=== PATIENT | female | born 1940 | race Caucasian/White ===

== ENCOUNTER 2016-08-07 05:21 | Inpatient (IN) | payer OTHER, MEDICARE ==
[~2016-08-07] VITALS: Ht 170.2 cm; Wt 69.4 kg
[~2016-08-07 05:21] MED LIST: ALIGN4 MG PO; AMIODARONE200 MG PO; ASPIRIN CHILDRE81 MG PO; ATORVASTATIN CA20 MG PO; CARDIZEM 180 M180 MG PO; CITRUCEL WITH500 MG PO; CLOBETASOL0.05 %/60 TOP; COLACE100 MG PO; DILANTIN ER 10100 MG PO; DILTIAZEM120 MG PO; ELIQUIS5 MG PO; FISH OIL1000 MG PO; MAGNESIUM OXID400 MG PO; MULTIVITAMIN1 TAB PO; NASONEX0.05 MG/Ac NASB; OS-CAL 500 + D1 TAB PO; PATANASE0.6% NASB; PRILOSEC20 MG PO; RESTASIS0.05% OPH; SYSTANE LUBRICAN5 ML OPH; SYSTANE0.3% OPH; TOPROL XL 50MG50 MG PO; TYLENOL 8 HOUR650 MG PO; VITAMIN D31000 I1 PO
--- NOTE | 2016-08-07 05:35 | ED GI/GU/ABDOMINAL COMPLAINT ---
History of Present Illness General Chief Complaint: Abdominal Pain/Flank Pain Stated Complaint: ABD PAIN,FEELS LIKE GOT RUN OVER BY TRUCK PER PT Source: patient, old records, EMS Exam Limitations: no limitations Vital Signs & Intake/Output Vital Signs & Intake/Output Vital Signs Date Time Temp Pulse Resp B/P Pulse O2 O2 Flow FiO2 Ox Delivery Rate 08/08 0916 97 123/78 08/08 0916 97 123/78 08/08 0809 97.3 97 18 123/78 92 Room Air 08/08 0604 81 116/70 08/07 2217 98.6 95 22 112/80 91 Room Air 08/07 205 95 112/80 08/07 205 95 112/80 08/07 205 95 112/80 08/07 1718 Room Air 08/07 1651 98.6 88 12 116/61 94 Room Air 08/07 1436 97.1 78 18 114/63 93 Room Air 08/07 1214 103 16 114/74 94 Room Air ED Intake and Output 08/08 0000 08/07 1200 Intake Total 1060 Output Total 980 Balance 80 Intake, IV 1000 Intake, Oral 0 Intake, Other 60 Number 0 Bowel Movements Output, 980 Gastric Drainage Patient 153 lb 127 lb Weight Allergies Coded Allergies: NSAIDS (Non-Steroidal Anti-Inflamma (UNKNOWN 08/07/16) carisoprodol (From Soma) (UNKNOWN 08/07/16) celecoxib (From Celebrex) (UNKNOWN 08/07/16) diclofenac (From Voltaren) (UNKNOWN 08/07/16) ibandronate sodium (UNKNOWN 08/07/16) nitrofurantoin (From Macrobid) (UNKNOWN 08/07/16) oxymetazoline (From Afrin (oxymetazoline)) (UNKNOWN 08/07/16) Reconcile Medications Acetaminophen (Tylenol 8 Hour) [address] 1 TAB PO AD PRN PAIN (Reported) Amiodarone Hydrochloride (Amiodarone) 200 MG TAB 1 TAB PO BID AFIB (Reported) Apixaban (Eliquis) 5 MG TABLET 1 TAB PO BID atrial fibrillation Aspirin (Children's Aspirin) 81 MG TAB.CHEW 1 TAB PO DAILY HEART HEALTH ( Reported) Atorvastatin Calcium (Lipitor) 20 MG TABLET 1 TAB PO DAILY cholesterol ( Reported) Bifidobacterium Infantis (Align) 4 MG (1 BILLION CELL) CAPSULE 1 CAP PO DAILY supplement (Reported) CALCIUM CARBONATE/VITAMIN D3 (Os-Vinicius 500+D3 Caplet) 500 MG-200 TABLET 1 TAB PO BID SUPPLEMENT (Reported) CHOLECALCIFEROL (VITAMIN D3) (Vitamin D3) 1,000 UNIT CAPSULE 1 SGL PO DAILY supplement (Reported) Clobetasol Propionate (Clobetasol Propionate 0.05% 60GM (CREAM)) 0.05 %/60 GM CRM 1 JAROD TOP AD PRN SKIN (Reported) apply to affected area(s) Cyclosporine (Restasis) 0.05 % DROPERETTE 1 GTT OPH Q12 dry eye (Reported) Diltiazem Cd (Cardizem 180 MG Cd Cap) 120 MG CAP.ER.24H 1 CAP PO DAILY atrial fibrillation Docusate Sodium (Colace) 100 MG CAPSULE 1 CAP PO DAILY constipation (Reported ) Hypromellose (Systane Gel) 0.3 % GEL..GRAM. 1 GTT OPH TID EYES (Reported) Magnesium Oxide 400 MG TABLET 1 TAB PO DAILY supplement (Reported) Methylcellulose (Citrucel) 500 MG TABLET 1 TAB PO BID supplement (Reported) Metoprolol Succ XL (Toprol Xl 50MG Tab) 50 MG TAB.ER.24H 1 TAB PO DAILY blood pressure (Reported) Mometasone Furoate (Nasonex) 0.05 MG/Actuation SPR 1 SPRAY NASB DAILY nasal congestion (Reported) Multivitamin (Multiple Vitamins) 1 EACH TABLET 1 TAB PO DAILY supplement ( Reported) OLOPATADINE HCL (Patanase) 0.6 % SPRAY.PUMP 2 SPRAY NASB BID nasal congestion (Reported) OMEGA-3/DHA/EPA/FISH OIL ([place]-3 Fish Oil 1,000 MG Sftg) 300 MG-1,000 MG CAPSULE 2 SGL PO DAILY supplement (Reported) Omeprazole (Prilosec) 20 MG ECC 1 CAP PO DAILY AC GI (Reported) Peg-400/Propylene Glycol (Systane Lubricant Eye Drops 0.4%-0.3% 5 Ml) 5 ML BRADLEY 1 GTT OPH TID dry eye (Reported) Phenytoin (Dilantin ER 100MG Cap) 100 MG CAP 1 CAP PO TID SEIZURES (Reported) Triage Nurses Notes Reviewed? yes ? N Is pt currently ? No HPI: Patient presents with epigastric crampy pain that started last evening. Patient states the pain has been so intense she has been unable to sleep. Patient cannot find a position of comfort. Positive nausea but no vomiting. No aggravating or mitigating factors. The pain radiates into the right lower quadrant. The pain is constant. Patient rates the pain at 7 out of 10. (GEORGE CLEMENT,NEERAJ Bush) Past History Travel History Traveled to [place] past 21 day No Medical History Any Pertinent Medical History? 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 No (GEORGE CLEMENT,NEERAJ Bush) Review of Systems Review of Systems Constitutional: Reports: no symptoms. EENTM: Reports: no symptoms. Respiratory: Reports: no symptoms. Cardiovascular: Reports: no symptoms. GI: Reports: see HPI, abdominal pain, bloating, nausea. Genitourinary: Reports: no symptoms. Musculoskeletal: Reports: no symptoms. Skin: Reports: no symptoms. Neurological/Psychological: Reports: no symptoms. Hematologic/Endocrine: Reports: no symptoms. Immunologic/Allergic: Reports: no symptoms. All Other Systems: Reviewed and Negative (NEERAJ VAZQUEZ MD) Physical Exam Physical Exam General Appearance: well developed/nourished, alert, awake Head: atraumatic Eyes: Bilateral: PERRL, EOMI. Ears, Nose, Throat, Mouth: hearing grossly normal, DRY MUCOSA Neck: normal inspection, supple, full range of motion Respiratory: normal breath sounds, chest non-tender, no respiratory distress, lungs clear Cardiovascular: regular rate/rhythm, irregularly irregular Gastrointestinal: normal bowel sounds, soft, non-tender, tenderness (RUQ) Back: normal inspection, normal range of motion Extremities: normal range of motion Neurologic/Psych: no motor/sensory deficits, awake, alert, oriented x 3, normal mood/affect Skin: intact, normal color, warm/dry Core Measures ACS in differential dx? No Severe Sepsis Present: No Septic Shock Present: No (GEORGE CLEMENT,NEERAJ Bush) Physical Exam Gastrointestinal: tenderness (YANICK CLEMENT,NIRMALA Jaimes) Progress Differential Diagnosis: AAA, AMI, appendicitis, biliary colic, bowel obstruction , cholecystitis, diverticulitis, gastritis, hepatitis, ischemic bowel, inflamm bowel dis, pancreatitis, PUD/GERD, SBO, UTI/pyelo Plan of Care: Orders Procedure Date/time Status MAGNESIUM 08/09 06 Active CBC WITHOUT DIFFERENTIAL 08/09 0600 Active BASIC ELECTROLYTES PLUS BUN&CR 08/09 0600 Active CBC WITHOUT DIFFERENTIAL 08/08 0600 Complete BASIC ELECTROLYTES PLUS BUN&CR 08/08 0600 Complete [id number] VIEWS 08/08 UNK Active Nothing by Mouth 08/07 D Active Vital Signs 08/07 1718 Active Teach/Educate 08/07 1718 Active Nutritional Intake, Monitor 08/07 1718 Active Isolation 08/07 1718 Active Intake & Output 08/07 1718 Active Patient Care Conference 08/07 1718 Active Activity/Ambulation 08/07 1718 Active Admit to inpatient 08/07 1342 Active Pathway - chart 08/07 1319 Active Patient Data 08/07 1319 Active Code Status 08/07 1319 Active Intake & Output 08/07 0628 Active VTE Mechanical Prophylaxis 08/07 UNK Active Telemetry/Calendering Supervisor 08/07 UNK Active Current Medications Sig/Rosalia Start time Last Medication Dose Stop Time Status Admin Diltiazem HCl 120 MG DAILY 08/08 1000 CAN (Cardizem CD) Metoprolol Succinate 50 MG DAILY 08/08 1000 CAN (Toprol Xl) Phenytoin 100 MG TID 08/07 1600 CAN (Dilantin ER) Ondansetron HCl 4 MG Q8P PRN 08/07 1300 AC (Zofran) Laboratory Tests 08/08/16 0822: CBC w Diff NO MAN DIFF REQ, RBC 4.53, MCV 97.7, MCH 32.7 H, RDW 14.1, MPV 9.1, Gran % 76.5 H, Lymphocytes % 10.1 L, Monocytes % 12.5 H, Eosinophils % 0.7, Basophils % 0.2, Absolute Granulocytes 3.0, Absolute Lymphocytes 0.4 L, Absolute Monocytes 0.5, Absolute Eosinophils 0, Absolute Basophils 0, PUBS MCHC 33.5 08/08/16 0600: Anion Gap 8, Estimated GFR > 60, BUN/Creatinine Ratio 25.0 08/07/16 1545: Urinalysis MANY H, Urine Color YEL, Urine Clarity HAZY H, Urine pH 7.0, Ur Specific [place] 1.010, Urine Protein TRACE H, Urine Ketones NEG, Urine Nitrite NEG, Urine Bilirubin NEG, Urine Urobilinogen 0.2, Ur Leukocyte Esterase NEG, Ur Microscopic SEDIMENT EXAMINED, Urine RBC 5-10 H, Urine WBC RARE, Ur Epithelial Cells FEW, Urine Bacteria FEW H, Urine Hemoglobin MOD H, Urine Glucose NEG Pre-Hospital EKG: AFIB, nonspecific ST T wave chg Initial ED EKG: AFIB, nonspecific ST T wave chg Prior EKG: unchanged Repeat EKG: unchanged Rhythm Strip: atrial fibrillation Hand-Off Endorsed To: YANICK CLEMENT,NIRMALA Jaimes Endorsed Time: 0700 Pending: CT (GEORGE CLEMENT,NEERAJ Bush) Comments: 08/07/2016 7:09:23 AM patient signed out to me by Dr. Vazquez at shift change coordinator. 08/07/2016 8:47:11 AM I was asked to evaluate Jenifer a short time ago because she felt lightheaded and dizzy and became quite pale when attempting to use a bedside commode. She was lying in bed with the head at about 30 upon my arrival. She was laid flat and given a fluid bolus. She was hypotensive at the time. I have just reevaluated her and she has no specific complaints. Heart rate and blood pressure and oxygen saturations are normal. Awaiting CAT scan report. 08/07/2016 8:50:06 AM ACUTE ON CHRONIC DISTAL SBO PER RADIOLOGIST. GB IS DISTENDED WITH NO OTHER SIG FINDINGS. DIVERTICULOSIS. 08/07/2016 9:29:13 AM case discussed with surgical PA. 08/07/2016 12:03:48 PM surgical PA at bedside while NG tube is being placed by nursing. Chong Thomas MD has yet to authorize this patient's admissioN. Awaiting confirmation of admission disposition. (YANICK CLEMENT,NIRMALA Jaimes) Departure Departure Disposition: STILL A PATIENT Condition: Stable Clinical Impression Primary Impression: Upper abdominal pain, unspecified Referrals: WENDY CLEMENT,MONA (PCP/Family) Departure Forms: Customer Survey General Discharge Information (GEORGE CLEMENT,NEERAJ Bush) Admission Note Spoke With: ANNETTE CLEMENT,CHONG Talbert Documentation of Exam: Documentation of any treatments & extenuating circumstances including Concerns Regarding Discharge (functional status, medication knowledge or non-compliance, living conditions, etc.) that warrant an admission rather than observation: pt has a small bowel obstruction placing her at high risk of vomitting abdominal pain perforation peritonitis sepsis and . she must be kept npo to rest the bowels, placing her at high risk of dehydration,volume depletion and hypotension. she requires close clinical monitoring of vitals and abd exam. if pts condition worsens, surgical intervention should be considered. pt therefor cannot be treated adequately as an outpt. given her age and medical comorbidities i feel she will require a multiple day hospitalization. (YANICK CLEMENT,NIRMALA Jaimes)
[2016-08-07 06:10] LABS: ABSOLUTE BASOPHIL COUNT 0 /CUMM (0.0-0.2); ABSOLUTE EOSINOPHIL COUNT 0 /CUMM (0.0-0.7); ABSOLUTE GRANULOCYTE CT 6.8 /CUMM (1.4-6.5); ABSOLUTE LYMPH COUNT 0.5 /CUMM (1.2-3.4); ABSOLUTE MONOCYTE COUNT 0.4 /CUMM (0.10-0.60); BASOPHIL % 0.4 % (0.0-2.0); EOSINOPHIL % 0.6 % (0-5); GRANULOCYTE % 87.4 % (42.2-75.2); HEMATOCRIT 48.2 % (37-47); MEAN CORPUSCULAR HGB 32.6 PG (27.0-31.0); MEAN CORPUSCULAR HGB CONC 33.6 G/DL (33.0-37.0); MEAN PLATELET VOLUME 8.8 FL (7.4-10.4); PLATELET COUNT 174 /CUMM (130-400); RBC DISTRIBUTION WIDTH 13.7 % (11.5-14.5); RED BLOOD CELL CT 4.97 /CUMM (4.20-5.40); WHITE BLOOD CELL COUNT 7.8 /CUMM (4.8-10.8)
--- NOTE | 2016-08-07 09:06 | CT SCAN REPORT ---
EXAMINATION: CT ABDOMEN AND PELVIS WITH CONTRAST CLINICAL INFORMATION: 76-year-old female presented with epigastric abdominal pain, suspected pancreatitis, biliary colic, diverticulitis. COMPARISON: CT of the abdomen and pelvis done on 01/07/2015. Radiographs of the left hip done on 10/15/2006. TECHNIQUE: Multidetector volumetric imaging was performed of the abdomen and pelvis before and after the IV administration of 98 mL of Optiray 320 intravenous contrast. Sagittal and coronal reformatted images were obtained on the technologist's workstation. DLP: 355.2 mGy-cm FINDINGS: LUNG BASES: Mild hypoventilatory changes are noted. There is cardiomegaly present. LIVER, GALLBLADDER, AND BILIARY TREE: The liver is normal in size, shape, and attenuation. No focal hepatic lesion or biliary ductal dilatation is present. The gallbladder is markedly distended without evidence of any wall thickening, gallstone or inflammatory changes, likely physiologic. PANCREAS: Unremarkable. SPLEEN: Unremarkable. ADRENAL GLANDS: Unremarkable. KIDNEYS AND URETERS: The kidneys are normal in size, shape, and attenuation. No hydronephrosis, hydroureter, or calculi seen. No perinephric stranding. BLADDER: Unremarkable. GASTROINTESTINAL TRACT: The stomach is moderately distended. There is a small sliding hiatal hernia present. The large bowel loops are decompressed. Colonic diverticulosis-related changes are present. The proximal, mid to distal small bowel loops are markedly distended with multilevel air-fluid levels. Specific note is made of a tortuous fecalized small bowel loop seen within the mid to inferior right lateral, posterior hemipelvis with a short sharp zone of transition seen at the level of the right mid hemipelvis (see the redmond images). Distal few centimeters of the ileum including the terminal ileum appeared decompressed beyond the zone of transition (see the redmond images). The findings are consistent with acute on chronic distal small bowel obstruction. Specific note is made of absence of air within the wall of the bowel loops or any mesenteric or portal venous gas or free intraperitoneal air. Note is, however, made of presence of [id number] amount of free fluid within the dependent part of the pelvis and also small amount of free fluid around the liver and at the hepatorenal space. ABDOMINAL WALL: No significant hernia is appreciated. LYMPH NODES: Normal. VASCULAR: Unremarkable. PELVIC VISCERA: There is no pelvic mass present. [id number] amount of free fluid is noted within the pelvis. There is no free air present. OSSEOUS STRUCTURES: Focal area of intramedullary sclerotic lesion is noted within the included visualized proximal part of the left intertrochanteric region of the femur, may represent a bone island, bone infarct, etc. Appears stable since 10/15/2006, consistent with benign pathology. Moderate diffuse osteopenia, mild scoliosis and mild multilevel degenerative spondylosis-related changes are noted. IMPRESSION: 1. Compared to most recent prior CT of the abdomen and pelvis done on 01/07/2015, interval development of distal acute on chronic small bowel obstruction present, as described above. Note is also made of [id number] amount of free fluid within the pelvis and small amount of fluid around the liver. The gallbladder appears distended without any CT features of acute cholecystitis or biliary obstruction, likely represent physiologic changes. 2. Stable colonic diverticulosis. 3. No other significant change since the prior study. This critical result was discussed with Dr. Braulio Wiley at 8:48 AM on 08/07/2016 and it was ascertained that the content and urgency of the report was understood at the time of direct communication.
--- NOTE | 2016-08-07 12:57 | RADIOLOGY REPORT ---
EXAMINATION: XR PORTABLE CHEST CLINICAL INFORMATION: Nausea and abdominal pain. NG tube placement. COMPARISON: 07/05/2015 TECHNIQUE: Portable AP view of the chest was obtained. FINDINGS: Cardiac leads overlie the chest. The enteric tube extends into the stomach, terminating along the greater curvature of the body. The lungs are well expanded. There is linear bibasilar atelectasis. No pleural effusion or pneumothorax. The cardiomediastinal silhouette is within normal limits. No acute osseous abnormality. IMPRESSION: Enteric tube terminating in the stomach. Bibasilar subsegmental atelectasis.
--- NOTE | 2016-08-07 13:23 | Admission Core Measures ---
Admission Lab Results I reviewed the following labs: Laboratory Tests 08/07 0558 Chemistry Sodium (137 - 145 mmol/L) 139 Potassium (3.5 - 5.1 mmol/L) 4.6 Chloride (98 - 107 mmol/L) 99 Carbon Dioxide (22 - 30 mmol/L) 31 H Anion Gap (5 - 16) 9 BUN (7 - 17 mg/dL) 11 Creatinine (0.5 - 1.0 mg/dL) 0.6 Estimated GFR (>60 ml/min) > 60 BUN/Creatinine Ratio (7 - 25 %) 18.3 Glucose (65 - 99 mg/dL) 114 H Calcium (8.4 - 10.2 mg/dL) 10.4 H Total Bilirubin (0.2 - 1.3 mg/dL) 0.6 AST (14 - 36 U/L) 35 ALT (9 - 52 U/L) 43 Alkaline Phosphatase (<127 U/L) 155 H Troponin I (< 0.11 ng/ml) < 0.01 Total Protein (6.3 - 8.2 g/dL) 7.7 Albumin (3.5 - 5.0 g/dL) 4.4 Globulin (1.9 - 4.2 gm/dL) 3.3 Albumin/Globulin Ratio (1.1 - 2.2 %) 1.3 Amylase (30 - 110 U/L) 32 Lipase (23 - 300 U/L) 55 Hematology CBC w Diff MAN DIFF ORDERED WBC (4.8 - 10.8 /CUMM) 7.8 RBC (4.20 - 5.40 /CUMM) 4.97 Hgb (12.0 - 16.0 G/DL) 16.2 H Hct (37 - 47 %) 48.2 H MCV (81.0 - 99.0 FL) 97.0 MCH (27.0 - 31.0 PG) 32.6 H RDW (11.5 - 14.5 %) 13.7 Plt Count (130 - 400 /CUMM) 174 MPV (7.4 - 10.4 FL) 8.8 Gran % (42.2 - 75.2 %) 87.4 H Lymphocytes % (20.5 - 51.1 %) 6.4 L Monocytes % (1.7 - 9.3 %) 5.2 Eosinophils % (0 - 5 %) 0.6 Basophils % (0.0 - 2.0 %) 0.4 Absolute Granulocytes (1.4 - 6.5 /CUMM) 6.8 H Absolute Lymphocytes (1.2 - 3.4 /CUMM) 0.5 L Absolute Monocytes (0.10 - 0.60 /CUMM) 0.4 Absolute Eosinophils (0.0 - 0.7 /CUMM) 0 Absolute Basophils (0.0 - 0.2 /CUMM) 0 Platelet Estimate (ADEQUATE) ADEQUATE Normocytic RBCs VERIFIED Normochromic RBCs VERIFIED PUBS MCHC (33.0 - 37.0 G/DL) 33.6 Admission Meds I reviewed the following Meds: Current Medications Sig/Rosalia Start time Last Medication Dose Stop Time Status Admin Acetaminophen 1,000 MG Q6P PRN 08/07 1330 UNVr (Ofirmev) N/A 1 UNIT (No Carrier) Dextrose/Sodium 1,000 ML .Q10H 08/07 1300 UNVr Chloride (D5-Normal Saline) Morphine Sulfate 2 MG Q4P PRN 08/07 1315 UNVr (Morphine) Ondansetron HCl 4 MG Q8P PRN 08/07 1300 UNVr (Zofran) Acute Coronary Syndrome Inclusion Criteria ACS Diagnosis No Inpatient Core Measures LDL Reminder: If No, please order W/I first 24hr of stay Congestive Heart Failure Inclusion Criteria CHF Diagnosis No Cerebrovascular accident Inclusion Criteria CVA/TIA Diagnosis No Inpatient Core Measures Bedside Swallow Eval Reminder: If BSE failed, place ST order Antithrombotic Reminder: Order Antithrombotic Medication by end of day 2 Antithrombotic Reminder: Document Reason Antithrombotic Not ordered by end of day 2 AFIB/Flutter Reminder: If Present, add to problem list AFIB/Flutter Reminder: Order Anticoag Medication for pts with AFIB/Flutter Atherosclerosis Reminder: If Present, add to problem list LDL Reminder: If No, please order W/I first 24hr of stay PT Order Reminder: If No, please order Venous thromboembolism Inpatient Core Measures VTE Risk Factors: Age > 40 VTE Prophylaxis Ordered Inpt Mechanical (AL[facility]TEDS) [facility]/t No contraindications No VTE Pharm Prophylaxis d/t No contraindications Inclusion Criteria - Per Current guidelines, there needs to be overlap - treatment for the first 5 days of Warfarin therapy. - Parenteral Anticoagulation (IV or SC) needs to be - given along with Warfarin therapy. VTE Diagnosis No VTE Type NONE VTE Confirmed by (Test) NONE Problem List As ranked by this Provider includes Assessment & Plan 1. Upper abdominal pain, unspecified HOME MEDS Home Med List Acetaminophen (Tylenol 8 Hour) [address] 1 TAB PO AD PRN PAIN (Reported) Amiodarone Hydrochloride (Amiodarone) 200 MG TAB 1 TAB PO BID AFIB (Reported) Apixaban (Eliquis) 5 MG TABLET 1 TAB PO BID atrial fibrillation Aspirin (Children's Aspirin) 81 MG TAB.CHEW 1 TAB PO DAILY HEART HEALTH ( Reported) Atorvastatin Calcium (Lipitor) 20 MG TABLET 1 TAB PO DAILY cholesterol ( Reported) Bifidobacterium Infantis (Align) 4 MG (1 BILLION CELL) CAPSULE 1 CAP PO DAILY supplement (Reported) CALCIUM CARBONATE/VITAMIN D3 (Os-Vinicius 500+D3 Caplet) 500 MG-200 TABLET 1 TAB PO BID SUPPLEMENT (Reported) CHOLECALCIFEROL (VITAMIN D3) (Vitamin D3) 1,000 UNIT CAPSULE 1 SGL PO DAILY supplement (Reported) Clobetasol Propionate (Clobetasol Propionate 0.05% 60GM (CREAM)) 0.05 %/60 GM CRM 1 JAROD TOP AD PRN SKIN (Reported) Cyclosporine (Restasis) 0.05 % DROPERETTE 1 GTT OPH Q12 dry eye (Reported) Diltiazem Cd (Cardizem 180 MG Cd Cap) 120 MG CAP.ER.24H 1 CAP PO DAILY atrial fibrillation Docusate Sodium (Colace) 100 MG CAPSULE 1 CAP PO DAILY constipation (Reported ) Hypromellose (Systane Gel) 0.3 % GEL..GRAM. 1 GTT OPH TID EYES (Reported) Magnesium Oxide 400 MG TABLET 1 TAB PO DAILY supplement (Reported) Methylcellulose (Citrucel) 500 MG TABLET 1 TAB PO BID supplement (Reported) Metoprolol Succ XL (Toprol Xl 50MG Tab) 50 MG TAB.ER.24H 1 TAB PO DAILY blood pressure (Reported) Mometasone Furoate (Nasonex) 0.05 MG/Actuation SPR 1 SPRAY NASB DAILY nasal congestion (Reported) Multivitamin (Multiple Vitamins) 1 EACH TABLET 1 TAB PO DAILY supplement ( Reported) OLOPATADINE HCL (Patanase) 0.6 % SPRAY.PUMP 2 SPRAY NASB BID nasal congestion (Reported) OMEGA-3/DHA/EPA/FISH OIL ([place]-3 Fish Oil 1,000 MG Sftg) 300 MG-1,000 MG CAPSULE 2 SGL PO DAILY supplement (Reported) Omeprazole (Prilosec) 20 MG ECC 1 CAP PO DAILY AC GI (Reported) Peg-400/Propylene Glycol (Systane Lubricant Eye Drops 0.4%-0.3% 5 Ml) 5 ML BRADLEY 1 GTT OPH TID dry eye (Reported) Phenytoin (Dilantin ER 100MG Cap) 100 MG CAP 1 CAP PO TID SEIZURES (Reported)
--- NOTE | 2016-08-07 18:58 | History & Physical Pre-Op ---
General Information and HPI History of Present Illness: CC: abdominal pain HPI: 76-year-old nondiabetic ex-smoker with a history of a hysterectomy, on Eliquis for atrial fibrillation actually planning a cardioversion next week by cardiology, says she hasn't had any abdominal or intestinal issues until last night started with nausea but nio vomiting, and bloating. Epigastric pain constant doesn't radiate no dysuria, it is somewhat relieved after NG tube was placed, she thinks it was because of the quiche she ate. They are are small she had four of them. Patient denies any recent straining or heavy lifting. She also has a history of constipation. Otherwise no changes bowel habits, weight or appetite. I've reviewed the PFS. No history of GERD, PUD, bleeding problems, heart disease or issues with anesthesia. FHx mother had brain tumor, Father Hx of Alzeimers, no GI cancers. Allergies/Medications Allergies: Coded Allergies: NSAIDS (Non-Steroidal Anti-Inflamma (UNKNOWN 08/07/16) carisoprodol (From Soma) (UNKNOWN 08/07/16) celecoxib (From Celebrex) (UNKNOWN 08/07/16) diclofenac (From Voltaren) (UNKNOWN 08/07/16) ibandronate sodium (UNKNOWN 08/07/16) nitrofurantoin (From Macrobid) (UNKNOWN 08/07/16) oxymetazoline (From Afrin (oxymetazoline)) (UNKNOWN 08/07/16) Home Med list Acetaminophen (Tylenol 8 Hour) [address] 1 TAB PO AD PRN PAIN (Reported) Amiodarone Hydrochloride (Amiodarone) 200 MG TAB 1 TAB PO BID AFIB (Reported) Apixaban (Eliquis) 5 MG TABLET 1 TAB PO BID atrial fibrillation Aspirin (Children's Aspirin) 81 MG TAB.CHEW 1 TAB PO DAILY HEART HEALTH ( Reported) Atorvastatin Calcium (Lipitor) 20 MG TABLET 1 TAB PO DAILY cholesterol ( Reported) Bifidobacterium Infantis (Align) 4 MG (1 BILLION CELL) CAPSULE 1 CAP PO DAILY supplement (Reported) CALCIUM CARBONATE/VITAMIN D3 (Os-Vinicius 500+D3 Caplet) 500 MG-200 TABLET 1 TAB PO BID SUPPLEMENT (Reported) CHOLECALCIFEROL (VITAMIN D3) (Vitamin D3) 1,000 UNIT CAPSULE 1 SGL PO DAILY supplement (Reported) Clobetasol Propionate (Clobetasol Propionate 0.05% 60GM (CREAM)) 0.05 %/60 GM CRM 1 JAROD TOP AD PRN SKIN (Reported) apply to affected area(s) Cyclosporine (Restasis) 0.05 % DROPERETTE 1 GTT OPH Q12 dry eye (Reported) Diltiazem Cd (Cardizem 180 MG Cd Cap) 120 MG CAP.ER.24H 1 CAP PO DAILY atrial fibrillation Docusate Sodium (Colace) 100 MG CAPSULE 1 CAP PO DAILY constipation (Reported ) Hypromellose (Systane Gel) 0.3 % GEL..GRAM. 1 GTT OPH TID EYES (Reported) Magnesium Oxide 400 MG TABLET 1 TAB PO DAILY supplement (Reported) Methylcellulose (Citrucel) 500 MG TABLET 1 TAB PO BID supplement (Reported) Metoprolol Succ XL (Toprol Xl 50MG Tab) 50 MG TAB.ER.24H 1 TAB PO DAILY blood pressure (Reported) Mometasone Furoate (Nasonex) 0.05 MG/Actuation SPR 1 SPRAY NASB DAILY nasal congestion (Reported) Multivitamin (Multiple Vitamins) 1 EACH TABLET 1 TAB PO DAILY supplement ( Reported) OLOPATADINE HCL (Patanase) 0.6 % SPRAY.PUMP 2 SPRAY NASB BID nasal congestion (Reported) OMEGA-3/DHA/EPA/FISH OIL ([place]-3 Fish Oil 1,000 MG Sftg) 300 MG-1,000 MG CAPSULE 2 SGL PO DAILY supplement (Reported) Omeprazole (Prilosec) 20 MG ECC 1 CAP PO DAILY AC GI (Reported) Peg-400/Propylene Glycol (Systane Lubricant Eye Drops 0.4%-0.3% 5 Ml) 5 ML BRADLEY 1 GTT OPH TID dry eye (Reported) Phenytoin (Dilantin ER 100MG Cap) 100 MG CAP 1 CAP PO TID SEIZURES (Reported) Past History Medical History Blood Transfusion Hx: No Neurological: BLACKOUTS IN THE 60S EENT: DEVIATED SEPTUM Cardiovascular: AFIB, MITRAL STENOSIS Respiratory: obstructive sleep apnea (CPAP) Gastrointestinal: ACID REFLUX Hepatic: NONE Renal: NONE Musculoskeletal: ARTHRITIS Psychiatric: NONE Endocrine: NONE Blood Disorders: NONE Cancer(s): 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 Home Services at Home None Smoking Status: Never Smoked ETOH Use: denies use Illicit Drug Use: denies illicit drug use Functional Ability ADLs Independent: dressing, eating, toileting, bathing. Ambulation: independent IADLs Independent: shopping, housework, finances, food prep, telephone, transportation , medication admin. Review of Systems Review of Systems: Constitutional: No fever, sweats or weight loss ENMT: No sore throat Cardiovascular: No chest pain, palpitations or leg swelling Respiratory: No shortness of breath, cough, or sputum or dyspnea on exertion GI: No GERD or bleeding per rectum : No dysuria or hematuria Musculoskeletal: No new muscle weakness, bone or joint pain Skin / Breast: No jaundice, rashes or itching Psychiatric: No history of drug or alcohol abuse no depression or anxiety Hematologic / lymphatic system: No problems with excessive bleeding, bruising, or blood clots Exam & Diagnostic Data Last 24 Hrs of Vital Signs/I&O I reviewed Vital Signs Date Time Temp Pulse Resp B/P Pulse O2 O2 Flow FiO2 Ox Delivery Rate 08/07 1718 Room Air 08/07 1651 98.6 88 12 116/61 94 Room Air 08/07 1436 97.1 78 18 114/63 93 Room Air 08/07 1214 103 16 114/74 94 Room Air 08/07 1021 96.8 104 20 130/80 99 Room Air 08/07 0829 97 20 116/66 100 Nasal 2.0L Cannula 08/07 0727 97.0 77 20 105/77 98 Room Air 08/07 0540 Nasal 2.0L Cannula 08/07 0524 96.7 96 20 121/74 97 Room Air I reviewed Intake & Output 08/07 1600 08/07 0800 08/07 0000 Intake Total Output Total 300 Balance -300 Output, 300 Gastric Drainage Patient 127 lb Weight Physical Exam: Constitutional: thin, pleasant, no acute distress, conversant Eyes: sclera anicteric ENMT: ears and nose atraumatic, moist mucous membranes, good dentition, no lip lesions Neck: Supple, trachea is midline, no cervical or supraclavicular adenopathy and no palpable thyromegaly Cardiovascular: S1, S2, no murmurs, no peripheral edema Respiratory: clear to auscultation with normal respiratory effort and no intercostal retractions GI: abdomen soft, nontender, sl distended, no palpable hepatosplenomegaly Extremities / lymphatics: symmetrically warm, free range of motion no peripheral edema, no cervical, supraclavicular, axillary, or inguinal adenopathy Musculoskeletal: Did not evaluate gait and station, no digital cyanosis, good muscle strength and tone no atrophy, motor grossly 5 out of 5 throughout Skin: no jaundice, no rashes warm, nondiaphoretic, no areas of erythema or induration Psychiatric: mood and affect are appropriate and alert and oriented to person place and time Last 24 Hrs of Labs/Storm: I reviewed Laboratory Tests 08/07/16 1545: Urinalysis MANY H, Urine Color YEL, Urine Clarity HAZY H, Urine pH 7.0, Ur Specific [place] 1.010, Urine Protein TRACE H, Urine Ketones NEG, Urine Nitrite NEG, Urine Bilirubin NEG, Urine Urobilinogen 0.2, Ur Leukocyte Esterase NEG, Ur Microscopic SEDIMENT EXAMINED, Urine RBC 5-10 H, Urine WBC RARE, Ur Epithelial Cells FEW, Urine Bacteria FEW H, Urine Hemoglobin MOD H, Urine Glucose NEG 08/07/16 0558: Anion Gap 9, Estimated GFR > 60, BUN/Creatinine Ratio 18.3, Glucose 114 H, Calcium 10.4 H, Total Bilirubin 0.6, AST 35, ALT 43, Alkaline Phosphatase 155 H, Troponin I < 0.01, Total Protein 7.7, Albumin 4.4, Globulin 3.3, Albumin/ Globulin Ratio 1.3, Amylase 32, Lipase 55, CBC w Diff MAN DIFF ORDERED, RBC 4.97 , MCV 97.0, MCH 32.6 H, RDW 13.7, MPV 8.8, Gran % 87.4 H, Lymphocytes % 6.4 L , Monocytes % 5.2, Eosinophils % 0.6, Basophils % 0.4, Absolute Granulocytes 6.8 H, Absolute Lymphocytes 0.5 L, Absolute Monocytes 0.4, Absolute Eosinophils 0, Absolute Basophils 0, Platelet Estimate ADEQUATE, Normocytic RBCs VERIFIED, Normochromic RBCs VERIFIED, PUBS MCHC 33.[address] scan on PACS myself and shows dilated small bowel with some distal fecalization, and some free fluid around the liver Assessment/Plan Assessment/Plan: Impression is small bowel obstruction presumably from adhesions from prior surgery, often exacerbated by an unusual meal high in fiber or chewy food, or even straining. In her there is some hints of possibly it being the meal. Given the significant cardiac history and the small chance that we may need to operate , will get a cardiology evaluation. In the meantime will treat in routine nonoperative fashion with bowel rest, NG tube for decompression, maintenance IV fluids and for the GI losses, monitor uo, electrolytes, vital signs, serial exams, labs, abdominal x-rays. Presently there are no peritoneal signs, if situation plateaus or worsens, especially if abdominal pain worsens in next 6-12 hours, might need urgent surgical intervention in the interest of bowel viability, but as I explained, most of the time it is not needed. Also we will hold Eliquis per cardiology started on a heparin drip. As Ranked By This Provider Problem List: 1. Small bowel obstruction 2. A-fib 3. Anticoagulated by anticoagulation treatment Attending MD Review Statement Attending Statement Attending MD Statement: examined this patient
[2016-08-07 22:17] VITALS: BP 112/80
--- NOTE | 2016-08-08 07:00 | PN- General Surgery ---
See Addendum Subjective Subjective: The patient was seen this morning. She reports still feeling uncomfortable and bloated but denies any current nausea. She has not passed flatus or have a bowel movement as of yet. She has no other complaints at the current time except for some mild heartburn. Objective Vital Signs and I&Os Vital Signs Date Time Temp Pulse Resp B/P Pulse O2 O2 Flow FiO2 Ox Delivery Rate 08/08 0604 81 116/70 08/07 2217 98.6 95 22 112/80 91 Room Air 08/07 2053 95 112/80 08/07 2053 95 112/80 08/07 2053 95 112/80 08/07 1718 Room Air 08/07 1651 98.6 88 12 116/61 94 Room Air 08/07 1436 97.1 78 18 114/63 93 Room Air 08/07 1214 103 16 114/74 94 Room Air 08/07 1021 96.8 104 20 130/80 99 Room Air 08/07 0829 97 20 116/66 100 Nasal 2.0L Cannula 08/07 0727 97.0 77 20 105/77 98 Room Air Intake & Output 08/08 0800 08/08 0000 08/07 1600 08/07 0800 08/07 0000 08/06 1600 Intake Total 875 1060 Output Total 410 680 300 Balance 465 380 -300 Intake, IV 800 1000 Intake, Oral 0 0 Intake, Other 75 60 Number 0 0 Bowel Movements Output, 60 680 300 Gastric Drainage Output, Urine 350 Patient 153 lb 127 lb Weight Physical Exam: Gen.: Alert and in obvious distress Skin: Warm and dry Abdomen: Softly distended, mild generalized tenderness without rebound or guarding, bowel sounds positive. Extremities: Bilateral lower extremities are warm without calf tenderness. Assessment/Plan Assessment/Plan Assessment: 76-year-old female with a small bowel obstruction who shows no signs of bowel function at the current time. Plan: Continue nothing by mouth and NG tube decompression Strict I's and O's IV hydration Follow-up morning laboratory studies and multiview Hold eliquis GI and DVT prophylaxis Add Protonix IV daily Follow-up cardiology consult recommendations Core Measures/Miscellaneous Venous Thromboembolism VTE Risk Factors: Age > 40 VTE Contraindications: No Contraindications VTE Prophylaxis Ordered Inpt Mechanical (ALPS/TEDS) VTE Diagnosis: No VTE Type: NONE VTE Confirmed by (Test): NONE Beta Reba Is Beta Reba a Home Med? Yes If Yes, Was This Ordered Today? Yes Antibiotics Is Patient on Antibiotics? No
[2016-08-08 08:09] VITALS: BP 123/78
[2016-08-08 09:12] LABS: ABSOLUTE BASOPHIL COUNT 0 /CUMM (0.0-0.2); ABSOLUTE EOSINOPHIL COUNT 0 /CUMM (0.0-0.7); ABSOLUTE LYMPH COUNT 0.4 /CUMM (1.2-3.4); ABSOLUTE MONOCYTE COUNT 0.5 /CUMM (0.10-0.60); BASOPHIL % 0.2 % (0.0-2.0); EOSINOPHIL % 0.7 % (0-5); GRANULOCYTE % 76.5 % (42.2-75.2); HEMATOCRIT 44.3 % (37-47); MEAN CORPUSCULAR HGB 32.7 PG (27.0-31.0); MEAN CORPUSCULAR HGB CONC 33.5 G/DL (33.0-37.0); MEAN CORPUSCULAR VOLUME 97.7 FL (81.0-99.0); MEAN PLATELET VOLUME 9.1 FL (7.4-10.4); PLATELET COUNT 154 /CUMM (130-400); RBC DISTRIBUTION WIDTH 14.1 % (11.5-14.5); RED BLOOD CELL CT 4.53 /CUMM (4.20-5.40)
--- NOTE | 2016-08-08 11:08 | Cons- Cardiology ---
General Information and HPI Consulting Request Date of Consult: 08/08/16 Requested By: ANNETTE CLEMENT,CHONG Talbert Reason for Consult: Atrial fibrillation Source of Information: patient, old records History of Present Illness: The patient is a 76-year-old white female who is well-known to me. The patient has a history of atrial fibrillation. She was cardioverted to sinus rhythm last year but subsequently reverted to atrial fibrillation. Historically, and currently, she has not tolerated the atrial fibrillation well. Her medications were readjusted and she was scheduled for an outpatient JUAN/cardioversion next week. Yesterday, the patient was admitted with evidence of bowel obstruction. At the present time, she is being monitored on telemetry for her atrial fibrillation and she is being managed conservatively by the surgical service. Unfortunately, she is nothing by mouth area her Ahlquist was held. She will be started on IV heparin later today. She will also likely need IV Cardizem for heart rate control once her oral Cardizem wears off. As soon is taking by mouth , she will be restarted on her oral medications. Plans for the outpatient cardioversion will depend on her clinical course while here in the hospital. Allergies/Medications Allergies: Coded Allergies: NSAIDS (Non-Steroidal Anti-Inflamma (UNKNOWN 08/07/16) carisoprodol (From Soma) (UNKNOWN 08/07/16) celecoxib (From Celebrex) (UNKNOWN 08/07/16) diclofenac (From Voltaren) (UNKNOWN 08/07/16) ibandronate sodium (UNKNOWN 08/07/16) nitrofurantoin (From Macrobid) (UNKNOWN 08/07/16) oxymetazoline (From Afrin (oxymetazoline)) (UNKNOWN 08/07/16) Home Med List: Acetaminophen (Tylenol 8 Hour) [address] 1 TAB PO AD PRN PAIN (Reported) Amiodarone Hydrochloride (Amiodarone) 200 MG TAB 1 TAB PO BID AFIB (Reported) Apixaban (Eliquis) 5 MG TABLET 1 TAB PO BID atrial fibrillation Aspirin (Children's Aspirin) 81 MG TAB.CHEW 1 TAB PO DAILY HEART HEALTH ( Reported) Atorvastatin Calcium (Lipitor) 20 MG TABLET 1 TAB PO DAILY cholesterol ( Reported) Bifidobacterium Infantis (Align) 4 MG (1 BILLION CELL) CAPSULE 1 CAP PO DAILY supplement (Reported) CALCIUM CARBONATE/VITAMIN D3 (Os-Vinicius 500+D3 Caplet) 500 MG-200 TABLET 1 TAB PO BID SUPPLEMENT (Reported) CHOLECALCIFEROL (VITAMIN D3) (Vitamin D3) 1,000 UNIT CAPSULE 1 SGL PO DAILY supplement (Reported) Clobetasol Propionate (Clobetasol Propionate 0.05% 60GM (CREAM)) 0.05 %/60 GM CRM 1 JAROD TOP AD PRN SKIN (Reported) apply to affected area(s) Cyclosporine (Restasis) 0.05 % DROPERETTE 1 GTT OPH Q12 dry eye (Reported) Diltiazem Cd (Cardizem 180 MG Cd Cap) 120 MG CAP.ER.24H 1 CAP PO DAILY atrial fibrillation Docusate Sodium (Colace) 100 MG CAPSULE 1 CAP PO DAILY constipation (Reported ) Hypromellose (Systane Gel) 0.3 % GEL..GRAM. 1 GTT OPH TID EYES (Reported) Magnesium Oxide 400 MG TABLET 1 TAB PO DAILY supplement (Reported) Methylcellulose (Citrucel) 500 MG TABLET 1 TAB PO BID supplement (Reported) Metoprolol Succ XL (Toprol Xl 50MG Tab) 50 MG TAB.ER.24H 1 TAB PO DAILY blood pressure (Reported) Mometasone Furoate (Nasonex) 0.05 MG/Actuation SPR 1 SPRAY NASB DAILY nasal congestion (Reported) Multivitamin (Multiple Vitamins) 1 EACH TABLET 1 TAB PO DAILY supplement ( Reported) OLOPATADINE HCL (Patanase) 0.6 % SPRAY.PUMP 2 SPRAY NASB BID nasal congestion (Reported) OMEGA-3/DHA/EPA/FISH OIL ([place]-3 Fish Oil 1,000 MG Sftg) 300 MG-1,000 MG CAPSULE 2 SGL PO DAILY supplement (Reported) Omeprazole (Prilosec) 20 MG ECC 1 CAP PO DAILY AC GI (Reported) Peg-400/Propylene Glycol (Systane Lubricant Eye Drops 0.4%-0.3% 5 Ml) 5 ML BRADLEY 1 GTT OPH TID dry eye (Reported) Phenytoin (Dilantin ER 100MG Cap) 100 MG CAP 1 CAP PO TID SEIZURES (Reported) Past History Travel History Traveled to [place] past 21 day No Medical History Blood Transfusion Hx: No Neurological: BLACKOUTS IN THE 60S EENT: DEVIATED SEPTUM Cardiovascular: AFIB, MITRAL STENOSIS Respiratory: obstructive sleep apnea (CPAP) Gastrointestinal: ACID REFLUX Hepatic: NONE Renal: NONE Musculoskeletal: ARTHRITIS Psychiatric: NONE Endocrine: NONE Blood Disorders: NONE 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 Home Services at Home: None Smoking Status: Never Smoked ETOH Use: denies use Illicit Drug Use: denies illicit drug use Functional Ability ADLs Independent: dressing, eating, toileting, bathing. Ambulation: independent IADLs Independent: shopping, housework, finances, food prep, telephone, transportation , medication admin. ECHO Results (as available) Report: CONCLUSIONS 1. Mild aortic sclerosis is present with no valvular stenosis or insufficiency. 2. Thickening and calcification of the mitral leaflets is present with diastolic doming of the anterior leaflet and fibrosis / mild fusion of the chordal structures. The anatomic findings are consistent with mild rheumatic changes. Mild mitral stenosis is present with minimal mitral insufficiency and mild to moderate left atrial dilatation. 3. A very small posterior pericardial effusion is present. 4. THe left ventricular chamber size and systolic function are normal. There are no obvious resting wall motion abnormalities. 5. The right heart chambers are upper normal in size. Minimal to mild tricuspid and pulmonic insufficiency are present with no evidence of pulmonary hypertension. 6. A small mobile echodensity is present on the left atrial aspect of the anterior mitral leaflet which may represent focal ruptured tertiary chords. Exam & Diagnostic Data Vital Signs and I&O Vital Signs Date Time Temp Pulse Resp B/P Pulse O2 O2 Flow FiO2 Ox Delivery Rate 08/08 0916 97 123/78 08/08 0916 97 123/78 08/08 0809 97.3 97 18 123/78 92 Room Air 08/08 0604 81 116/70 08/07 2216 98.6 95 22 112/80 91 Room Air 08/07 2053 95 112/80 08/07 2053 95 112/80 08/07 2053 95 112/80 08/07 1718 Room Air 08/07 1651 98.6 88 12 116/61 94 Room Air 08/07 1436 97.1 78 18 114/63 93 Room Air 08/07 1214 103 16 114/74 94 Room Air Intake & Output 08/08 1600 08/08 0808/08 0000 02/28 1600 08/07 0800 08/07 0000 Intake Total 875 1060 Output Total 410 680 300 Balance 465 380 -300 Intake, IV 800 1000 Intake, Oral 0 0 Intake, Other 75 60 Number 0 0 Bowel Movements Output, 60 680 300 Gastric Drainage Output, Urine 350 Patient 153 lb 127 lb Weight Physical Exam: Well-developed, thin, elderly female. No acute distress. Alert and oriented 3. HEENT: Normal Neck: Normal Chest: Clear bilaterally Heart: Irregular S1, S2. Rate controlled. 1 to 2/6 systolic murmur left sternal border Abdomen: Decreased bowel sounds Extremities: Normal Labs/Storm Results: Laboratory Tests 08/08 08/08 0822 0600 Chemistry Sodium (137 - 145 mmol/L) 140 Potassium (3.5 - 5.1 mmol/L) 4.4 Chloride (98 - 107 mmol/L) 104 Carbon Dioxide (22 - 30 mmol/L) 27 Anion Gap (5 - 16) 8 BUN (7 - 17 mg/dL) 15 Creatinine (0.5 - 1.0 mg/dL) 0.6 Estimated GFR (>60 ml/min) > 60 BUN/Creatinine Ratio (7 - 25 %) 25.0 Hematology CBC w Diff NO MAN DIFF REQ WBC (4.8 - 10.8 /CUMM) 4.0 L RBC (4.20 - 5.40 /CUMM) 4.53 Hgb (12.0 - 16.0 G/DL) 14.8 Hct (37 - 47 %) 44.3 MCV (81.0 - 99.0 FL) 97.7 MCH (27.0 - 31.0 PG) 32.7 H RDW (11.5 - 14.5 %) 14.1 Plt Count (130 - 400 /CUMM) 154 MPV (7.4 - 10.4 FL) 9.1 Gran % (42.2 - 75.2 %) 76.5 H Lymphocytes % (20.5 - 51.1 %) 10.1 L Monocytes % (1.7 - 9.3 %) 12.5 H Eosinophils % (0 - 5 %) 0.7 Basophils % (0.0 - 2.0 %) 0.2 Absolute Granulocytes (1.4 - 6.5 /CUMM) 3.0 Absolute Lymphocytes (1.2 - 3.4 /CUMM) 0.4 L Absolute Monocytes (0.10 - 0.60 /CUMM) 0.5 Absolute Eosinophils (0.0 - 0.7 /CUMM) 0 Absolute Basophils (0.0 - 0.2 /CUMM) 0 PUBS MCHC (33.0 - 37.0 G/DL) 33.5 08/07 08/07 1545 0558 Chemistry Sodium (137 - 145 mmol/L) 139 Potassium (3.5 - 5.1 mmol/L) 4.6 Chloride (98 - 107 mmol/L) 99 Carbon Dioxide (22 - 30 mmol/L) 31 H Anion Gap (5 - 16) 9 BUN (7 - 17 mg/dL) 11 Creatinine (0.5 - 1.0 mg/dL) 0.6 Estimated GFR (>60 ml/min) > 60 BUN/Creatinine Ratio (7 - 25 %) 18.3 Glucose (65 - 99 mg/dL) 114 H Calcium (8.4 - 10.2 mg/dL) 10.4 H Total Bilirubin (0.2 - 1.3 mg/dL) 0.6 AST (14 - 36 U/L) 35 ALT (9 - 52 U/L) 43 Alkaline Phosphatase (<127 U/L) 155 H Troponin I (< 0.11 ng/ml) < 0.01 Total Protein (6.3 - 8.2 g/dL) 7.7 Albumin (3.5 - 5.0 g/dL) 4.4 Globulin (1.9 - 4.2 gm/dL) 3.3 Albumin/Globulin Ratio (1.1 - 2.2 %) 1.3 Amylase (30 - 110 U/L) 32 Lipase (23 - 300 U/L) 55 Hematology CBC w Diff MAN DIFF ORDERED WBC (4.8 - 10.8 /CUMM) 7.8 RBC (4.20 - 5.40 /CUMM) 4.97 Hgb (12.0 - 16.0 G/DL) 16.2 H Hct (37 - 47 %) 48.2 H MCV (81.0 - 99.0 FL) 97.0 MCH (27.0 - 31.0 PG) 32.6 H RDW (11.5 - 14.5 %) 13.7 Plt Count (130 - 400 /CUMM) 174 MPV (7.4 - 10.4 FL) 8.8 Gran % (42.2 - 75.2 %) 87.4 H Lymphocytes % (20.5 - 51.1 %) 6.4 L Monocytes % (1.7 - 9.3 %) 5.2 Eosinophils % (0 - 5 %) 0.6 Basophils % (0.0 - 2.0 %) 0.4 Absolute Granulocytes (1.4 - 6.5 /CUMM) 6.8 H Absolute Lymphocytes (1.2 - 3.4 /CUMM) 0.5 L Absolute Monocytes (0.10 - 0.60 /CUMM) 0.4 Absolute Eosinophils (0.0 - 0.7 /CUMM) 0 Absolute Basophils (0.0 - 0.2 /CUMM) 0 Platelet Estimate (ADEQUATE) ADEQUATE Normocytic RBCs VERIFIED Normochromic RBCs VERIFIED PUBS MCHC (33.0 - 37.0 G/DL) 33.6 Urines Urinalysis MANY H Urine Color (YEL,AMB,STR) YEL Urine Clarity (CLEAR) HAZY H Urine pH (5.0 - 8.0) 7.0 Ur Specific [place] (1.001 - 1.035) 1.010 Urine Protein (NEG,<30 MG/DL) TRACE H Urine Ketones (NEG) NEG Urine Nitrite (NEG) NEG Urine Bilirubin (NEG) NEG Urine Urobilinogen (0.1 - 1.0 EU/dl) 0.2 Ur Leukocyte Esterase (NEG) NEG Ur Microscopic SEDIMENT EXAMINED Urine RBC (0 - 5 /HPF) 5-10 H Urine WBC (0 - 2 /HPF) RARE Ur Epithelial Cells (NONE,FEW) FEW Urine Bacteria (NEG/NONE) FEW H Urine Hemoglobin (NEG) MOD H Urine Glucose (N MG/DL) NEG Diagnostic Data EKG Results Atrial fibrillation, unchanged Assessment/Plan Assessment/Plan Assessment: 1. Persistent atrial fibrillation 2. Small bowel obstruction 3. History of mitral stenosis 4. Obstructive sleep apnea Recommendations: -Keep the patient on telemetry. -Continue as per the surgical service -Continue to hold oral anticoagulation for now -Start IV heparin later today and maintain therapeutic PTT -If the patient's heart rate begins to rise, start IV Cardizem at 5 mg per hour for rate control -Further plans in 24 hours Consult Acknowledgment - Thank you for your consult request.
[2016-08-08 15:46] VITALS: BP 90/57
[2016-08-08 18:35] VITALS: BP 110/70
--- NOTE | 2016-08-08 18:54 | RADIOLOGY REPORT ---
EXAMINATION: XR ABDOMEN MULTIPLE VIEWS CLINICAL INDICATION: Small bowel obstruction COMPARISON: CT scan abdomen pelvis 08/07/2016 TECHNIQUE: Supine upright abdomen FINDINGS: There is continued dilatation of small bowel loops with air-fluid levels in the midabdomen due to a small bowel obstruction similar prior CAT scan. Nasogastric tube in stomach. No free air. IMPRESSION: Small bowel obstruction. No substantial change since prior CT study 08/07/2016.
[2016-08-08 22:54] VITALS: BP 112/60
[2016-08-09 00:03] LABS: PTT 81 SEC (25-37)
--- NOTE | 2016-08-09 06:52 | PN- General Surgery ---
See Addendum Subjective Subjective: The patient was seen this morning. She reports feeling less bloated and slightly more comfortable. She has not passed gas or had a bowel movement as of yet. She denies any nausea and complaints of some mild left ear pain when she swallows. She has no complaints at the current time. Objective Vital Signs and I&Os Vital Signs Date Time Temp Pulse Resp B/P Pulse O2 O2 Flow FiO2 Ox Delivery Rate 08/09 0506 79 122/70 08/09 0000 Room Air 08/08 2254 98.1 117 22 112/60 93 Room Air 08/08 210 117 112/60 08/08 210 117 112/60 08/08 210 117 112/60 08/08 1835 110/70 08/08 1546 98.2 106 18 90/57 93 Room Air 08/08 1333 97 123/78 08/08 0916 97 123/78 08/08 0916 97 123/78 08/08 0809 97.3 97 18 123/78 92 Room Air Intake & Output 08/09 0800 08/09 0000 08/08 1600 08/08 0800 08/08 0000 08/07 1600 Intake Total 1060 1120 925 685 0212 Output Total 500 700 480 410 680 300 Balance 560 420 320 465 380 -300 Intake, IV 1000 1000 780 995 7853 Intake, Oral 0 0 0 0 Intake, Other 60 120 75 60 Number 0 0 0 0 Bowel Movements Output, 50 250 230 60 680 300 Gastric Drainage Output, Urine 450 450 250 350 Patient 153 lb Weight Physical Exam: Gen.: Alert and in no obvious distress Skin: Warm and dry Abdomen: Softly distended, nontender, bowel sounds positive. Extremities: Bilateral lower extremities are warm without calf tenderness or significant edema. Assessment/Plan Assessment/Plan Assessment: 76-year-old female with a persistent small bowel obstruction. The patient has yet to show signs of improvement but her physical exam is slightly better this morning. Plan: Continue nothing by mouth and NG tube decompression IV hydration Out of bed and ambulate Follow-up morning laboratory studies Heparin drip GI and DVT prophylaxis Follow-up cardiology consultation recommendations Core Measures/Miscellaneous Venous Thromboembolism VTE Risk Factors: Age > 40 VTE Contraindications: No Contraindications VTE Prophylaxis Ordered Inpt Mechanical (ALPS/TEDS) VTE Diagnosis: No VTE Type: NONE VTE Confirmed by (Test): NONE Beta Reba Is Beta Reba a Home Med? Yes If Yes, Was This Ordered Today? Yes Antibiotics Is Patient on Antibiotics? No
[2016-08-09 07:52] LABS: ABSOLUTE BASOPHIL COUNT 0 /CUMM (0.0-0.2); ABSOLUTE EOSINOPHIL COUNT 0 /CUMM (0.0-0.7); ABSOLUTE GRANULOCYTE CT 1.4 /CUMM (1.4-6.5); ABSOLUTE LYMPH COUNT 0.4 /CUMM (1.2-3.4); ABSOLUTE MONOCYTE COUNT 0.5 /CUMM (0.10-0.60); BASOPHIL % 0.3 % (0.0-2.0); EOSINOPHIL % 1.5 % (0-5); GRANULOCYTE % 59.2 % (42.2-75.2); HEMATOCRIT 42.1 % (37-47); MEAN CORPUSCULAR HGB 32.9 PG (27.0-31.0); MEAN CORPUSCULAR HGB CONC 33.8 G/DL (33.0-37.0); MEAN CORPUSCULAR VOLUME 97.3 FL (81.0-99.0); MEAN PLATELET VOLUME 9.5 FL (7.4-10.4); PLATELET COUNT 126 /CUMM (130-400); RBC DISTRIBUTION WIDTH 13.6 % (11.5-14.5); RED BLOOD CELL CT 4.33 /CUMM (4.20-5.40); WHITE BLOOD CELL COUNT 2.4 /CUMM (4.8-10.8)
[2016-08-09 08:19] VITALS: BP 110/80
[2016-08-09 08:20] LABS: PTT 84 SEC (25-37)
[2016-08-09 11:05] LABS: PTT 92 SEC (25-37)
--- NOTE | 2016-08-09 13:19 | PN- Cardiology ---
Subjective Subjective: The patient appears about the same today. She continues to have intermittent abdominal distress. No cardiac symptoms noted. A significant amount of drainage from the NG tube is noted. Objective Vital Signs and I&Os Vital Signs Date Time Temp Pulse Resp B/P Pulse O2 O2 Flow FiO2 Ox Delivery Rate / 0921 90 110/80 / 0921 90 110/80 / 0819 97.3 81 20 110/80 94 Room Air 08/09 0506 79 122/70 08/09 0000 Room Air 08/08 2254 98.1 117 22 112/60 93 Room Air 08/08 2102 117 112/60 08/08 2102 117 112/60 08/08 2102 117 112/60 08/08 1835 110/70 08/08 1546 98.2 106 18 90/57 93 Room Air 08/08 1333 97 123/78 Intake & Output 08/09 1600 08/09 0800 08/09 0000 08/08 1600 08/08 0800 08/08 0000 Intake Total 1060 1120 168 148 8214 Output Total 500 700 480 410 680 Balance 560 420 320 465 380 Intake, IV 1000 1000 862 184 1115 Intake, Oral 0 0 0 0 Intake, Other 60 120 75 60 Number 0 0 0 0 Bowel Movements Output, 50 250 230 60 680 Gastric Drainage Output, Urine 450 450 250 350 Patient 153 lb Weight Current Medications: Current Medications Sig/Rosalia Start time Last Medication Dose Route Stop Time Status Admin Acetaminophen 1,000 MG Q6P PRN 08/07 1330 AC 08/07 N/A 1 UNIT IV 2107 Amiodarone HCl 200 MG BID 08/07 2200 AC 08/09 PO 0921 Atorvastatin Calcium 20 MG 1700 08/07 1700 AC 08/08 PO 1736 Diltiazem HCl 125 MG Q24H 08/09 0930 AC 08/09 Dextrose/Water 100 ML IV 1015 Diltiazem HCl 60 MG .STK-MED ONE 08/08 1333 DC PO 08/08 1334 Diltiazem HCl 60 MG Q8 08/07 2200 DC 08/09 PO 0506 Heparin Sodium 25,000 UNIT Q24H / 1400 AC 08/08 (Porcine) IV 1739 Sodium Chloride 500 ML Metoprolol Tartrate 25 MG BID 08/07 2200 AC 08/09 PO 0921 Morphine Sulfate 2 MG Q4P PRN 08/07 1315 AC 08/09 IV 0934 Ondansetron HCl 4 MG Q8P PRN 08/07 1300 AC 08/09 IV 0952 Pantoprazole Sodium 40 MG DAILY 08/08 1000 AC 08/09 IV 0920 Phenytoin 100 MG Q8 08/07 2200 08/09 PO 0505 Potassium Chloride 20 MEQ Q10H 08/08 0900 AC 08/09 Dextrose/Sodium 1,000 ML IV 0752 Chloride Results Last 48 Hrs of Labs/Mics: Laboratory Tests 08/09/16 1020: APTT 92 H 08/09/16 0630: Anion Gap 5, Estimated GFR > 60, BUN/Creatinine Ratio 30.0 H, Magnesium 2.0, APTT 84 H, CBC w Diff MAN DIFF ORDERED, RBC 4.33, MCV 97.3, MCH 32.9 H, RDW 13.6, MPV 9.5, Gran % 59.2, Lymphocytes % 17.6 L, Monocytes % 21.4 H, Eosinophils % 1.5, Basophils % 0.3, Absolute Granulocytes 1.4, Segmented Neutrophils 50, Band Neutrophils 8 H, Absolute Lymphocytes 0.4 L, Lymphocytes 18 L, Monocytes 23 H, Absolute Monocytes 0.5, Eosinophils 1, Absolute Eosinophils 0, Absolute Basophils 0, Platelet Estimate DECREASED, Normocytic RBCs VERIFIED, Normochromic RBCs VERIFIED, PUBS MCHC 33.8 08/08/16 2234: APTT 81 H 08/08/16 0822: CBC w Diff NO MAN DIFF REQ, RBC 4.53, MCV 97.7, MCH 32.7 H, RDW 14.1, MPV 9.1, Gran % 76.5 H, Lymphocytes % 10.1 L, Monocytes % 12.5 H, Eosinophils % 0.7, Basophils % 0.2, Absolute Granulocytes 3.0, Absolute Lymphocytes 0.4 L, Absolute Monocytes 0.5, Absolute Eosinophils 0, Absolute Basophils 0, PUBS MCHC 33.5 08/08/16 0600: Anion Gap 8, Estimated GFR > 60, BUN/Creatinine Ratio 25.0 08/07/16 1545: Urinalysis MANY H, Urine Color YEL, Urine Clarity HAZY H, Urine pH 7.0, Ur Specific [place] 1.010, Urine Protein TRACE H, Urine Ketones NEG, Urine Nitrite NEG, Urine Bilirubin NEG, Urine Urobilinogen 0.2, Ur Leukocyte Esterase NEG, Ur Microscopic SEDIMENT EXAMINED, Urine RBC 5-10 H, Urine WBC RARE, Ur Epithelial Cells FEW, Urine Bacteria FEW H, Urine Hemoglobin MOD H, Urine Glucose NEG Assessment/Plan Assessment/Plan Assessment: 1. Persistent atrial fibrillation 2. Small bowel obstruction 3. History of mitral stenosis 4. Obstructive sleep apnea Recommendations: -Continue as per the surgical service -Continue IV heparin with maintenance of a therapeutic PTT -Oral anticoagulation remains on hold for now. -In view the patient's intermittent increasing heart rate, I would start the patient on IV Cardizem at 5 mg per hour and titrate the Cardizem drip to control her heart rate. Try to maintain heart rate between 80 and 110 if possible. -Once the NG tube is removed, the patient can be restarted on her home medications. -For now, the patient should be maintained on environmental monitoring specialist. Continue telemetry? Yes
--- NOTE | 2016-08-09 15:20 | RADIOLOGY REPORT ---
EXAMINATION: XR ABDOMEN WITH PA CHEST CLINICAL INDICATION: Abdominal pain. Nasogastric tube placement. Small bowel obstruction. COMPARISON: Abdomen 08/08/2016. CT scan abdomen pelvis 08/07/2016 TECHNIQUE: AP chest. Upright and supine abdomen FINDINGS: Lung volume low. Streaky opacities at both lung bases likely from subsegmental atelectasis. No pleural effusion. No pulmonary vascular congestion. Nasogastric tube in stomach unchanged position since prior study. Continued gaseous distention of small bowel loops with air-fluid levels consistent with small bowel obstruction. The severity of the small bowel distention is similar to the prior abdomen study of 08/08/2016. IMPRESSION: Continued small bowel obstruction. No change since prior exam 08/08/2016.
[2016-08-09 16:22] VITALS: BP 98/64
[2016-08-09 19:07] LABS: PTT 70 SEC (25-37)
[2016-08-09 22:00] VITALS: BP 106/62
--- NOTE | 2016-08-10 07:20 | PN- General Surgery ---
See Addendum Subjective Subjective: Reports multiple bms overnight and passing flatus. Feeling better but still has some pain. Objective Vital Signs and I&Os Vital Signs Date Time Temp Pulse Resp B/P Pulse O2 O2 Flow FiO2 Ox Delivery Rate 08/10 0000 Room Air 08/09 2200 98.4 94 18 106/62 92 Room Air 08/09 2145 94 106/62 08/09 2145 94 106/62 08/09 1622 98.7 85 18 98/64 93 Room Air 08/09 0921 90 110/80 08/09 0921 90 110/80 08/09 0819 97.3 81 20 110/80 94 Room Air Intake & Output 08/10 0800 08/10 0000 08/09 1600 08/09 0800 08/09 0000 08/08 1600 Intake Total 817.6 817.6 1100 1060 1120 800 Output Total 1450 570 250 500 700 480 Balance -632.4 247.6 850 560 420 320 Intake, IV 817.6 817.6 1010 1000 1000 800 Intake, Oral 0 0 0 0 0 Intake, Other 90 60 120 Number 2 0 0 Bowel Movements Output, 250 20 250 50 250 230 Gastric Drainage Output, Stool 300 Output, Urine 900 550 450 450 250 Patient 153 lb Weight Physical Exam: General - alert & oriented x 3. comfortable. no acute distress. Lungs - clear bilaterally. no w/r/r. Cardiac - s1s2. irreg irreg. Abdomen - softly distended. mild nghia-umbilical tenderness. ng tube drained 250 mls overnight. Extremities - warm bilaterally. no c/c/e. calves soft and nontender b/l. Assessment/Plan Assessment/Plan This 76-year-old female admitted with small bowel obstruction, clinically improving currently npo / ngt / ivf ?remove ng tube given she had multiple bms overnight f/u labs may consider f/u mv heparin drip while eliquis on hold f/u cardiology note PT eval will d/w Core Measures/Miscellaneous Venous Thromboembolism VTE Risk Factors: Age > 40 VTE Contraindications: No Contraindications VTE Diagnosis: No VTE Type: NONE VTE Confirmed by (Test): NONE Beta Reba Is Beta Reba a Home Med? Yes If Yes, Was This Ordered Today? Yes Antibiotics Is Patient on Antibiotics? No
[2016-08-10 07:52] VITALS: BP 104/70
[2016-08-10 08:20] LABS: ABSOLUTE BASOPHIL COUNT 0 /CUMM (0.0-0.2); ABSOLUTE EOSINOPHIL COUNT 0 /CUMM (0.0-0.7); ABSOLUTE GRANULOCYTE CT 1.6 /CUMM (1.4-6.5); ABSOLUTE LYMPH COUNT 0.4 /CUMM (1.2-3.4); ABSOLUTE MONOCYTE COUNT 0.4 /CUMM (0.10-0.60); BASOPHIL % 0.6 % (0.0-2.0); EOSINOPHIL % 1.1 % (0-5); GRANULOCYTE % 64.2 % (42.2-75.2); HEMATOCRIT 38.1 % (37-47); MEAN CORPUSCULAR HGB CONC 34.1 G/DL (33.0-37.0); MEAN CORPUSCULAR VOLUME 96.8 FL (81.0-99.0); MEAN PLATELET VOLUME 9.1 FL (7.4-10.4); PLATELET COUNT 116 /CUMM (130-400); RBC DISTRIBUTION WIDTH 13.5 % (11.5-14.5); RED BLOOD CELL CT 3.93 /CUMM (4.20-5.40); WHITE BLOOD CELL COUNT 2.6 /CUMM (4.8-10.8)
[2016-08-10 08:29] LABS: PTT 72 SEC (25-37)
--- NOTE | 2016-08-10 09:56 | RADIOLOGY REPORT ---
EXAMINATION: XR ABDOMEN MULTIPLE VIEWS CLINICAL INDICATION: Small bowel obstruction COMPARISON: 08/09/2016 TECHNIQUE: Upright and supine views of the abdomen FINDINGS: There are dilated loops of small bowel centrally with multiple air-fluid levels on upright view. No significant change from prior. IMPRESSION: Persistent findings of small bowel obstruction.
--- NOTE | 2016-08-10 10:28 | PN- Cardiology ---
Subjective Subjective: According to the patient, she is feeling somewhat better today. NG tube remains in place. The patient claims to have passed gas. She also notes that she had a bowel movement. Awaiting final input from surgery after review of this morning' s x-rays. The patient remains on IV heparin and IV Cardizem for anticoagulation and rate control. Objective Vital Signs and I&Os Vital Signs Date Time Temp Pulse Resp B/P Pulse O2 O2 Flow FiO2 Ox Delivery Rate 08/10 0752 97.8 79 16 104/70 94 Room Air 08/10 0000 Room Air 08/09 2200 98.4 94 18 106/62 92 Room Air 08/09 2145 94 106/62 08/09 2145 94 106/62 08/09 1622 98.7 85 18 98/64 93 Room Air Intake & Output 08/10 1600 08/10 0800 08/10 0000 08/09 1600 08/09 0800 08/09 0000 Intake Total 817.6 817.6 1100 1060 1120 Output Total 1450 570 250 500 700 Balance -632.4 247.6 850 560 420 Intake, IV 817.6 817.6 1010 1000 1000 Intake, Oral 0 0 0 0 0 Intake, Other 90 60 120 Number 2 0 0 Bowel Movements Output, 250 20 250 50 250 Gastric Drainage Output, Stool 300 Output, Urine 900 550 450 450 Patient 153 lb Weight Physical Exam: Well-developed, thin, elderly female. No acute distress. Alert and oriented 3. HEENT: Normal Neck: Normal Chest: Clear bilaterally Heart: Irregular S1, S2. Rate controlled. 1 to 2/6 systolic murmur left sternal border Abdomen: Decreased bowel sounds Extremities: Normal Current Medications: Current Medications Sig/Rosalia Start time Last Medication Dose Route Stop Time Status Admin Acetaminophen 1,000 MG Q6P PRN 08/07 1330 AC 08/07 N/A 1 UNIT IV 2107 Amiodarone HCl 200 MG BID 08/07 2200 AC 08/09 PO 2145 Atorvastatin Calcium 20 MG 1700 08/07 1700 AC 08/09 PO 1627 Diltiazem HCl 125 MG Q24H 08/09 0930 AC 08/09 Dextrose/Water 100 ML IV 1015 Heparin Sodium 25,000 UNIT Q24H / 1400 AC 08/09 (Porcine) IV 1439 Sodium Chloride 500 ML Metoprolol Tartrate 25 MG BID 08/07 2199 AC 08/09 PO 2145 Morphine Sulfate 2 MG Q4P PRN 08/07 1315 AC 08/09 IV 0934 Ondansetron HCl 4 MG Q8P PRN 08/07 1300 AC 08/09 IV 0952 Pantoprazole Sodium 40 MG DAILY 08/08 1000 AC 08/10 IV 0630 Patient Medication 1 ED .STK-MED ONE 08/09 1348 TN Teaching ED 08/09 1349 Phenytoin 100 MG Q8 08/07 2199 08/10 PO 0630 Potassium Chloride 20 MEQ Q10H 08/08 0900 AC 08/10 Dextrose/Sodium 1,000 ML IV 0829 Chloride Results Last 48 Hrs of Labs/Mics: Laboratory Tests 08/10/16 0610: Anion Gap 6, Estimated GFR > 60, BUN/Creatinine Ratio 18.3, APTT 72 H, CBC w Diff NO MAN DIFF REQ, RBC 3.93 L, MCV 96.8, MCH 33.0 H, RDW 13.5, MPV 9.1, Gran % 64.2, Lymphocytes % 16.5 L, Monocytes % 17.6 H, Eosinophils % 1.1, Basophils % 0.6, Absolute Granulocytes 1.6, Absolute Lymphocytes 0.4 L, Absolute Monocytes 0.4, Absolute Eosinophils 0, Absolute Basophils 0, PUBS MCHC 34.1 08/09/16 1745: APTT 70 H 08/09/16 1020: APTT 92 H 08/09/16 0630: Anion Gap 5, Estimated GFR > 60, BUN/Creatinine Ratio 30.0 H, Magnesium 2.0, APTT 84 H, CBC w Diff MAN DIFF ORDERED, RBC 4.33, MCV 97.3, MCH 32.9 H, RDW 13.6, MPV 9.5, Gran % 59.2, Lymphocytes % 17.6 L, Monocytes % 21.4 H, Eosinophils % 1.5, Basophils % 0.3, Absolute Granulocytes 1.4, Segmented Neutrophils 50, Band Neutrophils 8 H, Absolute Lymphocytes 0.4 L, Lymphocytes 18 L, Monocytes 23 H, Absolute Monocytes 0.5, Eosinophils 1, Absolute Eosinophils 0, Absolute Basophils 0, Platelet Estimate DECREASED, Normocytic RBCs VERIFIED, Normochromic RBCs VERIFIED, PUBS MCHC 33.8 08/08/16 2234: APTT 81 H Assessment/Plan Assessment/Plan Assessment: 1. Persistent atrial fibrillation 2. Small bowel obstruction 3. History of mitral stenosis 4. Obstructive sleep apnea Recommendations: -Continue as per the surgical service -Continue IV heparin with maintenance of a therapeutic PTT -Oral anticoagulation remains on hold for now. -Continue IV Cardizem for maintenance of rate control pending restart oral medications -Once the NG tube is removed, the patient can be restarted on her home medications. -For now, the patient should be maintained on machinist general. Continue telemetry? Yes
[2016-08-10 16:17] VITALS: BP 102/60
[2016-08-10 16:30] LABS: PT 12.7 SEC (9.4-12.5)
[2016-08-10 21:27] VITALS: BP 110/70
--- NOTE | 2016-08-10 22:59 | PN- General Surgery ---
Subjective Subjective: Post op check: Tolerated procedure well, is resting comfortably without complaints of chest pain, shortness of breath and difficulty breathing. No nausea, ngt remains in place. Objective Vital Signs and I&Os Vital Signs Date Time Temp Pulse Resp B/P Pulse O2 O2 Flow FiO2 Ox Delivery Rate 08/10 2204 107 110/70 08/10 2204 107 110/70 08/10 2127 97.8 107 20 110/70 92 Nasal 5.0L Cannula 08/10 1617 98.1 96 20 102/60 92 08/10 1048 97.8 98 16 128/80 08/10 1048 97.8 98 16 128/80 08/10 0752 97.8 79 16 104/70 94 Room Air 08/10 0000 Room Air Intake & Output 08/10 1600 08/10 0800 08/10 0000 08/09 1600 08/09 0800 08/09 0000 Intake Total 811 817.6 817.6 1100 1060 1120 Output Total 1450 570 250 500 700 Balance 811 -632.4 247.6 850 560 420 Intake, IV 751 817.6 817.6 1010 1000 1000 Intake, Oral 0 0 0 0 0 0 Intake, Other 60 90 60 120 Number 0 2 0 0 Bowel Movements Output, 250 20 250 50 250 Gastric Drainage Output, Stool 300 Output, Urine 900 550 450 450 Patient 153 lb Weight Physical Exam: General: ALert and oriented x3, no acute distress Cardiac: irregularly irregular Pulmonary: CTA bilaterally Abdomen: Softly distended, incisional tenderness Extremiteis: No peripheral edema, motor and sensaory intact. Calves soft and non tender Surgical site: Dressing dry and intact Assessment/Plan Assessment/Plan THis is a 76 year old female POD 0 s/p elap with june for sbo -Continue npo ngt to lws -Continue cardizem gtt -Restart heparin gtt at 4 am -Continue current pain regimen -Will d/w dr. Thomas Core Measures/Miscellaneous Venous Thromboembolism VTE Risk Factors: Age > 40 VTE Contraindications: No Contraindications VTE Diagnosis: No VTE Type: NONE VTE Confirmed by (Test): NONE Beta Reba Is Beta Reba a Home Med? Yes If Yes, Was This Ordered Today? Yes Antibiotics Is Patient on Antibiotics? No
[2016-08-11 00:10] VITALS: BP 102/60
[2016-08-11 07:30] VITALS: BP 135/69
[2016-08-11 07:40] VITALS: BP 110/68
--- NOTE | 2016-08-11 08:06 | PN- General Surgery ---
See Addendum Subjective Subjective: Reports incisional pain, worse with coughing. No dizziness. No shortness of breath. No chest pains. Denies nausea. No flatus. She is asking for jaramillo to be left in place until this evening. Objective Vital Signs and I&Os Vital Signs Date Time Temp Pulse Resp B/P Pulse O2 O2 Flow FiO2 Ox Delivery Rate 08/11 0730 98.7 91 16 135/69 94 Room Air 08/11 0010 97.5 81 20 102/60 97 08/11 0000 Nasal 5.0L Cannula 08/10 2205 107 110/70 08/10 2205 107 110/70 08/10 2127 97.8 107 20 110/70 92 Nasal 5.0L Cannula 08/10 1617 98.1 96 20 102/60 92 08/10 1048 97.8 98 16 128/80 08/10 1048 97.8 98 16 128/80 Intake & Output 08/11 1600 08/11 0800 /04 0000 08/10 1600 08/10 0800 08/10 0000 Intake Total 684.4 700 811 817.6 817.6 Output Total 500 1450 570 Balance 184.4 700 811 -632.4 247.6 Intake, IV 684.4 650 751 817.6 817.6 Intake, Oral 0 0 0 0 0 Intake, Other 50 60 Number 0 0 2 Bowel Movements Output, 100 250 20 Gastric Drainage Output, Stool 300 Output, Urine 400 900 550 Physical Exam: General - alert & oriented. uncomfortable. no acute distress. Lungs - decreased breath sounds b/l bases. poor effort. Cardiac - s1s2. irreg irreg. slightly tachy 110s. Abdomen - soft. no bowel sounds appreciated. seems less distended. dressing c/d/ i. ng tube draining bilious drainage. - jaramillo draining clear, yellow urine. Extremities - warm bilaterally. no c/c/e. calves soft and nontender b/l. Assessment/Plan Assessment/Plan This 76 year old female with hx afib, htn, hx seizures, now POD#1 s/p ex lap, june for sbo currently npo / ivf / ngt tylenol / morphine prn pain try abdominal binder for comfort IS teaching PT eval hep gtt active cardizem gtt f/u labs d/c jaramillo this afternoon/evening f/u will d/w Core Measures/Miscellaneous Venous Thromboembolism VTE Risk Factors: Age > 40 VTE Contraindications: No Contraindications VTE Diagnosis: No VTE Type: NONE VTE Confirmed by (Test): NONE Beta Reba Is Beta Reba a Home Med? Yes If Yes, Was This Ordered Today? Yes Antibiotics Is Patient on Antibiotics? No
[2016-08-11 08:38] LABS: ABSOLUTE BASOPHIL COUNT 0 /CUMM (0.0-0.2); ABSOLUTE EOSINOPHIL COUNT 0 /CUMM (0.0-0.7); ABSOLUTE GRANULOCYTE CT 1.6 /CUMM (1.4-6.5); ABSOLUTE LYMPH COUNT 0.3 /CUMM (1.2-3.4); ABSOLUTE MONOCYTE COUNT 0.3 /CUMM (0.10-0.60); BASOPHIL % 0.1 % (0.0-2.0); EOSINOPHIL % 0.3 % (0-5); GRANULOCYTE % 75.2 % (42.2-75.2); MEAN CORPUSCULAR HGB 32.8 PG (27.0-31.0); MEAN CORPUSCULAR HGB CONC 33.8 G/DL (33.0-37.0); MEAN PLATELET VOLUME 9.7 FL (7.4-10.4); PLATELET COUNT 133 /CUMM (130-400); RBC DISTRIBUTION WIDTH 13.7 % (11.5-14.5); RED BLOOD CELL CT 4.51 /CUMM (4.20-5.40); WHITE BLOOD CELL COUNT 2.1 /CUMM (4.8-10.8)
[2016-08-11 11:47] LABS: HEMATOCRIT 43.8 % (37-47)
--- NOTE | 2016-08-11 12:27 | PN- Cardiology ---
Subjective Subjective: The patient appears stable, day one post lysis of adhesions. No new cardiac issues. She remains in atrial for ablation. Her rate controlled on IV medications. She still complains of mild cough / congestion. Objective Vital Signs and I&Os Vital Signs Date Time Temp Pulse Resp B/P Pulse O2 O2 Flow FiO2 Ox Delivery Rate 08/11 1001 112 110/68 08/11 1001 112 110/68 08/11 0800 93 Nasal 5.0L Cannula 08/11 0740 99.7 112 20 110/68 93 Nasal 3.0L Cannula 08/11 0730 98.7 91 16 135/69 94 Room Air 08/11 0010 97.5 81 20 102/60 97 08/11 0000 Nasal 5.0L Cannula 08/10 220 107 110/70 08/10 220 107 110/70 08/10 2127 97.8 107 20 110/70 92 Nasal 5.0L Cannula 08/10 1617 98.1 96 20 102/60 92 Intake & Output 08/11 1600 08/11 0808/11 0000 08/10 1600 08/10 0800 08/10 0000 Intake Total 684.4 700 811 817.6 817.6 Output Total 500 1450 570 Balance 184.4 700 811 -632.4 247.6 Intake, IV 684.4 650 751 817.6 817.6 Intake, Oral 0 0 0 0 0 Intake, Other 50 60 Number 0 0 2 Bowel Movements Output, 100 250 20 Gastric Drainage Output, Stool 300 Output, Urine 400 900 550 Current Medications: Current Medications Sig/Rosalia Start time Last Medication Dose Route Stop Time Status Admin Acetaminophen 1,000 MG .STK-MED ONE 08/10 173 DC IV 08/10 173 Acetaminophen 1,000 MG Q6P PRN 08/07 1330 AC 08/07 N/A 1 UNIT IV 2107 Amiodarone HCl 200 MG BID 08/07 2200 AC 08/11 PO 1001 Atorvastatin Calcium 20 MG 1700 08/07 1700 AC 08/10 PO 2205 Dexamethasone 4 MG .STK-MED ONE 08/10 173 DC IM 08/10 1735 Diltiazem HCl 125 MG Q24H 08/09 0930 AC 08/11 Dextrose/Water 100 ML IV 0515 Fentanyl Citrate 500 MCG .STK-MED ONE 08/10 1733 DC IM 08/10 1734 Heparin Sodium 25,000 UNIT Q24H 08/11 0400 AC 08/11 (Porcine) IV 0401 Sodium Chloride 500 ML Heparin Sodium 25,000 UNIT Q24H 08/08 1400 DC 08/09 (Porcine) IV 1439 Sodium Chloride 500 ML Hydromorphone HCl 2 MG .STK-MED ONE 08/10 1733 DC IM 08/10 1734 Metoprolol Tartrate 25 MG BID 08/07 2200 AC 08/11 PO 1001 Midazolam HCl 2 MG .STK-MED ONE 08/10 1733 DC IM 08/10 1734 Morphine Sulfate 2 MG Q4P PRN 08/07 1315 AC 08/11 IV 0955 Ondansetron HCl 4 MG .STK-MED ONE 08/10 173 DC IM 08/10 1734 Ondansetron HCl 4 MG Q8P PRN 08/07 1300 AC 08/09 IV 0952 Pantoprazole Sodium 40 MG DAILY 08/08 1000 AC 08/11 IV 0958 Phenytoin 100 MG Q8 08/07 2200 AC 08/11 PO 0515 Potassium Chloride 20 MEQ Q10H 08/08 0900 AC 08/11 Dextrose/Sodium 1,000 ML IV 0000 Chloride Results Last 48 Hrs of Labs/Mics: Laboratory Tests 08/11/16 1040: APTT Pending 08/11/16 0700: Anion Gap 7, Estimated GFR > 60, BUN/Creatinine Ratio 15.0, Magnesium 1.7, CBC w Diff NO MAN DIFF REQ, RBC 4.51, MCV 97.0, MCH 32.8 H, RDW 13.7, MPV 9.7, Gran % 75.2, Lymphocytes % 12.2 L, Monocytes % 12.2 H, Eosinophils % 0.3, Basophils % 0.1, Absolute Granulocytes 1.6, Absolute Lymphocytes 0.3 L, Absolute Monocytes 0.3, Absolute Eosinophils 0, Absolute Basophils 0, PUBS MCHC 33.8 08/10/16 1800: APTT Cancelled 08/10/16 1605: PT 12.7 H, INR 1.21 H 08/10/16 0610: Anion Gap 6, Estimated GFR > 60, BUN/Creatinine Ratio 18.3, APTT 72 H, CBC w Diff NO MAN DIFF REQ, RBC 3.93 L, MCV 96.8, MCH 33.0 H, RDW 13.5, MPV 9.1, Gran % 64.2, Lymphocytes % 16.5 L, Monocytes % 17.6 H, Eosinophils % 1.1, Basophils % 0.6, Absolute Granulocytes 1.6, Absolute Lymphocytes 0.4 L, Absolute Monocytes 0.4, Absolute Eosinophils 0, Absolute Basophils 0, PUBS MCHC 34.1 08/09/16 1745: APTT 70 H Assessment/Plan Assessment/Plan Assessment: 1. Persistent atrial fibrillation 2. Small bowel obstruction 3. History of mitral stenosis 4. Obstructive sleep apnea Recommendations: -Continue as per the surgical service -Continue IV heparin with maintenance of a therapeutic PTT -Oral anticoagulation remains on hold for now. -Continue IV Cardizem for maintenance of rate control pending restart oral medications -Once the NG tube is removed, the patient can be restarted on her home medications. -For now, the patient should be maintained on satellite project site monitor. Line-initially , the patient was planned for an outpatient JUAN/cardioversion later this week. I discussed this with the patient. For now, I would hold off for a few weeks until the patient is completely recovered from her surgical procedure. - In view of CXR finding, start low dose lasix BID, check ECG and check followup echo to rule out any change in LVEF. Continue telemetry? Yes
--- NOTE | 2016-08-11 13:07 | RADIOLOGY REPORT ---
EXAMINATION: XR PORTABLE CHEST CLINICAL INFORMATION: 76-year-old woman with cough and shortness of breath. COMPARISON: 08/07/2016 chest radiograph TECHNIQUE: Portable AP view of the chest was obtained. FINDINGS: There are new perihilar and lower lobe predominant reticular opacities that are most consistent with pulmonary edema. There are small new bilateral pleural effusions with associated atelectasis. Moderate cardiomegaly is unchanged. The tip of the patient's nasogastric tube is below the diaphragm and outside the imaged region. IMPRESSION: Radiographic findings suggest new moderate edema with small bilateral effusions.
[2016-08-11 13:16] LABS: PTT 51 SEC (25-37)
[2016-08-11 15:43] VITALS: BP 97/67
[2016-08-11 21:57] LABS: PTT > 120 SEC (25-37)
[2016-08-11 23:00] VITALS: BP 106/62
[2016-08-12 05:03] LABS: ABSOLUTE BASOPHIL COUNT 0 /CUMM (0.0-0.2); ABSOLUTE EOSINOPHIL COUNT 0 /CUMM (0.0-0.7); ABSOLUTE GRANULOCYTE CT 3.9 /CUMM (1.4-6.5); ABSOLUTE LYMPH COUNT 0.4 /CUMM (1.2-3.4); ABSOLUTE MONOCYTE COUNT 0.6 /CUMM (0.10-0.60); BASOPHIL % 0 % (0.0-2.0); EOSINOPHIL % 0.4 % (0-5); GRANULOCYTE % 80.1 % (42.2-75.2); HEMATOCRIT 42.1 % (37-47); MEAN CORPUSCULAR HGB 32.5 PG (27.0-31.0); MEAN CORPUSCULAR HGB CONC 33.4 G/DL (33.0-37.0); MEAN CORPUSCULAR VOLUME 97.4 FL (81.0-99.0); MEAN PLATELET VOLUME 8.7 FL (7.4-10.4); PLATELET COUNT 126 /CUMM (130-400); RBC DISTRIBUTION WIDTH 13.3 % (11.5-14.5); RED BLOOD CELL CT 4.32 /CUMM (4.20-5.40)
[2016-08-12 05:18] LABS: PTT 78 SEC (25-37)
[2016-08-12 05:42] LABS: WHITE BLOOD CELL COUNT 4.9 /CUMM (4.8-10.8)
[2016-08-12 07:50] VITALS: BP 144/60
--- NOTE | 2016-08-12 10:05 | PN- General Surgery ---
See Addendum Subjective Subjective: Awake, alert complaining of chest congestion and cough - not productive Working with IS NGT is bothering her throat Denies abdominal pain No flatus or bm yet Objective Vital Signs and I&Os Vital Signs Date Time Temp Pulse Resp B/P Pulse O2 O2 Flow FiO2 Ox Delivery Rate 08/12 0750 98.0 130 20 144/60 91 Nasal 3.0L Cannula / 0000 96 Nasal 3.0L Cannula 08/11 2300 98.2 118 20 106/62 96 Nasal 3.0L Cannula 08/11 2104 118 108/62 08/11 2104 118 108/62 08/11 1740 93 Nasal 3.0L Cannula 08/11 1701 Nasal 2.0L Cannula 08/11 1543 98.7 113 18 97/67 96 Room Air 08/11 1001 112 110/68 08/11 1001 112 110/68 Intake & Output 08/12 1600 03/ 0800 03/05 0000 / 1600 08/11 0800 03/ 0000 Intake Total 936 870 940 684.4 700 Output Total 1100 1000 1075 500 Balance -164 -130 -135 184.4 700 Intake, IV 816 850 840 684.4 650 Intake, Oral 120 0 0 0 0 Intake, Other 20 100 50 Number 0 Bowel Movements Output, 100 0 175 100 Gastric Drainage Output, Urine 1000 1000 900 400 Physical Exam: HR 130 this morning - now at 115, pt with chronic a fib on cardizen drip afebrile General: alert and oriented times three Chest: decreased at bases bilaterally, no rales or rhonchi, irr/irr Abd: soft, good bs, nondistended Wound: dressed, dry Ext: warm, no edema urine output >2 liters after lasix Assessment/Plan Assessment/Plan 76 year old female with hx afib, htn, hx seizures, now POD2 s/p ex lap, june for sbo with pulmonary edema/effusions noted on cxr dc ngt per dr Thomas but keep npo at this time tylenol / morphine prn pain hep gtt for dvt ppx cardizem gtt for a fib - restart home meds once taking po lasix per Dr Kamara - keep jaramillo for strict I/O while on lasix ECHO today per cardiology Core Measures/Miscellaneous Venous Thromboembolism VTE Risk Factors: Age > 40 VTE Contraindications: No Contraindications VTE Diagnosis: No VTE Type: NONE VTE Confirmed by (Test): NONE Beta Reba Is Beta Reba a Home Med? Yes If Yes, Was This Ordered Today? Yes Antibiotics Is Patient on Antibiotics? No
[2016-08-12 12:12] VITALS: BP 122/66
--- NOTE | 2016-08-12 13:48 | PN- Cardiology ---
Subjective Subjective: Doing somewhat better today. Respiratory status stable. NG tube to be removed today. Swallow evaluation following NG tube removal. Objective Vital Signs and I&Os Vital Signs Date Time Temp Pulse Resp B/P Pulse O2 O2 Flow FiO2 Ox Delivery Rate 08/12 1212 99.0 119 18 122/66 95 Nasal 2.0L Cannula 08/12 1132 130 144/60 08/12 1131 130 144/60 08/12 0800 95 Nasal 3.0L Cannula 08/12 0750 98.0 130 20 144/60 91 Nasal 3.0L Cannula 08/12 0000 96 Nasal 3.0L Cannula 08/11 2300 98.2 118 20 106/62 96 Nasal 3.0L Cannula 08/11 210 118 108/62 08/11 2104 118 108/62 08/11 1740 93 Nasal 3.0L Cannula 08/11 1701 Nasal 2.0L Cannula 08/11 1543 98.7 113 18 97/67 96 Room Air Intake & Output 08/12 1600 08/12 0800 08/12 0000 08/11 1600 08/11 0800 08/11 0000 Intake Total 936 870 940 684.4 700 Output Total 1100 1000 1075 500 Balance -164 -130 -135 184.4 700 Intake, IV 816 850 840 684.4 650 Intake, Oral 120 0 0 0 0 Intake, Other 20 100 50 Number 0 Bowel Movements Output, 100 0 175 100 Gastric Drainage Output, Urine 1000 1000 900 400 Current Medications: Current Medications Sig/Rosalia Start time Last Medication Dose Route Stop Time Status Admin Acetaminophen 1,000 MG Q6P PRN 08/07 1330 AC 08/07 N/A 1 UNIT IV 2107 Amiodarone HCl 200 MG BID 08/07 220 AC 08/12 PO 1132 Atorvastatin Calcium 20 MG 1700 08/07 1700 AC 08/11 PO 1657 Diltiazem HCl 125 MG Q24H 08/09 0930 AC 08/12 Dextrose/Water 100 ML IV 0656 Furosemide 20 MG BID 08/11 1345 AC 08/12 IV 1038 Heparin Sodium 2,800 UNIT ONCE ONE 08/11 1530 DC 08/11 (Porcine) IV 08/11 1531 1500 Heparin Sodium 25,000 UNIT Q24H 08/11 0400 AC 08/12 (Porcine) IV 0548 Sodium Chloride 500 ML Metoprolol Tartrate 25 MG BID 08/070 AC 08/12 PO 1131 Morphine Sulfate 2 MG Q4P PRN 08/07 1315 AC 08/12 IV 1038 Ondansetron HCl 4 MG Q8P PRN 08/07 1300 AC 08/09 IV 0952 Pantoprazole Sodium 40 MG DAILY 08/08 1000 AC 08/12 IV 1038 Phenytoin 100 MG Q8 08/07 2200 AC 08/12 PO 0548 Potassium Chloride 10 MEQ ONCE ONE 08/12 1000 DC 08/12 IV 08/12 1001 1154 Potassium Chloride 20 MEQ Q10H 08/08 0900 AC 08/12 Dextrose/Sodium 1,000 ML IV 0548 Chloride Results Last 48 Hrs of Labs/Mics: Laboratory Tests 08/12/16 0441: Anion Gap 7, Estimated GFR > 60, BUN/Creatinine Ratio 14.3, Magnesium 1.7, APTT 78 H, CBC w Diff NO MAN DIFF REQ, RBC 4.32, MCV 97.4, MCH 32.5 H, RDW 13.3, MPV 8.7, Gran % 80.1 H, Lymphocytes % 8.2 L, Monocytes % 11.3 H, Eosinophils % 0.4, Basophils % 0 L, Absolute Granulocytes 3.9, Absolute Lymphocytes 0.4 L, Absolute Monocytes 0.6, Absolute Eosinophils 0, Absolute Basophils 0, PUBS MCHC 33.4 08/11/16 2015: APTT > 120 *H 08/11/16 1040: APTT 51 H 08/11/16 0700: Anion Gap 7, Estimated GFR > 60, BUN/Creatinine Ratio 15.0, Magnesium 1.7, CBC w Diff NO MAN DIFF REQ, RBC 4.51, MCV 97.0, MCH 32.8 H, RDW 13.7, MPV 9.7, Gran % 75.2, Lymphocytes % 12.2 L, Monocytes % 12.2 H, Eosinophils % 0.3, Basophils % 0.1, Absolute Granulocytes 1.6, Absolute Lymphocytes 0.3 L, Absolute Monocytes 0.3, Absolute Eosinophils 0, Absolute Basophils 0, PUBS MCHC 33.8 08/10/16 1800: APTT Cancelled 08/10/16 1605: PT 12.7 H, INR 1.21 H Microbiology 08/10 1930 URINE ROUT: Urine Culture - COMP Assessment/Plan Assessment/Plan Assessment: 1. Persistent atrial fibrillation 2. Small bowel obstruction 3. History of mitral stenosis 4. Obstructive sleep apnea Recommendations: -Continue as per the surgical service; possible NG tube removal today -Continue IV heparin with maintenance of a therapeutic PTT -Oral anticoagulation remains on hold for now. -Continue IV Cardizem for maintenance of rate control pending restart oral medications; increase rate to 7.5 mg per hour today for improved rate control -Once the NG tube is removed, and the patient is documented to be tolerating oral, the patient can be restarted on her home medications. -For now, the patient should be maintained on tipple engineer. -initially, the patient was planned for an outpatient JUAN/cardioversion later this week. I discussed this with the patient. For now, I would hold off for a few weeks until the patient is completely recovered from her surgical procedure. -Continue IV Lasix for another 24 hours. -Follow-up chest x-ray tomorrow. Continue telemetry? Yes
[2016-08-12 16:13] VITALS: BP 104/52
[2016-08-12 17:55] LABS: PTT 79 SEC (25-37)
--- NOTE | 2016-08-12 19:48 | ECHOCARDIOGRAM REPORT ---
CHENCHO POWELL Age: 76 : 1940 Gender: F Exam Date: 08/12/2016 10:28 Exam Location: [place] Ht (in): 127 Wt (lb): 153 BSA: 2.34 BP: 102 / 62 Ordering Physician: KIA AVILES PA Referring Physician: Cyril Kamara MD Technologist: Valorie Osuna JONNY Room Number: 182 Indications: AFIB/FLUTTER Rhythm: Atrial fibrillation Technical Quality: Fair FINDINGS Left Ventricle Normal size left ventricle. Abnormal septal motion. Normal left ventricular ejection fraction estimated at 55-60%. Right Ventricle Mild right ventricular dilatation. Right Atrium Mild right atrial dilatation. Left Atrium Moderate left atrial dilatation. Mitral Valve Mitral valve thickened. Mild mitral stenosis. Mild mitral regurgitation. Aortic Valve Trileaflet aortic valve. Diffuse thickening (sclerosis) of the aortic valve cusps without reduced excursion. No aortic stenosis. No aortic regurgitation. Tricuspid Valve Tricuspid valve not well visualized, grossly normal. Mild tricuspid regurgitation. Right ventricular systolic pressure estimated to be elevated at 46 mmHg. Pulmonic Valve Pulmonic valve not well visualized, grossly normal. Mild pulmonic regurgitation. Pericardium Small pericardial effusion. Great Vessels Normal size aortic root and proximal ascending aorta. CONCLUSIONS 1. Mild aortic sclerosis is present with no valvular stenosis or insufficiency. 2. 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 3. A very small pericardial effusion is present. 4. THe left ventricular chamber size and systolic function are normal. Abnormal septal motion is present. 5. Mild enlargement of the right heart chambers is noted with mild tricuspid and pulmonic insufficiency with mild pulmonary hypertension. 6. A followup examination is sugested when the patient's heart rate is slower. Cyril Kamara M.D. (Electronically Signed) Final Date: 12 August 2016 19:47 MEASUREMENTS (Male / Female) Normal Values 2D ECHO LV Diastolic Diameter PLAX 4.2 cm 4.2 - 5.9 / 3.9 - 5.3 cm LV Systolic Diameter PLAX 2.7 cm 2.1 - 4.0 cm LV Fractional Shortening PLAX 35.7 % 25 - 46 % LV Ejection Fraction 2D Teich 65.6 % IVS Diastolic Thickness 1.1 cm LVPW Diastolic Thickness 1.0 cm LV Relative Wall Thickness 0.5 RV Internal Dim ED PLAX 2.0 cm 1.9 - 3.8 cm LVOT Diameter 1.9 cm Aortic Root Diameter 2.8 cm LA Systolic Diameter LX 4.6 cm 3.0 - 4.0 / 2.7 - 3.8 cm LA Volume 54.0 cm 18 - 58 / 22 - 52 cm Ascending Aorta Diameter 3.0 cm DOPPLER AV Peak Velocity 201.0 cm/s AV Peak Gradient 16.2 mmHg AV Mean Velocity 141.0 cm/s AV Mean Gradient 9.0 mmHg AV Velocity Time Integral 33.8 cm LVOT Peak Velocity 118.0 cm/s LVOT Peak Gradient 5.6 mmHg LVOT Mean Velocity 82.4 cm/s LVOT Mean Gradient 3.0 mmHg LVOT Velocity Time Integral 17.9 cm LVOT Stroke Volume 50.8 cm AV Area Cont Eq vti 1.5 cm AV Area Cont Eq pk 1.7 cm MV Peak Velocity 250.0 cm/s MV Peak Gradient 25.0 mmHg MV Mean Velocity 132.0 cm/s MV Mean Gradient 9.0 mmHg Mitral E Point Velocity 182.0 cm/s MV PHT Velocity 258.0 cm/s MV Deceleration Lagrange 585.0 cm/s MV Pressure Half Time 132.3 ms MV Area PHT 1.7 cm MV Deceleration Time 259.0 ms TR Peak Velocity 312.0 cm/s TR Peak Gradient 38.9 mmHg Right Atrial Pressure 5.0 mmHg Pulmonary Artery Systolic Pressu 43.9 mmHg Right Ventricular Systolic Press 43.9 mmHg PV Peak Velocity 125.0 cm/s PV Peak Gradient 6.3 mmHg PV Mean Velocity 77.6 cm/s PV Mean Gradient 3.0 mmHg PV Velocity Time Integral 20.2 cm LV E' Lateral Velocity 8.9 cm/s Mitral E to LV E' Lateral Ratio 20.4 LV E' Septal Velocity 6.9 cm/s Mitral E to LV E' Septal Ratio 26.3
[2016-08-12 22:00] VITALS: BP 118/68
[2016-08-13 04:58] LABS: ABSOLUTE BASOPHIL COUNT 0 /CUMM (0.0-0.2); ABSOLUTE EOSINOPHIL COUNT 0 /CUMM (0.0-0.7); ABSOLUTE LYMPH COUNT 0.3 /CUMM (1.2-3.4); ABSOLUTE MONOCYTE COUNT 0.6 /CUMM (0.10-0.60); BASOPHIL % 0.2 % (0.0-2.0); EOSINOPHIL % 0.1 % (0-5); HEMATOCRIT 40.2 % (37-47); MEAN CORPUSCULAR HGB 32.7 PG (27.0-31.0); MEAN CORPUSCULAR HGB CONC 33.8 G/DL (33.0-37.0); MEAN CORPUSCULAR VOLUME 96.9 FL (81.0-99.0); PLATELET COUNT 126 /CUMM (130-400); RBC DISTRIBUTION WIDTH 13.4 % (11.5-14.5); RED BLOOD CELL CT 4.15 /CUMM (4.20-5.40); WHITE BLOOD CELL COUNT 6.9 /CUMM (4.8-10.8)
[2016-08-13 05:02] LABS: PTT 75 SEC (25-37)
--- NOTE | 2016-08-13 07:28 | PN- General Surgery ---
See Addendum Subjective Subjective: The patient was seen this morning postoperatively day #3. She has complaints of incisional pain especially when she coughs. She denies any nausea and has yet to pass flatus. She has not with the current time and denies any chest pain or difficulty breathing. Objective Vital Signs and I&Os Vital Signs Date Time Temp Pulse Resp B/P Pulse O2 O2 Flow FiO2 Ox Delivery Rate 08/13 0000 92 Nasal 3.0L Cannula / 2230 110 118/68 03/ 2230 110 118/68 03/ 2200 97.9 110 18 118/68 92 Nasal 3.0L Cannula / 1613 98.4 116 20 104/52 64 Nasal 3.0L Cannula / 1600 Nasal 3.0L Cannula / 1212 99.0 119 18 122/66 95 Nasal 2.0L Cannula / 1132 130 144/60 / 1131 130 144/60 / 0800 95 Nasal 3.0L Cannula / 0750 98.0 130 20 144/60 91 Nasal 3.0L Cannula Intake & Output / 0800 03/06 0000 03/05 1600 03/05 0800 03/05 0000 03/04 1600 Intake Total 737.6 735 936 870 940 Output Total 350 1875 1100 1000 1075 Balance 387.6 -1140 -164 -130 -135 Intake, IV 637.6 645 816 850 840 Intake, Oral 100 0 120 0 0 Intake, Other 90 20 100 Number 0 Bowel Movements Output, 125 100 0 175 Gastric Drainage Output, Urine 350 1750 1000 1000 900 Physical Exam: Gen.: Alert and in no obvious distress Skin: Warm and dry Abdomen: Softly distended, appropriate incisional tenderness, bowel sounds sluggish. Surgical dressing is blood-tinged but otherwise intact. Extremities: Bilateral lower extremities are warm without calf tenderness or significant edema. Assessment/Plan Assessment/Plan Assessment: 76-year-old female status post lysis of adhesions postoperative day #3. The patient is slow to progress and still has an ileus. Plan: Nothing by mouth , Change IV fluids DC Veronica catheter Total respiratory care with IST and wean oxygen Out of bed and ambulate GI and DVT prophylaxis Continue heparin and Cardizem drip Follow-up cardiology recommendations Continue current pain regiment Strict I's and O's Core Measures/Miscellaneous Venous Thromboembolism VTE Risk Factors: Age > 40 VTE Contraindications: No Contraindications VTE Diagnosis: No VTE Type: NONE VTE Confirmed by (Test): NONE Beta Reba Is Beta Reba a Home Med? Yes If Yes, Was This Ordered Today? Yes Antibiotics Is Patient on Antibiotics? No
[2016-08-13 09:14] VITALS: BP 120/76
--- NOTE | 2016-08-13 11:41 | PN- Cardiology ---
See Addendum Subjective Subjective: Patient complains of incisional pain. No chest pain. No palpitations. No nausea. She has not yet passed flatus. No shortness of breath. Objective Vital Signs and I&Os Vital Signs Date Time Temp Pulse Resp B/P Pulse O2 O2 Flow FiO2 Ox Delivery Rate 08/13 1054 112 120/76 08/13 1053 112 120/76 08/13 0914 98.2 112 20 120/76 85 Nasal Cannula 08/13 0000 92 Nasal 3.0L Cannula 08/12 2230 110 118/68 08/12 2230 110 118/68 08/12 2200 97.9 110 18 118/68 92 Nasal 3.0L Cannula 08/12 1613 98.4 116 20 104/52 64 Nasal 3.0L Cannula 08/12 1600 Nasal 3.0L Cannula 08/12 1212 99.0 119 18 122/66 95 Nasal 2.0L Cannula 08/12 1132 130 144/60 08/12 1131 130 144/60 Intake & Output 08/13 1600 08/13 0800 08/13 0000 08/12 1600 08/12 0800 08/12 0000 Intake Total 737.6 737.6 735 936 870 Output Total 0423 892 1129 1100 1000 Balance -262.4 387.6 -1140 -164 -130 Intake, IV 637.6 637.6 645 816 850 Intake, Oral 100 100 0 120 0 Intake, Other 90 20 Number 0 0 Bowel Movements Output, 125 100 0 Gastric Drainage Output, Urine 0765 579 0321 1000 1000 Physical Exam: Patient remains in atrial fibrillation with rate under control on IV diltiazem. She remains on IV diltiazem and IV heparin. No chest pain. No palpitations. No shortness of breath. No diaphoresis. Current Medications: Current Medications Sig/Rosalia Start time Last Medication Dose Route Stop Time Status Admin Acetaminophen 1,000 MG Q6P PRN 08/07 1330 AC 08/07 N/A 1 UNIT IV 2107 Amiodarone HCl 200 MG BID 08/07 2200 AC 08/13 PO 1054 Atorvastatin Calcium 20 MG 1700 08/07 1700 AC 08/12 PO 1624 Diltiazem HCl 125 MG Q24H 08/09 0930 AC 08/13 Dextrose/Water 100 ML IV 0206 Furosemide 20 MG BID 08/11 1345 AC 08/13 IV 08/13 2300 1054 Heparin Sodium 25,000 UNIT Q24H 08/11 0400 AC 08/13 (Porcine) IV 0206 Sodium Chloride 500 ML Metoprolol Tartrate 25 MG BID 08/07 220 AC 08/13 PO 1053 Morphine Sulfate 2 MG Q4P PRN 08/07 1315 AC 08/13 IV 0656 Ondansetron HCl 4 MG Q8P PRN 08/07 1300 AC 08/09 IV 0952 Pantoprazole Sodium 40 MG DAILY 08/08 1000 AC 08/13 IV 1054 Phenytoin 100 MG Q8 08/07 220 AC 08/13 PO 0656 Potassium Chloride 20 MEQ Q20H 08/13 0730 AC 08/13 Dextrose/Sodium 1,000 ML IV 1054 Chloride Potassium Chloride 20 MEQ Q10H 08/08 0900 DC 08/12 Dextrose/Sodium 1,000 ML IV 1954 Chloride Results Last 48 Hrs of Labs/Mics: Laboratory Tests 08/13/16 0415: Anion Gap 8, Estimated GFR > 60, BUN/Creatinine Ratio 16.7, APTT 75 H, CBC w Diff MAN DIFF ORDERED, RBC 4.15 L, MCV 96.9, MCH 32.7 H, RDW 13.4, MPV 9.0, Gran % 87.0 H, Lymphocytes % 4.3 L, Monocytes % 8.4, Eosinophils % 0.1, Basophils % 0.2, Absolute Granulocytes 6.0, Segmented Neutrophils 84 H, Band Neutrophils 4, Absolute Lymphocytes 0.3 L, Lymphocytes 5 L, Monocytes 7, Absolute Monocytes 0.6, Absolute Eosinophils 0, Absolute Basophils 0, Platelet Estimate ADEQUATE, Polychromasia 1+, Poikilocytosis 1+, Ovalocytes 1+, PUBS MCHC 33.8, Fld Total RBCs Counted 100 08/12/16 1630: APTT 79 H 08/12/16 0441: Anion Gap 7, Estimated GFR > 60, BUN/Creatinine Ratio 14.3, Magnesium 1.7, APTT 78 H, CBC w Diff NO MAN DIFF REQ, RBC 4.32, MCV 97.4, MCH 32.5 H, RDW 13.3, MPV 8.7, Gran % 80.1 H, Lymphocytes % 8.2 L, Monocytes % 11.3 H, Eosinophils % 0.4, Basophils % 0 L, Absolute Granulocytes 3.9, Absolute Lymphocytes 0.4 L, Absolute Monocytes 0.6, Absolute Eosinophils 0, Absolute Basophils 0, PUBS MCHC 33.4 08/11/162014: APTT > 120 *H Assessment/Plan Assessment/Plan Assessment: 1. Persistent atrial fibrillation 2. Small bowel obstruction 3. History of mitral stenosis 4. Obstructive sleep apnea Plan: * Continue IV heparin and IV diltiazem well unable to take PO. * Change cardiac medications to be oh once able to tolerate pills. * Continue to monitor on telemetry. Continue telemetry? Yes
[2016-08-13 13:43] LABS: PTT 56 SEC (25-37)
[2016-08-13 16:30] VITALS: BP 118/60
[2016-08-13 17:49] VITALS: BP 110/60
--- NOTE | 2016-08-13 18:24 | RADIOLOGY REPORT ---
EXAMINATION: XR PORTABLE CHEST CLINICAL INFORMATION: Postop, oxygen needs COMPARISON: Chest x-ray 08/11/2016 TECHNIQUE: Portable AP view of the chest was obtained. 4:53 PM FINDINGS: There is increased pulmonary vascularity worsened since prior chest x-ray consistent with worsening congestive heart failure. Probable small bilateral pleural effusions layering dependently. IMPRESSION: Increasing pulmonary vascular congestion, worsening congestive heart failure.
[2016-08-13 19:52] LABS: PTT > 120 SEC (25-37)
--- NOTE | 2016-08-13 19:58 | Operative Report ---
Operative/Inv Procedure Report Surgery Date: 08/10/16 Name of Procedure: Laparotomy lysis of adhesions Pre-Operative Diagnosis: Small bowel obstruction Post-Operative Diagnosis: Same Estimated Blood Loss: scant Surgeon/Cross Tie Maker: ANNETTE CLEMENT,CHONG MERLOS Anesthesia: general endotracheal tube Operative/Procedure Note Note: Patient was placed on the OR table in the supine position. After successful induction of general anesthesia the patient's abdomen was prepped clipped and draped in the usual sterile fashion. A laparotomy was planned starting at the bottom of the umbilicus down the midline to the Pfannenstiel scar. This was made with a 10 blade and deepened with cautery to the fascia which was incised sharply and the underlying peritoneal layer as well was incised there was some free fluid incision was completed and we lysed adhesions mostly between small bowel and the peritoneum especially deep in the pelvis most likely at the site of her hysterectomy there was some smaller minor adhesions between small bowel and the peritoneum laterally and anteriorly, small bowel resection was not necessary the point of obstruction was in the distal ileum, this spot was viable , and so doing we ran the bowel from ligament of Treitz to the cecum several times, paying care to not twist, after irrigating reapproximated the midline fascia with running 0 Maxon suture one from each end knotting in the middle, then lissa for skin after reapproximating subdermally with interrupted 3-0 Vicryls. Dressing was gauze and tape. EBL minimal Lap and sponge and sponge counts: correct Wound expectancy: infected IV fluids: crystalloid Complications: none Patient tolerated the procedure well was awakened and extubated and returned to the recovery room in satisfactory condition.
[2016-08-13 21:02] LABS: PTT > 120 SEC (25-37)
[2016-08-13 23:38] LABS: ABSOLUTE BASOPHIL COUNT 0 /CUMM (0.0-0.2); ABSOLUTE EOSINOPHIL COUNT 0 /CUMM (0.0-0.7); ABSOLUTE GRANULOCYTE CT 7.5 /CUMM (1.4-6.5); ABSOLUTE LYMPH COUNT 0.3 /CUMM (1.2-3.4); ABSOLUTE MONOCYTE COUNT 0.7 /CUMM (0.10-0.60); BASOPHIL % 0 % (0.0-2.0); EOSINOPHIL % 0 % (0-5); GRANULOCYTE % 87.4 % (42.2-75.2); HEMATOCRIT 42.1 % (37-47); MEAN CORPUSCULAR HGB CONC 34.6 G/DL (33.0-37.0); MEAN CORPUSCULAR VOLUME 95.4 FL (81.0-99.0); MEAN PLATELET VOLUME 8.6 FL (7.4-10.4); PLATELET COUNT 145 /CUMM (130-400); RBC DISTRIBUTION WIDTH 12.8 % (11.5-14.5); RED BLOOD CELL CT 4.41 /CUMM (4.20-5.40); WHITE BLOOD CELL COUNT 8.6 /CUMM (4.8-10.8)
--- NOTE | 2016-08-13 23:40 | Cons- Medical ---
See Addendum General Information and HPI Consulting Request Date of Consult: 08/13/16 Requested By: ANNETTE CLEMENT,CHONG Talbert Reason for Consult: Hypoxia History of Present Illness: Patient is a 76-year-old woman with past medical history significant for atrial fibrillation status post cardioversion to normal sinus rhythm last year but subsequently reverted to atrial fibrillation again on elliquis, follows with Dr. Kamara as an outpatient,scheduled for an outpatient JUAN/cardioversion next week , has been admitted to surgical service for small bowel obstruction status post laparotomy lysis of the adhesions(day 3). During this admission, she was in atrial fibrillation we monitor on telemetry floor. She has been followed of with Dr. Kamara and has been getting IV heparin with Cardizem.. He today at around 6 PM chest x-ray was done with the concerns of hypoxia, that revealed increase pulmonary congestion and worsening congestive heart failure compared to chest x-ray done [address] Kamara was notified an extra dose of Lasix of 40 IV was given, but there was no improvement in her symptoms she desaturated requiring,50% mask. Stat ABG was done that showed a pH of 7.51 with PCO2 of 34 PO2 of 59. Extra dose of 20 mg of Lasix was given overnight. On evaluation patient denied any chest discomfort, reported that her breathing seems to be getting better. Denied any palpitations HPI: 76-year-old nondiabetic ex-smoker with a history of a hysterectomy, on Eliquis for atrial fibrillation actually planning a cardioversion next week by cardiology, says she hasn't had any abdominal or intestinal issues until last night started with nausea but nio vomiting, and bloating. Epigastric pain constant doesn't radiate no dysuria, it is somewhat relieved after NG tube was placed, she thinks it was because of the quiche she ate. They are are small she had four of them. Patient denies any recent straining or heavy lifting. She also has a history of constipation. Otherwise no changes bowel habits, weight or appetite. I've reviewed the [facility]. No history of GERD, PUD, bleeding problems, heart disease or issues with anesthesia. FHx mother had brain tumor, Father Hx of Alzeimers, no GI cancers. Allergies/Medications Allergies: Coded Allergies: NSAIDS (Non-Steroidal Anti-Inflamma (UNKNOWN 02/28/17) carisoprodol (From Soma) (UNKNOWN 08/07/16) celecoxib (From Celebrex) (UNKNOWN 08/07/16) diclofenac (From Voltaren) (UNKNOWN 08/07/16) ibandronate sodium (UNKNOWN 08/07/16) nitrofurantoin (From Macrobid) (UNKNOWN 08/07/16) oxymetazoline (From Afrin (oxymetazoline)) (UNKNOWN 08/07/16) Home Med List: Acetaminophen (Tylenol 8 Hour) [address] 1 TAB PO AD PRN PAIN (Reported) Amiodarone Hydrochloride (Amiodarone) 200 MG TAB 1 TAB PO BID AFIB (Reported) Apixaban (Eliquis) 5 MG TABLET 1 TAB PO BID atrial fibrillation Aspirin (Children's Aspirin) 81 MG TAB.CHEW 1 TAB PO DAILY HEART HEALTH ( Reported) Atorvastatin Calcium (Lipitor) 20 MG TABLET 1 TAB PO DAILY cholesterol ( Reported) Bifidobacterium Infantis (Align) 4 MG (1 BILLION CELL) CAPSULE 1 CAP PO DAILY supplement (Reported) CALCIUM CARBONATE/VITAMIN D3 (Os-Vinicius 500+D3 Caplet) 500 MG-200 TABLET 1 TAB PO BID SUPPLEMENT (Reported) CHOLECALCIFEROL (VITAMIN D3) (Vitamin D3) 1,000 UNIT CAPSULE 1 SGL PO DAILY supplement (Reported) Clobetasol Propionate (Clobetasol Propionate 0.05% 60GM (CREAM)) 0.05 %/60 GM CRM 1 JAROD TOP AD PRN SKIN (Reported) apply to affected area(s) Cyclosporine (Restasis) 0.05 % DROPERETTE 1 GTT OPH Q12 dry eye (Reported) Diltiazem Cd (Cardizem 180 MG Cd Cap) 120 MG CAP.ER.24H 1 CAP PO DAILY atrial fibrillation Docusate Sodium (Colace) 100 MG CAPSULE 1 CAP PO DAILY constipation (Reported ) Hypromellose (Systane Gel) 0.3 % GEL..GRAM. 1 GTT OPH TID EYES (Reported) Magnesium Oxide 400 MG TABLET 1 TAB PO DAILY supplement (Reported) Methylcellulose (Citrucel) 500 MG TABLET 1 TAB PO BID supplement (Reported) Metoprolol Succ XL (Toprol Xl 50MG Tab) 50 MG TAB.ER.24H 1 TAB PO DAILY blood pressure (Reported) Mometasone Furoate (Nasonex) 0.05 MG/Actuation SPR 1 SPRAY NASB DAILY nasal congestion (Reported) Multivitamin (Multiple Vitamins) 1 EACH TABLET 1 TAB PO DAILY supplement ( Reported) OLOPATADINE HCL (Patanase) 0.6 % SPRAY.PUMP 2 SPRAY NASB BID nasal congestion (Reported) OMEGA-3/DHA/EPA/FISH OIL (Barbeau-3 Fish Oil 1,000 MG Sftg) 300 MG-1,000 MG CAPSULE 2 SGL PO DAILY supplement (Reported) Omeprazole (Prilosec) 20 MG ECC 1 CAP PO DAILY AC GI (Reported) Peg-400/Propylene Glycol (Systane Lubricant Eye Drops 0.4%-0.3% 5 Ml) 5 ML BRADLEY 1 GTT OPH TID dry eye (Reported) Phenytoin (Dilantin ER 100MG Cap) 100 MG CAP 1 CAP PO TID SEIZURES (Reported) Review of Systems Review of Systems Constitutional: Denies: chills, diaphoresis, fever. EENTM: Denies: double vision, visual changes, eye pain. Cardiovascular: Denies: chest pain, edema, palpitations. Respiratory: Denies: hemoptysis, orthopnea, short of breath. GI: Denies: bloating, constipation, diarrhea. Genitourinary: Denies: discharge, frequency. Past History Travel History Traveled to [place] past 21 day No Medical History Blood Transfusion Hx: No Neurological: BLACKOUTS IN THE 60S EENT: DEVIATED SEPTUM Cardiovascular: AFIB, MITRAL STENOSIS Respiratory: obstructive sleep apnea (CPAP) Gastrointestinal: ACID REFLUX Hepatic: NONE Renal: NONE Musculoskeletal: ARTHRITIS Psychiatric: NONE Endocrine: NONE Blood Disorders: NONE Cancer(s): NONE CARDIAC NURSE/Reproductive: NONE Surgical History Surgical History: CARDIOVERSION (01/22) Family History Relations & Conditions If Any: FATHER FH: Alzheimers disease BROTHER FH: Parkinson's disease FH: prostate cancer MOTHER FH: brain cancer Psychosocial History Where Do You Live? Home Services at Home: None Smoking Status: Never Smoked ETOH Use: denies use Illicit Drug Use: denies illicit drug use Functional Ability ADLs Independent: dressing, eating, toileting, bathing. Ambulation: independent IADLs Independent: shopping, housework, finances, food prep, telephone, transportation , medication admin. Exam & Diagnostic Data Last 24 Hrs of Vital Signs/I&O Vital Signs Date Time Temp Pulse Resp B/P Pulse O2 O2 Flow FiO2 Ox Delivery Rate 03/06 2203 132 128/70 03/06 2203 132 128/72 08/13 1749 99.1 118 22 110/60 90 Venti Mask 55% 08/13 1630 100.4 105 20 118/60 92 Venti Mask 5.0L 08/13 1600 92 Venti Mask 55% 08/13 1100 93 Venti Mask 55% 08/13 1054 112 120/76 08/13 1053 112 120/76 08/13 0914 98.2 112 20 120/76 85 Nasal Cannula 08/13 08 93 Venti Mask 10L Intake & Output 08/14 0800 08/14 0000 08/13 1600 Intake Total 650 Output Total 200 800 Balance -200 -150 Intake, IV 600 Intake, Oral 50 Number 0 Bowel Movements Output, Urine 200 800 Physical Exam General Appearance: well developed/nourished, no apparent distress, mild distress Head: atraumatic, normal appearance Eyes: Bilateral: normal appearance. Respiratory: normal breath sounds Cardiovascular: irregularly irregular Gastrointestinal: normal bowel sounds, soft, non-tender Last 24 Hrs of Labs/Storm: Laboratory Tests 08/14/16 2131: APTT 73 H 08/14/16 1913: Nzk-I-Ahkfwaqfnfv Pept Cancelled 08/14/16 1717: Ptu-F-Ceqdpgwzzdl Pept 2780 H 08/14/16 1350: APTT 92 H 08/14/16 0420: Anion Gap 9, Estimated GFR > 60, BUN/Creatinine Ratio 18.3, Magnesium 2.2, Troponin I 0.02, APTT 113 *H, D-Dimer 1023 H, CBC w Diff MAN DIFF ORDERED, RBC 4.32, MCV 96.1, MCH 32.6 H, RDW 13.1, MPV 8.3, Gran % 88.6 H, Lymphocytes % 3.7 L, Monocytes % 7.6, Eosinophils % 0, Basophils % 0.1, Absolute Granulocytes 8.8 H, Segmented Neutrophils 80 H, Band Neutrophils 8 H, Absolute Lymphocytes 0.4 L, Lymphocytes 5 L, Monocytes 7, Absolute Monocytes 0.8 H, Absolute Eosinophils 0, Absolute Basophils 0, Platelet Estimate DECREASED, Polychromasia 1+, PUBS MCHC 33.9 08/13/16 2310: Troponin I Cancelled 08/13/16 2310: Troponin I 0.02, D-Dimer Cancelled, CBC w Diff MAN DIFF ORDERED, RBC 4.41, MCV 95.4, MCH 33.0 H, RDW 12.8, MPV 8.6, Gran % 87.4 H, Lymphocytes % 3.9 L, Monocytes % 8.7, Eosinophils % 0, Basophils % 0 L, Absolute Granulocytes 7.5 H , Absolute Lymphocytes 0.3 L, Absolute Monocytes 0.7 H, Absolute Eosinophils 0 , Absolute Basophils 0, Platelet Estimate ADEQUATE, Ovalocytes 1+, PUBS MCHC 34.6 08/13/16 2255: pH 7.51 H, pCO2 34 L, pO2 59 L, HCO3 27, ABG O2 Sat (Measured) 91.0 L, P-50 (Temp Corrected) N, Carboxyhemoglobin 0.7 L, O2 Concentration % 55%, Temperature 99.7, O2 Delivery Method V/M, Phlebotomy Draw Site RIGHT RADIAL Assessment/Plan Assessment/Plan Patient is a 76-year-old woman with past medical history significant for atrial fibrillation status post cardioversion to normal sinus rhythm last year but subsequently reverted to atrial fibrillation again on elliquis, follows with Dr. Kamara as an outpatient,scheduled for an outpatient JUAN/cardioversion next week , has been admitted to surgical service for small bowel obstruction status post laparotomy lysis of the adhesions(day 3), on IV heparin and Cardizem for atrial fibrillation, being evaluated with concerns of hypoxia. Assessment and plan: 1. Acute hypoxic respiratory failure: Increased pulmonary vascular congestion/ acute CHF VERSUS acute pulmonary Emobolism: * Continue to monitor on telemetry floor * Hold any fluids for now. * Stat EKG and troponin are normal . * ABG did not reveal any evidence of hypercarbia, as is with a normal bicarbonate , hold off BiPAP for now. * Patient was given an extra dose of IV Lasix, will continue to monitor . * Repeat chest x-ray if pt continues to desaturate. * d-dimer is pending ,consider CTA ,but pt is protected as she is on heparin. * Watch for any hemodynamic instability * Continue 40 Lasix twice a day as per Dr. Kamara recommendations. We will notify the cardiology if any changes overnight. 2. Atrial fibrillation with RVR: * Continue Cardizem and IV heparin. 3. Small bowel obstruction status post laparotomy lysis of the adhesions(day 3) : * Continue surgical recommendations. Consult Acknowledgment - Thank you for your consult request.
--- NOTE | 2016-08-13 23:58 | Event Note ---
Event Note Event Note: Follow-up checks x-ray from 6:30 PM today demonstrating increased pulmonary congestion and worsening congestive heart failure compared to chest x-ray done 2 days ago. This information was relayed to Dr. Kamara who repeated a dose of IV Lasix for a total of 40 mg IV at 7:30 PM this evening. Reevaluation at 10:30 PM today patient clearly demonstrated signs of labored breathing with decrease in O2 sat to 85% on 50% mask. She did diurese 700 mL's over a 4 hour period after further discussion with Dr. Kamara we obtained a blood gas repeated an EKG with troponin. He felt so that the patient required further diuresis and possibly BiPAP for the increased O2 requirements based on her chest x-ray. He also felt the need to involve the house staff to evaluate the patient medically and manage the patient overnight. Dr. Isauro Hoang was contacted and made aware of the patient's current clinical condition and agreed that the hospitalist staff should see the patient and manage the patient medically overnight and he will see the patient in the a.m. He also stated that he is available by phone for medical consultation. Dr. Thomas surgical service will continue to follow the patient for any abdominal complaints but he feels though that this is cardiopulmonary in origin and will leave this management to the medical/ cardiology staff. The surgical service will continue to follow this patient as it is admitted to Dr. Thomas for any concerns related to her abdominal surgery.
[2016-08-14 02:14] VITALS: BP 116/70
--- NOTE | 2016-08-14 04:00 | RADIOLOGY REPORT ---
EXAMINATION: XR PORTABLE CHEST CLINICAL INFORMATION: Shortness of breath COMPARISON: 08/13/2016 TECHNIQUE: Portable AP view of the chest was obtained. FINDINGS: Lung volumes are symmetric. In comparison to the prior examination there is increased right perihilar and basilar airspace opacity. Left perihilar and basilar opacity appears similar to prior. No pneumothorax is seen. Small pleural effusions may be present. The cardiomediastinal silhouette is stable. No acute osseous findings are seen. IMPRESSION: Redemonstrated bilateral perihilar and basilar airspace opacities suspicious for vascular congestion and edema, mildly worsened at the right base compared to prior.
[2016-08-14 04:42] LABS: ABSOLUTE BASOPHIL COUNT 0 /CUMM (0.0-0.2); ABSOLUTE EOSINOPHIL COUNT 0 /CUMM (0.0-0.7); ABSOLUTE GRANULOCYTE CT 8.8 /CUMM (1.4-6.5); ABSOLUTE LYMPH COUNT 0.4 /CUMM (1.2-3.4); ABSOLUTE MONOCYTE COUNT 0.8 /CUMM (0.10-0.60); BASOPHIL % 0.1 % (0.0-2.0); EOSINOPHIL % 0 % (0-5); GRANULOCYTE % 88.6 % (42.2-75.2); HEMATOCRIT 41.5 % (37-47); MEAN CORPUSCULAR HGB 32.6 PG (27.0-31.0); MEAN CORPUSCULAR HGB CONC 33.9 G/DL (33.0-37.0); MEAN CORPUSCULAR VOLUME 96.1 FL (81.0-99.0); MEAN PLATELET VOLUME 8.3 FL (7.4-10.4); PLATELET COUNT 137 /CUMM (130-400); RBC DISTRIBUTION WIDTH 13.1 % (11.5-14.5); RED BLOOD CELL CT 4.32 /CUMM (4.20-5.40)
[2016-08-14 06:04] LABS: PTT 113 SEC (25-37)
[2016-08-14 07:48] VITALS: BP 122/78
--- NOTE | 2016-08-14 09:53 | RADIOLOGY REPORT ---
EXAMINATION: XR PORTABLE CHEST CLINICAL INFORMATION: Hypoxia. Status post diuresis. Presumptive diagnosis of volume overload. COMPARISON: Several prior chest x-rays, most recent of which is dated 08/14/2016. TECHNIQUE: Portable AP semierect view of the chest was obtained. FINDINGS: The cardiomediastinal silhouette is mildly enlarged and again obscured by extensive bilateral diffuse perihilar fluffy airspace opacities, suspicious for pulmonary edema. Associated small bilateral pleural effusions and bibasilar atelectasis are suspected. No pneumothorax is seen. Bony structures are unremarkable. IMPRESSION: Unchanged appearance of the chest with findings suspicious for congestive heart failure.
--- NOTE | 2016-08-14 10:06 | PN- Att Addend ---
Attending Addendum Attending Brief Note 76-year-old white female originally admitted for an intestinal obstruction. Ended up having surgery. Patient has been followed by Dr. Kamara for atrial fibrillation last evening she became short of breath, went into congestive heart failure, and IV diuresis with Lasix. Patient still short of breath this morning on high flow oxygen very weak. She was transferred to the medical service, will follow once with Dr. Melton and also request a pulmonary consult with his history of sleep apnea. The chest x-ray showed congestive heart failure. She has low-grade temp, which cultures too. Current Medications Sig/Rosalia Start time Last Medication Dose Route Stop Time Status Admin Acetaminophen 1,000 MG Q6P PRN 08/07 1330 AC 08/07 N/A 1 UNIT IV 2107 Alprazolam 0.25 MG ONCE ONE 08/14 0215 DC 08/14 PO 08/14 0216 0234 Amiodarone HCl 200 MG BID 08/07 2200 AC 08/14 PO 0851 Atorvastatin Calcium 20 MG 1700 08/07 1700 AC 08/13 PO 1712 Diltiazem HCl 125 MG Q24H 08/14 0545 AC 08/14 Sodium Chloride 100 ML IV 0609 Diltiazem HCl 125 MG Q24H 08/09 0930 DC 08/13 Dextrose/Water 100 ML IV 1711 Furosemide 20 MG 0800,1700 08/14 0800 DC IV Furosemide 40 MG 7:30 AM, & 4:30 PM 08/14 0730 AC 08/14 IV 0849 Furosemide 20 MG ONCE ONE 08/13 2330 DC 08/13 IV 08/13 2331 2329 Furosemide 20 MG ONCE ONE 08/13 1915 DC 08/13 IV 08/13 1916 1925 Furosemide 20 MG 0800,1700 / 1800 DC 03/ IV 1746 Furosemide 20 MG BID / 1345 DC / IV / 2300 1054 Heparin Sodium 5,000 UNIT .STK-MED ONE 08/13 1356 DC (Porcine) IV 08/13 1357 Heparin Sodium 25,000 UNIT Q24H / 0400 AC 08/13 (Porcine) IV 2331 Sodium Chloride 500 ML Lorazepam 0.5 MG ONE ONE 08/14 0845 DC 08/14 PO 08/14 0846 0849 Magnesium Sulfate 1 GM ONCE ONE 08/14 0100 DC 08/14 N/A 1 UNIT IV 03/07 0259 0210 Magnesium Sulfate 1 GM ONCE ONE 08/13 2300 DC 08/14 N/A 1 UNIT IV 08/14 0059 0047 Metoprolol Tartrate 25 MG BID 08/07 2200 AC 08/14 PO 0850 Morphine Sulfate 2 MG Q4P PRN 08/07 1315 AC 08/13 IV 1350 Ondansetron HCl 4 MG Q8P PRN 08/07 1300 AC 08/09 IV 0952 Pantoprazole Sodium 40 MG DAILY 08/08 1000 AC 08/14 IV 0849 Phenytoin 100 MG Q8 08/07 2200 AC 08/14 PO 0609 Potassium Chloride 10 MEQ Q1H 08/13 2199 DC 08/14 IV 08/13 230 0445 Potassium Chloride 20 MEQ Q20H 08/13 0730 AC 08/13 Dextrose/Sodium 1,000 ML IV 1054 Chloride Sodium Chloride 2 SPRAY Q4P PRN 08/14 0730 AC 08/14 JONAS 0858 Laboratory Tests 08/14/16 0420: Anion Gap 9, Estimated GFR > 60, BUN/Creatinine Ratio 18.3, Magnesium 2.2, Troponin I 0.02, APTT 113 *H, D-Dimer 1023 H, CBC w Diff MAN DIFF ORDERED, RBC 4.32, MCV 96.1, MCH 32.6 H, RDW 13.1, MPV 8.3, Gran % 88.6 H, Lymphocytes % 3.7 L, Monocytes % 7.6, Eosinophils % 0, Basophils % 0.1, Absolute Granulocytes 8.8 H, Segmented Neutrophils 80 H, Band Neutrophils 8 H, Absolute Lymphocytes 0.4 L, Lymphocytes 5 L, Monocytes 7, Absolute Monocytes 0.8 H, Absolute Eosinophils 0, Absolute Basophils 0, Platelet Estimate DECREASED, Polychromasia 1+, PUBS MCHC 33.9 08/13/16 2310: Troponin I Cancelled 08/13/162309: Troponin I 0.02, D-Dimer Cancelled, CBC w Diff MAN DIFF ORDERED, RBC 4.41, MCV 95.4, MCH 33.0 H, RDW 12.8, MPV 8.6, Gran % 87.4 H, Lymphocytes % 3.9 L, Monocytes % 8.7, Eosinophils % 0, Basophils % 0 L, Absolute Granulocytes 7.5 H , Absolute Lymphocytes 0.3 L, Absolute Monocytes 0.7 H, Absolute Eosinophils 0 , Absolute Basophils 0, Platelet Estimate ADEQUATE, Ovalocytes 1+, PUBS MCHC 34.6 08/13/16 2255: pH 7.51 H, pCO2 34 L, pO2 59 L, HCO3 27, ABG O2 Sat (Measured) 91.0 L, P-50 (Temp Corrected) N, Carboxyhemoglobin 0.7 L, O2 Concentration % 55%, Temperature 99.7, O2 Delivery Method V/M, Phlebotomy Draw Site RIGHT RADIAL 08/13/161999: Anion Gap 12, Estimated GFR > 60, BUN/Creatinine Ratio 17.1, Calcium 8.2 L, Phosphorus 3.1, Magnesium 1.5 L, APTT > 120 *H 08/13/16 1815: APTT > 120 *H 08/13/16 1145: APTT 56 H Microbiology Date/Time Procedure - Status Source Growth 08/14 1999 Urine Culture - RES URINE ROUT 08/13 162 Respiratory Culture - COLB LOWER RESP 08/13 162 Gram Stain - COLB LOWER RESP Vital Signs Date Time Temp Pulse Resp B/P Pulse O2 O2 Flow FiO2 Ox Delivery Rate 08/14 0934 90 Nasal 65% Cannula 08/14 0851 132 122/78 08/14 0850 132 122/78 08/14 0748 99.9 112 34 122/78 89 Venti Mask 55% 08/14 0214 98.2 130 18 116/70 91 Venti Mask 55% Continue monitoring her atrial fibrillation and IV treatments.
--- NOTE | 2016-08-14 10:52 | PN- General Surgery ---
See Addendum Subjective Subjective: The patient reports worsening abdominal bloating/fullness. Not passing flatus. No bm. Received additional diuresis last night. Currently denies nausea. Placed on high flow oxygen by the medical team for hypoxia. (PCP) called last night for co-management as well. Objective Vital Signs and I&Os Vital Signs Date Time Temp Pulse Resp B/P Pulse O2 O2 Flow FiO2 Ox Delivery Rate 08/14 0934 90 Nasal 65% Cannula 08/14 0851 132 122/78 08/14 0850 132 122/78 08/14 0748 99.9 112 34 122/78 89 Venti Mask 55% 08/14 0214 98.2 130 18 116/70 91 Venti Mask 55% 08/14 0000 90 Nasal 55% Cannula 08/13 2203 132 128/70 08/13 2203 132 128/72 08/13 1749 99.1 118 22 110/60 90 Venti Mask 55% 08/13 1630 100.4 105 20 118/60 92 Venti Mask 5.0L 08/13 1600 92 Venti Mask 55% 08/13 1100 93 Venti Mask 55% 08/13 1054 112 120/76 08/13 1053 112 120/76 Intake & Output 08/14 1600 08/14 0800 / 0000 / 1600 08/13 0800 / 0000 Intake Total 775 640 650 737.6 737.6 Output Total 250 2463 745 8984 350 Balance 525 -985 -150 -262.4 387.6 Intake, IV 725 620 600 637.6 637.6 Intake, Oral 50 20 50 100 100 Number 0 0 0 Bowel Movements Output, Urine 250 4807 309 5816 350 Physical Exam: General - sleepy. comfortable. no acute distress. Lungs - crackles b/l. high flow oxygen via cannula Cardiac - irreg irreg. tachy Abdomen - softly distended. dressing c/d/i. - jaramillo draining concentrated yellow urine Extremities - warm bilaterally. edema noted b/l. Current Medications: Current Medications Sig/Rosalia Start time Last Medication Dose Route Stop Time Status Admin Acetaminophen 1,000 MG Q6P PRN 08/07 1330 AC 08/07 N/A 1 UNIT IV 2107 Alprazolam 0.25 MG ONCE ONE 08/14 214 DC 08/14 PO 03/07 0216 0234 Amiodarone HCl 200 MG BID 08/07 2200 AC 08/14 PO 0851 Atorvastatin Calcium 20 MG 1700 08/07 1700 AC 08/13 PO 1712 Diltiazem HCl 125 MG Q24H 08/14 0545 AC 08/14 Sodium Chloride 100 ML IV 0609 Diltiazem HCl 125 MG Q24H / 0930 DC 08/13 Dextrose/Water 100 ML IV 1711 Furosemide 20 MG ONE TIME ONE 08/14 1100 UNVr IV PUSH 08/14 1101 Furosemide 20 MG 0800,1700 08/14 0800 DC IV Furosemide 40 MG 7:30 AM, & 4:30 PM 08/14 0730 AC 08/14 IV 0849 Furosemide 20 MG ONCE ONE 08/13 2330 DC 08/13 IV 08/13 2331 2329 Furosemide 20 MG ONCE ONE 08/13 1915 DC 08/13 IV 08/13 1916 1925 Furosemide 20 MG 0800,1700 08/13 1800 DC 08/13 IV 1746 Furosemide 20 MG BID 08/11 1345 DC 08/13 IV 08/13 2300 1054 Heparin Sodium 5,000 UNIT .STK-MED ONE 08/13 1356 DC (Porcine) IV 08/13 1357 Heparin Sodium 25,000 UNIT Q24H 08/11 0400 AC 08/13 (Porcine) IV 2331 Sodium Chloride 500 ML Lorazepam 0.5 MG ONE ONE 08/14 0845 DC 08/14 PO 08/14 0846 0849 Magnesium Sulfate 1 GM ONCE ONE 08/14 0100 DC 08/14 N/A 1 UNIT IV 08/14 0259 0210 Magnesium Sulfate 1 GM ONCE ONE 08/13 2300 DC 08/14 N/A 1 UNIT IV 08/14 0059 0047 Metoprolol Tartrate 25 MG BID 08/07 2200 AC 08/14 PO 0850 Morphine Sulfate 2 MG Q4P PRN 08/07 1315 AC 08/13 IV 1350 Ondansetron HCl 4 MG Q8P PRN 08/07 1300 AC 08/09 IV 0952 Pantoprazole Sodium 40 MG DAILY 08/08 1000 AC 08/14 IV 0849 Phenytoin 100 MG Q8 08/07 2200 AC 08/14 PO 0609 Potassium Chloride 10 MEQ Q1H 08/14 1100 UNVr IV 08/14 1201 Potassium Chloride 10 MEQ Q1H 08/13 2200 DC 08/14 IV 08/13 2301 0445 Potassium Chloride 20 MEQ Q20H 08/13 0730 AC 08/13 Dextrose/Sodium 1,000 ML IV 1054 Chloride Sodium Chloride 2 SPRAY Q4P PRN 08/14 729 AC 08/14 JONAS 0858 Results Last 48 Hours of Labs: Laboratory Tests 08/14 08/13 0420 2310 Chemistry Sodium (137 - 145 mmol/L) 131 L Potassium (3.5 - 5.1 mmol/L) 3.2 L Chloride (98 - 107 mmol/L) 89 L Carbon Dioxide (22 - 30 mmol/L) 32 H Anion Gap (5 - 16) 9 BUN (7 - 17 mg/dL) 11 Creatinine (0.5 - 1.0 mg/dL) 0.6 Estimated GFR (>60 ml/min) > 60 BUN/Creatinine Ratio (7 - 25 %) 18.3 Magnesium (1.6 - 2.3 mg/dL) 2.2 Troponin I (< 0.11 ng/ml) 0.02 Cancelled Coagulation APTT (25 - 37 SEC) 113 *H D-Dimer (70 - 232 ng/ml) 1023 H Hematology CBC w Diff MAN DIFF ORDERED WBC (4.8 - 10.8 /CUMM) 10.0 RBC (4.20 - 5.40 /CUMM) 4.32 Hgb (12.0 - 16.0 G/DL) 14.1 Hct (37 - 47 %) 41.5 MCV (81.0 - 99.0 FL) 96.1 MCH (27.0 - 31.0 PG) 32.6 H RDW (11.5 - 14.5 %) 13.1 Plt Count (130 - 400 /CUMM) 137 MPV (7.4 - 10.4 FL) 8.3 Gran % (42.2 - 75.2 %) 88.6 H Lymphocytes % (20.5 - 51.1 %) 3.7 L Monocytes % (1.7 - 9.3 %) 7.6 Eosinophils % (0 - 5 %) 0 Basophils % (0.0 - 2.0 %) 0.1 Absolute Granulocytes (1.4 - 6.5 /CUMM) 8.8 H Segmented Neutrophils (42.2 - 75.2 %) 80 H Band Neutrophils (0.0 - 5.0 %) 8 H Absolute Lymphocytes (1.2 - 3.4 /CUMM) 0.4 L Lymphocytes (20.5 - 51.1 %) 5 L Monocytes (1.7 - 9.3 %) 7 Absolute Monocytes (0.10 - 0.60 /CUMM) 0.8 H Absolute Eosinophils (0.0 - 0.7 /CUMM) 0 Absolute Basophils (0.0 - 0.2 /CUMM) 0 Platelet Estimate (ADEQUATE) DECREASED Polychromasia 1+ PUBS MCHC (33.0 - 37.0 G/DL) 33.9 03/06 03/06 2310 2255 Blood Gas pH (7.35 - 7.45 PH) 7.51 H pCO2 (35 - 45 TORR) 34 L pO2 (80 - 100 TORR) 59 L HCO3 (21 - 28 MEQ/L) 27 ABG O2 Sat (Measured) (>96.0 %) 91.0 L P-50 (Temp Corrected) N Carboxyhemoglobin (1.5 - 5.0 %) 0.7 L O2 Concentration % 55% Temperature (97.0 - 100.0 FARH) 99.7 O2 Delivery Method V/M Chemistry Troponin I (< 0.11 ng/ml) 0.02 Coagulation D-Dimer Cancelled Hematology CBC w Diff MAN DIFF ORDERED WBC (4.8 - 10.8 /CUMM) 8.6 RBC (4.20 - 5.40 /CUMM) 4.41 Hgb (12.0 - 16.0 G/DL) 14.6 Hct (37 - 47 %) 42.1 MCV (81.0 - 99.0 FL) 95.4 MCH (27.0 - 31.0 PG) 33.0 H RDW (11.5 - 14.5 %) 12.8 Plt Count (130 - 400 /CUMM) 145 MPV (7.4 - 10.4 FL) 8.6 Gran % (42.2 - 75.2 %) 87.4 H Lymphocytes % (20.5 - 51.1 %) 3.9 L Monocytes % (1.7 - 9.3 %) 8.7 Eosinophils % (0 - 5 %) 0 Basophils % (0.0 - 2.0 %) 0 L Absolute Granulocytes (1.4 - 6.5 /CUMM) 7.5 H Absolute Lymphocytes (1.2 - 3.4 /CUMM) 0.3 L Absolute Monocytes (0.10 - 0.60 /CUMM) 0.7 H Absolute Eosinophils (0.0 - 0.7 /CUMM) 0 Absolute Basophils (0.0 - 0.2 /CUMM) 0 Platelet Estimate (ADEQUATE) ADEQUATE Ovalocytes 1+ PUBS MCHC (33.0 - 37.0 G/DL) 34.6 Miscellaneous Phlebotomy Draw Site RIGHT RADIAL 08/13 1815 1145 Chemistry Sodium (137 - 145 mmol/L) 131 L Potassium (3.5 - 5.1 mmol/L) 3.3 L Chloride (98 - 107 mmol/L) 90 L Carbon Dioxide (22 - 30 mmol/L) 28 Anion Gap (5 - 16) 12 BUN (7 - 17 mg/dL) 12 Creatinine (0.5 - 1.0 mg/dL) 0.7 Estimated GFR (>60 ml/min) > 60 BUN/Creatinine Ratio (7 - 25 %) 17.1 Calcium (8.4 - 10.2 mg/dL) 8.2 L Phosphorus (2.5 - 4.5 mg/dL) 3.1 Magnesium (1.6 - 2.3 mg/dL) 1.5 L Coagulation APTT (25 - 37 SEC) > 120 *H > 120 *H 56 H 08/13 08/12 0415 1630 Chemistry Sodium (137 - 145 mmol/L) 129 L Potassium (3.5 - 5.1 mmol/L) 3.7 Chloride (98 - 107 mmol/L) 92 L Carbon Dioxide (22 - 30 mmol/L) 29 Anion Gap (5 - 16) 8 BUN (7 - 17 mg/dL) 10 Creatinine (0.5 - 1.0 mg/dL) 0.6 Estimated GFR (>60 ml/min) > 60 BUN/Creatinine Ratio (7 - 25 %) 16.7 Coagulation APTT (25 - 37 SEC) 75 H 79 H Hematology CBC w Diff MAN DIFF ORDERED WBC (4.8 - 10.8 /CUMM) 6.9 RBC (4.20 - 5.40 /CUMM) 4.15 L Hgb (12.0 - 16.0 G/DL) 13.6 Hct (37 - 47 %) 40.2 MCV (81.0 - 99.0 FL) 96.9 MCH (27.0 - 31.0 PG) 32.7 H RDW (11.5 - 14.5 %) 13.4 Plt Count (130 - 400 /CUMM) 126 L MPV (7.4 - 10.4 FL) 9.0 Gran % (42.2 - 75.2 %) 87.0 H Lymphocytes % (20.5 - 51.1 %) 4.3 L Monocytes % (1.7 - 9.3 %) 8.4 Eosinophils % (0 - 5 %) 0.1 Basophils % (0.0 - 2.0 %) 0.2 Absolute Granulocytes (1.4 - 6.5 /CUMM) 6.0 Segmented Neutrophils (42.2 - 75.2 %) 84 H Band Neutrophils (0.0 - 5.0 %) 4 Absolute Lymphocytes (1.2 - 3.4 /CUMM) 0.3 L Lymphocytes (20.5 - 51.1 %) 5 L Monocytes (1.7 - 9.3 %) 7 Absolute Monocytes (0.10 - 0.60 /CUMM) 0.6 Absolute Eosinophils (0.0 - 0.7 /CUMM) 0 Absolute Basophils (0.0 - 0.2 /CUMM) 0 Platelet Estimate (ADEQUATE) ADEQUATE Polychromasia 1+ Poikilocytosis 1+ Ovalocytes 1+ PUBS MCHC (33.0 - 37.0 G/DL) 33.8 Other Body Source Fld Total RBCs Counted (%) 100 Recent Imaging Studies: EXAMINATION: XR PORTABLE CHEST CLINICAL INFORMATION: Tachypnea. Abdominal distention. Presumptive diagnoses of postoperative ileus, CHF. COMPARISON: 08/14/2016 TECHNIQUE: AP portable upright view of the chest FINDINGS: Cardiac and mediastinal contours are unchanged. Patchy foci of alveolar airspace consolidation in both lungs are unchanged from prior, most likely due to alveolar edema. There are small bilateral pleural effusions with associated bibasilar atelectasis. Cardiac and mediastinal contours are unchanged. No pneumothorax. Osseous structures are unchanged. IMPRESSION: No significant change in the pulmonary alveolar edema and small bilateral effusions, most compatible with CHF DICTATED BY: MAHI MURPHY MD DATE/TIME DICTATED:08/14/161043 LOCOMOTIVE FIRER/FIREMAN:DAGO DATE/TIME TRANSCRIBED:08/14/161043 EXAM TYPE: RAD - XRY-PORTABLE ABDOMEN EXAMINATION: XR PORTABLE ABDOMEN CLINICAL INFORMATION: Postop ileus. COMPARISON: Abdominal radiograph dated 08/10/2016. TECHNIQUE: A single radiograph of the abdomen was performed. FINDINGS: There are several, minimally dilated small bowel loops within the mid abdomen. There is gas seen to the level of the rectum. No definite free air. There are surgical lissa overlying the left para midline pelvis. Degenerative changes of the thoracic spine. IMPRESSION: Findings consistent with postoperative ileus. DICTATED BY: ELMER LANG MD DATE/TIME DICTATED:08/14/161042 LOCOMOTIVE FIRER/FIREMAN:DAGO DATE/TIME TRANSCRIBED:08/14/161042 Assessment/Plan Assessment/Plan This 76-year-old female with hx afib is POD#4 s/p lysis of adhesions for sbo, complicated by acute hypoxic respiratory failure likelyd chf related, afib with rapid ventricular rate, post-op ileus currently npo. ivf @ 50 mls/hr renew jaramillo for strict i/o's replete lytes. recheck potassium this afternoon continue diuresing with lasix. give an additional 20 mg iv this morning continue iv hep / cardizem gtt pulm consult recommended by may consider reinsertion of ng tube for post-op ileus will d/w Core Measures/Miscellaneous Venous Thromboembolism VTE Risk Factors: Age > 40 VTE Contraindications: No Contraindications VTE Diagnosis: No VTE Type: NONE VTE Confirmed by (Test): NONE Beta Reab Is Beta Reba a Home Med? Yes If Yes, Was This Ordered Today? Yes Antibiotics Is Patient on Antibiotics? No
--- NOTE | 2016-08-14 12:50 | PN- Cardiology ---
Subjective Subjective: The patient was noted to be short of breath overnight, and IV Lasix was given. No chest pain. No palpitations. No diaphoresis. Objective Vital Signs and I&Os Vital Signs Date Time Temp Pulse Resp B/P Pulse O2 O2 Flow FiO2 Ox Delivery Rate 08/14 0934 90 Nasal 65% Cannula 08/14 0851 132 122/78 08/14 0850 132 122/78 08/14 0748 99.9 112 34 122/78 89 Venti Mask 55% 08/14 0214 98.2 130 18 116/70 91 Venti Mask 55% 08/14 0000 90 Nasal 55% Cannula 08/13 2202 132 128/70 08/13 2203 132 128/72 08/13 1749 99.1 118 22 110/60 90 Venti Mask 55% 08/13 1630 100.4 105 20 118/60 92 Venti Mask 5.0L 08/13 1600 92 Venti Mask 55% Intake & Output 08/14 1600 08/14 0800 08/14 0000 08/13 1600 08/13 0800 08/13 0000 Intake Total 775 640 650 737.6 737.6 Output Total 250 5481 103 8570 350 Balance 525 -985 -150 -262.4 387.6 Intake, IV 725 620 600 637.6 637.6 Intake, Oral 50 20 50 100 100 Number 0 0 0 Bowel Movements Output, Urine 250 2270 644 7504 350 Physical Exam: Gen: NAD HEENT: normal Lungs: Scattered rales, normal resp. effort Heart: Irregularly irregular, S1, S2, 1/6 systolic murmur Abdomen: Soft, nontender, no masses Extremities: No clubbing, cyanosis, or edema. Neuro: Alert and oriented x 3, cranial nerves intact Current Medications: Current Medications Sig/Rosalia Start time Last Medication Dose Route Stop Time Status Admin Acetaminophen 1,000 MG Q6P PRN 08/07 1330 AC 08/07 N/A 1 UNIT IV 2107 Alprazolam 0.25 MG ONCE ONE 08/14 214 DC 08/14 PO 08/14 021 0234 Amiodarone HCl 200 MG BID 08/07 2199 DC 08/14 PO 0851 Atorvastatin Calcium 20 MG 1700 08/07 1700 AC 08/13 PO 1712 Diltiazem HCl 125 MG Q24H 08/14 0545 AC 08/14 Sodium Chloride 100 ML IV 0609 Diltiazem HCl 125 MG Q24H / 0930 DC 08/13 Dextrose/Water 100 ML IV 1711 Furosemide 20 MG ONE TIME ONE 08/14 1100 DC 08/14 IV PUSH 08/14 1101 1129 Furosemide 20 MG 0800,1700 08/14 0800 DC IV Furosemide 40 MG 7:30 AM, & 4:30 PM 08/14 0730 AC 08/14 IV 0849 Furosemide 20 MG ONCE ONE 08/13 2330 DC 08/13 IV 08/13 2331 2329 Furosemide 20 MG ONCE ONE 08/13 1915 DC 08/13 IV 08/13 1916 1925 Furosemide 20 MG 0800,1700 08/13 1800 DC 08/13 IV 1746 Furosemide 20 MG BID 08/11 1345 DC 08/13 IV 08/13 2300 1054 Heparin Sodium 5,000 UNIT .STK-MED ONE 08/13 1356 DC (Porcine) IV 08/13 1357 Heparin Sodium 25,000 UNIT Q24H 08/11 0400 AC 08/13 (Porcine) IV 2331 Sodium Chloride 500 ML Lorazepam 0.5 MG ONE ONE 08/14 0845 DC 08/14 PO 08/14 0846 0849 Magnesium Sulfate 1 GM ONCE ONE 08/14 0100 DC 08/14 N/A 1 UNIT IV 08/14 0259 0210 Magnesium Sulfate 1 GM ONCE ONE 08/13 2300 DC 08/14 N/A 1 UNIT IV 08/14 0059 0047 Metoprolol Tartrate 25 MG BID 08/07 2200 AC 08/14 PO 0850 Morphine Sulfate 2 MG Q4P PRN 08/07 1315 AC 08/13 IV 1350 Ondansetron HCl 4 MG Q8P PRN 08/07 1300 AC 08/14 IV 1129 Pantoprazole Sodium 40 MG DAILY 08/08 1000 AC 08/14 IV 0849 Phenytoin 100 MG Q8 08/07 2200 AC 08/14 PO 0609 Potassium Chloride 10 MEQ Q1H 08/14 1100 DC 08/14 IV 08/14 1201 1136 Potassium Chloride 10 MEQ Q1H 08/13 2200 DC 08/14 IV 08/13 2301 0445 Potassium Chloride 20 MEQ Q20H / 0730 AC 08/13 Dextrose/Sodium 1,000 ML IV 1054 Chloride Sodium Chloride 2 SPRAY Q4P PRN 08/14 0730 AC 03/07 JONAS 0858 Results Last 48 Hrs of Labs/Mics: Laboratory Tests 08/14/16 0420: Anion Gap 9, Estimated GFR > 60, BUN/Creatinine Ratio 18.3, Magnesium 2.2, Troponin I 0.02, APTT 113 *H, D-Dimer 1023 H, CBC w Diff MAN DIFF ORDERED, RBC 4.32, MCV 96.1, MCH 32.6 H, RDW 13.1, MPV 8.3, Gran % 88.6 H, Lymphocytes % 3.7 L, Monocytes % 7.6, Eosinophils % 0, Basophils % 0.1, Absolute Granulocytes 8.8 H, Segmented Neutrophils 80 H, Band Neutrophils 8 H, Absolute Lymphocytes 0.4 L, Lymphocytes 5 L, Monocytes 7, Absolute Monocytes 0.8 H, Absolute Eosinophils 0, Absolute Basophils 0, Platelet Estimate DECREASED, Polychromasia 1+, PUBS MCHC 33.9 08/13/16 2310: Troponin I Cancelled 08/13/16 2310: Troponin I 0.02, D-Dimer Cancelled, CBC w Diff MAN DIFF ORDERED, RBC 4.41, MCV 95.4, MCH 33.0 H, RDW 12.8, MPV 8.6, Gran % 87.4 H, Lymphocytes % 3.9 L, Monocytes % 8.7, Eosinophils % 0, Basophils % 0 L, Absolute Granulocytes 7.5 H , Absolute Lymphocytes 0.3 L, Absolute Monocytes 0.7 H, Absolute Eosinophils 0 , Absolute Basophils 0, Platelet Estimate ADEQUATE, Ovalocytes 1+, PUBS MCHC 34.6 08/13/16 2255: pH 7.51 H, pCO2 34 L, pO2 59 L, HCO3 27, ABG O2 Sat (Measured) 91.0 L, P-50 (Temp Corrected) N, Carboxyhemoglobin 0.7 L, O2 Concentration % 55%, Temperature 99.7, O2 Delivery Method V/M, Phlebotomy Draw Site RIGHT RADIAL 08/13/16 2000: Anion Gap 12, Estimated GFR > 60, BUN/Creatinine Ratio 17.1, Calcium 8.2 L, Phosphorus 3.1, Magnesium 1.5 L, APTT > 120 *H 08/13/16 1815: APTT > 120 *H 08/13/16 1145: APTT 56 H 08/13/16 0415: Anion Gap 8, Estimated GFR > 60, BUN/Creatinine Ratio 16.7, APTT 75 H, CBC w Diff MAN DIFF ORDERED, RBC 4.15 L, MCV 96.9, MCH 32.7 H, RDW 13.4, MPV 9.0, Gran % 87.0 H, Lymphocytes % 4.3 L, Monocytes % 8.4, Eosinophils % 0.1, Basophils % 0.2, Absolute Granulocytes 6.0, Segmented Neutrophils 84 H, Band Neutrophils 4, Absolute Lymphocytes 0.3 L, Lymphocytes 5 L, Monocytes 7, Absolute Monocytes 0.6, Absolute Eosinophils 0, Absolute Basophils 0, Platelet Estimate ADEQUATE, Polychromasia 1+, Poikilocytosis 1+, Ovalocytes 1+, PUBS MCHC 33.8, Fld Total RBCs Counted 100 08/12/16 1630: APTT 79 H Recent Imaging Studies: Chest x-ray: No significant change in the pulmonary alveolar edema and small bilateral effusions, most compatible with CHF Assessment/Plan Assessment/Plan Assessment: 1. Persistent atrial fibrillation 2. Small bowel obstruction 3. History of mitral stenosis 4. Obstructive sleep apnea 5. Acute on chronic diastolic heart failure Plan: * Continue IV heparin for anticoagulation and IV diltiazem for rate control. * Lasix 40 mg IV every 12 hours * Follow input and output with daily weights Continue telemetry? Yes
[2016-08-14 14:51] LABS: PTT 92 SEC (25-37)
[2016-08-14 16:13] VITALS: BP 98/52
--- NOTE | 2016-08-14 18:00 | Cons- Pulmonary ---
General Information and HPI Consulting Request Date of Consult: 08/14/16 Requested By: med team History of Present Illness: 76-year-old white female originally admitted for an intestinal obstruction. Ended up having surgery. Patient has been followed by Dr. Kamara for atrial fibrillation last evening she became short of breath, went into congestive heart failure, and IV diuresis with Lasix. Patient still short of breath this morning on high flow oxygen very weak. She was transferred to the medical service, she continued to be more short of breath this consult was asked. Patient does have mild obstructive lung disease. She's been in persistent atrial fibrillation on diltiazem drip. She continues to be fatigued. She has been on very high-dose amiodarone for a while. Recently a chest x-ray did suggest pulmonary edema. She has acutely decompensated hence this consult. No fever no chills. Her white count is unremarkable. She is unable to take by mouth.SIGNIFICANT DATA Recent echocardiogram showed mitral stenosis and preserved ejection fraction with aortic valve sclerosis. She also has moderate pulmonary hypertension with tricuspid regurg as well. Chest x-ray shows pulmonary edema BUN/creatinine stable potassium significantly low a proBNP was not on her last TSH was 5 ABG revealed 7.51/34/59. All the cultures so far has been negative. Allergies/Medications Allergies: Coded Allergies: NSAIDS (Non-Steroidal Anti-Inflamma (UNKNOWN 08/07/16) carisoprodol (From Soma) (UNKNOWN 08/07/16) celecoxib (From Celebrex) (UNKNOWN 08/07/16) diclofenac (From Voltaren) (UNKNOWN 08/07/16) ibandronate sodium (UNKNOWN 08/07/16) nitrofurantoin (From Macrobid) (UNKNOWN 08/07/16) oxymetazoline (From Afrin (oxymetazoline)) (UNKNOWN 08/07/16) Home Med List: Acetaminophen (Tylenol 8 Hour) [address] 1 TAB PO AD PRN PAIN (Reported) Amiodarone Hydrochloride (Amiodarone) 200 MG TAB 1 TAB PO BID AFIB (Reported) Apixaban (Eliquis) 5 MG TABLET 1 TAB PO BID atrial fibrillation Aspirin (Children's Aspirin) 81 MG TAB.CHEW 1 TAB PO DAILY HEART HEALTH ( Reported) Atorvastatin Calcium (Lipitor) 20 MG TABLET 1 TAB PO DAILY cholesterol ( Reported) Bifidobacterium Infantis (Align) 4 MG (1 BILLION CELL) CAPSULE 1 CAP PO DAILY supplement (Reported) CALCIUM CARBONATE/VITAMIN D3 (Os-Vinicius 500+D3 Caplet) 500 MG-200 TABLET 1 TAB PO BID SUPPLEMENT (Reported) CHOLECALCIFEROL (VITAMIN D3) (Vitamin D3) 1,000 UNIT CAPSULE 1 SGL PO DAILY supplement (Reported) Clobetasol Propionate (Clobetasol Propionate 0.05% 60GM (CREAM)) 0.05 %/60 GM CRM 1 JAROD TOP AD PRN SKIN (Reported) apply to affected area(s) Cyclosporine (Restasis) 0.05 % DROPERETTE 1 GTT OPH Q12 dry eye (Reported) Diltiazem Cd (Cardizem 180 MG Cd Cap) 120 MG CAP.ER.24H 1 CAP PO DAILY atrial fibrillation Docusate Sodium (Colace) 100 MG CAPSULE 1 CAP PO DAILY constipation (Reported ) Hypromellose (Systane Gel) 0.3 % GEL..GRAM. 1 GTT OPH TID EYES (Reported) Magnesium Oxide 400 MG TABLET 1 TAB PO DAILY supplement (Reported) Methylcellulose (Citrucel) 500 MG TABLET 1 TAB PO BID supplement (Reported) Metoprolol Succ XL (Toprol Xl 50MG Tab) 50 MG TAB.ER.24H 1 TAB PO DAILY blood pressure (Reported) Mometasone Furoate (Nasonex) 0.05 MG/Actuation SPR 1 SPRAY NASB DAILY nasal congestion (Reported) Multivitamin (Multiple Vitamins) 1 EACH TABLET 1 TAB PO DAILY supplement ( Reported) OLOPATADINE HCL (Patanase) 0.6 % SPRAY.PUMP 2 SPRAY NASB BID nasal congestion (Reported) OMEGA-3/DHA/EPA/FISH OIL ([place]-3 Fish Oil 1,000 MG Sftg) 300 MG-1,000 MG CAPSULE 2 SGL PO DAILY supplement (Reported) Omeprazole (Prilosec) 20 MG ECC 1 CAP PO DAILY AC GI (Reported) Peg-400/Propylene Glycol (Systane Lubricant Eye Drops 0.4%-0.3% 5 Ml) 5 ML BRADLEY 1 GTT OPH TID dry eye (Reported) Phenytoin (Dilantin ER 100MG Cap) 100 MG CAP 1 CAP PO TID SEIZURES (Reported) Review of Systems Review of Systems Constitutional: Reports: see HPI. 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 Home Services at Home: None Smoking Status: Never Smoked ETOH Use: denies use Illicit Drug Use: denies illicit drug use Functional Ability ADLs Independent: dressing, eating, toileting, bathing. Ambulation: independent IADLs Independent: shopping, housework, finances, food prep, telephone, transportation , medication admin. Exam & Diagnostic Data Last 24 Hrs of Vital Signs/I&O Vital Signs Date Time Temp Pulse Resp B/P Pulse O2 O2 Flow FiO2 Ox Delivery Rate 08/14 1620 94 Nasal 60% Cannula 08/14 1613 98.8 118 34 98/52 93 Nasal Cannula 08/14 0934 90 Nasal 65% Cannula 08/14 0851 132 122/78 08/14 0850 132 122/78 08/14 0748 99.9 112 34 122/78 89 Venti Mask 55% 08/14 0214 98.2 130 18 116/70 91 Venti Mask 55% 08/14 0000 90 Nasal 55% Cannula 08/13 2203 132 128/70 08/13 2203 132 128/72 Intake & Output 08/14 1600 08/14 0800 08/14 0000 Intake Total 775 640 Output Total 250 1625 Balance 525 -985 Intake, IV 725 620 Intake, Oral 50 20 Output, Urine 250 1625 Laboratory Tests 08/14 08/14 08/14 1717 1350 0420 Chemistry Sodium (137 - 145 mmol/L) 131 L Potassium (3.5 - 5.1 mmol/L) Pending 3.2 L Chloride (98 - 107 mmol/L) 89 L Carbon Dioxide (22 - 30 mmol/L) 32 H Anion Gap (5 - 16) 9 BUN (7 - 17 mg/dL) 11 Creatinine (0.5 - 1.0 mg/dL) 0.6 Estimated GFR (>60 ml/min) > 60 BUN/Creatinine Ratio (7 - 25 %) 18.3 Magnesium (1.6 - 2.3 mg/dL) 2.2 Troponin I (< 0.11 ng/ml) 0.02 Coagulation APTT (25 - 37 SEC) 92 H 113 *H D-Dimer (70 - 232 ng/ml) 1023 H Hematology CBC w Diff MAN DIFF ORDERED WBC (4.8 - 10.8 /CUMM) 10.0 RBC (4.20 - 5.40 /CUMM) 4.32 Hgb (12.0 - 16.0 G/DL) 14.1 Hct (37 - 47 %) 41.5 MCV (81.0 - 99.0 FL) 96.1 MCH (27.0 - 31.0 PG) 32.6 H RDW (11.5 - 14.5 %) 13.1 Plt Count (130 - 400 /CUMM) 137 MPV (7.4 - 10.4 FL) 8.3 Gran % (42.2 - 75.2 %) 88.6 H Lymphocytes % (20.5 - 51.1 %) 3.7 L Monocytes % (1.7 - 9.3 %) 7.6 Eosinophils % (0 - 5 %) 0 Basophils % (0.0 - 2.0 %) 0.1 Absolute Granulocytes (1.4 - 6.5 /CUMM) 8.8 H Segmented Neutrophils (42.2 - 75.2 %) 80 H Band Neutrophils (0.0 - 5.0 %) 8 H Absolute Lymphocytes (1.2 - 3.4 /CUMM) 0.4 L Lymphocytes (20.5 - 51.1 %) 5 L Monocytes (1.7 - 9.3 %) 7 Absolute Monocytes (0.10 - 0.60 /CUMM) 0.8 H Absolute Eosinophils (0.0 - 0.7 /CUMM) 0 Absolute Basophils (0.0 - 0.2 /CUMM) 0 Platelet Estimate (ADEQUATE) DECREASED Polychromasia 1+ PUBS MCHC (33.0 - 37.0 G/DL) 33.9 03/06 03/06 2310 2310 Chemistry Troponin I (< 0.11 ng/ml) Cancelled 0.02 Coagulation D-Dimer Cancelled Hematology CBC w Diff MAN DIFF ORDERED WBC (4.8 - 10.8 /CUMM) 8.6 RBC (4.20 - 5.40 /CUMM) 4.41 Hgb (12.0 - 16.0 G/DL) 14.6 Hct (37 - 47 %) 42.1 MCV (81.0 - 99.0 FL) 95.4 MCH (27.0 - 31.0 PG) 33.0 H RDW (11.5 - 14.5 %) 12.8 Plt Count (130 - 400 /CUMM) 145 MPV (7.4 - 10.4 FL) 8.6 Gran % (42.2 - 75.2 %) 87.4 H Lymphocytes % (20.5 - 51.1 %) 3.9 L Monocytes % (1.7 - 9.3 %) 8.7 Eosinophils % (0 - 5 %) 0 Basophils % (0.0 - 2.0 %) 0 L Absolute Granulocytes (1.4 - 6.5 /CUMM) 7.5 H Absolute Lymphocytes (1.2 - 3.4 /CUMM) 0.3 L Absolute Monocytes (0.10 - 0.60 /CUMM) 0.7 H Absolute Eosinophils (0.0 - 0.7 /CUMM) 0 Absolute Basophils (0.0 - 0.2 /CUMM) 0 Platelet Estimate (ADEQUATE) ADEQUATE Ovalocytes 1+ PUBS MCHC (33.0 - 37.0 G/DL) 34.6 08/13 08/13 08/13 08/13 2255 2000 1815 1145 Blood Gas pH (7.35 - 7.45 PH) 7.51 H pCO2 (35 - 45 TORR) 34 L pO2 (80 - 100 TORR) 59 L HCO3 (21 - 28 MEQ/L) 27 ABG O2 Sat (Measured) (>96.0 %) 91.0 L P-50 (Temp Corrected) N Carboxyhemoglobin (1.5 - 5.0 %) 0.7 L O2 Concentration % 55% Temperature (97.0 - 100.0 FARH) 99.7 O2 Delivery Method V/M Chemistry Sodium (137 - 145 mmol/L) 131 L Potassium (3.5 - 5.1 mmol/L) 3.3 L Chloride (98 - 107 mmol/L) 90 L Carbon Dioxide (22 - 30 mmol/L) 28 Anion Gap (5 - 16) 12 BUN (7 - 17 mg/dL) 12 Creatinine (0.5 - 1.0 mg/dL) 0.7 Estimated GFR (>60 ml/min) > 60 BUN/Creatinine Ratio (7 - 25 %) 17.1 Calcium (8.4 - 10.2 mg/dL) 8.2 L Phosphorus (2.5 - 4.5 mg/dL) 3.1 Magnesium (1.6 - 2.3 mg/dL) 1.5 L Coagulation APTT (25 - 37 SEC) > 120 *H > 120 *H 56 H Miscellaneous Phlebotomy Draw Site RIGHT RADIAL 08/13 0415 Chemistry Sodium (137 - 145 mmol/L) 129 L Potassium (3.5 - 5.1 mmol/L) 3.7 Chloride (98 - 107 mmol/L) 92 L Carbon Dioxide (22 - 30 mmol/L) 29 Anion Gap (5 - 16) 8 BUN (7 - 17 mg/dL) 10 Creatinine (0.5 - 1.0 mg/dL) 0.6 Estimated GFR (>60 ml/min) > 60 BUN/Creatinine Ratio (7 - 25 %) 16.7 Coagulation APTT (25 - 37 SEC) 75 H Hematology CBC w Diff MAN DIFF ORDERED WBC (4.8 - 10.8 /CUMM) 6.9 RBC (4.20 - 5.40 /CUMM) 4.15 L Hgb (12.0 - 16.0 G/DL) 13.6 Hct (37 - 47 %) 40.2 MCV (81.0 - 99.0 FL) 96.9 MCH (27.0 - 31.0 PG) 32.7 H RDW (11.5 - 14.5 %) 13.4 Plt Count (130 - 400 /CUMM) 126 L MPV (7.4 - 10.4 FL) 9.0 Gran % (42.2 - 75.2 %) 87.0 H Lymphocytes % (20.5 - 51.1 %) 4.3 L Monocytes % (1.7 - 9.3 %) 8.4 Eosinophils % (0 - 5 %) 0.1 Basophils % (0.0 - 2.0 %) 0.2 Absolute Granulocytes (1.4 - 6.5 /CUMM) 6.0 Segmented Neutrophils (42.2 - 75.2 %) 84 H Band Neutrophils (0.0 - 5.0 %) 4 Absolute Lymphocytes (1.2 - 3.4 /CUMM) 0.3 L Lymphocytes (20.5 - 51.1 %) 5 L Monocytes (1.7 - 9.3 %) 7 Absolute Monocytes (0.10 - 0.60 /CUMM) 0.6 Absolute Eosinophils (0.0 - 0.7 /CUMM) 0 Absolute Basophils (0.0 - 0.2 /CUMM) 0 Platelet Estimate (ADEQUATE) ADEQUATE Polychromasia 1+ Poikilocytosis 1+ Ovalocytes 1+ PUBS MCHC (33.0 - 37.0 G/DL) 33.8 Other Body Source Fld Total RBCs Counted (%) 100 Microbiology Date/Time Procedure - Status Source Growth 08/14 1999 Urine Culture - RES URINE ROUT 08/14 1627 Respiratory Culture - CAN LOWER RESP Cancelled: SPECIMEN NOT RECEIVED IN LABORATORY 08/14 1627 Gram Stain - CAN LOWER RESP Cancelled: SPECIMEN NOT RECEIVED IN LABORATORY Last 48 Hrs of Labs/Storm: Laboratory Tests 08/14/16 1717: Potassium Pending 08/14/16 1350: APTT 92 H 08/14/16 0420: Anion Gap 9, Estimated GFR > 60, BUN/Creatinine Ratio 18.3, Magnesium 2.2, Troponin I 0.02, APTT 113 *H, D-Dimer 1023 H, CBC w Diff MAN DIFF ORDERED, RBC 4.32, MCV 96.1, MCH 32.6 H, RDW 13.1, MPV 8.3, Gran % 88.6 H, Lymphocytes % 3.7 L, Monocytes % 7.6, Eosinophils % 0, Basophils % 0.1, Absolute Granulocytes 8.8 H, Segmented Neutrophils 80 H, Band Neutrophils 8 H, Absolute Lymphocytes 0.4 L, Lymphocytes 5 L, Monocytes 7, Absolute Monocytes 0.8 H, Absolute Eosinophils 0, Absolute Basophils 0, Platelet Estimate DECREASED, Polychromasia 1+, PUBS MCHC 33.9 08/13/16 2310: Troponin I Cancelled 08/13/16 2310: Troponin I 0.02, D-Dimer Cancelled, CBC w Diff MAN DIFF ORDERED, RBC 4.41, MCV 95.4, MCH 33.0 H, RDW 12.8, MPV 8.6, Gran % 87.4 H, Lymphocytes % 3.9 L, Monocytes % 8.7, Eosinophils % 0, Basophils % 0 L, Absolute Granulocytes 7.5 H , Absolute Lymphocytes 0.3 L, Absolute Monocytes 0.7 H, Absolute Eosinophils 0 , Absolute Basophils 0, Platelet Estimate ADEQUATE, Ovalocytes 1+, PUBS MCHC 34.6 08/13/16 2255: pH 7.51 H, pCO2 34 L, pO2 59 L, HCO3 27, ABG O2 Sat (Measured) 91.0 L, P-50 (Temp Corrected) N, Carboxyhemoglobin 0.7 L, O2 Concentration % 55%, Temperature 99.7, O2 Delivery Method V/M, Phlebotomy Draw Site RIGHT RADIAL 08/13/161999: Anion Gap 12, Estimated GFR > 60, BUN/Creatinine Ratio 17.1, Calcium 8.2 L, Phosphorus 3.1, Magnesium 1.5 L, APTT > 120 *H 08/13/16 1815: APTT > 120 *H 08/13/16 1145: APTT 56 H 08/13/16 0415: Anion Gap 8, Estimated GFR > 60, BUN/Creatinine Ratio 16.7, APTT 75 H, CBC w Diff MAN DIFF ORDERED, RBC 4.15 L, MCV 96.9, MCH 32.7 H, RDW 13.4, MPV 9.0, Gran % 87.0 H, Lymphocytes % 4.3 L, Monocytes % 8.4, Eosinophils % 0.1, Basophils % 0.2, Absolute Granulocytes 6.0, Segmented Neutrophils 84 H, Band Neutrophils 4, Absolute Lymphocytes 0.3 L, Lymphocytes 5 L, Monocytes 7, Absolute Monocytes 0.6, Absolute Eosinophils 0, Absolute Basophils 0, Platelet Estimate ADEQUATE, Polychromasia 1+, Poikilocytosis 1+, Ovalocytes 1+, PUBS MCHC 33.8, Fld Total RBCs Counted 100 Assessment/Plan Impression/Plan: Physical Exam: Gen: NAD HEENT: normal Lungs: Scattered rales, normal resp. effort Heart: Irregularly irregular, S1, S2, 1/6 systolic murmur Abdomen: Soft, nontender, no masses Extremities: No clubbing, cyanosis, or edema. Neuro: Alert and oriented x 3, cranial nerves intact IMPRESSION This is a lady with obstructive sleep apnea on CPAP, persistent atrial fibrillation continues to be in atrial fibrillation on anticoagulation on high- dose amiodarone, recent small bowel obstruction status post surgery, acute on chronic diastolic heart failure now with pulmonary edema has Acute hypoxemic respiratory failure most likely related to her acute diastolic heart disease. This is compounded by mitral stenosis. Rule out acute coronary syndrome Significant obstructive sleep apnea which he appears to be stable now. Patient should not be on any CPAP as it has been this standing her abdomen and worsening her ileus She has been on high-dose amiodarone with persistent atrial fibrillation. Amiodarone lung disease is a possibility but constellation of findings suggest heart failure Mild obstructive lung disease from her previous PFTs with no active evidence suggestive of acute COPD exacerbation Moderate pulmonary hypertension related to mitral stenosis and diastolic dysfunction RECOMMENDATION Continue aggressive diuresis Aggressive potassium replacement Discontinue amiodarone for now as it has a very long half-life will discuss with Dr. Santhosh Kamara regarding the dosing are whether utility of continuing this drug as she continues to be in persistent atrial fibrillation Continue low-dose metoprolol A beta adry can be increased and diltiazem may be reduced as this could also contribute to her ileus Keep her potassium more than 4 as this could make her we can make her ileus worse Keep her magnesium more than 2 Check BNP Check troponin and daily EKGs Repeated chest x-ray in 48 hours Consult Acknowledgment - Thank you for your consult request.
[2016-08-14 22:00] LABS: PTT 73 SEC (25-37)
[2016-08-15 00:15] VITALS: BP 108/62
[2016-08-15 08:00] LABS: ABSOLUTE BASOPHIL COUNT 0 /CUMM (0.0-0.2); ABSOLUTE EOSINOPHIL COUNT 0 /CUMM (0.0-0.7); ABSOLUTE GRANULOCYTE CT 8.5 /CUMM (1.4-6.5); ABSOLUTE LYMPH COUNT 0.4 /CUMM (1.2-3.4); ABSOLUTE MONOCYTE COUNT 0.4 /CUMM (0.10-0.60); BASOPHIL % 0 % (0.0-2.0); EOSINOPHIL % 0.1 % (0-5); GRANULOCYTE % 91.6 % (42.2-75.2); MEAN CORPUSCULAR HGB 32.3 PG (27.0-31.0); MEAN CORPUSCULAR HGB CONC 33.2 G/DL (33.0-37.0); MEAN CORPUSCULAR VOLUME 97.3 FL (81.0-99.0); MEAN PLATELET VOLUME 8.5 FL (7.4-10.4); PLATELET COUNT 135 /CUMM (130-400); RBC DISTRIBUTION WIDTH 13.5 % (11.5-14.5); WHITE BLOOD CELL COUNT 9.2 /CUMM (4.8-10.8)
[2016-08-15 08:08] VITALS: BP 108/62
--- NOTE | 2016-08-15 08:48 | PN- General Surgery ---
See Addendum Subjective Subjective: Patient reporting improvement of symptoms, she states that she just had a large, loose bowel movement this morning. She presently denies bloating, she denies nausea, she has not vomited. While she appears to Neck, she denies any chest pain, shortness of breath, or difficulty breathing. She specifically states that she is not gasping for air at any point. She denies any discomfort of bilateral upper and lower extremities, she states only mild discomfort around incision on abdomen. Objective Vital Signs and I&Os Vital Signs Date Time Temp Pulse Resp B/P Pulse O2 O2 Flow FiO2 Ox Delivery Rate 08/16 807 98.4 120 24 108/62 95 Nasal Cannula 08/15 0501 95 Nasal 55% Cannula 08/15 0044 97 Nasal 55% Cannula 08/15 0015 97.9 98 24 108/62 93 Nasal 55% Cannula 08/14 2219 93 Nasal 55% Cannula 08/14 2215 102 92/50 / 1926 94 Nasal 60% Cannula 08/14 1620 94 Nasal 60% Cannula 08/14 1613 98.8 118 34 98/52 93 Nasal Cannula 08/14 1600 Nasal 65% Cannula 08/14 0934 90 Nasal 65% Cannula 08/14 0851 132 122/78 /07 0850 132 122/78 Intake & Output 08/15 1600 08 0800 /08 0000 / 1600 08/14 0800 03/ 0000 Intake Total 715 775 640 Output Total 069 110 0055 Balance 265 525 -985 Intake, IV 635 725 620 Intake, Oral 80 50 20 Output, Urine 935 274 4808 Physical Exam: General: Alert and oriented 3, no acute distress cardiac: Irregularly irregular, monitor worker reading rapid A. fib Pulmonary: Bilateral lung sounds with mild crackles, patient is tachypnic with respiratory rate of 30 Abdomen: Soft, nontender, very minimal distention, abdominal dressing with no evidence of active drainage Extremities: Moves all extremities, distal sensations intact. Bilateral calves soft and nontender. Right foot appears red, is warm to the touch, DP pulses palpable. Patient states periodic numbness, no numbness on exam today. Motor 5 out of 5 in plantar and dorsiflexion. Assessment/Plan Assessment/Plan This is a 76-year-old female, postoperative day 4 status post lysis of adhesions for small bowel obstruction. Postoperative course complicated by CHF. -Continue heparin and Cardizem drip -Continue IV fluids at 50 mL/h -Continue nothing by mouth for now, will consider clear liquids later today -Out of bed to chair if okay per cardiology -Continue Lasix for diuresis -Continue strict I&O -Will discuss case with Dejuan Thomas MD Core Measures/Miscellaneous Venous Thromboembolism VTE Risk Factors: Age > 40 VTE Contraindications: No Contraindications VTE Diagnosis: No VTE Type: NONE VTE Confirmed by (Test): NONE Beta Reba Is Beta Reba a Home Med? Yes If Yes, Was This Ordered Today? Yes Antibiotics Is Patient on Antibiotics? No
--- NOTE | 2016-08-15 09:55 | PN- Pulmonary ---
Subjective HPI/Critical Care Issues: pt seen and examined tachycardic dyspneic 55% high flow o2 has not used pap therapy so far no n/v/d/c npo Objective Current Medications: Current Medications Sig/Rosalia Start time Last Medication Dose Route Stop Time Status Admin Acetaminophen 1,000 MG Q6P PRN 08/07 1330 AC 08/07 N/A 1 UNIT IV 2107 Alprazolam 0.25 MG .STK-MED ONE 08/14 1817 DC PO 08/14 1818 Amiodarone HCl 200 MG BID 08/07 220 DC 08/14 PO 0851 Atorvastatin Calcium 20 MG 1700 08/07 1700 AC 08/14 PO 1805 Diltiazem HCl 125 MG Q24H 08/14 0545 AC 08/14 Sodium Chloride 100 ML IV 1945 Furosemide 20 MG ONE TIME ONE 08/14 1100 DC 08/14 IV PUSH 08/14 1101 1129 Furosemide 40 MG 7:30 AM, & 4:30 PM 08/14 0730 AC 08/15 IV 0655 Heparin Sodium 25,000 UNIT Q24H / 0400 AC 08/13 (Porcine) IV 2331 Sodium Chloride 500 ML Ipratropium [place] 2.5 ML EVERY 4 HRS/AWAKE 08/14 1600 AC 08/15 INH 0852 Metoprolol Tartrate 25 MG BID 08/07 2200 AC 08/14 PO 0850 Morphine Sulfate 2 MG Q4P PRN 08/07 1315 AC 08/14 IV 1525 Ondansetron HCl 4 MG Q8P PRN 08/07 1300 AC 08/14 IV 1129 Pantoprazole Sodium 40 MG DAILY 08/08 1000 AC 08/14 IV 0849 Patient Medication 1 ED .STK-MED ONE 08/14 1356 DC Teaching ED 08/14 1357 Phenytoin 100 MG Q8 08/07 2200 AC 08/15 PO 0626 Potassium Chloride 10 MEQ .STK-MED ONE 08/14 1818 DC IV 08/14 1819 Potassium Chloride 10 MEQ Q1H 08/14 1100 DC 08/14 IV 08/14 1201 1343 Potassium Chloride 20 MEQ Q20H 08/13 0730 DC 08/14 Dextrose/Sodium 1,000 ML IV 2251 Chloride Sodium Chloride 2 SPRAY Q4P PRN 08/14 0730 AC 08/14 JONAS 0858 Vital Signs & I&O Last 24 Hrs of Vitals and I&O: Vital Signs Date Time Temp Pulse Resp B/P Pulse O2 O2 Flow FiO2 Ox Delivery Rate 08/15 0859 95 Nasal 55% Cannula 08/15 0808 98.4 120 24 108/62 95 Nasal Cannula 08/15 0501 95 Nasal 55% Cannula 08/15 0044 97 Nasal 55% Cannula 08/15 0015 97.9 98 24 108/62 93 Nasal 55% Cannula 08/15 0000 93 Nasal 55% Cannula 08/14 2219 93 Nasal 55% Cannula 08/14 2215 102 92/50 08/14 1926 94 Nasal 60% Cannula 08/14 1620 94 Nasal 60% Cannula 08/14 1613 98.8 118 34 98/52 93 Nasal Cannula 08/14 1600 Nasal 65% Cannula Intake & Output 08/15 1600 08/15 0800 08/15 0000 Intake Total 780 Output Total 375 Balance 405 Intake, IV 780 Intake, Oral 0 Number 1 Bowel Movements Output, Urine 375 Exam Other Physical Findings: gen awake and alert, mild distress heent ncat cvs s1, s2, systolic murmur lungs bilateral rhonchi abd soft, bs+ ext without edema Results Last 24 Hrs of Lab Results: Laboratory Tests 08/15/16 0615: Anion Gap 9, Estimated GFR > 60, BUN/Creatinine Ratio 28.3 H, Magnesium 1.9, CBC w Diff MAN DIFF ORDERED, RBC 3.80 L, MCV 97.3, MCH 32.3 H, RDW 13.5, MPV 8.5, Gran % 91.6 H, Lymphocytes % 4.0 L, Monocytes % 4.3, Eosinophils % 0.1, Basophils % 0 L, Absolute Granulocytes 8.5 H, Segmented Neutrophils 86 H, Band Neutrophils 8 H, Absolute Lymphocytes 0.4 L, Lymphocytes 4 L, Monocytes 2, Absolute Monocytes 0.4, Absolute Eosinophils 0, Absolute Basophils 0, Platelet Estimate DECREASED, Normocytic RBCs VERIFIED, Normochromic RBCs VERIFIED, Polychromasia , PUBS MCHC 33.2 08/14/16 2131: APTT 73 H 08/14/16 1913: Kse-H-Fqoqnoqtant Pept Cancelled 08/14/16 1717: Kpw-E-Lgaehcfssox Pept 2780 H 08/14/16 1350: APTT 92 H Impression/Plan Impression/Plan Impression/Plan: Impression 76 year old woman - PAUL on AutoSet at home - s/p small bowel obstruction - mitral stenosis - acute on chronic diastolic chf - persistent a.fib Plan - check CTA - if no evidence of ILD, would be acceptable to use amiodarone if needed by cardiology - will try to reduce fio2 requirements and if able, she would require AutoPAP 4- [id number] nocturnally with o2 bleed in - cardiac care per Dr. Kamara - IST - DVT prophylaxis at all times (on heparin)
--- NOTE | 2016-08-15 09:58 | PN- Cardiology ---
See Addendum PORTILLO CLEMENT,WALKER 08/15/16 0957: Subjective Subjective: Patient seen and examined, resting comfortably in her hospital bed. Has been persistently tachycardic overnight. Requiring 55% of high flow supplemental oxygen. Continues to be nothing by mouth as recommended by surgical service. Had a bowel movement yesterday. Amiodarone was discontinued yesterday. Currently on Cardizem and heparin drip. Review of Systems Constitutional: Denies: see HPI. Objective Vital Signs and I&Os Vital Signs Date Time Temp Pulse Resp B/P Pulse O2 O2 Flow FiO2 Ox Delivery Rate 08/15 0859 95 Nasal 55% Cannula 08/15 0808 98.4 120 24 108/62 95 Nasal Cannula 08/15 0501 95 Nasal 55% Cannula 08/15 0044 97 Nasal 55% Cannula 08/15 0015 97.9 98 24 108/62 93 Nasal 55% Cannula 08/15 0000 93 Nasal 55% Cannula 08/14 2219 93 Nasal 55% Cannula 08/14 2215 102 92/50 08/14 1926 94 Nasal 60% Cannula 08/14 1620 94 Nasal 60% Cannula 08/14 1613 98.8 118 34 98/52 93 Nasal Cannula 08/14 1600 Nasal 65% Cannula Intake & Output 08/15 1600 08/15 0800 / 0000 08/14 1600 08/14 0800 / 0000 Intake Total 780 695 715 775 640 Output Total 375 675 420 695 4752 Balance 405 20 265 525 -985 Intake, IV 780 645 635 725 620 Intake, Oral 0 50 80 50 20 Number 1 Bowel Movements Output, Urine 375 [phone] Physical Exam General Appearance: well developed/nourished, no apparent distress, alert, awake , comfortable Head: atraumatic, normal appearance Ears, Nose, Throat: normal pharynx, normal ENT inspection Respiratory: chest non-tender, decreased breath sounds b/l bases Cardiovascular: tachycardia, systolic murmur, irregularly irregular Abdomen: normal bowel sounds, soft, dry sterile dressing intact on midline Current Medications: Current Medications Sig/Rosalia Start time Last Medication Dose Route Stop Time Status Admin Acetaminophen 1,000 MG Q6P PRN 08/07 1330 AC 08/07 N/A 1 UNIT IV 2107 Alprazolam 0.25 MG .STK-MED ONE 08/14 1817 DC PO 08/14 1818 Amiodarone HCl 200 MG BID 08/07 2200 DC 08/14 PO 0851 Atorvastatin Calcium 20 MG 1700 08/07 1700 AC 08/14 PO 1805 Diltiazem HCl 125 MG Q24H 08/14 0545 AC 08/14 Sodium Chloride 100 ML IV 1945 Furosemide 20 MG ONE TIME ONE 08/14 1100 DC 08/14 IV PUSH 08/14 1101 1129 Furosemide 40 MG 7:30 AM, & 4:30 PM 08/14 0730 AC 08/15 IV 0655 Heparin Sodium 25,000 UNIT Q24H 08/11 0400 AC 08/13 (Porcine) IV 2331 Sodium Chloride 500 ML Ipratropium Currie 2.5 ML EVERY 4 HRS/AWAKE 08/14 1600 AC 08/15 INH 0852 Metoprolol Tartrate 25 MG BID 08/07 2200 AC 08/14 PO 0850 Morphine Sulfate 2 MG Q4P PRN 08/07 1315 AC 08/14 IV 1525 Ondansetron HCl 4 MG Q8P PRN 08/07 1300 AC 08/14 IV 1129 Pantoprazole Sodium 40 MG DAILY 08/08 1000 AC 08/14 IV 0849 Patient Medication 1 ED .STK-MED ONE 08/14 1356 DC Teaching ED 08/14 1357 Phenytoin 100 MG Q8 08/07 2200 AC 08/15 PO 0626 Potassium Chloride 10 MEQ .STK-MED ONE 08/14 1818 DC IV 08/14 1819 Potassium Chloride 10 MEQ Q1H 08/14 1100 DC 08/14 IV 08/14 1201 1343 Potassium Chloride 20 MEQ Q20H 08/13 0730 DC 08/14 Dextrose/Sodium 1,000 ML IV 2251 Chloride Sodium Chloride 2 SPRAY Q4P PRN 08/14 0730 AC 08/14 JONAS 0858 Results Last 48 Hrs of Labs/Mics: Laboratory Tests 08/15/16 0615: Anion Gap 9, Estimated GFR > 60, BUN/Creatinine Ratio 28.3 H, Magnesium 1.9, CBC w Diff MAN DIFF ORDERED, RBC 3.80 L, MCV 97.3, MCH 32.3 H, RDW 13.5, MPV 8.5, Gran % 91.6 H, Lymphocytes % 4.0 L, Monocytes % 4.3, Eosinophils % 0.1, Basophils % 0 L, Absolute Granulocytes 8.5 H, Segmented Neutrophils 86 H, Band Neutrophils 8 H, Absolute Lymphocytes 0.4 L, Lymphocytes 4 L, Monocytes 2, Absolute Monocytes 0.4, Absolute Eosinophils 0, Absolute Basophils 0, Platelet Estimate DECREASED, Normocytic RBCs VERIFIED, Normochromic RBCs VERIFIED, Polychromasia , [facility] MCHC 33.2 08/14/16 2131: APTT 73 H 08/14/16 1913: Thf-G-Uwpewrnkmst Pept Cancelled 08/14/16 1717: Mlc-Q-Rdraqrwjehk Pept 2780 H 08/14/16 1350: APTT 92 H 08/14/16 0420: Anion Gap 9, Estimated GFR > 60, BUN/Creatinine Ratio 18.3, Magnesium 2.2, Troponin I 0.02, APTT 113 *H, D-Dimer 1023 H, CBC w Diff MAN DIFF ORDERED, RBC 4.32, MCV 96.1, MCH 32.6 H, RDW 13.1, MPV 8.3, Gran % 88.6 H, Lymphocytes % 3.7 L, Monocytes % 7.6, Eosinophils % 0, Basophils % 0.1, Absolute Granulocytes 8.8 H, Segmented Neutrophils 80 H, Band Neutrophils 8 H, Absolute Lymphocytes 0.4 L, Lymphocytes 5 L, Monocytes 7, Absolute Monocytes 0.8 H, Absolute Eosinophils 0, Absolute Basophils 0, Platelet Estimate DECREASED, Polychromasia 1+, [facility] MCHC 33.9 08/13/16 2310: Troponin I Cancelled 08/13/16 2310: Troponin I 0.02, D-Dimer Cancelled, CBC w Diff MAN DIFF ORDERED, RBC 4.41, MCV 95.4, MCH 33.0 H, RDW 12.8, MPV 8.6, Gran % 87.4 H, Lymphocytes % 3.9 L, Monocytes % 8.7, Eosinophils % 0, Basophils % 0 L, Absolute Granulocytes 7.5 H , Absolute Lymphocytes 0.3 L, Absolute Monocytes 0.7 H, Absolute Eosinophils 0 , Absolute Basophils 0, Platelet Estimate ADEQUATE, Ovalocytes 1+, [facility] MCHC 34.6 08/13/16 2255: pH 7.51 H, pCO2 34 L, pO2 59 L, HCO3 27, ABG O2 Sat (Measured) 91.0 L, P-50 (Temp Corrected) N, Carboxyhemoglobin 0.7 L, O2 Concentration % 55%, Temperature 99.7, O2 Delivery Method V/M, Phlebotomy Draw Site RIGHT RADIAL 08/13/161999: Anion Gap 12, Estimated GFR > 60, BUN/Creatinine Ratio 17.1, Calcium 8.2 L, Phosphorus 3.1, Magnesium 1.5 L, APTT > 120 *H 08/13/16 1815: APTT > 120 *H 08/13/16 1145: APTT 56 H Microbiology 08/14 1999 URINE ROUT: Urine Culture - COMP Recent Imaging Studies: CXR 08/14/16- IMPRESSION: No significant change in the pulmonary alveolar edema and small bilateral effusions, most compatible with CHF Assessment/Plan Assessment/Plan Assessment- 1. A fib w/ persistent tacycardia 2. SBO, PO day 4 s/p lysis of adhesions 3. PAUL 4. Mitral stenosis 5. Acute on chronic HFpEF Plan- 1. Continue Cardizem drip and heparin drip for now 2. Pulmonary recommendations appreciated; will pursue CT angiogram, though she is already being treated with IV heparin, if she does have a pulmonary embolism it could possibly explain the reason for her persistent tachycardia 3. If no evidence of ILD on CTA, can restart amiodarone 4. If her rate is not controlled after restarting amiodarone; will have to consider small dose of IV digoxin 5. Continue IV Lasix 40 mg every 12 hrs; maintain net negative fluid balance; strict I's and O's, daily weights 6. Continue beta adry 7. Further management pending CT angiogram 8. Titrate oxygen supplementation as tolerable and per pulmonary Continue telemetry? Yes NOEL CLEMENT,JEFF Rojas 08/15/16 111: Assessment/Plan Assessment/Plan Attending Addendum: The patient was re examined after arriving back to her room post CTA chest. At that time she was clearly in more respiratory distress and requiring FiO2 increase to 100%. AT that time transfer to the ICU was recommended for closer monitoring. Recommendation: - Transfer to ICU; discussed with Giovanni Hoang and Stacey. - Continur Cardizem at current rate for now. - Digoxin 0.125 mg IV now and repeat in 6 hours in effort to optimize rate control - Conitnue amiodarone [address], [address] Ibarra recommends discontinuation after reviewing CT - Continue lasix 40 IV BID. - Conitnue to monitor I/Os and labs - Consideration for BIPAP if no improvement. - Eventual cardioversion
[2016-08-15 12:54] VITALS: BP 130/80
--- NOTE | 2016-08-15 13:00 | CT SCAN REPORT ---
EXAMINATION: CT ANGIOGRAM OF THE CHEST WITH AND WITHOUT CONTRAST (CT PULMONARY ANGIOGRAM FOR PE) CLINICAL INFORMATION: Evaluate for pulmonary embolus. Amiodarone-induced lung injury. Shortness of breath. COMPARISON: Most recent chest x-ray 08/14/2016. TECHNIQUE: Prior to contrast administration, noncontrast localization images were obtained. Subsequently, multidetector volumetric imaging was performed from the thoracic inlet to below the diaphragms following the administration of 95 mL Optiray 350 intravenous contrast. No contrast reaction reported Sagittal, coronal, and MIP oblique sagittal reformatted images were obtained on the CT workstation, uploaded to PACS, and reviewed. Total exam dose-length product 321 mGy-cm FINDINGS: QUALITY OF STUDY/CONTRAST BOLUS: Satisfactory. PULMONARY ARTERIES: No central or segmental pulmonary emboli. THORACIC AORTA: Mild arterial calcification no aneurysm. No dissection LUNG: There is bibasilar atelectasis and/or consolidation with air bronchograms in the lower lobes left more prominent than right. Is also patchy bilateral groundglass opacities throughout both lungs. PLEURA: Trace bilateral effusions MEDIASTINUM: The heart size may be mildly enlarged No pericardial effusion. No hilar or mediastinal lymphadenopathy. CHEST WALL/AXILLA: No axillary or internal mammary lymphadenopathy. OSSEOUS STRUCTURES: Mild spondylosis of the dorsal spine. UPPER ABDOMEN: Unremarkable No reflux of contrast into the hepatic veins to suggest elevated right heart pressures. IMPRESSION: No evidence for pulmonary embolism Bibasilar consolidation likely due to atelectasis potentially with concomitant evolving pneumonia Small effusions Patchy groundglass opacity throughout both lungs which could reflect air trapping and/or atypical pulmonary edema
--- NOTE | 2016-08-15 13:11 | PN- Att Addend ---
Attending Addendum Attending Brief Note Earlier today and saw the patient she was looking better, she had a large bowel movement which was still on high flow oxygen with her vital signs were stable later on she went down for x-rays and she returned she desaturated again, it was decided to be nauseous to transfer her to the intensive care unit for closer observation. Will have cardiology and pulmonary follow the patient closely too. Current Medications Sig/Rosalia Start time Last Medication Dose Route Stop Time Status Admin Acetaminophen 1,000 MG Q6P PRN 08/07 1330 AC 08/07 N/A 1 UNIT IV 2107 Alprazolam 0.25 MG .STK-MED ONE 08/14 1817 DC PO 08/14 1818 Atorvastatin Calcium 20 MG 1700 08/07 1700 AC 08/14 PO 1805 Diltiazem HCl 125 MG Q12H 08/15 1015 AC Sodium Chloride 100 ML IV Diltiazem HCl 125 MG Q24H 08/14 0545 DC 08/14 Sodium Chloride 100 ML IV 1945 Furosemide 40 MG 7:30 AM, & 4:30 PM 08/14 0730 AC 08/15 IV 0655 Heparin Sodium 25,000 UNIT Q24H 08/11 0400 AC 08/13 (Porcine) IV 2331 Sodium Chloride 500 ML Ipratropium Bridger 2.5 ML EVERY 4 HRS/AWAKE 08/14 1600 AC 08/15 INH 0852 Metoprolol Tartrate 25 MG BID 08/07 2200 AC 08/15 PO 1001 Morphine Sulfate 2 MG Q4P PRN 08/07 1315 AC 08/14 IV 1525 Ondansetron HCl 4 MG Q8P PRN 08/07 1300 AC 08/14 IV 1129 Pantoprazole Sodium 40 MG DAILY 08/08 1000 AC 08/15 IV 1004 Patient Medication 1 ED .STK-MED ONE 08/14 1356 DC Teaching ED 08/14 1357 Phenytoin 100 MG Q8 08/07 2200 AC 08/15 PO 0626 Potassium Chloride 10 MEQ .STK-MED ONE 08/14 1818 DC IV 08/14 1819 Potassium Chloride 20 MEQ Q20H 08/13 0730 DC 08/14 Dextrose/Sodium 1,000 ML IV 2251 Chloride Sodium Chloride 2 SPRAY Q4P PRN 08/14 0730 AC 08/15 JONAS 0830 Laboratory Tests 08/15/16 1250: APTT Pending 08/15/16 0615: Anion Gap 9, Estimated GFR > 60, BUN/Creatinine Ratio 28.3 H, Magnesium 1.9, CBC w Diff MAN DIFF ORDERED, RBC 3.80 L, MCV 97.3, MCH 32.3 H, RDW 13.5, MPV 8.5, Gran % 91.6 H, Lymphocytes % 4.0 L, Monocytes % 4.3, Eosinophils % 0.1, Basophils % 0 L, Absolute Granulocytes 8.5 H, Segmented Neutrophils 86 H, Band Neutrophils 8 H, Absolute Lymphocytes 0.4 L, Lymphocytes 4 L, Monocytes 2, Absolute Monocytes 0.4, Absolute Eosinophils 0, Absolute Basophils 0, Platelet Estimate DECREASED, Normocytic RBCs VERIFIED, Normochromic RBCs VERIFIED, Polychromasia , PUBS MCHC 33.2 08/14/16 2131: APTT 73 H 08/14/16 1913: Amz-F-Nttdrkftarb Pept Cancelled 08/14/16 1717: Ftw-T-Snrrlqtxhec Pept 2780 H 08/14/16 1350: APTT 92 H Vital Signs Date Time Temp Pulse Resp B/P Pulse O2 O2 Flow FiO2 Ox Delivery Rate 08/15 1254 120 28 130/80 85 Non 100% ReBreather 08/15 1001 98.4 120 24 108/62 /08 0859 95 Nasal 55% Cannula 08/15 0808 98.4 120 24 108/62 95 Nasal Cannula 08/15 0800 93 Nasal 55% Cannula 08/15 0501 95 Nasal 55% Cannula 08/15 0044 97 Nasal 55% Cannula 08/15 0015 97.9 98 24 108/62 93 Nasal 55% Cannula 08/15 0000 93 Nasal 55% Cannula 08/14 2219 93 Nasal 55% Cannula 08/14 2215 102 92/50 08/14 1926 94 Nasal 60% Cannula 08/14 1620 94 Nasal 60% Cannula 08/14 1613 98.8 118 34 98/52 93 Nasal Cannula 08/14 1600 Nasal 65% Cannula Intake & Output 08/15 1600 08 0800 08/15 0000 Intake Total 780 695 Output Total 375 675 Balance 405 20 Intake, IV 780 645 Intake, Oral 0 50 Number 1 Bowel Movements Output, Urine 375 675
--- NOTE | 2016-08-15 13:14 | PN- Housestaff ---
Subjective Follow-up For: Acute hypoxic respiratory failure A. jose with rapid ventricular response SBO status post surgery Tele-Events Since Last Visit: A flutter, heart rate 101-116 tachycardic up to 140s Subjective: Seen and examined patient continues to be requiring high flow oxygen. Patient came back after CTA and found to be hypoxic to 85% on 100% high flow oxygen and tachycardic to 140s. Denied chest pain but complained of" heart flutter" Review of Systems Constitutional: Reports: malaise, weakness. Denies: chills, diaphoresis, fever, unexplained weight loss. Cardiovascular: Reports: palpitations. Denies: chest pain, edema, orthopena, peripheral edema, syncope. Respiratory: Reports: cough, orthopnea, short of breath. Denies: hemoptysis, sputum production, stridor, wheezing. Objective Last 24 Hrs of Vital Signs/I&O Vital Signs Date Time Temp Pulse Resp B/P Pulse O2 O2 Flow FiO2 Ox Delivery Rate 08/15 1609 94 Nasal 80% Cannula 08/15 1454 95 Nasal 95% Cannula 08/15 1430 101 104/68 03/08 1417 109 104/68 /08 1254 120 28 130/80 85 Non 100% ReBreather 08/15 1001 98.4 120 24 108/62 03/08 0859 95 Nasal 55% Cannula 08 0808 98.4 120 24 108/62 95 Nasal Cannula /08 0800 93 Nasal 55% Cannula 08/15 0501 95 Nasal 55% Cannula 08/15 0044 97 Nasal 55% Cannula 08/15 0015 97.9 98 24 108/62 93 Nasal 55% Cannula /08 0000 93 Nasal 55% Cannula 08/14 2219 93 Nasal 55% Cannula / 2215 102 92/50 /07 1926 94 Nasal 60% Cannula Intake & Output /08 1600 03/08 0800 03/08 0000 Intake Total 120 780 695 Output Total 1400 375 675 Balance -1280 405 20 Intake, IV 780 645 Intake, Oral 120 0 50 Number 1 1 Bowel Movements Output, Urine 1400 375 675 Physical Exam General Appearance: Alert, Oriented X3, Moderate Distress Cardiovascular: Normal S1, Normal S2, tachycardic Lungs: bilateral decreased breath sounds, bilateral crackles Abdomen: Normal Bowel Sounds, Soft, No Tenderness Extremities: No Edema Current Medications: Current Medications Sig/Rosalia Start time Last Medication Dose Route Stop Time Status Admin Acetaminophen 1,000 MG Q6P PRN 08/07 1330 AC 08/07 N/A 1 UNIT IV 2107 Alprazolam 0.25 MG .STK-MED ONE 08/14 181 DC PO 08/14 1818 Amiodarone HCl 200 MG DAILY 08/16 1000 AC PO Amiodarone HCl 200 MG BID 08/15 1334 DC 08/15 PO 1430 Atorvastatin Calcium 20 MG 1700 08/07 1700 AC 08/14 PO 1805 Digoxin 0.125 MG BID 08/15 1400 AC 08/15 IV 08/15 2201 1417 Diltiazem HCl 125 MG Q12H 08/15 1015 AC 08/15 Sodium Chloride 100 ML IV 1415 Diltiazem HCl 125 MG Q24H 08/14 0545 DC 08/14 Sodium Chloride 100 ML IV 1945 Furosemide 40 MG 7:30 AM, & 4:30 PM 08/14 0730 AC 08/15 IV 0655 Heparin Sodium 25,000 UNIT Q24H 08/11 0400 AC 08/15 (Porcine) IV 1415 Sodium Chloride 500 ML Ipratropium Liberty 2.5 ML EVERY 4 HRS/AWAKE 08/14 1600 AC 08/15 INH 1608 Metoprolol Tartrate 25 MG BID 08/07 2200 AC 08/15 PO 1001 Morphine Sulfate 2 MG Q4P PRN 08/07 1315 AC 08/14 IV 1525 Ondansetron HCl 4 MG Q8P PRN 08/07 1300 AC 08/14 IV 1129 Pantoprazole Sodium 40 MG DAILY 08/08 1000 AC 08/15 IV 1004 Phenytoin 100 MG Q8 08/07 2200 AC 08/15 PO 1416 Potassium Chloride 10 MEQ .STK-MED ONE 08/14 181 DC IV 08/14 1819 Potassium Chloride 20 MEQ Q20H 08/13 0730 DC 08/14 Dextrose/Sodium 1,000 ML IV 2251 Chloride Sodium Chloride 2 SPRAY Q4P PRN 08/14 0730 AC 08/15 JONAS 0830 Last 24 Hrs of Lab/Storm Results Last 24 Hrs of Labs/Mics: Laboratory Tests 08/15/16 1530: APTT 51 H 08/15/16 1345: pH 7.46 H, pCO2 37, pO2 92, HCO3 26, ABG O2 Sat (Measured) 97.0, Carboxyhemoglobin 0.2 L, O2 Concentration % 95%, O2 Delivery Method HFNC, Phlebotomy Draw Site LEFT RADIAL 08/15/16 1250: APTT 47 H 08/15/16 0615: Anion Gap 9, Estimated GFR > 60, BUN/Creatinine Ratio 28.3 H, Magnesium 1.9, CBC w Diff MAN DIFF ORDERED, RBC 3.80 L, MCV 97.3, MCH 32.3 H, RDW 13.5, MPV 8.5, Gran % 91.6 H, Lymphocytes % 4.0 L, Monocytes % 4.3, Eosinophils % 0.1, Basophils % 0 L, Absolute Granulocytes 8.5 H, Segmented Neutrophils 86 H, Band Neutrophils 8 H, Absolute Lymphocytes 0.4 L, Lymphocytes 4 L, Monocytes 2, Absolute Monocytes 0.4, Absolute Eosinophils 0, Absolute Basophils 0, Platelet Estimate DECREASED, Normocytic RBCs VERIFIED, Normochromic RBCs VERIFIED, Polychromasia , PUBS MCHC 33.2 08/14/16 2131: APTT 73 H 08/14/16 1913: Rgb-I-Ocjmtskesxq Pept Cancelled 08/14/16 1717: Vnq-B-Xvozxrauqlw Pept 2780 H Microbiology 08/15 1330 UPPER RESP: Surveillance Culture - RECD 08/15 1330 GI: Surveillance Culture - RECD Assessment/Plan Assessment: 76-year-old woman with past medical history significant for atrial fibrillation status post cardioversion to normal sinus rhythm last year but subsequently reverted to atrial fibrillation again on elliquis, initially admitted to surgical service for small bowel obstruction status post laparotomy lysis of the adhesions, was transferred to the telemetry medical service secondary to rapid A. fib and hypoxic respiratory failure on 08/13/16 she continues to require high flow oxygen and after her CTA she desaturated to 85% and was tachycardic and decision was made to monitor her closely in the ICU setting. Patient did have a bowel movement yesterday. Problem list Atrial fibrillation with rapid ventricular response Acute hypoxic respiratory failure Acute on chronic HFpEF SBO status post lysis of addesions Plan: Continue Cardizem drip and heparin drip, cardiology on board appreciated recommendations as her heart rate continues to be uncontrolled, will restart her amiodarone and give her IV digoxin 0.25 mg 2 doses today. Continue IV lasix CT angiogram shows no evidence for pulmonary embolism, bibasilar consolidation likely due to atelectasis potentially with concomitant evolving pneumonia, patchy groundglass opacity throughout both lungs which could reflect air trapping and/or atypical pulmonary edema Continue high flow oxygen. Pulmonology on board appreciated recommendations. To be transferred to the ICU unit for closer monitoring of her respiratory status. Continues to be nothing by mouth we'll defer to surgery regarding diet advancement DVT prophylaxis with IV heparin Patient is full code Problem List: 1. A-fib 2. Atrial fibrillation 3. Hypertension 4. Acute respiratory failure with hypoxia Pain Ratin Pain Location: na Pain Goal: Pain 4 or less Pain Plan: Current regimen Tomorrow's Labs & Rationales: ICU bundle cbc
[2016-08-15 13:30] VITALS: BP 142/78
[2016-08-15 16:00] VITALS: BP 100/60
[2016-08-15 16:06] LABS: PTT 47 SEC (25-37)
[2016-08-15 16:07] LABS: PTT 51 SEC (25-37)
[2016-08-15 22:56] LABS: PTT 77 SEC (25-37)
[2016-08-16] VITALS: BP 110/50
[2016-08-16 05:02] LABS: ABSOLUTE BASOPHIL COUNT 0 /CUMM (0.0-0.2); ABSOLUTE EOSINOPHIL COUNT 0 /CUMM (0.0-0.7); ABSOLUTE GRANULOCYTE CT 9.6 /CUMM (1.4-6.5); ABSOLUTE LYMPH COUNT 0.3 /CUMM (1.2-3.4); ABSOLUTE MONOCYTE COUNT 0.4 /CUMM (0.10-0.60); BASOPHIL % 0.1 % (0.0-2.0); EOSINOPHIL % 0.2 % (0-5); GRANULOCYTE % 92.7 % (42.2-75.2); MEAN CORPUSCULAR HGB 32.3 PG (27.0-31.0); MEAN CORPUSCULAR HGB CONC 33.5 G/DL (33.0-37.0); MEAN CORPUSCULAR VOLUME 96.6 FL (81.0-99.0); PLATELET COUNT 163 /CUMM (130-400); RBC DISTRIBUTION WIDTH 13.3 % (11.5-14.5); RED BLOOD CELL CT 3.73 /CUMM (4.20-5.40); WHITE BLOOD CELL COUNT 10.4 /CUMM (4.8-10.8)
--- NOTE | 2016-08-16 07:09 | PN- Resident CRCU ---
Subjective HPI/CRCU Issues: No acute events overnight. Patient was seen and examined this morning. She feels much better today with improved shortness of breath. She remains on high low oxygen although her oxygen requirement has signfiicantly improved to FiO2 55%. She continues to pass flatus and have bowel movements. Objective Vital Signs & I&O Last 8 Hrs of Vitals and I&O: Vital Signs Date Time Temp Pulse Resp B/P Pulse O2 O2 Flow FiO2 Ox Delivery Rate 08/16 2123 81 124/66 08/16 1640 96 Nasal 55% Cannula 08/16 1600 96 Nasal 35% Cannula 08/16 1600 99.0 88 24 18/60 95 Nasal 55% Cannula 08/16 1217 112 122/60 08/16 0837 96 Nasal 55% Cannula 08/16 0800 96 Nasal 55% Cannula 08/16 0800 98.0 116 20 104/70 96 Nasal 55% Cannula 08/16 0625 96 Nasal 60% Cannula 08/16 0400 97 Nasal 65% Cannula 08/16 0059 98 Nasal 65% Cannula 08/16 0000 96 Nasal 70% Cannula 08/16 0000 97.0 94 20 110/50 96 Nasal Cannula 08/15 2213 112 20 100/62 08/15 2213 112 20 100/62 Intake & Output 08/16 1600 Intake Total 1159 Output Total 1120 Balance 39 Intake, IV 759 Intake, Oral 400 Output, Urine 1120 Exam General Appearance: no apparent distress, alert, awake, comfortable Head: atraumatic, normal appearance Ears, Nose, Throat: moist mucus membranes Neck: supple Respiratory: rhonchi scattered throughout bilateral lung vogt Cardiovascular: irregularly irregular, normal S1 and S2 Gastrointestinal: soft, non-tender, positive bowel sounds, incision site without erythema or swelling Extremities: no edema Current Medications: Current Medications Sig/Rosalia Start time Last Medication Dose Route Stop Time Status Admin Acetaminophen 1,000 MG Q6P PRN 08/07 1330 AC 08/16 N/A 1 UNIT IV 1534 Amiodarone HCl 200 MG DAILY 08/16 1000 AC 08/16 PO 1217 Atorvastatin Calcium 20 MG 1700 08/07 1700 AC 08/16 PO 1643 Digoxin 0.125 MG 1700 08/17 1700 AC PO Digoxin 0.125 MG BID 08/15 1400 DC 08/15 IV 08/15 2201 2213 Diltiazem HCl 125 MG Q12H 08/15 1015 AC 08/16 Sodium Chloride 100 ML IV 1015 Furosemide 40 MG 7:30 AM, & 4:30 PM 08/14 0730 AC 08/16 IV 1643 Heparin Sodium 25,000 UNIT Q24H 08/11 0400 AC 08/16 (Porcine) IV 1621 Sodium Chloride 500 ML Ipratropium [place] 2.5 ML EVERY 4 HRS/AWAKE 08/14 1600 AC 08/16 INH 2051 Magnesium Oxide 400 MG ONE ONE 08/16 07 DC 08/16 PO 08/16 0731 1216 Metoprolol Tartrate 25 MG BID 08/07 2200 AC 08/16 PO 2123 Morphine Sulfate 2 MG Q4P PRN 08/07 1315 AC 08/16 IV 0042 Ondansetron HCl 4 MG Q8P PRN 08/07 1300 AC 08/14 IV 1129 Pantoprazole Sodium 40 MG DAILY 08/08 1000 AC 08/16 IV 1217 Phenytoin 100 MG Q8 08/07 2200 AC 08/16 PO 2123 Potassium Chloride 40 MEQ Q2H 08/16 0900 DC 08/16 PO 08/16 1101 1642 Sodium Chloride 2 SPRAY Q4P PRN 08/14 0730 AC 08/15 JONAS 0830 Results Results: Laboratory Tests 08/16 1120 0400 2200 Chemistry Sodium (137 - 145 mmol/L) 131 L Potassium (3.5 - 5.1 mmol/L) 3.3 L Chloride (98 - 107 mmol/L) 92 L Carbon Dioxide (22 - 30 mmol/L) 30 Anion Gap (5 - 16) 10 BUN (7 - 17 mg/dL) 14 Creatinine (0.5 - 1.0 mg/dL) 0.6 Estimated GFR (>60 ml/min) > 60 Glucose (65 - 99 mg/dL) 111 H Calcium (8.4 - 10.2 mg/dL) 7.6 L Phosphorus (2.5 - 4.5 mg/dL) 2.1 L Magnesium (1.6 - 2.3 mg/dL) 1.8 Total Bilirubin (0.2 - 1.3 mg/dL) 0.5 AST (14 - 36 U/L) 54 H ALT (9 - 52 U/L) 43 Albumin (3.5 - 5.0 g/dL) 2.4 L Coagulation APTT (25 - 37 SEC) 63 H 54 H 77 H Hematology CBC w Diff NO MAN DIFF REQ WBC (4.8 - 10.8 /CUMM) 10.4 RBC (4.20 - 5.40 /CUMM) 3.73 L Hgb (12.0 - 16.0 G/DL) 12.1 Hct (37 - 47 %) 36.0 L MCV (81.0 - 99.0 FL) 96.6 MCH (27.0 - 31.0 PG) 32.3 H RDW (11.5 - 14.5 %) 13.3 Plt Count (130 - 400 /CUMM) 163 MPV (7.4 - 10.4 FL) 9.0 Gran % (42.2 - 75.2 %) 92.7 H Lymphocytes % (20.5 - 51.1 %) 3.2 L Monocytes % (1.7 - 9.3 %) 3.8 Eosinophils % (0 - 5 %) 0.2 Basophils % (0.0 - 2.0 %) 0.1 Absolute Granulocytes (1.4 - 6.5 /CUMM) 9.6 H Absolute Lymphocytes (1.2 - 3.4 /CUMM) 0.3 L Absolute Monocytes (0.10 - 0.60 /CUMM) 0.4 Absolute Eosinophils (0.0 - 0.7 /CUMM) 0 Absolute Basophils (0.0 - 0.2 /CUMM) 0 PUBS MCHC (33.0 - 37.0 G/DL) 33.5 Impression/Plan Impression/Problem List Impression: 76 y/o F with PMHx of PAUL on CPAP and atrial fibrillation admitted for SBO s/p open lysis of adhesions, now with acute hypoxemic respiratory failure secondary to acute on chronic diastolic CHF. Problem List: 1. Acute hypoxemic respiratory failure 2. Acute on chronic diastolic (congestive) heart failure 3. Small bowel obstruction 4. Atrial fibrillation with RVR Pain Ratin Tomorrow's Labs & Rationales: CBC and ICU bundle (ICU patient) Plan Respiratory: #Acute hypoxemic respiratory failure: Remains on high flow oxygen but with improved oxygen requirement, FiO2 down to 55%. * Pulmonology following. Appreciate their recs. * Wean down FiO2 as tolerated. * TRC and nebs. Infectious Diseases: Afebrile and without leukocytosis. No signs or symptoms of infection. Cardiovascular: #Acute on chronic diastolic CHF: * Cardiology following. Appreciate their recs. * Continue telemetry monitoring. * Continue Lasix 40 mg IV BID. * Monitor strict I/Os. * #Atrial fibrillation: Heart rate better controlled today after starting low dose digoxin. * Continue digoxin 0.125 mg PO daily, amiodarone 200 mg PO daily and metoprolol 25 mg PO BID. * Continue IV Cardizem drip. * Continue IV heparin. Hematology: On IV heparin without evidence of bleeding. Metabolic: Replete to K > 4 and Mg > 2. Alimentary: Clear liquid diet Neurological: AAO x 3 DVT/Prophylaxis: mechanical, pharmacological Code Status: Full Code Other: #SBO: POD #6 s/p open lysis of adhesions. Continues to tolerate PO and have bowel movements. * Management per general surgery team. * Advance diet as tolerated.
--- NOTE | 2016-08-16 07:48 | PN- Att Addend ---
Attending Addendum Attending Brief Note Relatively stable On 60 percent Feels little better Afebrile Current Medications Sig/Rosalia Start time Last Medication Dose Route Stop Time Status Admin Acetaminophen 1,000 MG Q6P PRN 08/07 1330 AC 08/07 N/A 1 UNIT IV 2107 Amiodarone HCl 200 MG DAILY 08/16 1000 AC PO Amiodarone HCl 200 MG BID 08/15 1334 DC 08/15 PO 1430 Atorvastatin Calcium 20 MG 1700 08/07 1700 AC 08/15 PO 1653 Digoxin 0.125 MG BID 08/15 1400 DC 08/15 IV 08/15 2201 2213 Diltiazem HCl 125 MG Q12H 08/15 1015 AC 08/16 Sodium Chloride 100 ML IV 0041 Diltiazem HCl 125 MG Q24H 08/14 0545 DC 08/14 Sodium Chloride 100 ML IV 1945 Furosemide 40 MG 7:30 AM, & 4:30 PM 08/14 0730 AC 08/15 IV 1653 Heparin Sodium 3,000 UNIT ONCE ONE 08/15 1715 DC 08/15 (Porcine) IV 08/15 1716 1704 Heparin Sodium 5,000 UNIT .STK-MED ONE 08/15 1647 DC (Porcine) IV 08/15 1648 Heparin Sodium 25,000 UNIT Q24H 08/11 0400 AC 08/16 (Porcine) IV 0500 Sodium Chloride 500 ML Ipratropium [place] 2.5 ML EVERY 4 HRS/AWAKE 08/14 1600 AC 08/15 INH 2000 Magnesium Oxide 400 MG ONE ONE 08/16 0730 DC PO 08/16 0731 Metoprolol Tartrate 25 MG BID 08/07 2200 AC 08/15 PO 2213 Morphine Sulfate 2 MG Q4P PRN 08/07 1315 AC 08/16 IV 0042 Ondansetron HCl 4 MG Q8P PRN 08/07 1300 AC 08/14 IV 1129 Pantoprazole Sodium 40 MG DAILY 08/08 1000 AC 08/15 IV 1004 Phenytoin 100 MG Q8 08/07 2200 AC 08/16 PO 0612 Potassium Chloride 20 MEQ Q20H 08/13 0730 DC 08/14 Dextrose/Sodium 1,000 ML IV 2251 Chloride Sodium Chloride 2 SPRAY Q4P PRN 08/14 0730 AC 08/15 JONAS 0830 Laboratory Tests 08/16 08/15 08/15 0400 2200 1530 Chemistry Sodium (137 - 145 mmol/L) 131 L Potassium (3.5 - 5.1 mmol/L) 3.3 L Chloride (98 - 107 mmol/L) 92 L Carbon Dioxide (22 - 30 mmol/L) 30 Anion Gap (5 - 16) 10 BUN (7 - 17 mg/dL) 14 Creatinine (0.5 - 1.0 mg/dL) 0.6 Estimated GFR (>60 ml/min) > 60 Glucose (65 - 99 mg/dL) 111 H Calcium (8.4 - 10.2 mg/dL) 7.6 L Phosphorus (2.5 - 4.5 mg/dL) 2.1 L Magnesium (1.6 - 2.3 mg/dL) 1.8 Total Bilirubin (0.2 - 1.3 mg/dL) 0.5 AST (14 - 36 U/L) 54 H ALT (9 - 52 U/L) 43 Albumin (3.5 - 5.0 g/dL) 2.4 L Coagulation APTT (25 - 37 SEC) 77 H 51 H Hematology CBC w Diff NO MAN DIFF REQ WBC (4.8 - 10.8 /CUMM) 10.4 RBC (4.20 - 5.40 /CUMM) 3.73 L Hgb (12.0 - 16.0 G/DL) 12.1 Hct (37 - 47 %) 36.0 L MCV (81.0 - 99.0 FL) 96.6 MCH (27.0 - 31.0 PG) 32.3 H RDW (11.5 - 14.5 %) 13.3 Plt Count (130 - 400 /CUMM) 163 MPV (7.4 - 10.4 FL) 9.0 Gran % (42.2 - 75.2 %) 92.7 H Lymphocytes % (20.5 - 51.1 %) 3.2 L Monocytes % (1.7 - 9.3 %) 3.8 Eosinophils % (0 - 5 %) 0.2 Basophils % (0.0 - 2.0 %) 0.1 Absolute Granulocytes (1.4 - 6.5 /CUMM) 9.6 H Absolute Lymphocytes (1.2 - 3.4 /CUMM) 0.3 L Absolute Monocytes (0.10 - 0.60 /CUMM) 0.4 Absolute Eosinophils (0.0 - 0.7 /CUMM) 0 Absolute Basophils (0.0 - 0.2 /CUMM) 0 PUBS MCHC (33.0 - 37.0 G/DL) 33.5 08/15 08/15 08/15 1345 1250 0615 Blood Gas pH (7.35 - 7.45 PH) 7.46 H pCO2 (35 - 45 TORR) 37 pO2 (80 - 100 TORR) 92 HCO3 (21 - 28 MEQ/L) 26 ABG O2 Sat (Measured) (>96.0 %) 97.0 Carboxyhemoglobin (1.5 - 5.0 %) 0.2 L O2 Concentration % 95% O2 Delivery Method [facility] Chemistry Sodium (137 - 145 mmol/L) 132 L Potassium (3.5 - 5.1 mmol/L) 3.8 Chloride (98 - 107 mmol/L) 97 L Carbon Dioxide (22 - 30 mmol/L) 27 Anion Gap (5 - 16) 9 BUN (7 - 17 mg/dL) 17 Creatinine (0.5 - 1.0 mg/dL) 0.6 Estimated GFR (>60 ml/min) > 60 BUN/Creatinine Ratio (7 - 25 %) 28.3 H Magnesium (1.6 - 2.3 mg/dL) 1.9 Coagulation APTT (25 - 37 SEC) 47 H Hematology CBC w Diff MAN DIFF ORDERED WBC (4.8 - 10.8 /CUMM) 9.2 RBC (4.20 - 5.40 /CUMM) 3.80 L Hgb (12.0 - 16.0 G/DL) 12.3 Hct (37 - 47 %) 37.0 MCV (81.0 - 99.0 FL) 97.3 MCH (27.0 - 31.0 PG) 32.3 H RDW (11.5 - 14.5 %) 13.5 Plt Count (130 - 400 /CUMM) 135 MPV (7.4 - 10.4 FL) 8.5 Gran % (42.2 - 75.2 %) 91.6 H Lymphocytes % (20.5 - 51.1 %) 4.0 L Monocytes % (1.7 - 9.3 %) 4.3 Eosinophils % (0 - 5 %) 0.1 Basophils % (0.0 - 2.0 %) 0 L Absolute Granulocytes (1.4 - 6.5 /CUMM) 8.5 H Segmented Neutrophils (42.2 - 75.2 %) 86 H Band Neutrophils (0.0 - 5.0 %) 8 H Absolute Lymphocytes (1.2 - 3.4 /CUMM) 0.4 L Lymphocytes (20.5 - 51.1 %) 4 L Monocytes (1.7 - 9.3 %) 2 Absolute Monocytes (0.10 - 0.60 /CUMM) 0.4 Absolute Eosinophils (0.0 - 0.7 /CUMM) 0 Absolute Basophils (0.0 - 0.2 /CUMM) 0 Platelet Estimate (ADEQUATE) DECREASED Normocytic RBCs VERIFIED Normochromic RBCs VERIFIED Polychromasia PUBS MCHC (33.0 - 37.0 G/DL) 33.2 Miscellaneous Phlebotomy Draw Site LEFT RADIAL 08/14 08/14 08/14 08/14 2131 1913 1717 1350 Chemistry Potassium (3.5 - 5.1 mmol/L) 4.0 [id number] Pept (<125 pg/mL) Cancelled 2780 H Coagulation APTT (25 - 37 SEC) 73 H 92 H Microbiology Date/Time Procedure - Status Source Growth 08/15 1329 Surveillance Culture - RECD UPPER RESP 08/15 1329 Surveillance Culture - RECD GI 08/14 1999 Urine Culture - COMP URINE ROUT 08/13 1628 Respiratory Culture - CAN LOWER RESP Cancelled: SPECIMEN NOT RECEIVED IN LABORATORY 08/14 1627 Gram Stain - CAN LOWER RESP Cancelled: SPECIMEN NOT RECEIVED IN LABORATORY Vital Signs Date Time Temp Pulse Resp B/P Pulse O2 O2 Flow FiO2 Ox Delivery Rate 08/16 0625 96 Nasal 60% Cannula 08/16 0400 97 Nasal 65% Cannula 08/16 0059 98 Nasal 65% Cannula 08/16 0000 96 Nasal 70% Cannula 08/16 0000 97.0 94 20 110/50 96 Nasal Cannula 08/15 2213 112 20 100/62 08/15 2213 112 20 100/62 08/15 2000 94 Nasal 70% Cannula 08/15 1609 94 Nasal 80% Cannula 08/15 1600 94 Nasal 80% Cannula 08/15 1600 99.2 117 20 100/60 94 Nasal 80% Cannula 08/15 1454 95 Nasal 95% Cannula 08/15 1430 101 104/68 08/15 1417 109 104/68 08/15 1330 92 Non 100% ReBreather 08/15 1330 97.8 114 28 142/78 92 Non 100% ReBreather 08/15 1254 120 28 130/80 85 Non 100% ReBreather / 1001 98.4 120 24 108/62 03/08 0859 95 Nasal 55% Cannula / 0808 98.4 120 24 108/62 95 Nasal Cannula / 0800 93 Nasal 55% Cannula IMPRESSION This is a lady with obstructive sleep apnea on CPAP, persistent atrial fibrillation continues to be in atrial fibrillation on anticoagulation on high- dose amiodarone, recent small bowel obstruction status post surgery, acute on chronic diastolic heart failure now with pulmonary edema has Acute hypoxemic respiratory failure most likely related to her acute diastolic heart disease. This is compounded by mitral stenosis. Significant obstructive sleep apnea which he appears to be stable now. CT suggest atx and airtrapping with prob atypical pulm edema (amio lung disease still a possibility however) Mild obstructive lung disease from her previous PFTs with no active evidence suggestive of acute COPD exacerbation Moderate pulmonary hypertension related to mitral stenosis and diastolic dysfunction RECOMMENDATION Continue aggressive diuresis, if bun and creat and her bp permits Aggressive potassium replacement Continue low-dose metoprolol A beta adry can be increased and diltiazem may be reduced as this could also contribute to her ileus Keep her potassium more than 4 as this could make her we can make her ileus worse Keep her magnesium more than 2
--- NOTE | 2016-08-16 07:55 | PN- General Surgery ---
See Addendum Subjective Subjective: NAEO. Afib currently rate controlled. Patient without new c/o. No pain. States she is breathing easier. Tolerating clear liquids without n/v. +flatus, +BM. No chest pain at the moment. Objective Vital Signs and I&Os Vital Signs Date Time Temp Pulse Resp B/P Pulse O2 O2 Flow FiO2 Ox Delivery Rate 08/16 0625 96 Nasal 60% Cannula 08/16 0400 97 Nasal 65% Cannula 08/16 0059 98 Nasal 65% Cannula 08/16 0000 96 Nasal 70% Cannula 08/16 0000 97.0 94 20 110/50 96 Nasal Cannula 08/15 2213 112 20 100/62 08/15 2213 112 20 100/62 08 2000 94 Nasal 70% Cannula 08/15 1609 94 Nasal 80% Cannula 08/15 1600 94 Nasal 80% Cannula 08/15 1600 99.2 117 20 100/60 94 Nasal 80% Cannula 08/15 1454 95 Nasal 95% Cannula 08/15 1430 101 104/68 08 1417 109 104/68 08 1330 92 Non 100% ReBreather 08/15 1330 97.8 114 28 142/78 92 Non 100% ReBreather 08/15 1254 120 28 130/80 85 Non 100% ReBreather /08 1001 98.4 120 24 108/62 03/08 0859 95 Nasal 55% Cannula 08/15 0808 98.4 120 24 108/62 95 Nasal Cannula 08/15 0800 93 Nasal 55% Cannula Intake & Output 08/16 0800 03/09 0000 /08 1600 08 0800 /08 0000 07 1600 Intake Total 295 473 240 780 695 715 Output Total 065 966 2531 375 675 450 Balance 30 -507 -1310 405 20 265 Intake, IV 195 173 70 780 645 635 Intake, Oral 100 300 170 0 50 80 Number 1 1 1 Bowel Movements Output, Urine 324 781 5015 375 675 450 Physical Exam: General: Comfortable, A&Ox3 CV: regular Irregular Abdomen: soft, nontender, nondistended. Incision intact with lissa without erythema, swelling, signs of infection. +Bowel sounds x4 quadrants Ext: No calve swelling/TTP, neurovascularly intact bilateral lower extremities Current Medications: Current Medications Sig/Rosalia Start time Last Medication Dose Route Stop Time Status Admin Acetaminophen 1,000 MG Q6P PRN 08/07 1330 AC 08/07 N/A 1 UNIT IV 2107 Amiodarone HCl 200 MG DAILY 08/16 1000 AC PO Amiodarone HCl 200 MG BID 08/15 1334 DC 08/15 PO 1430 Atorvastatin Calcium 20 MG 1700 08/07 1700 AC 08/15 PO 1653 Digoxin 0.125 MG BID 08/15 1400 DC 08/15 IV 08/15 2201 2213 Diltiazem HCl 125 MG Q12H 08/15 1015 AC 08/16 Sodium Chloride 100 ML IV 0041 Diltiazem HCl 125 MG Q24H 08/14 0545 DC 08/14 Sodium Chloride 100 ML IV 1945 Furosemide 40 MG 7:30 AM, & 4:30 PM 08/14 0730 AC 08/15 IV 1653 Heparin Sodium 3,000 UNIT ONCE ONE 08/15 1715 DC 08/15 (Porcine) IV 08/15 1716 1704 Heparin Sodium 5,000 UNIT .STK-MED ONE 08/15 1647 DC (Porcine) IV 08/15 1648 Heparin Sodium 25,000 UNIT Q24H 08/11 0400 AC 08/16 (Porcine) IV 0500 Sodium Chloride 500 ML Ipratropium [place] 2.5 ML EVERY 4 HRS/AWAKE 08/14 1600 AC 08/15 INH 2000 Magnesium Oxide 400 MG ONE ONE 08/16 0730 DC PO 08/16 0731 Metoprolol Tartrate 25 MG BID 08/07 2200 AC 08/15 PO 2213 Morphine Sulfate 2 MG Q4P PRN 08/07 1315 AC 08/16 IV 0042 Ondansetron HCl 4 MG Q8P PRN 08/07 1300 AC 08/14 IV 1129 Pantoprazole Sodium 40 MG DAILY 08/08 1000 AC 08/15 IV 1004 Phenytoin 100 MG Q8 08/07 2200 AC 08/16 PO 0612 Potassium Chloride 20 MEQ Q20H 08/13 0730 DC 08/14 Dextrose/Sodium 1,000 ML IV 2251 Chloride Sodium Chloride 2 SPRAY Q4P PRN 08/14 0730 AC 08/15 JONAS 0830 Results Last 48 Hours of Labs: Laboratory Tests 08/16/ 0400 2200 1530 Chemistry Sodium (137 - 145 mmol/L) 131 L Potassium (3.5 - 5.1 mmol/L) 3.3 L Chloride (98 - 107 mmol/L) 92 L Carbon Dioxide (22 - 30 mmol/L) 30 Anion Gap (5 - 16) 10 BUN (7 - 17 mg/dL) 14 Creatinine (0.5 - 1.0 mg/dL) 0.6 Estimated GFR (>60 ml/min) > 60 Glucose (65 - 99 mg/dL) 111 H Calcium (8.4 - 10.2 mg/dL) 7.6 L Phosphorus (2.5 - 4.5 mg/dL) 2.1 L Magnesium (1.6 - 2.3 mg/dL) 1.8 Total Bilirubin (0.2 - 1.3 mg/dL) 0.5 AST (14 - 36 U/L) 54 H ALT (9 - 52 U/L) 43 Albumin (3.5 - 5.0 g/dL) 2.4 L Coagulation APTT (25 - 37 SEC) 77 H 51 H Hematology CBC w Diff NO MAN DIFF REQ WBC (4.8 - 10.8 /CUMM) 10.4 RBC (4.20 - 5.40 /CUMM) 3.73 L Hgb (12.0 - 16.0 G/DL) 12.1 Hct (37 - 47 %) 36.0 L MCV (81.0 - 99.0 FL) 96.6 MCH (27.0 - 31.0 PG) 32.3 H RDW (11.5 - 14.5 %) 13.3 Plt Count (130 - 400 /CUMM) 163 MPV (7.4 - 10.4 FL) 9.0 Gran % (42.2 - 75.2 %) 92.7 H Lymphocytes % (20.5 - 51.1 %) 3.2 L Monocytes % (1.7 - 9.3 %) 3.8 Eosinophils % (0 - 5 %) 0.2 Basophils % (0.0 - 2.0 %) 0.1 Absolute Granulocytes (1.4 - 6.5 /CUMM) 9.6 H Absolute Lymphocytes (1.2 - 3.4 /CUMM) 0.3 L Absolute Monocytes (0.10 - 0.60 /CUMM) 0.4 Absolute Eosinophils (0.0 - 0.7 /CUMM) 0 Absolute Basophils (0.0 - 0.2 /CUMM) 0 PUBS MCHC (33.0 - 37.0 G/DL) 33.5 08/15 08/15 08/15 1345 1250 0615 Blood Gas pH (7.35 - 7.45 PH) 7.46 H pCO2 (35 - 45 TORR) 37 pO2 (80 - 100 TORR) 92 HCO3 (21 - 28 MEQ/L) 26 ABG O2 Sat (Measured) (>96.0 %) 97.0 Carboxyhemoglobin (1.5 - 5.0 %) 0.2 L O2 Concentration % 95% O2 Delivery Method [facility] Chemistry Sodium (137 - 145 mmol/L) 132 L Potassium (3.5 - 5.1 mmol/L) 3.8 Chloride (98 - 107 mmol/L) 97 L Carbon Dioxide (22 - 30 mmol/L) 27 Anion Gap (5 - 16) 9 BUN (7 - 17 mg/dL) 17 Creatinine (0.5 - 1.0 mg/dL) 0.6 Estimated GFR (>60 ml/min) > 60 BUN/Creatinine Ratio (7 - 25 %) 28.3 H Magnesium (1.6 - 2.3 mg/dL) 1.9 Coagulation APTT (25 - 37 SEC) 47 H Hematology CBC w Diff MAN DIFF ORDERED WBC (4.8 - 10.8 /CUMM) 9.2 RBC (4.20 - 5.40 /CUMM) 3.80 L Hgb (12.0 - 16.0 G/DL) 12.3 Hct (37 - 47 %) 37.0 MCV (81.0 - 99.0 FL) 97.3 MCH (27.0 - 31.0 PG) 32.3 H RDW (11.5 - 14.5 %) 13.5 Plt Count (130 - 400 /CUMM) 135 MPV (7.4 - 10.4 FL) 8.5 Gran % (42.2 - 75.2 %) 91.6 H Lymphocytes % (20.5 - 51.1 %) 4.0 L Monocytes % (1.7 - 9.3 %) 4.3 Eosinophils % (0 - 5 %) 0.1 Basophils % (0.0 - 2.0 %) 0 L Absolute Granulocytes (1.4 - 6.5 /CUMM) 8.5 H Segmented Neutrophils (42.2 - 75.2 %) 86 H Band Neutrophils (0.0 - 5.0 %) 8 H Absolute Lymphocytes (1.2 - 3.4 /CUMM) 0.4 L Lymphocytes (20.5 - 51.1 %) 4 L Monocytes (1.7 - 9.3 %) 2 Absolute Monocytes (0.10 - 0.60 /CUMM) 0.4 Absolute Eosinophils (0.0 - 0.7 /CUMM) 0 Absolute Basophils (0.0 - 0.2 /CUMM) 0 Platelet Estimate (ADEQUATE) DECREASED Normocytic RBCs VERIFIED Normochromic RBCs VERIFIED Polychromasia PUBS MCHC (33.0 - 37.0 G/DL) 33.2 Miscellaneous Phlebotomy Draw Site LEFT RADIAL 08/14 08/14 08/14 08/14 2131 1913 1717 1350 Chemistry Potassium (3.5 - 5.1 mmol/L) 4.0 [id number] Pept (<125 pg/mL) Cancelled 2780 H Coagulation APTT (25 - 37 SEC) 73 H 92 H Assessment/Plan Assessment/Plan 76yo F POD#6 s/p open lysis of adhesions. Tolerating PO and having bowel movements. Patient slightly improved but remains serious. - pain control - OK to advance diet - I/O's - Care per critical care team - Will d/w attending
[2016-08-16 08:00] VITALS: BP 104/70
--- NOTE | 2016-08-16 11:35 | PN- Pulmonary ---
Subjective HPI/Critical Care Issues: pt seen and examined doing much better still on high flow oxygen down to 50% doing much better Objective Current Medications: Current Medications Sig/Rosalia Start time Last Medication Dose Route Stop Time Status Admin Acetaminophen 1,000 MG Q6P PRN 08/07 1330 AC 08/07 N/A 1 UNIT IV 2107 Amiodarone HCl 200 MG DAILY 08/16 1000 AC PO Amiodarone HCl 200 MG BID 08/15 1334 DC 08/15 PO 1430 Atorvastatin Calcium 20 MG 1700 08/07 1700 AC 08/15 PO 1653 Digoxin 0.125 MG BID 08/15 1400 DC 08/15 IV 08/15 2201 2213 Diltiazem HCl 125 MG Q12H 08/15 1015 AC 08/16 Sodium Chloride 100 ML IV 0041 Furosemide 40 MG 7:30 AM, & 4:30 PM 08/14 0730 AC 08/15 IV 1653 Heparin Sodium 3,000 UNIT ONCE ONE 08/15 1715 DC 08/15 (Porcine) IV 08/15 1716 1704 Heparin Sodium 5,000 UNIT .STK-MED ONE 08/15 1647 DC (Porcine) IV 08/15 1648 Heparin Sodium 25,000 UNIT Q24H 08/11 0400 AC 08/16 (Porcine) IV 0500 Sodium Chloride 500 ML Ipratropium [place] 2.5 ML EVERY 4 HRS/AWAKE 08/14 1600 AC 08/16 INH 0811 Magnesium Oxide 400 MG ONE ONE 08/16 0730 DC PO 08/16 0731 Metoprolol Tartrate 25 MG BID 08/07 2200 AC 08/15 PO 2213 Morphine Sulfate 2 MG Q4P PRN 08/07 1315 AC 08/16 IV 0042 Ondansetron HCl 4 MG Q8P PRN 08/07 1300 AC 08/14 IV 1129 Pantoprazole Sodium 40 MG DAILY 08/08 1000 AC 08/15 IV 1004 Phenytoin 100 MG Q8 08/07 2200 AC 08/16 PO 0612 Potassium Chloride 40 MEQ Q2H 08/16 0900 DC PO 08/16 1101 Sodium Chloride 2 SPRAY Q4P PRN 08/14 0730 AC 08/15 JONAS 0830 Vital Signs & I&O Last 24 Hrs of Vitals and I&O: Vital Signs Date Time Temp Pulse Resp B/P Pulse O2 O2 Flow FiO2 Ox Delivery Rate 08/16 0837 96 Nasal 55% Cannula 08/16 0625 96 Nasal 60% Cannula 08/16 0400 97 Nasal 65% Cannula 08/16 0059 98 Nasal 65% Cannula 08/16 0000 96 Nasal 70% Cannula 08/16 0000 97.0 94 20 110/50 96 Nasal Cannula 08/15 2213 112 20 100/62 08 2213 112 20 100/62 08 2000 94 Nasal 70% Cannula 08/15 1609 94 Nasal 80% Cannula 08/15 1600 94 Nasal 80% Cannula 08/15 1600 99.2 117 20 100/60 94 Nasal 80% Cannula 08/15 1454 95 Nasal 95% Cannula 08/15 1430 101 104/68 08/15 1417 109 104/68 08/15 1330 92 Non 100% ReBreather 08/15 1330 97.8 114 28 142/78 92 Non 100% ReBreather 08/15 1254 120 28 130/80 85 Non 100% ReBreather Intake & Output 08/16 1600 08/16 0800 08/16 0000 Intake Total 295 473 Output Total 265 980 Balance 30 -507 Intake, IV 195 173 Intake, Oral 100 300 Number 1 Bowel Movements Output, Urine 265 980 Exam Other Physical Findings: gen awake and alert, mild distress heent ncat cvs s1, s2, systolic murmur lungs bilateral rhonchi abd soft, bs+ ext without edema Results Last 24 Hrs of Lab Results: Laboratory Tests 08/16/16 1120: APTT Pending 08/16/16 0400: Anion Gap 10, Estimated GFR > 60, Glucose 111 H, Calcium 7.6 L, Phosphorus 2.1 L, Magnesium 1.8, Total Bilirubin 0.5, AST 54 H, ALT 43, Albumin 2.4 L, CBC w Diff NO MAN DIFF REQ, RBC 3.73 L, MCV 96.6, MCH 32.3 H, RDW 13.3, MPV 9.0, Gran % 92.7 H, Lymphocytes % 3.2 L, Monocytes % 3.8, Eosinophils % 0.2, Basophils % 0.1, Absolute Granulocytes 9.6 H, Absolute Lymphocytes 0.3 L, Absolute Monocytes 0.4, Absolute Eosinophils 0, Absolute Basophils 0, PUBS MCHC 33.5 08/15/16 2200: APTT 77 H 08/15/16 1530: APTT 51 H 03/08/17 1345: pH 7.46 H, pCO2 37, pO2 92, HCO3 26, ABG O2 Sat (Measured) 97.0, Carboxyhemoglobin 0.2 L, O2 Concentration % 95%, O2 Delivery Method HFNC, Phlebotomy Draw Site LEFT RADIAL 08/15/16 1250: APTT 47 H Impression/Plan Impression/Plan Impression/Plan: Impression 76 year old woman - PAUL on [employer] at home - s/p small bowel obstruction - mitral stenosis - acute on chronic diastolic chf - persistent a.fib Plan - okay with digoxin/amioadrone as needed - will try to reduce fio2 requirements and if able, she would require AutoPAP 4- [id number] nocturnally with o2 bleed in - cardiac care per Dr. Kamara - IST - DVT prophylaxis at all times (on heparin) TTS 35 min DG tele
[2016-08-16 11:43] LABS: PTT 54 SEC (25-37)
[2016-08-16 16:00] VITALS: BP 18/60
--- NOTE | 2016-08-16 19:44 | PN- Cardiology ---
Subjective Subjective: The patient appears to be a bit better today but remains on high flow oxygen. No other specific complaints. Heart rate better controlled with the addition of low dose digoxin Objective Vital Signs and I&Os Vital Signs Date Time Temp Pulse Resp B/P Pulse O2 O2 Flow FiO2 Ox Delivery Rate 08/16 1640 96 Nasal 55% Cannula 08/16 1217 112 122/60 08/16 0837 96 Nasal 55% Cannula 08/16 08 96 Nasal 55% Cannula 08/16 08 98.0 116 20 104/70 96 Nasal 55% Cannula 08/16 0625 96 Nasal 60% Cannula 08/16 0400 97 Nasal 65% Cannula 08/16 0059 98 Nasal 65% Cannula 08/16 0000 96 Nasal 70% Cannula 08/16 0000 97.0 94 20 110/50 96 Nasal Cannula 08/15 2213 112 20 100/62 08/15 2213 112 20 100/62 08/15 2000 94 Nasal 70% Cannula Intake & Output 08/16 1600 08/16 0800 08/16 0000 08/15 1600 08/15 0800 08/15 0000 Intake Total 295 473 240 780 695 Output Total 035 570 4699 375 675 Balance 30 -507 -1310 405 20 Intake, IV 195 173 70 780 645 Intake, Oral 100 300 170 0 50 Number 1 1 1 Bowel Movements Output, Urine 513 995 1848 375 675 Physical Exam: General Appearance: well developed/nourished, no apparent distress, alert, awake , comfortable Head: atraumatic, normal appearance Ears, Nose, Throat: normal pharynx, normal ENT inspection Respiratory: chest non-tender, decreased breath sounds b/l bases Cardiovascular: tachycardia, systolic murmur, irregularly irregular Abdomen: normal bowel sounds, soft, dry sterile dressing intact on midline Current Medications: Current Medications Sig/Rosalia Start time Last Medication Dose Route Stop Time Status Admin Acetaminophen 1,000 MG Q6P PRN 08/07 1330 AC 08/16 N/A 1 UNIT IV 1534 Amiodarone HCl 200 MG DAILY 08/16 1000 AC 08/16 PO 1217 Atorvastatin Calcium 20 MG 1700 08/07 1700 AC 08/16 PO 1643 Digoxin 0.125 MG BID 08/15 1400 DC / IV 08/15 2201 2213 Diltiazem HCl 125 MG Q12H 08/15 1015 AC 08/16 Sodium Chloride 100 ML IV 1015 Furosemide 40 MG 7:30 AM, & 4:30 PM 08/14 0730 AC 08/16 IV 1643 Heparin Sodium 25,000 UNIT Q24H 08/11 0400 AC 08/16 (Porcine) IV 1621 Sodium Chloride 500 ML Ipratropium [place] 2.5 ML EVERY 4 HRS/AWAKE 08/14 1600 AC 08/16 INH 1628 Magnesium Oxide 400 MG ONE ONE 08/16 0730 DC 08/16 PO 08/16 0731 1216 Metoprolol Tartrate 25 MG BID 08/07 2200 AC 08/16 PO 1217 Morphine Sulfate 2 MG Q4P PRN 08/07 1315 AC 08/16 IV 0042 Ondansetron HCl 4 MG Q8P PRN 08/07 1300 AC 08/14 IV 1129 Pantoprazole Sodium 40 MG DAILY 08/08 1000 AC 08/16 IV 1217 Phenytoin 100 MG Q8 08/07 2200 AC 08/16 PO 1500 Potassium Chloride 40 MEQ Q2H 08/16 0900 DC 08/16 PO 08/16 1101 1642 Sodium Chloride 2 SPRAY Q4P PRN 08/14 0730 AC 08/15 JONAS 0830 Results Last 48 Hrs of Labs/Mics: Laboratory Tests 08/16/16 1120: APTT 54 H 08/16/16 0400: Anion Gap 10, Estimated GFR > 60, Glucose 111 H, Calcium 7.6 L, Phosphorus 2.1 L, Magnesium 1.8, Total Bilirubin 0.5, AST 54 H, ALT 43, Albumin 2.4 L, CBC w Diff NO MAN DIFF REQ, RBC 3.73 L, MCV 96.6, MCH 32.3 H, RDW 13.3, MPV 9.0, Gran % 92.7 H, Lymphocytes % 3.2 L, Monocytes % 3.8, Eosinophils % 0.2, Basophils % 0.1, Absolute Granulocytes 9.6 H, Absolute Lymphocytes 0.3 L, Absolute Monocytes 0.4, Absolute Eosinophils 0, Absolute Basophils 0, PUBS MCHC 33.5 08/15/16 2200: APTT 77 H 08/15/16 1530: APTT 51 H 08/15/16 1345: pH 7.46 H, pCO2 37, pO2 92, HCO3 26, ABG O2 Sat (Measured) 97.0, Carboxyhemoglobin 0.2 L, O2 Concentration % 95%, O2 Delivery Method HFNC, Phlebotomy Draw Site LEFT RADIAL 08/15/16 1250: APTT 47 H 08/15/16 0615: Anion Gap 9, Estimated GFR > 60, BUN/Creatinine Ratio 28.3 H, Magnesium 1.9, CBC w Diff MAN DIFF ORDERED, RBC 3.80 L, MCV 97.3, MCH 32.3 H, RDW 13.5, MPV 8.5, Gran % 91.6 H, Lymphocytes % 4.0 L, Monocytes % 4.3, Eosinophils % 0.1, Basophils % 0 L, Absolute Granulocytes 8.5 H, Segmented Neutrophils 86 H, Band Neutrophils 8 H, Absolute Lymphocytes 0.4 L, Lymphocytes 4 L, Monocytes 2, Absolute Monocytes 0.4, Absolute Eosinophils 0, Absolute Basophils 0, Platelet Estimate DECREASED, Normocytic RBCs VERIFIED, Normochromic RBCs VERIFIED, Polychromasia , PUBS MCHC 33.2 08/14/16 2131: APTT 73 H Assessment/Plan Assessment/Plan Attending Addendum: The patient was re examined after arriving back to her room post CTA chest. At that time she was clearly in more respiratory distress and requiring FiO2 increase to 100%. AT that time transfer to the ICU was recommended for closer monitoring. Recommendation: - Continur Cardizem at current rate for now. - Continue digoxin 0.125 mg daily for now. - Conitnue amiodarone 200 daily, unless Dr. Ibarra recommends discontinuation after reviewing CT - Continue lasix 40 IV BID. - Conitnue to monitor I/Os and labs - continue as per the Pulmonary service. - Eventual cardioversion Continue telemetry? Yes
[2016-08-16 20:53] LABS: PTT 63 SEC (25-37)
[2016-08-17] VITALS: BP 106/60
[2016-08-17 05:26] LABS: ABSOLUTE BASOPHIL COUNT 0 /CUMM (0.0-0.2); ABSOLUTE EOSINOPHIL COUNT 0.1 /CUMM (0.0-0.7); ABSOLUTE GRANULOCYTE CT 11.1 /CUMM (1.4-6.5); ABSOLUTE LYMPH COUNT 0.3 /CUMM (1.2-3.4); ABSOLUTE MONOCYTE COUNT 0.3 /CUMM (0.10-0.60); BASOPHIL % 0 % (0.0-2.0); EOSINOPHIL % 0.5 % (0-5); GRANULOCYTE % 94.6 % (42.2-75.2); HEMATOCRIT 37.8 % (37-47); MEAN CORPUSCULAR HGB 32.3 PG (27.0-31.0); MEAN CORPUSCULAR HGB CONC 33.4 G/DL (33.0-37.0); MEAN CORPUSCULAR VOLUME 96.6 FL (81.0-99.0); MEAN PLATELET VOLUME 9.3 FL (7.4-10.4); PLATELET COUNT 198 /CUMM (130-400); RBC DISTRIBUTION WIDTH 13.4 % (11.5-14.5); RED BLOOD CELL CT 3.91 /CUMM (4.20-5.40); WHITE BLOOD CELL COUNT 11.7 /CUMM (4.8-10.8)
--- NOTE | 2016-08-17 05:47 | PN- General Surgery ---
See Addendum Subjective Subjective: The patient was seen this morning postoperatively day #10. She complains of nasal congestion due to her oxygen but is otherwise comfortable. She denies any current abdominal pain and has moved her bowels numerous times over the last 2 days and is tolerating a clear liquid diet without nausea. She reports passing gas this morning and denies hiccups. She has no complaints the current time and denies any chest pain or difficulty breathing. Objective Vital Signs and I&Os Vital Signs Date Time Temp Pulse Resp B/P Pulse O2 O2 Flow FiO2 Ox Delivery Rate 08/17 0301 93 94 08/17 0026 90 96 / 0000 97 CPAP 6.0L 08/17 0000 97.3 95 22 106/60 97 CPAP 6.0L 08/16 2235 80 93 08/16 2123 81 124/66 08/16 1640 96 Nasal 55% Cannula 08/16 1600 96 Nasal 35% Cannula 08/16 1600 99.0 88 24 18/60 95 Nasal 55% Cannula 08/16 1217 112 122/60 08/16 0837 96 Nasal 55% Cannula 08/16 0800 96 Nasal 55% Cannula 08/16 0800 98.0 116 20 104/70 96 Nasal 55% Cannula 08/16 0625 96 Nasal 60% Cannula Intake & Output 08/17 0800 08/17 0000 / 1600 08/16 0800 08/16 0000 / 1600 Intake Total 418 1159 295 473 240 Output Total 500 1120 149 309 3238 Balance -82 39 30 -507 -1310 Intake, IV 118 759 195 173 70 Intake, Oral 300 400 100 300 170 Number 1 1 Bowel Movements Output, Urine 500 1120 347 420 3037 Physical Exam: Gen.: Alert and in no obvious distress Skin: Warm and dry Abdomen: Soft, mildly distended, appropriate incisional tenderness, bowel sounds positive. Surgical incision with clips intact and without signs of infection. Extremities: Bilateral lower extremities are warm without calf tenderness and there is positive trace edema. Assessment/Plan Assessment/Plan Assessment: 76-year-old female status post laparotomy with extensive lysis of adhesions today small bowel obstruction postoperative day #8. The patient has made slow progression and it appears that her ileus finally resolved. She is currently tolerating a clear liquid diet without nausea and having proper bowel function. Recommendations: Advance to a heart healthy diet (the patient was educated to take it slowly for the first couple of meals) Out of bed Physical therapy consultation It is probably safe to restart patient's Eliquis if deemed necessary by the medical team Follow-up morning laboratory studies Continue diuresis and attempts to wean O2 demand GI and DVT prophylaxis Continue care per primary team and various medical consultation recommendations
--- NOTE | 2016-08-17 07:17 | PN- Housestaff ---
Subjective Follow-up For: Acute on chronic hypoxemic respiratory failure Atrial fibrillation with RVR Acute on chronic diastolic CHF SBO s/p laparotomy with lysis of adhesions Subjective: No acute events overnight. Patient seen and examined this morning. She feels improved and her breathing is better. She complains of nasal congestion. She was advanced to heart healthy diet for breakfast and has been tolerating it. She continues to pass flatus and have bowel movements. Her lower lip is noted to be more swollen. She denies difficulty swallowing. She continues to be tachycardic with heart rate mostly around 100s with intermittent elevations to 130s. Review of Systems Constitutional: Reports: see HPI. Objective Last 24 Hrs of Vital Signs/I&O Vital Signs Date Time Temp Pulse Resp B/P Pulse O2 O2 Flow FiO2 Ox Delivery Rate 08/17 0301 93 94 08/17 0026 90 96 08/17 0000 97 CPAP 6.0L 08/17 0000 97.3 95 22 106/60 97 CPAP 6.0L 08/16 2235 80 93 08/16 2123 81 124/66 08/16 1640 96 Nasal 55% Cannula 08/16 1600 96 Nasal 35% Cannula 08/16 1600 99.0 88 24 18/60 95 Nasal 55% Cannula 08/16 1217 112 122/60 Intake & Output 08/17 1600 08/17 0800 08/17 0000 Intake Total 420 418 Output Total 250 500 Balance 170 -82 Intake, IV 370 118 Intake, Oral 50 300 Output, Urine 250 500 Physical Exam General Appearance: Alert, Oriented X3, No Acute Distress HEENT: Atraumatic, Swelling of Lower Lip Neck: Supple Cardiovascular: Irregularly Irregular, Tachycardic, Systolic Murmur Lungs: Diminished Bibasilar Breath Sounds Abdomen: Soft, No Tenderness, Positive Bowel Sounds, Incision Site Without Erythema or Swelling Extremities: No Cyanosis, No Edema, Trace Edema on Bilateral Lower Extremities Current Medications: Current Medications Sig/Rosalia Start time Last Medication Dose Route Stop Time Status Admin Acetaminophen 1,000 MG .STK-MED ONE 08/16 1508 DC IV 08/16 1509 Acetaminophen 1,000 MG Q6P PRN 08/07 1330 AC 08/16 N/A 1 UNIT IV 1534 Amiodarone HCl 200 MG DAILY 08/16 1000 AC 08/16 PO 1217 Atorvastatin Calcium 20 MG 1700 08/07 1700 AC 03/09 PO 1643 Digoxin 0.125 MG 1700 08/17 1700 AC PO Diltiazem HCl 125 MG Q12H 08/15 1015 AC 08/16 Sodium Chloride 100 ML IV 1015 Fluticasone 2 SPRAY DAILY 08/17 1000 AC Propionate JONAS Furosemide 40 MG 7:30 AM, & 4:30 PM 08/14 0730 AC 08/16 IV 1643 Heparin Sodium 25,000 UNIT Q24H 08/11 0400 AC 08/17 (Porcine) IV 0549 Sodium Chloride 500 ML Ipratropium [place] 2.5 ML EVERY 4 HRS/AWAKE 08/14 1600 AC 08/16 INH 2051 Loratadine 10 MG DAILY NEEDED PRN 08/17 0845 AC PO Magnesium Oxide 400 MG ONE ONE 08/17 0745 DC PO 08/17 0746 Metoprolol Tartrate 25 MG BID 08/07 2200 AC 08/16 PO 2123 Morphine Sulfate 2 MG Q4P PRN 08/07 1315 AC 08/16 IV 0042 Ondansetron HCl 4 MG Q8P PRN 08/07 1300 AC 08/14 IV 1129 Pantoprazole Sodium 40 MG DAILY 08/08 1000 AC 08/16 IV 1217 Phenytoin 100 MG Q8 08/07 2200 AC 08/17 PO 0548 Phosphate 250 MG ONCE ONE 08/17 0800 DC PO 08/17 0801 Potassium Chloride 40 MEQ Q2H 08/16 0900 DC 08/16 PO 08/16 1101 1642 Sodium Chloride 2 SPRAY Q4P PRN 08/14 0730 AC 08/15 JONAS 0830 Last 24 Hrs of Lab/Storm Results Last 24 Hrs of Labs/Mics: Laboratory Tests 08/17/16 0830: APTT Pending 08/17/16 0337: Anion Gap 9, Estimated GFR > 60, Glucose 102 H, Calcium 7.8 L, Phosphorus 1.7 L, Magnesium 1.9, Total Bilirubin 0.6, AST 59 H, ALT 49, Albumin 2.5 L, CBC w Diff NO MAN DIFF REQ, RBC 3.91 L, MCV 96.6, MCH 32.3 H, RDW 13.4, MPV 9.3, Gran % 94.6 H, Lymphocytes % 2.3 L, Monocytes % 2.6, Eosinophils % 0.5, Basophils % 0 L, Absolute Granulocytes 11.1 H, Absolute Lymphocytes 0.3 L, Absolute Monocytes 0.3, Absolute Eosinophils 0.1, Absolute Basophils 0, PUBS MCHC 33.4 08/16/16 2005: APTT 63 H 08/16/16 1120: APTT 54 H Assessment/Plan Assessment: 76 y/o F with PMHx of PAUL on CPAP and atrial fibrillation admitted for SBO s/p laparotomy lysis of adhesions, now with acute hypoxemic respiratory failure secondary to acute on chronic diastolic CHF. #Acute hypoxemic respiratory failure: Remains on high flow oxygen but with improved oxygen requirement, FiO2 down to 55%. * Pulmonology following. Appreciate their recs. * Wean down FiO2 as tolerated. * TRC and nebs. #Atrial fibrillation: Heart rate better controlled but continues to have intermittent episodes of tachycardia to 130s. * Continue digoxin 0.125 mg PO daily, amiodarone 200 mg PO daily and metoprolol 25 mg PO BID. * Continue IV Cardizem drip. * Discontinue IV heparin. * Start Eliquis 5 mg PO BID. #Acute on chronic diastolic CHF: Stable. * Cardiology following. Appreciate their recs. * Continue telemetry monitoring. * Continue Lasix 40 mg IV BID. * Monitor strict I/Os. #Lip swelling: Increasing swelling of lower lip noted today. Asymptomatic. Not on AMANDA inhibitors. * Benadryl 50 mg IV administered. * Monitor for increased lip swelling and airway obstruction. #Nasal congestion: Has been endorsing nasal congestion. Uses Nasonex and olapatadine nasal sprays at home. * Start Flonase 2 sprays to bilateral nostrils daily. * Antihistamine nasal spray not available on formulary. Start loratadine 10 mg PO daily PRN for nasal congestion. #SBO: POD #7 s/p laparatomy with lysis of adhesions. Postoperative pain well controlled. Advanced to heart healthy diet today. * Management per general surgery team. Diet: Heart Healthy DVT PPx: Eliquis and ALPs Lytes: Replete to K > 4, Mg > 2 and Phos > 2.5 CODE: FULL Problem List: 1. Acute hypoxemic respiratory failure 2. Acute on chronic diastolic (congestive) heart failure 3. Atrial fibrillation with RVR 4. Small bowel obstruction 5. S/P laparotomy 6. Lip swelling 7. Nasal congestion Pain Ratin Pain Location: Abdomen Pain Goal: Remain pain free Pain Plan: Tylenol 1 g IV Q6H PRN morphine 2 mg IV Q4H PRN Tomorrow's Labs & Rationales: CBC to monitor WBC in the setting of leukocytosis BMP, Mg and Phos to monitor lytes in the setting of electrolyte disturbances
[2016-08-17 08:00] VITALS: BP 120/70
[2016-08-17 08:58] LABS: PTT 49 SEC (25-37)
--- NOTE | 2016-08-17 09:18 | PN- Pulmonary ---
Subjective HPI/Critical Care Issues: pt seen and examined tele hold doing well on nc Objective Current Medications: Current Medications Sig/Rosalia Start time Last Medication Dose Route Stop Time Status Admin Acetaminophen 1,000 MG .STK-MED ONE 08/16 1508 DC IV 08/16 1509 Acetaminophen 1,000 MG Q6P PRN 08/07 1330 AC 08/16 N/A 1 UNIT IV 1534 Amiodarone HCl 200 MG DAILY 08/16 1000 AC 08/17 PO 0914 Atorvastatin Calcium 20 MG 1700 08/07 1700 AC 08/16 PO 1643 Digoxin 0.125 MG 17008/17 1700 AC PO Diltiazem HCl 125 MG Q16H 08/17 0930 AC Sodium Chloride 100 ML IV Diltiazem HCl 125 MG Q12H 08/15 1015 DC 08/16 Sodium Chloride 100 ML IV 1015 Fluticasone 2 SPRAY DAILY 08/17 1000 AC 08/17 Propionate JONAS 0914 Furosemide 40 MG 7:30 AM, & 4:30 PM 08/14 0730 AC 08/17 IV 0913 Heparin Sodium 25,000 UNIT Q24H 08/11 0400 AC 08/17 (Porcine) IV 0549 Sodium Chloride 500 ML Ipratropium [place] 2.5 ML EVERY 4 HRS/AWAKE 08/14 1600 AC 08/16 INH 2051 Loratadine 10 MG DAILY NEEDED PRN 08/17 0845 AC PO Magnesium Oxide 400 MG ONE ONE 08/17 0745 DC 08/17 PO 08/17 0746 0913 Metoprolol Tartrate 25 MG BID 08/07 2200 AC 08/17 PO 0914 Morphine Sulfate 2 MG Q4P PRN 08/07 1315 AC 08/16 IV 0042 Ondansetron HCl 4 MG Q8P PRN 08/07 1300 AC 08/14 IV 1129 Pantoprazole Sodium 40 MG DAILY 08/08 1000 AC 08/17 IV 0914 Phenytoin 100 MG Q8 08/07 2200 AC 08/17 PO 0548 Phosphate 250 MG ONCE ONE 08/17 08 DC 08/17 PO 08/17 0801 0913 Potassium Chloride 40 MEQ Q2H 08/16 0900 DC 08/16 PO 08/16 1101 1642 Sodium Chloride 2 SPRAY Q4P PRN 08/14 0730 AC 08/15 JONAS 0830 Vital Signs & I&O Last 24 Hrs of Vitals and I&O: Vital Signs Date Time Temp Pulse Resp B/P Pulse O2 O2 Flow FiO2 Ox Delivery Rate 08/17 0914 116 110/80 08/17 0301 93 94 08/17 0026 90 96 08/17 0000 97 CPAP 6.0L 08/17 0000 97.3 95 22 106/60 97 CPAP 6.0L 08/16 2235 80 93 08/16 2123 81 124/66 08/16 1640 96 Nasal 55% Cannula 08/16 1600 96 Nasal 35% Cannula 08/16 1600 99.0 88 24 95 Nasal 55% Cannula 08/16 1217 112 122/60 Intake & Output 08/17 1600 08/17 0800 08/17 0000 Intake Total 420 418 Output Total 250 500 Balance 170 -82 Intake, IV 370 118 Intake, Oral 50 300 Output, Urine 250 500 Exam Other Physical Findings: gen awake and alert, mild distress heent ncat cvs s1, s2, systolic murmur lungs bilateral rhonchi abd soft, bs+ ext without edema Results Last 24 Hrs of Lab Results: Laboratory Tests 08/17/16 0830: APTT 49 H 08/17/16 0337: Anion Gap 9, Estimated GFR > 60, Glucose 102 H, Calcium 7.8 L, Phosphorus 1.7 L, Magnesium 1.9, Total Bilirubin 0.6, AST 59 H, ALT 49, Albumin 2.5 L, CBC w Diff NO MAN DIFF REQ, RBC 3.91 L, MCV 96.6, MCH 32.3 H, RDW 13.4, MPV 9.3, Gran % 94.6 H, Lymphocytes % 2.3 L, Monocytes % 2.6, Eosinophils % 0.5, Basophils % 0 L, Absolute Granulocytes 11.1 H, Absolute Lymphocytes 0.3 L, Absolute Monocytes 0.3, Absolute Eosinophils 0.1, Absolute Basophils 0, PUBS MCHC 33.4 08/16/16 2005: APTT 63 H 08/16/16 1120: APTT 54 H Impression/Plan Impression/Plan Impression/Plan: Impression 76 year old woman - PAUL on AutoSet at home - s/p small bowel obstruction - mitral stenosis - acute on chronic diastolic chf - persistent a.fib Plan - okay with digoxin/amioadrone per cardiology - reduce fio2 requirements and if able, she would require AutoPAP [id number] nocturnally with o2 bleed in - cardiac care per Dr. Kamara - IST - DVT prophylaxis at all times (on heparin) Tele hold
--- NOTE | 2016-08-17 10:46 | PN- Att Addend ---
Attending Addendum Attending Brief Note Patient in ICU, less short of breath hydrated this is a little slower but digoxin was added to the treatment. A new issue is today had her lower lip is much bigger than usual, which check her medications and see if any of them could be giving her an allergic reaction, discussed with housekeeping staff also will get some Benadryl vital signs are stable she still on high flow oxygen. No other changes on physical. Appreciate cardiology's input and recommendations. We'll continue close observation today Current Medications Sig/Rosalia Start time Last Medication Dose Route Stop Time Status Admin Acetaminophen 1,000 MG .STK-MED ONE 08/16 1508 DC IV 08/16 1509 Acetaminophen 1,000 MG Q6P PRN 08/07 1330 AC 08/16 N/A 1 UNIT IV 1534 Amiodarone HCl 200 MG DAILY 08/16 1000 AC 08/17 PO 0914 Atorvastatin Calcium 20 MG 1700 08/07 1700 AC 08/16 PO 1643 Digoxin 0.125 MG 1700 08/17 1700 AC PO Diltiazem HCl 125 MG Q16H 08/17 0930 AC Sodium Chloride 100 ML IV Diltiazem HCl 125 MG Q12H 08/15 1015 DC 08/16 Sodium Chloride 100 ML IV 1015 Diphenhydramine HCl 50 MG ONCE ONE 08/17 1000 DC IV 08/17 1001 Fluticasone 2 SPRAY DAILY 08/17 1000 AC 08/17 Propionate JONAS 0914 Furosemide 40 MG 7:30 AM, & 4:30 PM 08/14 0730 AC 08/17 IV 0913 Heparin Sodium 25,000 UNIT Q24H 08/11 0400 AC 08/17 (Porcine) IV 0549 Sodium Chloride 500 ML Ipratropium [place] 2.5 ML EVERY 4 HRS/AWAKE 08/14 1600 AC 08/17 INH 0930 Loratadine 10 MG DAILY NEEDED PRN 08/17 0845 AC PO Magnesium Oxide 400 MG ONE ONE 08/17 0745 DC 08/17 PO 08/17 0746 0913 Metoprolol Tartrate 25 MG BID 08/07 2200 AC 08/17 PO 0914 Morphine Sulfate 2 MG Q4P PRN 08/07 1315 AC 08/16 IV 0042 Ondansetron HCl 4 MG Q8P PRN 08/07 1300 AC 08/14 IV 1129 Pantoprazole Sodium 40 MG DAILY 03/01 1000 AC 08/17 IV 0914 Phenytoin 100 MG Q8 08/07 2199 AC 08/17 PO 0548 Phosphate 250 MG ONCE ONE 08/18 799 DC 08/17 PO 08/17 0801 0913 Potassium Chloride 40 MEQ Q2H 08/16 899 DC 08/16 PO 08/16 1101 1642 Sodium Chloride 2 SPRAY Q4P PRN 08/14 0730 AC 08/15 JONAS 0830 Laboratory Tests 08/17/16 0830: APTT 49 H 08/17/16 0337: Anion Gap 9, Estimated GFR > 60, Glucose 102 H, Calcium 7.8 L, Phosphorus 1.7 L, Magnesium 1.9, Total Bilirubin 0.6, AST 59 H, ALT 49, Albumin 2.5 L, CBC w Diff NO MAN DIFF REQ, RBC 3.91 L, MCV 96.6, MCH 32.3 H, RDW 13.4, MPV 9.3, Gran % 94.6 H, Lymphocytes % 2.3 L, Monocytes % 2.6, Eosinophils % 0.5, Basophils % 0 L, Absolute Granulocytes 11.1 H, Absolute Lymphocytes 0.3 L, Absolute Monocytes 0.3, Absolute Eosinophils 0.1, Absolute Basophils 0, PUBS MCHC 33.4 08/16/16 2005: APTT 63 H 08/16/16 1120: APTT 54 H 08/16/16 0400: Anion Gap 10, Estimated GFR > 60, Glucose 111 H, Calcium 7.6 L, Phosphorus 2.1 L, Magnesium 1.8, Total Bilirubin 0.5, AST 54 H, ALT 43, Albumin 2.4 L, CBC w Diff NO MAN DIFF REQ, RBC 3.73 L, MCV 96.6, MCH 32.3 H, RDW 13.3, MPV 9.0, Gran % 92.7 H, Lymphocytes % 3.2 L, Monocytes % 3.8, Eosinophils % 0.2, Basophils % 0.1, Absolute Granulocytes 9.6 H, Absolute Lymphocytes 0.3 L, Absolute Monocytes 0.4, Absolute Eosinophils 0, Absolute Basophils 0, PUBS MCHC 33.5 08/15/16 2200: APTT 77 H 08/15/16 1530: APTT 51 H 08/15/16 1345: pH 7.46 H, pCO2 37, pO2 92, HCO3 26, ABG O2 Sat (Measured) 97.0, Carboxyhemoglobin 0.2 L, O2 Concentration % 95%, O2 Delivery Method HFNC, Phlebotomy Draw Site LEFT RADIAL 08/15/16 1250: APTT 47 H Microbiology 08/15 1330 UPPER RESP: Surveillance Culture - COMP METH RESIST STAPH AUREUS 08/15 133 GI: Surveillance Culture - COMP VANC RESIST ENTEROCOCCUS Vital Signs Date Time Temp Pulse Resp B/P Pulse O2 O2 Flow FiO2 Ox Delivery Rate 08/17 0914 116 110/80 08/17 0301 93 94
[2016-08-17 18:00] VITALS: BP 122/56
--- NOTE | 2016-08-17 18:59 | PN- Cardiology ---
Subjective Subjective: Continued slow clinical improvement in respiratory status. Objective Vital Signs and I&Os Vital Signs Date Time Temp Pulse Resp B/P Pulse O2 O2 Flow FiO2 Ox Delivery Rate 08/17 1800 98.0 68 24 122/56 98 Nasal 5.0L Cannula 08/17 1632 Nasal 5.0L Cannula 08/17 1632 93 Nasal 5.0L Cannula 08/17 1627 Nasal 5.0L Cannula 08/17 1503 90 Nasal 5.0L Cannula 08/17 0940 93 Nasal 45% Cannula 08/17 0914 116 110/80 08/17 0800 96 Nasal 45% Cannula 08/17 0800 98.0 110 24 120/70 97 Nasal 45% Cannula 08/17 0301 93 94 08/17 0026 90 96 08/17 0000 97 CPAP 6.0L 08/17 0000 97.3 95 22 106/60 97 CPAP 6.0L 08/16 2235 80 93 08/16 2123 81 124/66 Intake & Output 08/17 1600 08/17 0800 08/17 0000 08/16 1600 08/16 0800 08/16 0000 Intake Total 620 005 569 8170 295 473 Output Total 800 487 155 2162 265 980 Balance -180 170 -82 39 30 -507 Intake, IV 220 370 118 759 195 173 Intake, Oral 400 50 300 400 100 300 Number 1 1 Bowel Movements Output, Urine 800 264 575 0800 265 980 Physical Exam: General Appearance: well developed/nourished, no apparent distress, alert, awake , comfortable Head: atraumatic, normal appearance Ears, Nose, Throat: normal pharynx, normal ENT inspection; increasing lip swelling Respiratory: chest non-tender, decreased breath sounds b/l bases Cardiovascular: tachycardia, systolic murmur, irregularly irregular Abdomen: normal bowel sounds, soft, dry sterile dressing intact on midline Current Medications: Current Medications Sig/Rosalia Start time Last Medication Dose Route Stop Time Status Admin Acetaminophen 1,000 MG Q6P PRN 08/07 1330 AC 08/17 N/A 1 UNIT IV 1638 Amiodarone HCl 200 MG DAILY 08/16 1000 AC 08/17 PO 0914 Apixaban 5 MG BID 08/17 1314 AC 08/17 PO 1430 Atorvastatin Calcium 20 MG 08/07 1700 AC 08/17 PO 1630 Digoxin 0.125 MG 08/17 1700 AC 08/17 PO 1630 Diltiazem HCl 125 MG Q16H 08/17 0930 AC 08/17 Sodium Chloride 100 ML IV 1109 Diltiazem HCl 125 MG Q12H 08/15 1015 DC 08/16 Sodium Chloride 100 ML IV 1015 Diphenhydramine HCl 50 MG ONCE ONE 08/17 1000 DC 08/17 IV 08/17 1001 1108 Fluticasone 2 SPRAY DAILY 08/17 1000 AC 08/17 Propionate JONAS 0914 Furosemide 40 MG 7:30 AM, & 4:30 PM 08/14 0730 AC 08/17 IV 1630 Heparin Sodium 25,000 UNIT Q24H 08/11 0400 DC 08/17 (Porcine) IV 08/17 1500 0549 Sodium Chloride 500 ML Ipratropium [place] 2.5 ML EVERY 4 HRS/AWAKE 08/14 1600 AC 08/17 INH 1625 Loratadine 10 MG DAILY NEEDED PRN 08/17 0845 AC PO Magnesium Oxide 400 MG ONE ONE 08/17 0745 DC 08/17 PO 08/17 0746 0913 Metoprolol Tartrate 25 MG BID 08/07 2200 AC 08/17 PO 0914 Morphine Sulfate 2 MG Q4P PRN 08/07 1315 AC 08/16 IV 0042 Ondansetron HCl 4 MG Q8P PRN 08/07 1300 AC 08/14 IV 1129 Pantoprazole Sodium 40 MG DAILY 08/08 1000 AC 08/17 IV 0914 Phenytoin 100 MG Q8 08/07 2200 AC 08/17 PO 1400 Phosphate 250 MG ONCE ONE 08/17 0800 DC 08/17 PO 08/17 0801 0913 Sodium Chloride 2 SPRAY Q4P PRN 08/14 0730 AC 08/15 JONAS 0830 Results Last 48 Hrs of Labs/Mics: Laboratory Tests 08/17/16 0830: APTT 49 H 08/17/16 0337: Anion Gap 9, Estimated GFR > 60, Glucose 102 H, Calcium 7.8 L, Phosphorus 1.7 L, Magnesium 1.9, Total Bilirubin 0.6, AST 59 H, ALT 49, Albumin 2.5 L, CBC w Diff NO MAN DIFF REQ, RBC 3.91 L, MCV 96.6, MCH 32.3 H, RDW 13.4, MPV 9.3, Gran % 94.6 H, Lymphocytes % 2.3 L, Monocytes % 2.6, Eosinophils % 0.5, Basophils % 0 L, Absolute Granulocytes 11.1 H, Absolute Lymphocytes 0.3 L, Absolute Monocytes 0.3, Absolute Eosinophils 0.1, Absolute Basophils 0, PUBS MCHC 33.4 08/16/162004: APTT 63 H 08/16/16 1120: APTT 54 H 08/16/16 0400: Anion Gap 10, Estimated GFR > 60, Glucose 111 H, Calcium 7.6 L, Phosphorus 2.1 L, Magnesium 1.8, Total Bilirubin 0.5, AST 54 H, ALT 43, Albumin 2.4 L, CBC w Diff NO MAN DIFF REQ, RBC 3.73 L, MCV 96.6, MCH 32.3 H, RDW 13.3, MPV 9.0, Gran % 92.7 H, Lymphocytes % 3.2 L, Monocytes % 3.8, Eosinophils % 0.2, Basophils % 0.1, Absolute Granulocytes 9.6 H, Absolute Lymphocytes 0.3 L, Absolute Monocytes 0.4, Absolute Eosinophils 0, Absolute Basophils 0, PUBS MCHC 33.5 08/15/160: APTT 77 H Assessment/Plan Assessment/Plan Assessment- 1. Acute HFpEF - slowly improving 2. Atrial fibrillation 3. SBO, Day 6 post op 4. PAUL 5. Rheumatic mitral stenosis 6. Worsening lip swelling Recommendations: -Continue as per the Pulmonary / Critical care team -Continue diuresis with IV lasix and close monitoring of I/Os, etc. -Continue IV cardizem, heparin, etc. -Continue Digoxin 0.125 daily and check digoxin level on Saturday. Continue telemetry? Yes
[2016-08-17 23:00] VITALS: BP 130/80
[2016-08-18 04:50] LABS: BASOPHIL % 0.1 % (0.0-2.0)
[2016-08-18 04:53] LABS: ABSOLUTE BASOPHIL COUNT 0 /CUMM (0.0-0.2); ABSOLUTE EOSINOPHIL COUNT 0.1 /CUMM (0.0-0.7); ABSOLUTE GRANULOCYTE CT 11.8 /CUMM (1.4-6.5); ABSOLUTE LYMPH COUNT 0.4 /CUMM (1.2-3.4); ABSOLUTE MONOCYTE COUNT 0.4 /CUMM (0.10-0.60); EOSINOPHIL % 0.9 % (0-5); GRANULOCYTE % 92.4 % (42.2-75.2); HEMATOCRIT 39.9 % (37-47); MEAN CORPUSCULAR HGB 32.2 PG (27.0-31.0); MEAN CORPUSCULAR HGB CONC 33.2 G/DL (33.0-37.0); MEAN CORPUSCULAR VOLUME 96.9 FL (81.0-99.0); MEAN PLATELET VOLUME 8.8 FL (7.4-10.4); PLATELET COUNT 262 /CUMM (130-400); RBC DISTRIBUTION WIDTH 13.5 % (11.5-14.5); RED BLOOD CELL CT 4.11 /CUMM (4.20-5.40)
[2016-08-18 05:16] LABS: WHITE BLOOD CELL COUNT 12.7 /CUMM (4.8-10.8)
[2016-08-18 07:00] VITALS: BP 90/65
[2016-08-18 08:00] VITALS: BP 114/82
--- NOTE | 2016-08-18 08:13 | PN- Housestaff ---
Assessment/Plan Assessment: 76 y/o F with PMHx of PAUL on CPAP and atrial fibrillation admitted for SBO s/p laparotomy lysis of adhesions, now with acute hypoxemic respiratory failure secondary to acute on chronic diastolic CHF. #Acute hypoxemic respiratory failure: Remains on high flow oxygen but with improved oxygen requirement, FiO2 down to 55%. * Pulmonology following. Appreciate their recs. * Wean down FiO2 as tolerated. * TRC and nebs. #Atrial fibrillation: Heart rate better controlled but continues to have intermittent episodes of tachycardia to 130s. * Continue digoxin 0.125 mg PO daily, amiodarone 200 mg PO daily and metoprolol 25 mg PO BID. * Continue IV Cardizem drip. * Discontinue IV heparin. * Start Eliquis 5 mg PO BID. #Acute on chronic diastolic CHF: Stable. * Cardiology following. Appreciate their recs. * Continue telemetry monitoring. * Continue Lasix 40 mg IV BID. * Monitor strict I/Os. #Lip swelling: Increasing swelling of lower lip noted today. Asymptomatic. Not on AMANDA inhibitors. * Benadryl 50 mg IV administered. * Monitor for increased lip swelling and airway obstruction. #Nasal congestion: Has been endorsing nasal congestion. Uses Nasonex and olapatadine nasal sprays at home. * Start Flonase 2 sprays to bilateral nostrils daily. * Antihistamine nasal spray not available on formulary. Start loratadine 10 mg PO daily PRN for nasal congestion. #SBO: POD #7 s/p laparatomy with lysis of adhesions. Postoperative pain well controlled. Advanced to heart healthy diet today. * Management per general surgery team. Diet: Heart Healthy DVT PPx: Eliquis and ALPs Lytes: Replete to K > 4, Mg > 2 and Phos > 2.5 CODE: FULL
--- NOTE | 2016-08-18 08:22 | PN- Housestaff ---
Subjective Follow-up For: Acute on chronic hypoxemic respiratory failure Atrial fibrillation with RVR Acute on chronic diastolic CHF SBO s/p laparotomy with lysis of adhesions Subjective: Patient was seen and examined today. Patient alert, awake, oriented X3. she feel much better comparing with the previous regarding her breathing, patient complained of lower lip swelling. Also she still complaining of lower abdominal pain at the site of surgery. Patient heart rate between 99 and 110. She is off high flow oxygen she is currently on 4 L nasal cannula oxygen with oxygen saturation more than 91%, afebrile. Review of Systems Constitutional: Reports: weakness. Denies: chills, fever. Cardiovascular: Denies: chest pain, palpitations. Respiratory: Reports: short of breath. Denies: cough, hemoptysis. Gastrointestinal: Reports: abdominal pain. Denies: diarrhea, distention, nausea, vomiting. Genitourinary: Denies: hematuria, pain. Objective Last 24 Hrs of Vital Signs/I&O Vital Signs Date Time Temp Pulse Resp B/P Pulse O2 O2 Flow FiO2 Ox Delivery Rate 08/18 1127 97.6 105 16 100/60 92 Nasal 4.0L Cannula 08/18 0914 97.1 105 28 114/82 08/18 0913 97.1 105 28 114/82 08/18 0805 94 Nasal 5.0L Cannula 08/18 0800 97 Nasal 4.0L Cannula 08/18 0800 97.1 104 27 114/82 97 Nasal 4.0L Cannula 08/18 0700 97.3 97 26 90/65 95 Nasal 5.0L Cannula 08/18 0534 89 95 08/18 0321 91 95 08/18 0038 84 94 08/18 0000 95 CPAP 5.0L 08/17 2300 97.3 99 23 130/80 95 CPAP 5.0L 08/17 2156 101 111/64 08/17 2138 102 94 08/17 2000 93 Nasal 5.0L Cannula 08/17 1800 98.0 68 24 122/56 98 Nasal 5.0L Cannula 08/17 1632 Nasal 5.0L Cannula 08/17 1632 93 Nasal 5.0L Cannula 08/17 1627 Nasal 5.0L Cannula 08/17 1503 90 Nasal 5.0L Cannula Intake & Output 08/18 1600 08/18 0800 08/18 0000 Intake Total 305 239 Output Total 320 300 Balance -15 -61 Intake, IV 55 119 Intake, Oral 250 120 Number 2 1 Bowel Movements Output, Urine 320 300 Physical Exam General Appearance: Alert, Oriented X3, Mild Distress HEENT: PERRLA, EOMI, lower Lip swelling. Neck: Supple Cardiovascular: Normal S1, Normal S2, irregular, irregular tachycardia Lungs: Normal Air Movement, decreased air entry [place] Abdomen: Normal Bowel Sounds, Soft, Mild tenderness in lower ABD. Extremities: Trace bilateral edema Current Medications: Current Medications Sig/Rosalia Start time Last Medication Dose Route Stop Time Status Admin Acetaminophen 1,000 MG Q6P PRN 08/07 1330 AC 08/17 N/A 1 UNIT IV 1638 Amiodarone HCl 200 MG DAILY 08/16 1000 AC 08/18 PO 0913 Apixaban 5 MG BID 08/17 1314 AC 08/18 PO 0913 Atorvastatin Calcium 20 MG 1700 08/07 1700 AC 08/17 PO 1630 Digoxin 0.125 MG 1700 08/17 1700 AC 08/17 PO 1630 Diltiazem HCl 125 MG Q16H 08/17 0930 AC 08/18 Sodium Chloride 100 ML IV 0101 Fluticasone 2 SPRAY DAILY 08/17 1000 AC 08/18 Propionate JONAS 0912 Furosemide 40 MG 7:30 AM, & 4:30 PM 08/14 0730 AC 08/18 IV 0817 Guaifenesin 10 ML Q4P PRN 08/17 2015 AC 08/18 PO 0914 Heparin Sodium 25,000 UNIT Q24H 08/11 0400 DC 08/17 (Porcine) IV 08/17 1500 0549 Sodium Chloride 500 ML Ipratropium [place] 2.5 ML EVERY 4 HRS/AWAKE 08/14 1600 AC 08/18 INH 1138 Loratadine 10 MG DAILY NEEDED PRN 08/17 0845 AC PO Metoprolol Tartrate 25 MG BID 08/07 2200 AC 08/18 PO 0914 Morphine Sulfate 2 MG Q4P PRN 08/07 1315 AC 08/16 IV 0042 Omeprazole 40 MG DAILY AC 08/19 0700 AC PO Ondansetron HCl 4 MG Q8P PRN 08/07 1300 AC 08/14 IV 1129 Pantoprazole Sodium 40 MG DAILY 08/08 1000 DC 08/18 IV 0913 Phenytoin 100 MG Q8 08/07 2200 AC 08/18 PO 0527 Sodium Chloride 2 SPRAY Q4P PRN 08/14 0730 AC 08/15 JONAS 0830 Last 24 Hrs of Lab/Storm Results Last 24 Hrs of Labs/Mics: Laboratory Tests 08/18/16 0325: Anion Gap 9, Estimated GFR > 60, Glucose 98, Calcium 8.1 L, Phosphorus 2.1 L, Magnesium 1.9, Total Bilirubin 0.7, AST 50 H, ALT 51, Albumin 2.6 L, CBC w Diff NO MAN DIFF REQ, RBC 4.11 L, MCV 96.9, MCH 32.2 H, RDW 13.5, MPV 8.8, Gran % 92.4 H, Lymphocytes % 3.1 L, Monocytes % 3.5, Eosinophils % 0.9, Basophils % 0.1, Absolute Granulocytes 11.8 H, Absolute Lymphocytes 0.4 L, Absolute Monocytes 0.4, Absolute Eosinophils 0.1, Absolute Basophils 0, PUBS MCHC 33.2 Microbiology 08/17 2049 STOOL: Clostridium difficile Toxin A & B - COMP Assessment/Plan Assessment: 76 y/o F with PMHx of PAUL on CPAP and atrial fibrillation admitted for SBO s/p laparotomy lysis of adhesions, now with acute hypoxemic respiratory failure secondary to acute on chronic diastolic CHF. #Acute hypoxemic respiratory failure: Remains on high flow oxygen but with improved oxygen requirement, FiO2 down to 55%. * Pulmonology following. Appreciate their recs. * Wean down FiO2 as tolerated. * TRC and nebs. #Atrial fibrillation: Heart rate better controlled but continues to have intermittent episodes of tachycardia to 110s. * Continue digoxin 0.125 mg PO daily, amiodarone 200 mg PO daily and metoprolol 25 mg PO BID we'll discuss with the food and nutrition services assistant regarding the patient back on her home dose of amiodarone. * off IV Cardizem drip since am. * Discontinue IV heparin. * Start Eliquis 5 mg PO BID. #Acute on chronic diastolic CHF: Stable. * Cardiology following. Appreciate their recs. * Continue telemetry monitoring. * Continue Lasix 40 mg IV BID. * Monitor strict I/Os. #Lip swelling: Increasing swelling of lower lip noted today. Asymptomatic. Not on AMANDA inhibitors. * Benadryl 50 mg IV administered. * Monitor for increased lip swelling and airway obstruction. #Nasal congestion: Has been endorsing nasal congestion. Uses Nasonex and olapatadine nasal sprays at home. * Continue Flonase 2 sprays to bilateral nostrils daily. * Antihistamine nasal spray not available on formulary. Continue loratadine 10 mg PO daily PRN for nasal congestion. #SBO: POD #7 s/p laparatomy with lysis of adhesions. Postoperative pain well controlled. Advanced to heart healthy diet today. * Management per general surgery team. Diet: Heart Healthy DVT PPx: Eliquis and ALPs Lytes: Replete to K > 4, Mg > 2 and Phos > 2.5 CODE: FULL Problem List: 1. Nasal congestion 2. Lip swelling 3. Atrial fibrillation with RVR 4. Acute on chronic diastolic (congestive) heart failure Pain Ratin Pain Location: ABD pain Pain Goal: Pain 4 or less Pain Plan: same Tomorrow's Labs & Rationales: cbc BEP digoxin level
--- NOTE | 2016-08-18 10:09 | PN- Pulmonary ---
Subjective HPI/Critical Care Issues: The patient is alert and oriented. She reports feeling fatigued but overall improved. She is off high flow oxygen and on nasal cannula. There were no overnight events reported. Objective Current Medications: Current Medications Sig/Rosalia Start time Last Medication Dose Route Stop Time Status Admin Acetaminophen 1,000 MG Q6P PRN 08/07 1330 AC 08/17 N/A 1 UNIT IV 1638 Amiodarone HCl 200 MG DAILY 08/16 1000 AC 08/18 PO 0913 Apixaban 5 MG BID 08/17 1314 AC 08/18 PO 0913 Atorvastatin Calcium 20 MG 1700 08/07 1700 AC 08/17 PO 1630 Digoxin 0.125 MG 1700 08/17 1700 AC 08/17 PO 1630 Diltiazem HCl 125 MG Q16H 08/17 0930 AC 08/18 Sodium Chloride 100 ML IV 0101 Fluticasone 2 SPRAY DAILY 08/17 1000 AC 08/18 Propionate JONAS 0912 Furosemide 40 MG 7:30 AM, & 4:30 PM 08/14 0730 AC 08/18 IV 0817 Guaifenesin 10 ML Q4P PRN 08/17 2015 AC 08/18 PO 0914 Heparin Sodium 25,000 UNIT Q24H 08/11 0400 DC 08/17 (Porcine) IV 08/17 1500 0549 Sodium Chloride 500 ML Ipratropium [place] 2.5 ML EVERY 4 HRS/AWAKE 08/14 1600 AC 08/18 INH 0802 Loratadine 10 MG DAILY NEEDED PRN 08/17 0845 AC PO Metoprolol Tartrate 25 MG BID 08/07 2200 AC 08/18 PO 0914 Morphine Sulfate 2 MG Q4P PRN 08/07 1315 AC 08/16 IV 0042 Omeprazole 40 MG DAILY AC 08/19 0700 AC PO Ondansetron HCl 4 MG Q8P PRN 08/07 1300 AC 08/14 IV 1129 Pantoprazole Sodium 40 MG DAILY 08/08 1000 DC 08/18 IV 0913 Phenytoin 100 MG Q8 08/07 2200 AC 08/18 PO 0527 Sodium Chloride 2 SPRAY Q4P PRN 08/14 0730 AC 08/15 JONAS 0830 Vital Signs & I&O Last 24 Hrs of Vitals and I&O: Vital Signs Date Time Temp Pulse Resp B/P Pulse O2 O2 Flow FiO2 Ox Delivery Rate 08/18 913 97.1 105 28 114/82 08/18 0913 97.1 105 28 114/82 08/18 0805 94 Nasal 5.0L Cannula 08/18 0700 97.3 97 26 90/65 95 Nasal 5.0L Cannula 08/18 0534 89 95 08/18 0321 91 95 08/18 0038 84 94 08/18 0000 95 CPAP 5.0L 08/17 2300 97.3 99 23 130/80 95 CPAP 5.0L 08/17 2156 101 111/64 08/17 2138 102 94 08/17 2000 93 Nasal 5.0L Cannula 08/17 1800 98.0 68 24 122/56 98 Nasal 5.0L Cannula 08/17 1632 Nasal 5.0L Cannula 08/17 1632 93 Nasal 5.0L Cannula 08/17 1627 Nasal 5.0L Cannula 08/17 1503 90 Nasal 5.0L Cannula Intake & Output 08/18 1600 08/18 0800 08/18 0000 Intake Total 305 239 Output Total 320 300 Balance -15 -61 Intake, IV 55 119 Intake, Oral 250 120 Number 2 1 Bowel Movements Output, Urine 320 300 Exam General Appearance: fatigued, comfortable, no distress Head: atraumatic, normal appearance Neck: supple Respiratory: and lateral rhonchi, no asymmetry Cardiovascular: S1 and S2 heard, systolic murmur present Abdomen: normal bowel sounds, soft, non-tender Extremities: no edema Skin: warm/dry Results Last 24 Hrs of Lab Results: Laboratory Tests 08/18/16 0325: Anion Gap 9, Estimated GFR > 60, Glucose 98, Calcium 8.1 L, Phosphorus 2.1 L, Magnesium 1.9, Total Bilirubin 0.7, AST 50 H, ALT 51, Albumin 2.6 L, CBC w Diff NO MAN DIFF REQ, RBC 4.11 L, MCV 96.9, MCH 32.2 H, RDW 13.5, MPV 8.8, Gran % 92.4 H, Lymphocytes % 3.1 L, Monocytes % 3.5, Eosinophils % 0.9, Basophils % 0.1, Absolute Granulocytes 11.8 H, Absolute Lymphocytes 0.4 L, Absolute Monocytes 0.4, Absolute Eosinophils 0.1, Absolute Basophils 0, PUBS MCHC 33.2 Impression/Plan Impression/Plan Impression/Plan: 1. Atrial fibrillation with rapid ventricular response, on IV Cardizem. 2. Status post small bowel obstruction. 3. Acute on chronic diastolic congestive heart failure. 4. Mitral stenosis. 5. History of obstructive sleep apnea, on AutoSet at home. Recommendations: * Continue rate control as per cardiology. * Continue oxygen to maintain saturations greater than 92%. * Nocturnal auto Pap 4-18 cm H2O with oxygen bleed in. * Continue incentive spirometry and total respiratory care. * DVT prophylaxis at all times. * Increase activity as tolerated.
[2016-08-18 11:27] VITALS: BP 100/60
--- NOTE | 2016-08-18 13:01 | PN- Att Addend ---
Attending Addendum Attending Brief Note Mrs. Torres was interviewed, examined, and her EHR reviewed. She notes that she is unable to sit completely upright secondary to abdominal distention but denies nausea, vomiting, and abdominal pain. She denies shortness of breath and chest pain. She states she was able to stand and transfer today which is something she has not been able to do before. She is afebrile, heart rate is mildly elevated at times with rates of 105-110. Blood pressure is stable with systolic BPs from 100-120. She is maintaining adequate O2 saturation on 4 L via nasal cannula. Notable laboratory findings are mild hyponatremia and hypophosphatemia. Her heart rate is now controlled with intravenous diltiazem and at this time we can switch to by mouth 30 mg every 6 hours. We are continuing metoprolol and digoxin and should check a dig level in the a.m. He should continue to monitor her sodium levels and treat appropriately. We are also continuing her nighttime AutoPap for her sleep apnea.
--- NOTE | 2016-08-18 15:15 | PN- Cardiology ---
Subjective Subjective: Patient has some fatigue but denies chest pain, shortness of breath, or palpitations. Minimal abdominal discomfort. Objective Vital Signs and I&Os Vital Signs Date Time Temp Pulse Resp B/P Pulse O2 O2 Flow FiO2 Ox Delivery Rate 08/18 1127 97.6 105 16 100/60 92 Nasal 4.0L Cannula 08/18 1000 Nasal 4.0L Cannula 08/18 0914 97.1 105 28 114/82 08/18 0913 97.1 105 28 114/82 08/18 0805 94 Nasal 5.0L Cannula 08/18 0800 97 Nasal 4.0L Cannula 08/18 08 97.1 104 27 114/82 97 Nasal 4.0L Cannula 08/18 0700 97.3 97 26 90/65 95 Nasal 5.0L Cannula 08/18 0534 89 95 08/18 0321 91 95 08/18 0038 84 94 08/18 0000 95 CPAP 5.0L 08/17 2300 97.3 99 23 130/80 95 CPAP 5.0L 08/17 2156 101 111/64 08/17 2138 102 94 08/17 2000 93 Nasal 5.0L Cannula 08/17 1800 98.0 68 24 122/56 98 Nasal 5.0L Cannula 08/17 1632 Nasal 5.0L Cannula 08/17 1632 93 Nasal 5.0L Cannula 08/17 1627 Nasal 5.0L Cannula 08/17 1503 90 Nasal 5.0L Cannula Intake & Output 08/18 1600 08/18 0800 08/18 0000 08/17 1600 08/17 0800 08/17 0000 Intake Total 237.5 305 239 620 420 418 Output Total 320 300 800 250 500 Balance 237.5 -15 -61 -180 170 -82 Intake, IV 37.5 55 119 220 370 118 Intake, Oral 200 250 120 400 50 300 Number 1 2 1 1 Bowel Movements Output, Urine 320 300 800 250 500 Physical Exam: General: no apparent distress. Alert. Eyes: No obvious scleral icterus. HEENT: No jugular venous distention or abnormal jugular venous pulsations. Cardiovascular: Normal intensity S1/S2. Irregular Respiratory: Mildly decreased air entry at the bases Abdomen: no guarding or rebound tenderness. Musculoskeletal: No clubbing or cyanosis noted, no edema Skin: Warm Neurologic: No gross focal deficits noted. Current Medications: Current Medications Sig/Rosalia Start time Last Medication Dose Route Stop Time Status Admin Acetaminophen 1,000 MG Q6P PRN 08/07 1330 AC 08/17 N/A 1 UNIT IV 1638 Amiodarone HCl 200 MG DAILY 08/16 1000 AC 08/18 PO 0913 Apixaban 5 MG BID 08/17 1314 AC 08/18 PO 0913 Atorvastatin Calcium 20 MG 1700 08/07 1700 AC 08/17 PO 1630 Digoxin 0.125 MG 1700 08/17 1700 AC 08/17 PO 1630 Diltiazem HCl 60 MG Q6 08/18 1342 AC PO Diltiazem HCl 125 MG Q16H 08/17 0930 DC 08/18 Sodium Chloride 100 ML IV 0101 Fluticasone 2 SPRAY DAILY 08/17 1000 AC 08/18 Propionate JONAS 0912 Furosemide 40 MG 7:30 AM, & 4:30 PM 08/14 0730 AC 08/18 IV 0817 Guaifenesin 10 ML Q4P PRN 08/17 2015 AC 08/18 PO 0914 Ipratropium [place] 2.5 ML EVERY 4 HRS/AWAKE 08/14 1600 AC 08/18 INH 1138 Loratadine 10 MG DAILY NEEDED PRN 08/17 0845 AC PO Metoprolol Tartrate 25 MG BID 08/07 2200 AC 08/18 PO 0914 Morphine Sulfate 2 MG Q4P PRN 08/07 1315 AC 08/16 IV 0042 Omeprazole 40 MG DAILY AC 08/19 0700 AC PO Ondansetron HCl 4 MG Q8P PRN 08/07 1300 AC 08/14 IV 1129 Pantoprazole Sodium 40 MG DAILY 08/08 1000 DC 08/18 IV 0913 Phenytoin 100 MG Q8 08/07 2200 AC 08/18 PO 0527 Sodium Chloride 2 SPRAY Q4P PRN 08/14 0730 AC 08/15 JONAS 0830 Results Last 48 Hrs of Labs/Mics: Laboratory Tests 08/18/16 0325: Anion Gap 9, Estimated GFR > 60, Glucose 98, Calcium 8.1 L, Phosphorus 2.1 L, Magnesium 1.9, Total Bilirubin 0.7, AST 50 H, ALT 51, Albumin 2.6 L, CBC w Diff NO MAN DIFF REQ, RBC 4.11 L, MCV 96.9, MCH 32.2 H, RDW 13.5, MPV 8.8, Gran % 92.4 H, Lymphocytes % 3.1 L, Monocytes % 3.5, Eosinophils % 0.9, Basophils % 0.1, Absolute Granulocytes 11.8 H, Absolute Lymphocytes 0.4 L, Absolute Monocytes 0.4, Absolute Eosinophils 0.1, Absolute Basophils 0, PUBS MCHC 33.2 08/17/16 0830: APTT 49 H 08/17/16 0337: Anion Gap 9, Estimated GFR > 60, Glucose 102 H, Calcium 7.8 L, Phosphorus 1.7 L, Magnesium 1.9, Total Bilirubin 0.6, AST 59 H, ALT 49, Albumin 2.5 L, CBC w Diff NO MAN DIFF REQ, RBC 3.91 L, MCV 96.6, MCH 32.3 H, RDW 13.4, MPV 9.3, Gran % 94.6 H, Lymphocytes % 2.3 L, Monocytes % 2.6, Eosinophils % 0.5, Basophils % 0 L, Absolute Granulocytes 11.1 H, Absolute Lymphocytes 0.3 L, Absolute Monocytes 0.3, Absolute Eosinophils 0.1, Absolute Basophils 0, PUBS MCHC 33.4 08/16/162004: APTT 63 H Microbiology 08/17 2049 STOOL: Clostridium difficile Toxin A & B - COMP Recent Imaging Studies: Telemetry tracings were personally reviewed and showed atrial fibrillation with minimal tachycardia Assessment/Plan Assessment/Plan 1. Acute HFpEF - slowly improving 2. Atrial fibrillation 3. SBO, status post surgical intervention 4. PAUL 5. Rheumatic mitral stenosis 6. Lip swelling Remains on IV Cardizem drip. Start oral Cardizem 30 mg by mouth every q6 and wean off Cardizem drip as heart rate tolerates. Check digoxin level tomorrow. Continue full anticoagulation. Continue IV Lasix. Continue oral amiodarone. Continue nocturnal autopap. Continue oral metoprolol. Josue Rodriguez MD [facility] Continue telemetry? Yes
[2016-08-18 15:27] VITALS: BP 100/70
--- NOTE | 2016-08-18 20:02 | PN- General Surgery ---
Surgical Brief Attending Note Brief Attending Note: Improving, loose bowel movements just reflect all that obstructed proximally is now coming through, otherwise her breathing is better I encouraged her to get out of bed she needs to walk.
--- NOTE | 2016-08-18 21:14 | Transfer of Care Summary ---
Hospital Course Course Hospital Course: Ms. Torres is a 76 y/o F with PMHx of persistent atrial fibrillation on Eliquis , obstructive sleep apnea on CPAP and HTN who was originally admitted to the surgical service for small bowel obstruction s/p laparotomy lysis of adhesions, who was transferred to the medical service on postoperative day 3 after developing rapid atrial fibrillation and acute hypoxemic respiratory failure requiring high flow oxygen, deemed to be secondary to acute on chronic diastolic failure in the setting of rheumatic mitral valve stenosis. Two days later, patient became increasingly tachycardic and hypoxemic, requiring FiO2 100% and was subsequently transferred to the ICU for close monitoring. Below are the issues that were addressed during ICU admission: Assessment/Plan: #Acute hypoxemic respiratory failure: Patient initially required high flow oxygen but was later weaned down to 4 L NC. * Pulmonology following. Appreciate their recs. * Wean down oxygen as tolerated. * TRC and nebs. * Continue nocturnal auto-PAP. #Atrial fibrillation: Patient was continued on IV diltiazem and IV heparin drips as well as metoprolol 25 mg PO BID. After a loading dose of digoxin IV 0.125 mg x 2, patient was started on digoxin 0.125 mg daily. Amiodarone dose was reduced in half to 200 mg PO daily. Heart rate became better controlled after starting digoxin. IV heparin was later discontinued and patient was restarted on her home dose of Eliquis 5 mg PO BID. Upon achievement of adequate rate control, patient was started on PO diltiazem with plans to wean off diltiazem drip as heart rate tolerates. * Cardiology following. Appreciate their recs. * Continue telemetry monitoring. * Continue diltiazem 30 mg PO Q6H and wean off diltiazem drip as heart rate allows. * Continue amiodarone 200 mg PO daily. Consider transitioning to patient's home dose of 200 mg PO BID. * Continue Eliquis 5 mg PO BID. * Continue digoxin 0.125 mg PO daily. * Check digoxin level in the AM (08/19/16). #Acute on chronic diastolic CHF: Diuresis with Lasix 40 mg IV BID was continued with monitoring of I/Os and labs. * Continue Lasix 40 mg IV BID. * Monitor strict I/Os and daily BMPs. #SBO: S/p laparotomy with lysis of adhesions (08/10/16). Patient was advanced to heart healthy diet which she tolerated well. She continued to pass flatus and have bowel movements. * Management per general surgery team. #Lip swelling: Patient was noted to have increasing swelling of her lower lip and was given 50 mg of IV Benadryl.
[2016-08-18 23:14] VITALS: BP 98/54
[2016-08-19 08:15] VITALS: BP 110/80
--- NOTE | 2016-08-19 08:34 | PN- Housestaff ---
JOSE LUIS NATH 08/19/16 0833: Subjective Follow-up For: Acute hypoxic respiratory failure-resolving Atrial fibrillation Acute on chronic CHF SBO status post laparotomy with lysis of adhesions Angioedema Tele-Events Since Last Visit: Jakub [email or web address], heart rate-[id number] Subjective: Seen and examined patient. Complaining of lower lip swelling as well as a rash on her right upper thigh extending into her right flank area. Denies difficulty breathing, chest pain, palpitations, fevers or abdominal pain. Review of Systems Constitutional: Denies: chills, diaphoresis, fever, malaise, weakness, unexplained weight loss. Cardiovascular: Denies: chest pain, edema, orthopena, palpitations, peripheral edema, syncope. Respiratory: Denies: cough, hemoptysis, orthopnea, short of breath, sputum production, stridor, wheezing. Skin: Reports: lesions. Objective Last 24 Hrs of Vital Signs/I&O Vital Signs Date Time Temp Pulse Resp B/P Pulse O2 O2 Flow FiO2 Ox Delivery Rate 08/19 1209 104 102/60 08/19 0921 100 110/70 08/19 0921 100 110/70 08/19 0823 94 Nasal 4.0L Cannula 08/19 0815 96.6 117 16 110/80 94 Nasal 4.0L Cannula 08/19 0800 94 Nasal 4.0L Cannula 08/19 0551 80 100/60 08/19 0040 68 98/54 08/19 0034 89 97 08/19 0000 95 CPAP 4.0L 08/18 2314 98.1 92 18 98/54 95 Nasal Cannula 08/18 2252 98 08/18 2119 91 96/54 08/18 1751 102 100/50 08/18 1751 102 100/50 08/18 1610 95 Nasal 4.0L Cannula 08/18 1600 95 Nasal 4.0L Cannula 08/18 1527 97.9 98 16 100/70 95 Nasal 4.0L Cannula Intake & Output 08/19 1600 08/19 0800 08/19 0000 Intake Total 200 480 Output Total 400 875 Balance -200 -395 Intake, IV 80 Intake, Oral 200 400 Number 2 4 Bowel Movements Output, Urine 400 875 Physical Exam General Appearance: Alert, Oriented X3, Cooperative, No Acute Distress Skin: lower lip swelling, maculopapular rash on upper thigh Cardiovascular: Normal S1, Normal S2 Lungs: Clear to Auscultation, Normal Air Movement Abdomen: midline lissa no signs of infection Extremities: No Edema Current Medications: Current Medications Sig/Rosalia Start time Last Medication Dose Route Stop Time Status Admin Acetaminophen 1,000 MG Q6P PRN 08/07 1330 AC 08/17 N/A 1 UNIT IV 1638 Amiodarone HCl 200 MG DAILY 08/16 1000 AC 08/19 PO 0921 Apixaban 5 MG BID 08/17 1314 AC 08/19 PO 0921 Atorvastatin Calcium 20 MG 17008/07 1700 AC 08/18 PO 1745 Digoxin 0.125 MG 1700 08/17 1700 AC 08/18 PO 1751 Diltiazem HCl 30 MG Q6 08/18 1800 AC 08/19 PO 1209 Diltiazem HCl 125 MG Q16H 08/18 1515 AC 08/18 Sodium Chloride 100 ML IV 2120 Diltiazem HCl 60 MG Q6 08/18 1342 DC PO Diltiazem HCl 125 MG Q16H 08/17 0930 DC 08/18 Sodium Chloride 100 ML IV 0101 Diphenhydramine HCl 50 MG ONCE ONE 08/19 1000 DC 08/19 IV 08/19 1001 1001 Fluticasone 2 SPRAY DAILY 08/17 1000 AC 08/19 Propionate JONAS 0922 Furosemide 40 MG 7:30 AM, & 4:30 PM 08/14 0730 AC 08/19 IV 0922 Guaifenesin 10 ML .STK-MED ONE 08/18 2237 DC PO 08/18 223 Guaifenesin 10 ML Q4P PRN 08/17 2014 AC 08/18 PO 0914 Ipratropium [place] 2.5 ML EVERY 4 HRS/AWAKE 08/14 1600 AC 08/19 INH 1249 Lidocaine/Diphenhydr/ 15 ML TID PRN 08/18 2300 AC Alum/Mg/Simeth PO Loratadine 10 MG DAILY NEEDED PRN 08/17 0845 AC PO Metoprolol Tartrate 25 MG BID 08/07 2200 AC 08/19 PO 0921 Morphine Sulfate 2 MG Q4P PRN 08/07 1315 AC 08/16 IV 0042 Nystatin 5 ML 4 TIMES/DAY 08/18 2251 AC 08/19 PO 0922 Omeprazole 40 MG DAILY AC 08/19 0700 AC 03/12 PO 0550 Ondansetron HCl 4 MG Q8P PRN 08/07 1300 AC 08/14 IV 1129 Patient Medication 1 UNIT ONE NR 08/18 1530 DC Teaching ED 08/18 1600 Phenytoin 100 MG Q8 08/07 2200 AC 08/19 PO 0551 Sodium Chloride 2 SPRAY Q4P PRN 08/14 0730 AC 08/15 JONAS 0830 Last 24 Hrs of Lab/Storm Results Last 24 Hrs of Labs/Mics: Laboratory Tests 08/19/16 0725: Anion Gap 9, Estimated GFR > 60, BUN/Creatinine Ratio 22.9, CBC w Diff NO MAN DIFF REQ, RBC 3.97 L, MCV 96.2, MCH 32.3 H, RDW 13.5, MPV 8.5, Gran % 88.4 H, Lymphocytes % 5.7 L, Monocytes % 4.9, Eosinophils % 0.9, Basophils % 0.1, Absolute Granulocytes 8.2 H, Absolute Lymphocytes 0.5 L, Absolute Monocytes 0.5, Absolute Eosinophils 0.1, Absolute Basophils 0, PUBS MCHC 33.6, Digoxin 0.6 L Assessment/Plan Assessment: 76 y/o woman with PMHx of PAUL on CPAP and atrial fibrillation admitted for SBO s /p laparotomy lysis of adhesions, now with acute hypoxemic respiratory failure secondary to acute on chronic diastolic CHF. #Acute hypoxemic respiratory failure: Remains on high flow oxygen but with improved oxygen requirement, FiO2 down to 55%. * Pulmonology following. Appreciate their recs. * Wean down FiO2 as tolerated. * TRC and nebs. #Atrial fibrillation: * Continue digoxin 0.125 mg PO daily (level 0.6), amiodarone 200 mg PO daily and metoprolol 25 mg PO BID we'll discuss with the chemical analyst regarding the patient back on her home dose of amiodarone. * IV Cardizem drip titrated off today. on PO cardiazem 30mg q6 * on Eliquis 5 mg PO BID. #Acute on chronic diastolic CHF: Stable. * Cardiology following. Appreciate their recs. * Continue telemetry monitoring. * Continue Lasix 40 mg IV BID. * Monitor strict I/Os. #Lip swelling/maculopapular rash: * another Benadryl 50 mg IV administered today. ? drug induced (digoxin) * Monitor closely for increased lip swelling and airway obstruction. * at 7:20pm went to reassess the patient, upper lip involvement with extension of maculopapular rash. one time dose of IV 40mg solumedrol given. will continue to monitor closely. low threshold for ICU transfer. #Nasal congestion: * Continue Flonase 2 sprays to bilateral nostrils daily. * Antihistamine nasal spray not available on formulary. Continue loratadine 10 mg PO daily PRN for nasal congestion. #SBO: s/p laparatomy with lysis of adhesions. Postoperative pain well controlled. Advanced to heart healthy diet today. * Management per general surgery team. Diet: Heart Healthy DVT PPx: Eliquis and ALPs Lytes: Replete to K > 4, Mg > 2 and Phos > 2.5 CODE: FULL Problem List: 1. S/P laparotomy 2. Nasal congestion 3. Lip swelling 4. Atrial fibrillation with RVR 5. Acute on chronic diastolic (congestive) heart failure 6. Acute hypoxemic respiratory failure Pain Ratin Pain Location: na Pain Goal: Pain 4 or less Pain Plan: current regimen Tomorrow's Labs & Rationales: bep/YAQUELIN Calabrese MD 08/19/16 1313: Attending MD Review Statement Attending Statement Attending MD Statement: examined this patient, agreed w/resident/PA/DIGITAL ANALYST, reviewed EMR data (avail), amended to note Attending Assessment/Plan: Mrs. Torres complains of weakness. She states she does not feel better than yesterday. She still notes swelling of both upper and lower lips. She is afebrile. Heart rate is ranging from the mid 60s to approximately 110. Blood pressure is 100 systolic. O2 saturation is in the mid 90s on 4L via nasal cannula. She is in no acute distress. Swelling of the lips is noted. Chest exam reveals bibasilar rales. Cardiovascular exam reveals an essentially regular rhythm. Her abdomen is softly distended but nontender. She appears to be tolerating oral diltiazem with reasonable rate control. Her pulmonary status is stable. She appears to be recovering from her abdominal surgery. Her lip swelling is not improving with diphenhydramine so we might consider giving her glucocorticoids to attempt resolution.
[2016-08-19 08:48] LABS: ABSOLUTE BASOPHIL COUNT 0 /CUMM (0.0-0.2); ABSOLUTE EOSINOPHIL COUNT 0.1 /CUMM (0.0-0.7); ABSOLUTE GRANULOCYTE CT 8.2 /CUMM (1.4-6.5); ABSOLUTE LYMPH COUNT 0.5 /CUMM (1.2-3.4); ABSOLUTE MONOCYTE COUNT 0.5 /CUMM (0.10-0.60); BASOPHIL % 0.1 % (0.0-2.0); EOSINOPHIL % 0.9 % (0-5); HEMATOCRIT 38.2 % (37-47); MEAN CORPUSCULAR HGB 32.3 PG (27.0-31.0); MEAN CORPUSCULAR HGB CONC 33.6 G/DL (33.0-37.0); MEAN CORPUSCULAR VOLUME 96.2 FL (81.0-99.0); MEAN PLATELET VOLUME 8.5 FL (7.4-10.4); PLATELET COUNT 321 /CUMM (130-400); RBC DISTRIBUTION WIDTH 13.5 % (11.5-14.5); RED BLOOD CELL CT 3.97 /CUMM (4.20-5.40); WHITE BLOOD CELL COUNT 9.3 /CUMM (4.8-10.8)
[2016-08-19 10:10] LABS: GRANULOCYTE % 88.4 % (42.2-75.2)
--- NOTE | 2016-08-19 11:22 | PN- Pulmonary ---
Subjective HPI/Critical Care Issues: The patient is awake and alert. She is doing well overall. Her oxygen levels remain in the mid 90s on 4 L nasal cannula. There were no overnight events. She offers no new complaints. Objective Current Medications: Current Medications Sig/Rosalia Start time Last Medication Dose Route Stop Time Status Admin Acetaminophen 1,000 MG Q6P PRN 08/07 1330 AC 08/17 N/A 1 UNIT IV 1638 Amiodarone HCl 200 MG DAILY 08/16 1000 AC 08/19 PO 0921 Apixaban 5 MG BID 08/17 1314 AC 08/19 PO 0921 Atorvastatin Calcium 20 MG 1700 08/07 1700 AC 08/18 PO 1745 Digoxin 0.125 MG 1700 08/17 1700 AC 08/18 PO 1751 Diltiazem HCl 30 MG Q6 08/18 1800 AC 08/19 PO 0551 Diltiazem HCl 125 MG Q16H 08/18 1515 AC 08/18 Sodium Chloride 100 ML IV 2120 Diltiazem HCl 60 MG Q6 08/18 1342 DC PO Diltiazem HCl 125 MG Q16H 08/17 0930 DC 08/18 Sodium Chloride 100 ML IV 0101 Diphenhydramine HCl 50 MG ONCE ONE 08/19 1000 DC 08/19 IV 08/19 1001 1001 Fluticasone 2 SPRAY DAILY 08/17 1000 AC 08/19 Propionate JONAS 0922 Furosemide 40 MG 7:30 AM, & 4:30 PM 08/14 0730 AC 08/19 IV 0922 Guaifenesin 10 ML .STK-MED ONE 08/18 2237 DC PO 08/18 223 Guaifenesin 10 ML Q4P PRN 08/17 2015 AC 08/18 PO 0914 Ipratropium [place] 2.5 ML EVERY 4 HRS/AWAKE 08/14 1600 AC 08/19 INH 0820 Lidocaine/Diphenhydr/ 15 ML TID PRN 08/18 2300 AC Alum/Mg/Simeth PO Loratadine 10 MG DAILY NEEDED PRN 08/17 0845 AC PO Metoprolol Tartrate 25 MG BID 08/07 2200 AC 08/19 PO 0921 Morphine Sulfate 2 MG Q4P PRN 08/07 1315 AC 08/16 IV 0042 Nystatin 5 ML 4 TIMES/DAY 08/18 2251 AC 08/19 PO 0922 Omeprazole 40 MG DAILY AC 08/19 0700 AC 08/19 PO 0550 Ondansetron HCl 4 MG Q8P PRN 08/07 1300 AC 08/14 IV 1129 Patient Medication 1 UNIT ONE NR 08/18 1530 DC Teaching ED 08/18 1600 Phenytoin 100 MG Q8 08/07 2200 AC 08/19 PO 0551 Sodium Chloride 2 SPRAY Q4P PRN 08/14 0730 AC 08/15 JONAS 0830 Vital Signs & I&O Last 24 Hrs of Vitals and I&O: Vital Signs Date Time Temp Pulse Resp B/P Pulse O2 O2 Flow FiO2 Ox Delivery Rate 08/19 09 100 110/70 08/19 0921 100 110/70 08/19 0823 94 Nasal 4.0L Cannula 08/19 0815 96.6 117 16 110/80 94 Nasal 4.0L Cannula 08/19 0800 94 Nasal 4.0L Cannula 08/19 0551 80 100/60 08/19 0040 68 98/54 08/19 0034 89 97 08/19 0000 95 CPAP 4.0L 08/18 2314 98.1 92 18 98/54 95 Nasal Cannula 08/18 2252 98 08/18 2119 91 96/54 08/18 1751 102 100/50 08/18 1751 102 100/50 08/18 1610 95 Nasal 4.0L Cannula 08/18 1600 95 Nasal 4.0L Cannula 08/18 1527 97.9 98 16 100/70 95 Nasal 4.0L Cannula 08/18 1127 97.6 105 16 100/60 92 Nasal 4.0L Cannula Intake & Output 08/19 1600 08/19 0800 08/19 0000 Intake Total 200 480 Output Total 400 875 Balance -200 -395 Intake, IV 80 Intake, Oral 200 400 Number 2 4 Bowel Movements Output, Urine 400 875 Exam General Appearance: comfortable, no distress Head: atraumatic, normal appearance Neck: supple Respiratory: and lateral rhonchi, no asymmetry Cardiovascular: S1 and S2 heard, systolic murmur present Abdomen: normal bowel sounds, soft, non-tender Extremities: no edema Skin: warm/dry Results Last 24 Hrs of Lab Results: Laboratory Tests 08/19/16 0725: Anion Gap 9, Estimated GFR > 60, BUN/Creatinine Ratio 22.9, CBC w Diff NO MAN DIFF REQ, RBC 3.97 L, MCV 96.2, MCH 32.3 H, RDW 13.5, MPV 8.5, Gran % 88.4 H, Lymphocytes % 5.7 L, Monocytes % 4.9, Eosinophils % 0.9, Basophils % 0.1, Absolute Granulocytes 8.2 H, Absolute Lymphocytes 0.5 L, Absolute Monocytes 0.5, Absolute Eosinophils 0.1, Absolute Basophils 0, PUBS MCHC 33.6, Digoxin 0.6 L Impression/Plan Impression/Plan Impression/Plan: 1. Atrial fibrillation with rapid ventricular response, on IV Cardizem. 2. Small bowel obstruction, s/p surgical intervention, CHAPIN. 3. Acute on chronic diastolic congestive heart failure. 4. Mitral stenosis. 5. History of obstructive sleep apnea, on AutoSet at home. Recommendations: * Continue rate control as per cardiology. * Continue oxygen to maintain saturations greater than 92%. * Nocturnal auto Pap 4-18 cm H2O with oxygen bleed in. * Continue incentive spirometry and total respiratory care. * DVT prophylaxis at all times. * Increase activity/out of bed to chair/PT for ambulation.
--- NOTE | 2016-08-19 14:13 | PN- Cardiology ---
Subjective Subjective: Still fatigued. No dyspnea or palpitations. Still with lower lip swelling and also notes a mildly pruritic rash. Objective Vital Signs and I&Os Vital Signs Date Time Temp Pulse Resp B/P Pulse O2 O2 Flow FiO2 Ox Delivery Rate 08/19 1209 104 102/60 08/19 0921 100 110/70 08/19 0921 100 110/70 08/19 0823 94 Nasal 4.0L Cannula 08/19 0815 96.6 117 16 110/80 94 Nasal 4.0L Cannula 08/19 0800 94 Nasal 4.0L Cannula 08/19 0551 80 100/60 08/19 0040 68 98/54 08/19 0034 89 97 08/19 0000 95 CPAP 4.0L 08/18 2314 98.1 92 18 98/54 95 Nasal Cannula 08/18 2252 98 08/18 2119 91 96/54 08/18 1751 102 100/50 08/18 1751 102 100/50 08/18 1610 95 Nasal 4.0L Cannula 08/18 1600 95 Nasal 4.0L Cannula 08/18 1527 97.9 98 16 100/70 95 Nasal 4.0L Cannula Intake & Output 08/19 1600 08/19 0800 08/19 0000 08/18 1600 08/18 0800 08/18 0000 Intake Total 200 480 260 305 239 Output Total 400 875 250 320 300 Balance -200 -395 Intake, IV 80 60 55 119 Intake, Oral 200 400 200 250 120 Number 2 4 1 2 1 Bowel Movements Output, Urine 400 875 250 320 300 Physical Exam: General: no apparent distress. Alert. Eyes: No obvious scleral icterus. HEENT: Lips swelling noted Cardiovascular: Normal intensity S1/S2. Irregular Respiratory: Mildly decreased air entry at the bases Abdomen: no guarding or rebound tenderness. Musculoskeletal: No clubbing or cyanosis noted, no edema Skin: Warm, rash noted Neurologic: No gross focal deficits noted. Current Medications: Current Medications Sig/Rosalia Start time Last Medication Dose Route Stop Time Status Admin Acetaminophen 1,000 MG Q6P PRN 08/07 1330 AC 08/17 N/A 1 UNIT IV 1638 Amiodarone HCl 200 MG DAILY 08/16 1000 AC 08/19 PO 920 Apixaban 5 MG BID 08/17 1314 AC 08/19 PO 09 Atorvastatin Calcium 20 MG 1700 08/07 1700 AC 08/18 PO 1745 Digoxin 0.125 MG 1700 08/17 1700 AC 08/18 PO 1751 Diltiazem HCl 30 MG Q6 08/18 1800 AC 08/19 PO 1209 Diltiazem HCl 125 MG Q16H 08/18 1515 DC 08/18 Sodium Chloride 100 ML IV 2120 Diltiazem HCl 60 MG Q6 08/18 1342 DC PO Diphenhydramine HCl 50 MG ONCE ONE 08/19 1000 DC 08/19 IV 08/19 1001 1001 Fluticasone 2 SPRAY DAILY 08/17 1000 AC 08/19 Propionate JONAS 0922 Furosemide 40 MG 7:30 AM, & 4:30 PM 08/14 07 AC 08/19 IV 0922 Guaifenesin 10 ML .STK-MED ONE 08/18 223 DC PO 08/18 2239 Guaifenesin 10 ML Q4P PRN 08/17 2014 AC 08/18 PO 0914 Ipratropium [place] 2.5 ML EVERY 4 HRS/AWAKE 08/14 1600 AC 08/19 INH 1249 Lidocaine/Diphenhydr/ 15 ML TID PRN 08/18 2300 AC Alum/Mg/Simeth PO Loratadine 10 MG DAILY NEEDED PRN 08/17 0845 AC PO Metoprolol Tartrate 25 MG BID 08/07 2200 AC 08/19 PO 0921 Morphine Sulfate 2 MG Q4P PRN 08/07 1315 AC 08/16 IV 0042 Nystatin 5 ML 4 TIMES/DAY 08/18 2251 AC 08/19 PO 0922 Omeprazole 40 MG DAILY AC 08/19 0700 AC 08/19 PO 0550 Ondansetron HCl 4 MG Q8P PRN 08/07 1300 AC 08/14 IV 1129 Patient Medication 1 UNIT ONE NR 08/18 1530 DC Teaching ED 08/18 1600 Phenytoin 100 MG Q8 08/07 2200 AC 08/19 PO 0551 Sodium Chloride 2 SPRAY Q4P PRN 08/14 0730 AC 08/15 JONAS 0830 Results Last 48 Hrs of Labs/Mics: Laboratory Tests 08/19/16 0725: Anion Gap 9, Estimated GFR > 60, BUN/Creatinine Ratio 22.9, CBC w Diff NO MAN DIFF REQ, RBC 3.97 L, MCV 96.2, MCH 32.3 H, RDW 13.5, MPV 8.5, Gran % 88.4 H, Lymphocytes % 5.7 L, Monocytes % 4.9, Eosinophils % 0.9, Basophils % 0.1, Absolute Granulocytes 8.2 H, Absolute Lymphocytes 0.5 L, Absolute Monocytes 0.5, Absolute Eosinophils 0.1, Absolute Basophils 0, PUBS MCHC 33.6, Digoxin 0.6 L 08/18/16 0325: Anion Gap 9, Estimated GFR > 60, Glucose 98, Calcium 8.1 L, Phosphorus 2.1 L, Magnesium 1.9, Total Bilirubin 0.7, AST 50 H, ALT 51, Albumin 2.6 L, CBC w Diff NO MAN DIFF REQ, RBC 4.11 L, MCV 96.9, MCH 32.2 H, RDW 13.5, MPV 8.8, Gran % 92.4 H, Lymphocytes % 3.1 L, Monocytes % 3.5, Eosinophils % 0.9, Basophils % 0.1, Absolute Granulocytes 11.8 H, Absolute Lymphocytes 0.4 L, Absolute Monocytes 0.4, Absolute Eosinophils 0.1, Absolute Basophils 0, PUBS MCHC 33.2 Microbiology 08/17 2049 STOOL: Clostridium difficile Toxin A & B - COMP Recent Imaging Studies: Telemetry tracings were personally reviewed and show atrial fibrillation/flutter with an average heart rate between 80 and 100 bpm Assessment/Plan Assessment/Plan 1. Acute HFpEF - slowly improving 2. Atrial fibrillation 3. SBO, status post surgical intervention 4. PAUL 5. Rheumatic mitral stenosis 6. Lip swelling 7. Rash Continue to wean down Cardizem drip as heart rate tolerates. Continue on the oral Cardizem and beta adry which we may need to increase if blood pressure tolerates as we wean her off the Cardizem drip. Continue oral digoxin and amiodarone. Continue full anticoagulation. Continue nocturnal autopap. Continue on the IV Lasix and would get a repeat chest x-ray tomorrow. Unclear etiology of the lip swelling/rash, ? possible drug reaction. Josue Rodriguez MD [facility] Continue telemetry? Yes
[2016-08-19 15:45] VITALS: BP 104/56
--- NOTE | 2016-08-19 22:55 | PN- General Surgery ---
Surgical Brief Attending Note Brief Attending Note: sl better, no signs of infection urged to get OOB,
[2016-08-20 00:20] VITALS: BP 114/64
[2016-08-20 07:30] VITALS: BP 106/60
--- NOTE | 2016-08-20 08:28 | PN- Housestaff ---
Subjective Follow-up For: Acute hypoxic respiratory failure-resolving Atrial fibrillation Acute on chronic CHF SBO status post laparotomy with lysis of adhesions Angioedema Tele-Events Since Last Visit: A flutter heart rate-85-10 fall, transient bradycardia to 33 Subjective: Seen and examined patient continues to endorse upper and lower extremity swelling and maculopapular rash. Associated with itching. Denies tightening of the throat or any difficulty breathing,chest pain, palpitations or abdominal pain. Review of Systems Constitutional: Denies: chills, diaphoresis, fever, malaise, weakness, unexplained weight loss. Cardiovascular: Denies: chest pain, edema, orthopena, palpitations, peripheral edema, syncope. Respiratory: Denies: cough, hemoptysis, orthopnea, short of breath, sputum production, stridor, wheezing. Skin: Reports: rash. Objective Last 24 Hrs of Vital Signs/I&O Vital Signs Date Time Temp Pulse Resp B/P Pulse O2 O2 Flow FiO2 Ox Delivery Rate 08/20 1759 100 98/58 08/20 1759 100 98/58 08/20 1605 95 Nasal 3.0L Cannula 08/20 1415 93 100/70 08/20 1255 Nasal 5.0L Cannula 08/20 1223 94 Nasal 3.0L Cannula 08/20 1016 92 106/60 08/20 1016 92 106/60 08/20 0858 94 Nasal 3.0L Cannula 08/20 0800 94 Nasal 3.0L Cannula 08/20 0730 97.2 92 20 106/60 95 Nasal 3.0L Cannula 08/20 0554 95 104/60 08/20 0034 80 95 08/20 0028 86 116/64 08/20 0020 98.6 105 24 114/64 96 CPAP 3.0L 08/20 0000 CPAP 3.0L 08/19 2140 78 94 08/19 2124 105 08/19 1914 95 Nasal 3.0L Cannula 08/19 1845 104 104/56 Intake & Output 08/20 1600 08/20 0800 08/20 0000 Intake Total 480 100 600 Output Total 550 200 675 Balance -70 -100 -75 Intake, Oral 480 100 600 Number 0 1 0 Bowel Movements Output, Urine 550 200 675 Physical Exam General Appearance: Alert, Oriented X3, Cooperative, No Acute Distress Skin: pinkish maculopapular raised lesions seen on her back, bilateral hands the rash of her thigh has improved from yesterday she continues to have upper and lower lip swelling associated with some ulcerations Cardiovascular: Normal S1, Normal S2, irregularirregular Lungs: Clear to Auscultation, Normal Air Movement Abdomen: Normal Bowel Sounds, Soft, No Tenderness, midline lissa in place Extremities: No Edema Current Medications: Current Medications Sig/Rosalia Start time Last Medication Dose Route Stop Time Status Admin Acetaminophen 1,000 MG Q6P PRN 08/07 1330 AC 08/17 N/A 1 UNIT IV 1638 Amiodarone HCl 200 MG DAILY 08/16 1000 AC 08/20 PO 1016 Apixaban 5 MG BID 08/17 1314 AC 08/20 PO 1016 Atorvastatin Calcium 20 MG 1700 08/07 1700 AC 08/20 PO 1754 Digoxin 0.125 MG 1700 08/17 1700 AC 08/20 PO 1759 Diltiazem HCl 30 MG Q6 08/18 1800 AC 08/20 PO 1759 Fluticasone 2 SPRAY DAILY 08/17 1000 AC 08/20 Propionate JONAS 1017 Furosemide 40 MG 7:30 AM, & 4:30 PM 08/14 0730 AC 08/20 IV 1754 Guaifenesin 10 ML Q4P PRN 08/17 2015 AC 08/18 PO 0914 Ipratropium [place] 2.5 ML EVERY 4 HRS/AWAKE 08/14 1600 AC 08/20 INH 1214 Lidocaine/Diphenhydr/ 10 ML Q6P PRN 08/20 1145 AC 08/20 Alum/Mg/Simeth PO 1412 Lidocaine/Diphenhydr/ 15 ML TID PRN 08/18 2300 DC Alum/Mg/Simeth PO Loratadine 10 MG DAILY 08/20 1345 AC 08/20 PO 1754 Loratadine 10 MG DAILY NEEDED PRN 08/17 0845 DC PO Methylprednisolone 40 MG ONCE ONE 08/19 1930 DC 08/19 IV 08/19 193 1924 Metoprolol Tartrate 25 MG BID 08/07 2200 AC 08/20 PO 1016 Morphine Sulfate 2 MG Q4P PRN 08/07 1315 AC 08/16 IV 0042 Mupirocin 1 JAROD BID 08/20 1334 AC 08/20 TOP 1755 Non-Formulary 0 SEE ADMIN CRITERIA 08/20 1145 CAN Medication ANY Nystatin 5 ML 4 TIMES/DAY 08/18 2251 AC 08/20 PO 1754 Omeprazole 40 MG DAILY AC 08/19 0700 DC 08/20 PO 0548 Ondansetron HCl 4 MG Q8P PRN 08/07 1300 AC 08/14 IV 1129 Phenytoin 100 MG Q8 08/07 2200 AC 08/20 PO 1412 Sodium Chloride 2 SPRAY Q4P PRN 08/14 0730 AC 08/15 JONAS 0830 Triamcinolone 1 JAROD BID 08/20 1335 AC 08/20 Acetonide TOP 1755 Last 24 Hrs of Lab/Storm Results Last 24 Hrs of Labs/Mics: Laboratory Tests 08/20/16 0630: Anion Gap 11, Estimated GFR > 60, BUN/Creatinine Ratio 28.6 H, Magnesium 1.8 Assessment/Plan Assessment: 76 y/o woman with PMHx of PAUL on CPAP and atrial fibrillation admitted for SBO s /p laparotomy lysis of adhesions, hospital course complicated by acute hypoxemic respiratory failure secondary to acute on chronic diastolic CHF and atrial fibrillation with rapid ventricular rate, was transferred to the ICU for closer monitoring of her respiratory status and was transferred back to the telemetry floor. Continues to have maculopapular rash associated with itching and upper and lower lip swelling. #Acute hypoxemic respiratory failure: * Saturating 95% on 3 L nasal cannula * Pulmonology following. Appreciate their recs. * Wean down FiO2 as tolerated. * TRC and nebs. #Atrial fibrillation: * Continue digoxin 0.125 mg PO daily (level 0.6), amiodarone 200 mg PO daily and metoprolol 25 mg PO BID * on PO cardiazem 30mg q6 * on Eliquis 5 mg PO BID. #Acute on chronic diastolic CHF: Stable. * Cardiology following. Appreciate their recs. * Continue telemetry monitoring. * Continue Lasix 40 mg IV BID. * Monitor strict I/Os. -775 fluid balance #Lip swelling/maculopapular rash: * Dermatology consulted and photos were sent, they are recommending starting her on mupirocin and triamcinolone ointment. If there is any worsening please contact Dr. Hernández at [phone] * Monitor closely for increased lip swelling and airway obstruction. * Also started on Magic mouthwash was consists of Benadryl, lidocaine, Maalox #SBO: s/p laparatomy with lysis of adhesions. Postoperative pain well controlled. Advanced to heart healthy diet today. * Management per general surgery team. Diet: Heart Healthy DVT PPx: Eliquis and ALPs CODE: FULL Problem List: 1. S/P laparotomy 2. Lip swelling 3. Atrial fibrillation with RVR 4. Acute on chronic diastolic (congestive) heart failure 5. Acute hypoxemic respiratory failure Pain Ratin Pain Location: Not applicable Pain Goal: Pain 4 or less Pain Plan: Current regimen Tomorrow's Labs & Rationales: BeP: Mag
--- NOTE | 2016-08-20 08:59 | RADIOLOGY REPORT ---
EXAMINATION: XR PORTABLE CHEST CLINICAL INFORMATION: Shortness of breath. Evaluate for congestion. COMPARISON: CXR from 08/14/2016. Chest CT from 08/15/2016 TECHNIQUE: Portable AP view of the chest was obtained. FINDINGS: Mild cardiomegaly. Previously noted pulmonary vascular congestion and pulmonary edema have resolved. There are linear opacities of atelectasis within each lung base -- improved compared to 08/14/2016. There is no overt alveolar infiltrate. The right diaphragm is mildly elevated. No acute skeletal findings. IMPRESSION: Interval improvement compared to 08/14/2016. Pulmonary edema has resolved and bibasilar atelectasis has decreased.
--- NOTE | 2016-08-20 10:08 | PN- Pulmonary ---
Subjective HPI/Critical Care Issues: pt seen and examined on nasal cannula lip swelling improved dramatically aphthous ulcers are seen overall doing better cxr improved no n/v/d/c Objective Current Medications: Current Medications Sig/Rosalia Start time Last Medication Dose Route Stop Time Status Admin Acetaminophen 1,000 MG Q6P PRN 08/07 1330 AC 08/17 N/A 1 UNIT IV 1638 Amiodarone HCl 200 MG DAILY 08/16 1000 AC 08/19 PO 0921 Apixaban 5 MG BID 08/17 1314 AC 08/19 PO 2123 Atorvastatin Calcium 20 MG 1700 08/07 1700 AC 08/19 PO 1635 Digoxin 0.125 MG 17008/17 1700 AC 08/19 PO 1635 Diltiazem HCl 30 MG Q6 08/18 1800 AC 08/20 PO 0554 Diltiazem HCl 125 MG Q16H 08/18 1515 DC 08/18 Sodium Chloride 100 ML IV 2120 Fluticasone 2 SPRAY DAILY 08/17 1000 AC 08/19 Propionate JONAS 0922 Furosemide 40 MG 7:30 AM, & 4:30 PM 08/14 0730 AC 08/20 IV 0821 Guaifenesin 10 ML Q4P PRN 08/17 2015 AC 08/18 PO 0914 Ipratropium [place] 2.5 ML EVERY 4 HRS/AWAKE 08/14 1600 AC 08/20 INH 0853 Lidocaine/Diphenhydr/ 15 ML TID PRN 08/18 2300 AC Alum/Mg/Simeth PO Loratadine 10 MG DAILY NEEDED PRN 08/17 0845 AC PO Methylprednisolone 40 MG ONCE ONE 08/19 193 DC 08/19 IV 08/19 193 1924 Metoprolol Tartrate 25 MG BID 08/07 2200 AC 08/19 PO 2124 Morphine Sulfate 2 MG Q4P PRN 08/07 1315 AC 08/16 IV 0042 Nystatin 5 ML 4 TIMES/DAY 08/18 2251 AC 08/19 PO 2124 Omeprazole 40 MG DAILY AC 08/19 0700 AC 08/20 PO 0548 Ondansetron HCl 4 MG Q8P PRN 08/07 1300 AC 08/14 IV 1129 Phenytoin 100 MG Q8 08/07 2200 AC 08/20 PO 0548 Sodium Chloride 2 SPRAY Q4P PRN 08/14 0730 AC 08/15 JONAS 0830 Vital Signs & I&O Last 24 Hrs of Vitals and I&O: Vital Signs Date Time Temp Pulse Resp B/P Pulse O2 O2 Flow FiO2 Ox Delivery Rate 08/20 0858 94 Nasal 3.0L Cannula 08/20 0730 97.2 92 20 106/60 95 Nasal 3.0L Cannula 08/20 0554 95 104/60 08/20 0034 80 95 08/20 0028 86 116/64 08/20 0020 98.6 105 24 114/64 96 CPAP 3.0L 08/20 0000 CPAP 3.0L 08/19 2140 78 94 08/19 2124 105 08/19 1914 95 Nasal 3.0L Cannula 08/19 1845 104 104/56 08/19 1635 103 104/56 08/19 1625 96 Nasal 4.0L Cannula 08/19 1600 93 Nasal 4.0L Cannula 08/19 1545 97.6 93 16 104/56 93 Nasal 4.0L Cannula 08/19 1209 104 102/60 Intake & Output 08/20 1600 08/20 0800 08/20 0000 Intake Total 100 600 Output Total 200 675 Balance -100 -75 Intake, Oral 100 600 Number 1 0 Bowel Movements Output, Urine 200 675 Exam Other Physical Findings: gen awake and alert heent ncat, lip swelling improved, aphthous ulcers cvs s1, s2, systolic murmur lungs bilateral rhonchi abd soft, bs+ ext without edema Results Last 24 Hrs of Lab Results: Laboratory Tests 08/20/16 0630: Anion Gap 11, Estimated GFR > 60, BUN/Creatinine Ratio 28.6 H, Magnesium 1.8 Impression/Plan Impression/Plan Impression/Plan: Impression 76 year old woman - PAUL on AutoSet at home - s/p small bowel obstruction - mitral stenosis - acute on chronic diastolic chf - persistent a.fib -aphthous ulcers (lip swelling resolving) Plan - ENSURE MAGIC MOUTHWASH-SPEAK WITH PHARMACY for comfort of lip ulcers - okay with digoxin/amioadrone per cardiology - reduce fio2 requirements - nocturnal autopap - cardiac care per cardiology - IST - DVT prophylaxis at all times (on heparin) Tele hold
--- NOTE | 2016-08-20 10:19 | PN- Cardiology ---
Subjective Subjective: She continues to complain of significant swelling of her lips. She notes a rash which is slightly pruritic. No chest pain. No shortness of breath. No palpitations. No diaphoresis. No lightheadedness or dizziness. Objective Vital Signs and I&Os Vital Signs Date Time Temp Pulse Resp B/P Pulse O2 O2 Flow FiO2 Ox Delivery Rate 08/20 0858 94 Nasal 3.0L Cannula 08/20 0730 97.2 92 20 106/60 95 Nasal 3.0L Cannula 08/20 0554 95 104/60 08/20 0034 80 95 08/20 0028 86 116/64 08/20 0020 98.6 105 24 114/64 96 CPAP 3.0L 08/20 0000 CPAP 3.0L 08/19 2140 78 94 08/19 2124 105 08/19 1914 95 Nasal 3.0L Cannula 08/19 1845 104 104/56 08/19 1635 103 104/56 08/19 1625 96 Nasal 4.0L Cannula 08/19 1600 93 Nasal 4.0L Cannula 08/19 1545 97.6 93 16 104/56 93 Nasal 4.0L Cannula 08/19 1209 104 102/60 Intake & Output 08/20 1600 08/20 0800 08/20 0000 08/19 1600 08/19 0800 08/19 0000 Intake Total 100 600 470 200 480 Output Total 200 675 800 400 875 Balance -100 -75 -330 -200 -395 Intake, IV 30 80 Intake, Oral 100 600 440 200 400 Number 1 0 0 2 4 Bowel Movements Output, Urine 200 675 800 400 875 Physical Exam: Gen: NAD HEENT: normal Lungs: Clear to auscultation, normal resp. effort Heart: Irregularly irregular, S1, S2, 1/6 systolic murmur Abdomen: Soft, nontender, no masses Extremities: No clubbing, cyanosis, or edema. Neuro: Alert and oriented x 3, cranial nerves intact Current Medications: Current Medications Sig/Rosalia Start time Last Medication Dose Route Stop Time Status Admin Acetaminophen 1,000 MG Q6P PRN 08/07 1330 AC 08/17 N/A 1 UNIT IV 1638 Amiodarone HCl 200 MG DAILY 08/16 1000 AC 08/19 PO 0921 Apixaban 5 MG BID 08/17 1314 AC 08/19 PO 2123 Atorvastatin Calcium 20 MG 1700 08/07 1700 AC 08/19 PO 1635 Digoxin 0.125 MG 1700 08/17 1700 AC 08/19 PO 1635 Diltiazem HCl 30 MG Q6 08/18 1800 AC 08/20 PO 0554 Diltiazem HCl 125 MG Q16H 08/18 1515 DC 08/18 Sodium Chloride 100 ML IV 2120 Fluticasone 2 SPRAY DAILY 08/17 1000 AC 08/19 Propionate JONAS 0922 Furosemide 40 MG 7:30 AM, & 4:30 PM 08/14 07 AC 08/20 IV 0821 Guaifenesin 10 ML Q4P PRN 08/17 2015 AC 08/18 PO 0914 Ipratropium [place] 2.5 ML EVERY 4 HRS/AWAKE 08/14 1600 AC 08/20 INH 0853 Lidocaine/Diphenhydr/ 15 ML TID PRN 08/18 2300 AC Alum/Mg/Simeth PO Loratadine 10 MG DAILY NEEDED PRN 08/17 0845 AC PO Methylprednisolone 40 MG ONCE ONE 08/19 193 DC 08/19 IV 08/19 193 1924 Metoprolol Tartrate 25 MG BID 08/07 2200 AC 08/19 PO 2124 Morphine Sulfate 2 MG Q4P PRN 08/07 1315 AC 08/16 IV 0042 Nystatin 5 ML 4 TIMES/DAY 08/18 2251 AC 08/19 PO 2124 Omeprazole 40 MG DAILY AC 08/19 0700 AC 08/20 PO 0548 Ondansetron HCl 4 MG Q8P PRN 08/07 1300 AC 08/14 IV 1129 Phenytoin 100 MG Q8 08/07 2200 AC 08/20 PO 0548 Sodium Chloride 2 SPRAY Q4P PRN 08/14 0730 AC 08/15 JONAS 0830 Results Last 48 Hrs of Labs/Mics: Laboratory Tests 08/20/16 0630: Anion Gap 11, Estimated GFR > 60, BUN/Creatinine Ratio 28.6 H, Magnesium 1.8 08/19/16 0725: Anion Gap 9, Estimated GFR > 60, BUN/Creatinine Ratio 22.9, CBC w Diff NO MAN DIFF REQ, RBC 3.97 L, MCV 96.2, MCH 32.3 H, RDW 13.5, MPV 8.5, Gran % 88.4 H, Lymphocytes % 5.7 L, Monocytes % 4.9, Eosinophils % 0.9, Basophils % 0.1, Absolute Granulocytes 8.2 H, Absolute Lymphocytes 0.5 L, Absolute Monocytes 0.5, Absolute Eosinophils 0.1, Absolute Basophils 0, PUBS MCHC 33.6, Digoxin 0.6 L Recent Imaging Studies: Chest x-ray: Interval improvement compared to 08/14/2016. Pulmonary edema has resolved and bibasilar atelectasis has decreased. Assessment/Plan Assessment/Plan Assessment: 1. Persistent atrial fibrillation 2. Small bowel obstruction post surgery 3. Obstructive sleep apnea 4. Acute on chronic diastolic heart failure, improved 5. Lip swelling and rash, uncertain etiology. Possible drug reaction. Of note , the lip swelling started before digoxin was initiated, suggesting that the digoxin does not appear to be the cause of the reaction. Plan: * Continue Eliquis for anticoagulation. * Continue current cardiac medications. Continue telemetry? Yes
--- NOTE | 2016-08-20 11:09 | PN- Att Addend ---
Attending Addendum Attending Brief Note Physical therapy in with the patient trying to ambulate feeling better still weak abdomen hurts some specially when she coughs O 2 saturaton on 3 liters of oxygen is 94% vital signs stable jaramillo still in . Lips less swollen and still a little rash. no other major changes .Check with Dr Rubi to see if we can D/C the jaramillo catheter , try to taper down oxygen needs and continue steroids. Current Medications Sig/Rosalia Start time Last Medication Dose Route Stop Time Status Admin Acetaminophen 1,000 MG Q6P PRN 08/07 1330 AC 08/17 N/A 1 UNIT IV 1638 Amiodarone HCl 200 MG DAILY 08/16 1000 AC 08/20 PO 1016 Apixaban 5 MG BID 08/17 1314 AC 08/20 PO 1016 Atorvastatin Calcium 20 MG 1700 08/07 1700 AC 08/19 PO 1635 Digoxin 0.125 MG 1700 08/17 1700 AC 08/19 PO 1635 Diltiazem HCl 30 MG Q6 08/18 1800 AC 08/20 PO 0554 Diltiazem HCl 125 MG Q16H 08/18 1515 DC 08/18 Sodium Chloride 100 ML IV 2120 Fluticasone 2 SPRAY DAILY 08/17 1000 AC 08/20 Propionate JONAS 1017 Furosemide 40 MG 7:30 AM, & 4:30 PM 08/14 0730 AC 08/20 IV 0821 Guaifenesin 10 ML Q4P PRN 08/17 2015 AC 08/18 PO 0914 Ipratropium [place] 2.5 ML EVERY 4 HRS/AWAKE 08/14 1600 AC 08/20 INH 0853 Lidocaine/Diphenhydr/ 15 ML TID PRN 08/18 2300 AC Alum/Mg/Simeth PO Loratadine 10 MG DAILY NEEDED PRN 08/17 0845 PO Methylprednisolone 40 MG ONCE ONE 08/19 1930 DC 08/19 IV 08/19 1931 1924 Metoprolol Tartrate 25 MG BID 08/07 2200 AC 08/20 PO 1016 Morphine Sulfate 2 MG Q4P PRN 08/07 1315 AC 08/16 IV 0042 Nystatin 5 ML 4 TIMES/DAY 08/18 2251 AC 08/20 PO 1016 Omeprazole 40 MG DAILY AC 08/19 0700 AC 08/20 PO 0548 Ondansetron HCl 4 MG Q8P PRN 08/07 1300 AC 08/14 IV 1129 Phenytoin 100 MG Q8 08/07 2200 AC 08/20 PO 0548 Sodium Chloride 2 SPRAY Q4P PRN 08/14 0730 AC 08/15 JONAS 0830 Laboratory Tests 08/20/16 0630: Anion Gap 11, Estimated GFR > 60, BUN/Creatinine Ratio 28.6 H, Magnesium 1.8 Vital Signs Date Time Temp Pulse Resp B/P Pulse O2 O2 Flow FiO2 Ox Delivery Rate 08/20 1016 92 106/60 08/20 1016 92 106/60 08/20 0858 94 Nasal 3.0L Cannula 08/20 0730 97.2 92 20 106/60 95 Nasal 3.0L Cannula 08/20 0554 95 104/60
[2016-08-20 15:30] VITALS: BP 98/62
[2016-08-20 19:57] VITALS: BP 102/58
[2016-08-21] VITALS: BP 100/60
--- NOTE | 2016-08-21 05:56 | PN- Pulmonary ---
Subjective HPI/Critical Care Issues: pt seen and examined off autopap, awake difficulty falling asleep no n/v/d/c some abdominal fullness, no pain, feels better sitting upright no dyspnea off o2 lip swelling improved Objective Current Medications: Current Medications Sig/Rosalia Start time Last Medication Dose Route Stop Time Status Admin Acetaminophen 1,000 MG Q6P PRN 08/07 1330 AC 08/17 N/A 1 UNIT IV 1638 Amiodarone HCl 200 MG DAILY 08/16 1000 AC 08/20 PO 1016 Apixaban 5 MG BID 08/17 1314 AC 08/20 PO 2203 Atorvastatin Calcium 20 MG 1700 08/07 1700 AC 08/20 PO 1754 Digoxin 0.125 MG 1700 08/17 1700 AC 08/20 PO 1759 Diltiazem HCl 30 MG Q6 08/18 1800 AC 08/21 PO 0035 Fluticasone 2 SPRAY DAILY 08/17 1000 AC 08/20 Propionate JONAS 1017 Furosemide 40 MG 7:30 AM, & 4:30 PM 08/14 0730 AC 08/20 IV 1754 Guaifenesin 10 ML Q4P PRN 08/17 2015 AC 08/18 PO 0914 Ipratropium [place] 2.5 ML EVERY 4 HRS/AWAKE 08/14 1600 AC 08/20 INH 1605 Lidocaine/Diphenhydr/ 10 ML Q6P PRN 08/20 1145 AC 08/20 Alum/Mg/Simeth PO 2242 Lidocaine/Diphenhydr/ 15 ML TID PRN 08/18 2300 DC Alum/Mg/Simeth PO Loratadine 10 MG DAILY 08/20 1345 AC 08/20 PO 1754 Loratadine 10 MG DAILY NEEDED PRN 08/17 0845 DC PO Metoprolol Tartrate 25 MG BID 08/07 2200 AC 08/20 PO 2210 Morphine Sulfate 2 MG Q4P PRN 08/07 1315 AC 08/16 IV 0042 Mupirocin 1 JAROD BID 08/20 1334 AC 08/20 TOP 2204 Non-Formulary 0 SEE ADMIN CRITERIA 08/20 1145 CAN Medication ANY Nystatin 5 ML 4 TIMES/DAY 08/18 2251 AC 08/20 PO 2203 Omeprazole 40 MG DAILY AC 08/19 0700 DC 08/20 PO 0548 Ondansetron HCl 4 MG Q8P PRN 08/07 1300 AC 08/14 IV 1129 Phenytoin 100 MG Q8 08/21 0600 AC PO Phenytoin 100 MG Q8 08/07 2200 DC 08/20 PO 2203 Sodium Chloride 2 SPRAY Q4P PRN 08/14 0730 AC 08/15 JONAS 0830 Triamcinolone 1 JAROD BID 08/20 1335 AC 08/20 Acetonide TOP 2204 Vital Signs & I&O Last 24 Hrs of Vitals and I&O: Vital Signs Date Time Temp Pulse Resp B/P Pulse O2 O2 Flow FiO2 Ox Delivery Rate 08/21 0536 82 92 08/21 0035 72 100/60 08/21 0021 86 94 08/21 0000 98.7 72 20 100/60 94 CPAP 2.0L 08/21 0000 95 CPAP 2.0L 08/20 2139 100 94 08/20 1957 97.9 114 20 102/58 95 Nasal 2.0L Cannula 08/20 1759 100 98/58 08/20 1759 100 98/58 08/20 1605 95 Nasal 3.0L Cannula 08/20 1600 93 Nasal 2.0L Cannula 08/20 1530 98.2 79 18 98/62 95 Nasal 3.0L Cannula 08/20 1415 93 100/70 08/20 1255 Nasal 5.0L Cannula 08/20 1223 94 Nasal 3.0L Cannula 08/20 1016 92 106/60 08/20 1016 92 106/60 08/20 0858 94 Nasal 3.0L Cannula 08/20 0800 94 Nasal 3.0L Cannula 08/20 0730 97.2 92 20 106/60 95 Nasal 3.0L Cannula 08/20 0554 95 104/60 Intake & Output 08/21 0800 08/21 0000 08/20 1600 Intake Total 420 480 Output Total 550 550 Balance -130 -70 Intake, IV 20 Intake, Oral 400 480 Number 0 0 Bowel Movements Output, Urine 550 550 Exam Other Physical Findings: gen awake and alert heent ncat, lip swelling improved, aphthous ulcers cvs s1, s2, systolic murmur lungs bilateral rhonchi abd soft, bs+ ext without edema Results Last 24 Hrs of Lab Results: Laboratory Tests 08/20/16 0630: Anion Gap 11, Estimated GFR > 60, BUN/Creatinine Ratio 28.6 H, Magnesium 1.8 Impression/Plan Impression/Plan Impression/Plan: Impression 76 year old woman - PAUL on AutoSet at home - s/p small bowel obstruction - mitral stenosis - acute on chronic diastolic chf - persistent a.fib - aphthous ulcers (lip swelling resolving) Plan - alert surgical team regarding abdominal fullness, no pain - continue magic mouthwash - f/u cardiology recommendations - reduce fio2 requirements - nocturnal autopap - IST - DVT prophylaxis at all times
--- NOTE | 2016-08-21 06:10 | PN- Housestaff ---
Subjective Follow-up For: Acute hypoxic respiratory failure-resolving Atrial fibrillation Acute on chronic CHF SBO status post laparotomy with lysis of adhesions Angioedema Tele-Events Since Last Visit: Afib 77-90 Subjective: Patient seen and examined at bedside. She reports having a bad night with a new rash on the arms but it was controlled with Benadryl cream. She had some palpitations at that time. This morning she c/o abdominal fullness after having no BMs for 2 days. Denies any worsening in the lip swelling. No complaints otherwise. Review of Systems Constitutional: Reports: see HPI. Objective Last 24 Hrs of Vital Signs/I&O Vital Signs Date Time Temp Pulse Resp B/P Pulse O2 O2 Flow FiO2 Ox Delivery Rate 08/21 0846 106 102/72 08/21 0846 106 102/72 08/21 0747 98.0 103 20 102/72 93 Nasal 2.0L Cannula 08/21 0746 96 Nasal 2.0L Cannula 08/21 0614 80 104/62 08/21 0536 82 92 08/21 0035 72 100/60 08/21 0021 86 94 08/21 0000 98.7 72 20 100/60 94 CPAP 2.0L 08/21 0000 95 CPAP 2.0L 08/20 2139 100 94 08/20 1957 97.9 114 20 102/58 95 Nasal 2.0L Cannula 08/20 1759 100 98/58 08/20 1759 100 98/58 08/20 1605 95 Nasal 3.0L Cannula 08/20 1600 93 Nasal 2.0L Cannula 08/20 1530 98.2 79 18 98/62 95 Nasal 3.0L Cannula 08/20 1415 93 100/70 08/20 1255 Nasal 5.0L Cannula 08/20 1223 94 Nasal 3.0L Cannula 08/20 1016 92 106/60 08/20 1016 92 106/60 Intake & Output 08/21 1600 08/21 0800 08/21 0000 Intake Total 100 420 Output Total 350 550 Balance -250 -130 Intake, IV 20 Intake, Oral 100 400 Number 0 Bowel Movements Output, Urine 350 550 Physical Exam General Appearance: Alert, Oriented X3, Cooperative, No Acute Distress Other Physical Findings: Skin: pinkish maculopapular raised lesions seen on her back, bilateral hands the rash of her thigh has improved from yesterday she continues to have upper and lower lip swelling associated with some ulcerations Cardiovascular: Normal S1, Normal S2, irregularirregular Lungs: Clear to Auscultation, Normal Air Movement Abdomen: Normal Bowel Sounds, Soft, No Tenderness, midline lissa in place Extremities: No Edema Current Medications: Current Medications Sig/Rosalia Start time Last Medication Dose Route Stop Time Status Admin Acetaminophen 1,000 MG Q6P PRN 08/07 1330 AC 08/17 N/A 1 UNIT IV 1638 Amiodarone HCl 200 MG DAILY 08/16 1000 AC 08/21 PO 0846 Apixaban 5 MG BID 08/17 1314 AC 08/21 PO 0846 Atorvastatin Calcium 20 MG 1700 08/07 1700 AC 08/20 PO 1754 Digoxin 0.125 [place] 17008/17 1700 AC 08/20 PO 1759 Diltiazem HCl 30 MG Q6 08/18 1800 AC 08/21 PO 0614 Fluticasone 2 SPRAY DAILY 08/17 1000 AC 08/21 Propionate JONAS 0859 Furosemide 40 MG 7:30 AM, & 4:30 PM 08/14 0730 AC 08/21 IV 0809 Guaifenesin 10 ML Q4P PRN 08/17 2015 AC 08/18 PO 0914 Ipratropium [place] 2.5 ML EVERY 4 HRS/AWAKE 08/14 1600 AC 08/21 INH 0746 Lidocaine/Diphenhydr/ 10 ML Q6P PRN 08/20 1145 AC 08/20 Alum/Mg/Simeth PO 2242 Lidocaine/Diphenhydr/ 15 ML TID PRN 08/18 2300 DC Alum/Mg/Simeth PO Loratadine 10 MG DAILY 08/20 1345 AC 08/21 PO 0859 Loratadine 10 MG DAILY NEEDED PRN 08/17 0845 DC PO Metoprolol Tartrate 25 MG BID 08/07 2200 AC 08/21 PO 0846 Morphine Sulfate 2 MG Q4P PRN 08/07 1315 AC 08/16 IV 0042 Mupirocin 1 JAROD BID 08/20 1334 AC 08/21 TOP 0859 Non-Formulary 0 SEE ADMIN CRITERIA 08/20 1145 CAN Medication ANY Nystatin 5 ML 4 TIMES/DAY 08/18 2251 AC 08/21 PO 0847 Omeprazole 40 MG DAILY AC 08/19 0700 DC 08/20 PO 0548 Ondansetron HCl 4 MG Q8P PRN 08/07 1300 AC 08/14 IV 1129 Phenytoin 100 MG Q8 08/21 0600 AC 08/21 PO 0614 Phenytoin 100 MG Q8 08/07 2200 DC 08/20 PO 2203 Sodium Chloride 2 SPRAY Q4P PRN 08/14 0730 AC 08/15 JONAS 0830 Triamcinolone 1 JAROD BID 08/20 1335 AC 08/21 Acetonide TOP 0859 Last 24 Hrs of Lab/Storm Results Last 24 Hrs of Labs/Mics: Laboratory Tests 08/21/16 0727: Anion Gap 9, Estimated GFR > 60, BUN/Creatinine Ratio 33.3 H, Magnesium 1.7 Assessment/Plan Assessment: 76 y/o woman with PMHx of PAUL on CPAP and atrial fibrillation admitted for SBO s /p laparotomy lysis of adhesions, hospital course complicated by acute hypoxemic respiratory failure secondary to acute on chronic diastolic CHF and atrial fibrillation with rapid ventricular rate, was transferred to the ICU for closer monitoring of her respiratory status and was transferred back to the telemetry floor. Continues to have maculopapular rash associated with itching and upper and lower lip swelling. #Acute hypoxemic respiratory failure: * Saturating 95% on 3 L nasal cannula * Pulmonology following. Appreciate their recs. * Wean down FiO2 as tolerated. * TRC and nebs. #Atrial fibrillation: * Continue digoxin 0.125 mg PO daily (level 0.6), amiodarone 200 mg PO daily and metoprolol 25 mg PO BID * Cont PO cardiazem 30mg q6 * Cont Eliquis 5 mg PO BID. #Acute on chronic diastolic CHF: Stable. * Cardiology following. Appreciate their recs. * Continue telemetry monitoring. * Continue Lasix 40 mg IV BID. * Monitor strict I/Os. -775 fluid balance #Lip swelling/maculopapular rash: * Dermatology consulted and photos were sent, they are recommending starting her on mupirocin and triamcinolone ointment. If there is any worsening please contact Dr. Hernández at [phone] * Monitor closely for increased lip swelling and airway obstruction. * Also started on Magic mouthwash was consists of Benadryl, lidocaine, Maalox #SBO: s/p laparatomy with lysis of adhesions. Postoperative pain well controlled. Advanced to heart healthy diet today. * Management per general surgery team. * Repeat AXR # Diet: Heart Healthy # Mild pain pathway # DVT PPx: Eliquis and ALPs # CODE: FULL Problem List: 1. Nasal congestion 2. Atrial fibrillation with RVR 3. Lip swelling 4. Acute on chronic diastolic (congestive) heart failure 5. Acute hypoxemic respiratory failure 6. Anticoagulated by anticoagulation treatment 7. Small bowel obstruction 8. Upper abdominal pain, unspecified 9. A-fib 10. Palpitations 11. Weakness of both arms 12. DVT prophylaxis 13. Osteoarthritis 14. Full code status 15. GERD (gastroesophageal reflux disease) 16. Mitral stenosis 17. Hypertension 18. Urticaria 19. Allergic reaction Pain Ratin Pain Location: None Pain Goal: Remain pain free Pain Plan: Mild pathway Tomorrow's Labs & Rationales: BEP
[2016-08-21 07:47] VITALS: BP 102/72
--- NOTE | 2016-08-21 08:57 | PN- General Surgery ---
Surgical Brief Attending Note Brief Attending Note: TOLERATING MORE PO. FLATUS. DIARRHEA RESOLVED. CONTINUE CARES. AMBULATE.
--- NOTE | 2016-08-21 10:04 | RADIOLOGY REPORT ---
EXAMINATION: ABDOMEN 1 VIEW CLINICAL INFORMATION: Abdominal distention. Abdominal discomfort. Pain. COMPARISON: Moderate 72016. TECHNIQUE: A supine view of the abdomen is provided. FINDINGS: There are no dilated loops of small bowel. There are no air-fluid levels. There are air-filled loops of large bowel without evidence of small bowel dilation. The visualized lung bases are clear. The osseous structures are unremarkable. IMPRESSION: Air-filled loops of large bowel without small bowel dilation.
--- NOTE | 2016-08-21 10:31 | PN- Cardiology ---
Subjective Subjective: The patient reports that she is feeling somewhat better. She continues to have a pruritic rash. She continues to have swelling of the lips. No shortness of breath. No chest pain. No palpitations. No diaphoresis. Objective Vital Signs and I&Os Vital Signs Date Time Temp Pulse Resp B/P Pulse O2 O2 Flow FiO2 Ox Delivery Rate 08/21 0846 106 102/72 08/21 0846 106 102/72 08/21 0747 98.0 103 20 102/72 93 Nasal 2.0L Cannula 08/21 0746 96 Nasal 2.0L Cannula 08/21 0614 80 104/62 08/21 0536 82 92 08/21 0035 72 100/60 08/21 0021 86 94 08/21 0000 98.7 72 20 100/60 94 CPAP 2.0L 08/21 0000 95 CPAP 2.0L 08/20 2139 100 94 08/20 1957 97.9 114 20 102/58 95 Nasal 2.0L Cannula 08/20 1759 100 98/58 08/20 1759 100 98/58 08/20 1605 95 Nasal 3.0L Cannula 08/20 1600 93 Nasal 2.0L Cannula 08/20 1530 98.2 79 18 98/62 95 Nasal 3.0L Cannula 08/20 1415 93 100/70 08/20 1255 Nasal 5.0L Cannula 08/20 1223 94 Nasal 3.0L Cannula Intake & Output 08/21 1600 08/21 0800 08/21 0000 08/20 1600 08/20 0800 08/20 0000 Intake Total 100 420 480 100 600 Output Total 350 550 550 200 675 Balance -250 -130 -70 -100 -75 Intake, IV 20 Intake, Oral 100 400 480 100 600 Number 0 0 1 0 Bowel Movements Output, Urine 350 550 550 200 675 Physical Exam: Gen: NAD HEENT: normal Lungs: Clear to auscultation, normal resp. effort Heart: Irregularly irregular, S1, S2, 1/6 systolic murmur Abdomen: Soft, nontender, no masses Extremities: No clubbing, cyanosis, or edema. Neuro: Alert and oriented x 3, cranial nerves intact Current Medications: Current Medications Sig/Rosalia Start time Last Medication Dose Route Stop Time Status Admin Acetaminophen 1,000 MG Q6P PRN 08/07 1330 AC 08/17 N/A 1 UNIT IV 1638 Amiodarone HCl 200 MG DAILY 08/16 1000 AC 08/21 PO 0846 Apixaban 5 MG BID 08/17 1314 AC 08/21 PO 0846 Atorvastatin Calcium 20 MG 1700 08/07 1700 AC 08/20 PO 1754 Digoxin 0.125 MG 1700 08/17 1700 AC 08/20 PO 1759 Diltiazem HCl 30 MG Q6 08/18 1800 AC 08/21 PO 0614 Fluticasone 2 SPRAY DAILY 08/17 1000 AC 08/21 Propionate JONAS 0859 Furosemide 40 MG 7:30 AM, & 4:30 PM 08/14 0730 AC 08/21 IV 0809 Guaifenesin 10 ML Q4P PRN 08/17 2015 AC 08/18 PO 0914 Ipratropium [place] 2.5 ML EVERY 4 HRS/AWAKE 08/14 1600 AC 08/21 INH 0746 Lidocaine/Diphenhydr/ 10 ML Q6P PRN 08/20 1145 AC 08/20 Alum/Mg/Simeth PO 2242 Lidocaine/Diphenhydr/ 15 ML TID PRN 08/18 2300 DC Alum/Mg/Simeth PO Loratadine 10 MG DAILY 08/20 1345 AC 08/21 PO 0859 Loratadine 10 MG DAILY NEEDED PRN 08/17 0845 DC PO Metoprolol Tartrate 25 MG BID 08/07 2200 AC 08/21 PO 0846 Morphine Sulfate 2 MG Q4P PRN 08/07 1315 AC 08/16 IV 0042 Mupirocin 1 JAROD BID 08/20 1334 AC 08/21 TOP 0859 Non-Formulary 0 SEE ADMIN CRITERIA 08/20 1145 CAN Medication ANY Nystatin 5 ML 4 TIMES/DAY 08/18 2251 AC 08/21 PO 0847 Omeprazole 40 MG DAILY AC 08/19 0700 DC 08/20 PO 0548 Ondansetron HCl 4 MG Q8P PRN 08/07 1300 AC 08/14 IV 1129 Phenytoin 100 MG Q8 08/21 0600 AC 08/21 PO 0614 Phenytoin 100 MG Q8 08/07 2200 DC 08/20 PO 2203 Sodium Chloride 2 SPRAY Q4P PRN 08/14 0730 AC 08/15 JONAS 0830 Triamcinolone 1 JAROD BID 08/20 1335 AC 08/21 Acetonide TOP 0859 Results Last 48 Hrs of Labs/Mics: Laboratory Tests 08/21/16 0727: Anion Gap 9, Estimated GFR > 60, BUN/Creatinine Ratio 33.3 H, Magnesium 1.7 08/20/16 0630: Anion Gap 11, Estimated GFR > 60, BUN/Creatinine Ratio 28.6 H, Magnesium 1.8 Recent Imaging Studies: Abdominal x-ray: Air-filled loops of large bowel without small bowel dilation. Assessment/Plan Assessment/Plan Assessment: 1. Persistent atrial fibrillation 2. Small bowel obstruction post surgery 3. Obstructive sleep apnea 4. Acute on chronic diastolic heart failure, improved 5. Lip swelling and rash, uncertain etiology. Possible drug reaction. Of note , the lip swelling started before digoxin was initiated, suggesting that the digoxin does not appear to be the cause of the reaction. Plan: * Continue Eliquis for anticoagulation. * Continue current cardiac medications Continue telemetry? Yes
--- NOTE | 2016-08-21 13:52 | PN- Att Addend ---
Attending Addendum Attending Brief Note Patient looking better, her lips are down almost to baseline, vital signs are stable she's a febrile, still weak, had a bowel movement. Abdomen still a little sore but soft. Patient slowly improving, stable in a.m. then start disposition plans for short-term rehabilitation. Current Medications Sig/Rosalia Start time Last Medication Dose Route Stop Time Status Admin Acetaminophen 1,000 MG Q6P PRN 08/07 1330 AC 08/17 N/A 1 UNIT IV 1638 Amiodarone HCl 200 MG DAILY 08/16 1000 AC 08/21 PO 0846 Apixaban 5 MG BID 08/17 1314 AC 08/21 PO 0846 Atorvastatin Calcium 20 MG 1700 08/07 1700 AC 08/20 PO 1754 Digoxin 0.125 MG 17008/17 1700 AC 08/20 PO 1759 Diltiazem HCl 30 MG Q6 08/18 1800 AC 08/21 PO 1217 Fluticasone 2 SPRAY DAILY 08/17 1000 AC 08/21 Propionate JONAS 0859 Furosemide 40 MG 7:30 AM, & 4:30 PM 08/14 0730 AC 08/21 IV 0809 Guaifenesin 10 ML Q4P PRN 08/17 2015 AC 08/18 PO 0914 Ipratropium [place] 2.5 ML EVERY 4 HRS/AWAKE 08/14 1600 AC 08/21 INH 1141 Lidocaine/Diphenhydr/ 10 ML Q6P PRN 08/20 1145 AC 08/20 Alum/Mg/Simeth PO 2242 Loratadine 10 MG DAILY 08/20 1345 AC 08/21 PO 0859 Magnesium Chloride 64 MG DAILY 08/21 1152 AC PO Metoprolol Tartrate 25 MG BID 08/07 2200 AC 08/21 PO 0846 Morphine Sulfate 2 MG Q4P PRN 08/07 1315 DC 08/16 IV 0042 Mupirocin 1 JAROD BID 08/20 1334 AC 08/21 TOP 0859 Nystatin 5 ML 4 TIMES/DAY 08/18 2251 AC 08/21 PO 1332 Ondansetron HCl 4 MG Q8P PRN 08/07 1300 AC 08/14 IV 1129 Phenytoin 100 MG Q8 08/21 0600 AC 08/21 PO 1331 Phenytoin 100 MG Q8 08/07 2200 DC 08/20 PO 2203 Potassium Chloride 10 MEQ Q1H 08/21 1200 DC 08/21 IV 08/21 1301 1331 Potassium Chloride 10 MEQ ONCE ONE 08/21 1200 CAN IV 08/21 1201 Sodium Chloride 2 SPRAY Q4P PRN 08/14 0730 AC 08/15 JONAS 0830 Triamcinolone 1 JAROD BID 08/20 1335 AC 08/21 Acetonide TOP 0859 Laboratory Tests 08/21/16 0727: Anion Gap 9, Estimated GFR > 60, BUN/Creatinine Ratio 33.3 H, Magnesium 1.7 Vital Signs Date Time Temp Pulse Resp B/P Pulse O2 O2 Flow FiO2 Ox Delivery Rate 08/21 1217 83 98/50 08/21 0846 106 102/72 08/21 0846 106 102/72 08/21 0800 93 Nasal 2.0L Cannula 08/21 0747 98.0 103 20 102 93 Nasal 2.0L Cannula 08/21 0746 96 Nasal 2.0L Cannula 08/21 0614 80 104/62 Intake & Output 08/21 1600 Intake Total Output Total 350 Balance -350 Number 1 Bowel Movements Output, Urine 350 Tolerating the diet
[2016-08-21 15:55] VITALS: BP 98/56
--- NOTE | 2016-08-21 19:33 | PN- General Surgery ---
See Addendum Surgical Brief Attending Note Brief Attending Note: Patient seen and examined has some vague abdominal pain she says in retrospect has been there for a few days but not getting worse and otherwise no nausea no vomiting she is passing gas and tolerating diet
[2016-08-21] MEDS ORDERED: LANOXIN125 MCG PO (21:29)
[2016-08-21] MEDS ORDERED: LORATADINE10 M1 PO (21:29)
[2016-08-21] MEDS ORDERED: GUAIFENESI100 MG/5 M PO (21:29)
[2016-08-21 23:50] VITALS: BP 106/62
--- NOTE | 2016-08-22 06:01 | PN- Housestaff ---
Subjective Follow-up For: Atrial fibrillation Acute on chronic CHF SBO status post laparotomy with lysis of adhesions Angioedema Tele-Events Since Last Visit: Persistent afib with HR ranging from 60-105 Subjective: Patient seen and examined at bedside. Patient reports she had a better night yesterday. Offers no new complaints. Rash and lip swelling improving. Had a small BM yesterday. Denies any f/c, headache, chest pain, dyspnea, palpitations, n/v/c/d. No events reported overnight. Review of Systems Constitutional: Reports: see HPI. Objective Last 24 Hrs of Vital Signs/I&O Vital Signs Date Time Temp Pulse Resp B/P Pulse O2 O2 Flow FiO2 Ox Delivery Rate 08/22 0816 97.6 92 20 94/50 92 Room Air 08/22 0621 76 104/52 08/22 0226 74 92 08/22 0032 90 102/58 08/22 0000 CPAP 1.0L 08/21 2350 97.4 98 18 106/62 94 Nasal Cannula 08/21 2244 86 94 08/21 2132 98 106/62 08/21 1759 94 108/60 08/21 1658 78 98/56 08/21 1600 93 Nasal 2.0L Cannula 08/21 1555 97.9 77 18 98/56 93 Nasal 2.0L Cannula 08/21 1551 94 Nasal 1.0L Cannula 08/21 1217 83 98/50 08/21 0846 106 102/72 08/21 0846 106 102/72 Intake & Output 08/22 1600 08/22 0800 08/22 0000 Intake Total 200 870 Output Total 400 1450 Balance -200 -580 Intake, IV 0 0 Intake, Oral 200 870 Number 0 1 Bowel Movements Output, Urine 400 1450 Physical Exam General Appearance: Alert, Oriented X3, Cooperative, No Acute Distress Other Physical Findings: Cardiovascular: Regular Rate, Normal S1, Normal S2 Lungs: Clear to Auscultation, Normal Air Movement Abdomen: Normal Bowel Sounds, Soft, No Tenderness Extremities: No Edema Current Medications: Current Medications Sig/Rosalia Start time Last Medication Dose Route Stop Time Status Admin Acetaminophen 325 MG Q6P PRN 08/22 0645 AC 08/22 PO 0642 Acetaminophen 1,000 MG Q6P PRN 08/07 1330 DC 08/17 N/A 1 UNIT IV 1638 Amiodarone HCl 200 MG DAILY 08/16 1000 AC 08/21 PO 0846 Apixaban 5 MG BID 08/17 1314 AC 08/21 PO 2133 Atorvastatin Calcium 20 MG 1700 08/07 1700 AC 08/21 PO 1657 Digoxin 0.125 MG 1700 08/17 1700 AC 08/21 PO 1658 Diltiazem HCl 30 MG Q6 08/18 1800 AC 08/22 PO 0621 Fluticasone 2 SPRAY DAILY 08/17 1000 AC 08/21 Propionate JONAS 0859 Furosemide 40 MG 7:30 AM, & 4:30 PM 08/22 0730 AC PO Furosemide 40 MG 7:30 AM, & 4:30 PM 08/14 0730 DC 08/21 IV 1657 Guaifenesin 10 ML Q4P PRN 08/17 2015 AC 08/18 PO 0914 Ipratropium [place] 2.5 ML EVERY 4 HRS/AWAKE 08/14 1600 AC 08/22 INH 0816 Lidocaine/Diphenhydr/ 10 ML Q6P PRN 08/20 1145 AC 08/20 Alum/Mg/Simeth PO 2242 Loratadine 10 MG DAILY 08/20 1345 AC 08/21 PO 0859 Magnesium Chloride 64 MG DAILY 08/21 1152 AC 08/21 PO 1657 Metoprolol Tartrate 25 MG BID 08/07 2200 AC 08/21 PO 2132 Morphine Sulfate 2 MG Q4P PRN 08/07 1315 DC 08/16 IV 0042 Mupirocin 1 JAROD BID 08/20 1334 AC 08/21 TOP 2134 Nystatin 5 ML 4 TIMES/DAY 08/18 2251 AC 08/21 PO 2132 Ondansetron HCl 4 MG Q8P PRN 08/07 1300 AC 08/14 IV 1129 Phenytoin 100 MG Q8 08/21 0600 AC 08/22 PO 0621 Potassium Chloride 20 MEQ ONCE ONE 08/21 1545 DC 08/21 PO 08/21 1546 1657 Potassium Chloride 10 MEQ Q1H 08/21 1200 DC 08/21 IV 08/21 1301 1331 Potassium Chloride 10 MEQ ONCE ONE 08/21 1200 CAN IV 08/21 1201 Senna/Docusate Sodium 1 TAB BID 08/21 1429 AC PO Sodium Chloride 2 SPRAY Q4P PRN 08/14 0730 AC 08/15 JONAS 0830 Triamcinolone 1 JAROD BID 08/20 1335 AC 08/21 Acetonide TOP 2134 Last 24 Hrs of Lab/Storm Results Last 24 Hrs of Labs/Mics: Laboratory Tests 08/22/16 0650: Sodium Pending, Potassium Pending, Chloride Pending, Carbon Dioxide Pending, Anion Gap Pending, BUN Pending, Creatinine Pending, BUN/Creatinine Ratio Pending , Magnesium Pending, CBC w Diff Pending, WBC Pending, RBC Pending, Hgb Pending, Hct Pending, MCV Pending, MCH Pending, RDW Pending, Plt Count Pending, MPV Pending, PUBS MCHC Pending Assessment/Plan Assessment: 76 y/o woman with PMHx of PAUL on CPAP and atrial fibrillation admitted for SBO s /p laparotomy lysis of adhesions, hospital course complicated by acute hypoxemic respiratory failure secondary to acute on chronic diastolic CHF and atrial fibrillation with rapid ventricular rate, was transferred to the ICU for closer monitoring of her respiratory status and was transferred back to the telemetry floor. Continues to have maculopapular rash associated with itching and upper and lower lip swelling. #Acute hypoxemic respiratory failure: * Saturating at 92% on RA * Pulmonology following. Appreciate their recs. * TRC and nebs. #Atrial fibrillation: * Continue digoxin 0.125 mg PO daily (level 0.6), amiodarone 200 mg PO daily and metoprolol 25 mg PO BID * Cont PO cardiazem 30mg q6 * Cont Eliquis 5 mg PO BID. #Acute on chronic diastolic CHF: Stable. * Cardiology following. Appreciate their recs. * Continue telemetry monitoring. * Lasix 40 mg BID IV switched to PO * Monitor strict I/Os. -775 fluid balance #Lip swelling/maculopapular rash: * Dermatology following, appreciate recs. If there is any worsening please contact Dr. Hernández at [phone] * Monitor closely for increased lip swelling and airway obstruction. * Cont Magic mouthwash (Benadryl, lidocaine, Maalox) and claratin #SBO: s/p laparatomy with lysis of adhesions. Postoperative pain well controlled. Advanced to heart healthy diet today. * Management per general surgery team. # Diet: Heart Healthy # Mild pain pathway # DVT PPx: Eliquis and ALPs # CODE: FULL Problem List: 1. Acute hypoxemic respiratory failure 2. Atrial fibrillation with RVR 3. Lip swelling 4. Nasal congestion 5. Small bowel obstruction Pain Ratin Pain Location: 0 Pain Goal: Remain pain free Pain Plan: Mild pathway Tomorrow's Labs & Rationales: None - discharge Tomorrow's Labs & Rationales: None - discharge
[2016-08-22 08:16] VITALS: BP 94/50
[2016-08-22 08:29] LABS: ABSOLUTE BASOPHIL COUNT 0 /CUMM (0.0-0.2); ABSOLUTE EOSINOPHIL COUNT 0.1 /CUMM (0.0-0.7); ABSOLUTE GRANULOCYTE CT 7.8 /CUMM (1.4-6.5); ABSOLUTE LYMPH COUNT 0.6 /CUMM (1.2-3.4); ABSOLUTE MONOCYTE COUNT 0.7 /CUMM (0.10-0.60); BASOPHIL % 0.2 % (0.0-2.0); EOSINOPHIL % 1.1 % (0-5); GRANULOCYTE % 84.3 % (42.2-75.2); HEMATOCRIT 37.9 % (37-47); MEAN CORPUSCULAR HGB 32.1 PG (27.0-31.0); MEAN CORPUSCULAR HGB CONC 33.3 G/DL (33.0-37.0); MEAN CORPUSCULAR VOLUME 96.3 FL (81.0-99.0); RBC DISTRIBUTION WIDTH 13.4 % (11.5-14.5); RED BLOOD CELL CT 3.94 /CUMM (4.20-5.40)
[2016-08-22 08:42] LABS: PLATELET COUNT 494 /CUMM (130-400)
[2016-08-22 09:02] LABS: WHITE BLOOD CELL COUNT 9.3 /CUMM (4.8-10.8)
[2016-08-22] MEDS ORDERED: TRIAMCINOLONE A15 G3 TOP (09:24)
[2016-08-22] MEDS ORDERED: MUPIROCIN22 GM TOP (09:24)
--- NOTE | 2016-08-22 10:19 | PN- Att Addend ---
Attending Addendum Attending Brief Note Patient feeling overall better except had an episode of visual aura, she hasn't had that in years, she has history of seizure disorder and while in the hospital she was on liquid Dilantin. Will check her Dilantin level, and then after start disposition plans for her to go to short-term rehabilitation I will follow patient over there. See the discharge summary and C MR Current Medications Sig/Rosalia Start time Last Medication Dose Route Stop Time Status Admin Acetaminophen 325 MG Q6P PRN 08/22 0645 AC 08/22 PO 0642 Acetaminophen 1,000 MG Q6P PRN 08/07 1330 DC 08/17 N/A 1 UNIT IV 1638 Amiodarone HCl 200 MG DAILY 08/16 1000 AC 08/22 PO 0913 Apixaban 5 MG BID 08/17 1314 AC 08/22 PO 0913 Atorvastatin Calcium 20 MG 1700 08/07 1700 AC 08/21 PO 1657 Digoxin 0.125 MG 1700 08/17 1700 AC 08/21 PO 1658 Diltiazem HCl 30 MG Q6 08/18 1800 AC 08/22 PO 0621 Fluticasone 2 SPRAY DAILY 08/17 1000 AC 08/22 Propionate JONAS 0914 Furosemide 40 MG 7:30 AM, & 4:30 PM 08/22 0730 AC 08/22 PO 0913 Furosemide 40 MG 7:30 AM, & 4:30 PM 08/14 0730 DC 08/21 IV 1657 Guaifenesin 10 ML Q4P PRN 08/17 2015 AC 08/18 PO 0914 Ipratropium [place] 2.5 ML EVERY 4 HRS/AWAKE 08/14 1600 AC 08/22 INH 0816 Lidocaine/Diphenhydr/ 10 ML Q6P PRN 08/20 1145 AC 08/20 Alum/Mg/Simeth PO 2242 Loratadine 10 MG DAILY 08/20 1345 AC 08/22 PO 0913 Magnesium Chloride 64 MG DAILY 08/21 1152 AC 08/22 PO 0914 Metoprolol Tartrate 25 MG BID 08/07 2200 AC 08/22 PO 0913 Morphine Sulfate 2 MG Q4P PRN 08/07 1315 DC 08/16 IV 0042 Mupirocin 1 JAROD BID 08/20 1334 AC 08/21 TOP 2134 Nystatin 5 ML 4 TIMES/DAY 08/18 2251 AC 08/22 PO 0914 Ondansetron HCl 4 MG Q8P PRN 08/07 1300 AC 08/14 IV 1129 Phenytoin 100 MG Q8 08/21 0600 AC 08/22 PO 0621 Potassium Chloride 20 MEQ ONCE ONE 08/21 1545 DC 08/21 PO 08/21 1546 1657 Potassium Chloride 10 MEQ Q1H 08/21 1200 DC 08/21 IV 08/21 1301 1331 Potassium Chloride 10 MEQ ONCE ONE 08/21 1200 CAN IV 08/21 1201 Senna/Docusate Sodium 1 TAB BID 08/21 1429 AC 08/22 PO 0914 Sodium Chloride 2 SPRAY Q4P PRN 08/14 0730 AC 08/15 JONAS 0830 Triamcinolone 1 JAROD BID 08/20 1335 AC 08/21 Acetonide TOP 2134 Laboratory Tests 08/22/16 1001: Phenytoin Cancelled 08/22/16 0650: Anion Gap 8, Estimated GFR > 60, BUN/Creatinine Ratio 26.7 H, Magnesium 1.9, CBC w Diff NO MAN DIFF REQ, RBC 3.94 L, MCV 96.3, MCH 32.1 H, RDW 13.4, MPV 8.0, Gran % 84.3 H, Lymphocytes % 6.4 L, Monocytes % 8.0, Eosinophils % 1.1, Basophils % 0.2, Absolute Granulocytes 7.8 H, Absolute Lymphocytes 0.6 L, Absolute Monocytes 0.7 H, Absolute Eosinophils 0.1, Absolute Basophils 0, PUBS MCHC 33.3, Phenytoin Pending Vital Signs Date Time Temp Pulse Resp B/P Pulse O2 O2 Flow FiO2 Ox Delivery Rate 08/22 912 97 116/72 08/22 912 97 116/72 08/22 0841 92 Room Air 08/22 0816 97.6 92 20 94/50 92 Room Air 08/22 06 76 104/52 08/22 0226 74 92
--- NOTE | 2016-08-22 11:43 | Patient Discharge Instructions ---
Discharge Instructions General Discharge Information You were seen/treated for: 1. Small bowel obstruction 2. Acute hypoxemic respiratory failure due to heart failure exacerbation 2. Atrail fibrillation Call Surgeon to remove: Tonya Special Instructions: Please follow up with Dr. Kamara (director construction services), Dr. Ibarra (field nurse case manager), Dr. Mosley (surgeon), and Dr. Hoang within 1-2 week of discharge. Diet Continue normal diet: Yes Recommended Diet: Heart Healthy Activity Full Activity/No Limits: Yes (As tolerated) Acute Coronary Syndrome Inclusion Criteria At DC or during hospital stay patient has or had the following: ACS DIAGNOSIS No Discharge Core Measures Meds if any: Prescribed or Continued at Discharge Meds if any: NOT Prescribed or Continued at Discharge Congestive Heart Failure Inclusion Criteria At DC or during hospital stay patient has or had the following: CHF DIAGNOSIS No Discharge Core Measures Meds if any: Prescribed or Continued at Discharge Meds if any: NOT Prescribed or Continued at Discharge Cerebrovascular accident Inclusion Criteria At DC or during hospital stay patient has or had the following: CVA/TIA Diagnosis No Discharge Core Measures Meds if any: Prescribed or Continued at Discharge Meds if any: NOT Prescribed or Continued at Discharge Venous thromboembolism Inclusion Criteria VTE Diagnosis No VTE Type NONE VTE Confirmed by (Test) NONE Discharge Core Measures - Per Current guidelines, there needs to be overlap - treatment for the first 5 days of Warfarin therapy. - If discharged on Warfarin prior to 5 days of - overlap therapy, the patient will need to be - assessed for post discharge needs including - *Post discharge parental anticoagulation - *Warfarin and/or parental anticoagulation education - *Follow up date to check INR post discharge At least 5 days overlap therapy as Inpatient No Meds if any: Prescribed or Continued at Discharge Note: Overlap Therapy is Warfarin and Anticoagulant Meds if any: NOT Prescribed or Continued at Discharge
[2016-08-22] MEDS ORDERED: LASIX40 M1 PO (12:03)
--- NOTE | 2016-08-22 12:45 | Discharge Summary ---
See Addendum Visit Information Visit Dates Admission Date: 08/07/16 Discharge Date: 08/22/16 Hospital Course Course Attending Physician: WENDY CLEMENT,MONA Primary Care Physician: WENDY CLEMENT,MONA [facility] Course: Ms. Torres is a 76 y/o F with PMHx of persistent atrial fibrillation on Eliquis , obstructive sleep apnea on CPAP and HTN who was originally admitted to the surgical service for small bowel obstruction s/p laparotomy lysis of adhesions, who was transferred to the medical service on postoperative day 3 after developing rapid atrial fibrillation and acute hypoxemic respiratory failure requiring high flow oxygen, deemed to be secondary to acute on chronic diastolic failure in the setting of rheumatic mitral valve stenosis. Two days later, patient became increasingly tachycardic and hypoxemic, requiring FiO2 100% and was subsequently transferred to the ICU for close monitoring. Patient was seen and treated for the following issues. #Acute hypoxemic respiratory failure: Patient initially required high flow oxygen but was later weaned down to 4 L NC. Pulmonology was on board. She has been weaned down on oxygen as tolerated. TRC nebs were provided. She was continued on nocturnal auto-PAP. #Acute on chronic diastolic CHF: Diuresis with Lasix 40 mg IV BID later transitioned to 40 mg PO BID #Atrial fibrillation: Patient was continued on IV diltiazem and IV heparin drips as well as metoprolol 25 mg PO BID. After a loading dose of digoxin IV 0.125 mg x 2, patient was started on digoxin 0.125 mg daily. Amiodarone dose was reduced in half to 200 mg PO daily. Heart rate became better controlled after starting digoxin. IV heparin was later discontinued and patient was restarted on her home dose of Eliquis 5 mg PO BID. Upon achievement of adequate rate control, patient was started on PO diltiazem and IV diltiazem drip was discontinued. She was continued on diltiazem 30 mg PO Q6H and Continue amiodarone 200 mg PO daily. She was continued on Eliquis 5 mg PO BID and digoxin 0.125 mg PO daily. #SBO: S/p laparotomy with lysis of adhesions (08/10/16). Patient was advanced to heart healthy diet which she tolerated well. She continued to pass flatus and have bowel movements. #Lip swelling: Patient was noted to have increasing swelling of her lower lip and was given 50 mg of IV Benadryl and solumedrol that helped her. Allergies: Coded Allergies: NSAIDS (Non-Steroidal Anti-Inflamma (UNKNOWN 08/07/16) carisoprodol (From Soma) (UNKNOWN 08/07/16) celecoxib (From Celebrex) (UNKNOWN 08/07/16) diclofenac (From Voltaren) (UNKNOWN 08/07/16) ibandronate sodium (UNKNOWN 08/07/16) nitrofurantoin (From Macrobid) (UNKNOWN 08/07/16) oxymetazoline (From Afrin (oxymetazoline)) (UNKNOWN 08/07/16) Disposition Summary Disposition Principal Diagnosis: SBO s/p lysis of adhesions Additional Diagnosis: atrial fibrilation hypoxic resp failure Discharge Disposition: SNF Discharge Instructions General Discharge Information Code Status: Full Code Patient's Diet: heart healthy Patient's Activity: as tolerated Follow-Up Instructions/Appts: please follow up with pcp upon discharge Medications at Discharge Discharge Medications: Continue taking these medications: Atorvastatin Calcium (Lipitor) 20 MG TABLET 1 Tablet ORAL DAILY Comments: Last Taken: 07/06/15 Time: 4:10 PM Metoprolol Succ XL (Toprol Xl 50MG Tab) 50 MG TAB.ER.24H 1 Tablet ORAL DAILY Comments: Last Taken: 07/07/15 Time: 11:20 AM Aspirin (Children's Aspirin) 81 MG TAB.CHEW 1 Tablet ORAL DAILY Comments: Last Taken: 07/07/15 Time: 11:20 AM OMEGA-3/DHA/EPA/FISH OIL (Lutz-3 Fish Oil 1,000 MG Sftg) 300 MG-1,000 MG CAPSULE 2 SGL ORAL DAILY Comments: Last Taken: NOT GIVEN IN HOSPITAL Time: Magnesium Oxide (Magnesium Oxide) 400 MG TABLET 1 Tablet ORAL DAILY Comments: Last Taken: 07/07/15 Time: 11:20 AM Omeprazole (Prilosec) 20 MG ECC 1 Capsule ORAL DAILY BEFORE BREAKFAST Comments: Last Taken: 07/06/15 Time: 6:50 AM Methylcellulose (Citrucel) 500 MG TABLET 1 Tablet ORAL TWICE DAILY Comments: Last Taken: NOT GIVEN IN HOSPITAL Time: Bifidobacterium Infantis (Align) 4 MG (1 BILLION CELL) CAPSULE 1 Capsule ORAL DAILY Comments: Last Taken: NOT GIVEN IN HOSPITAL Time: Multivitamin (Multiple Vitamins) 1 EACH TABLET 1 Tablet ORAL DAILY Comments: Last Taken: NOT GIVEN IN HOSPITAL Time: CALCIUM CARBONATE/VITAMIN D3 (Os-Vinicius 500+D3 Caplet) 500 MG-200 TABLET 1 Tablet ORAL TWICE DAILY Comments: Last Taken: 07/07/15 Time: 11:20 AM CHOLECALCIFEROL (VITAMIN D3) (Vitamin D3) 1,000 UNIT CAPSULE 1 SGL ORAL DAILY Comments: Last Taken: 07/07/15 Time: 11:20 AM Docusate Sodium (Colace) 100 MG CAPSULE 1 Capsule ORAL DAILY Comments: Last Taken: 07/07/15 Time: 11:20 AM Cyclosporine (Restasis) 0.05 % DROPERETTE 1 Drop In the eye EVERY 12 HOURS Comments: Last Taken: 07/07/15 Time: 12:30 PM Peg-400/Propylene Glycol (Systane Lubricant Eye Drops 0.4%-0.3% 5 Ml) 5 ML BRADLEY 1 Drop In the eye THREE TIMES DAILY Comments: Last Taken: NOT GIVEN IN HOSPITAL Time: Hypromellose (Systane Gel) 0.3 % GEL..GRAM. 1 Drop In the eye THREE TIMES DAILY Comments: Last Taken: NOT GIVEN IN HOSPITAL Time: OLOPATADINE HCL (Patanase) 0.6 % SPRAY.PUMP 2 [place] Both sides of nose TWICE DAILY Comments: Last Taken: NOT GIVEN IN HOSPITAL Time: Mometasone Furoate (Nasonex) 0.05 MG/Actuation SPR 1 [facility] [place] Both sides of nose DAILY Comments: Last Taken: NOT GIVEN IN HOSPITAL Time: Apixaban (Eliquis) 5 MG TABLET 1 Tablet ORAL TWICE DAILY Days = 30 Comments: Last Taken: 07/07/15 Time: 11:20 AM Diltiazem Cd (Cardizem 180 MG Cd Cap) 120 MG CAP.ER.24H 1 Capsule ORAL DAILY Days = 30 Comments: Last Taken: 07/07/15 Time: 11:20 AM Phenytoin (Dilantin ER 100MG Cap) 100 MG CAP 1 Capsule ORAL THREE TIMES DAILY Comments: Last Taken: 07/07/15 Time: 11:00 AM Acetaminophen (Tylenol 8 Hour) [address] 1 Tablet ORAL As Directed as needed for PAIN Comments: Last Taken: 07/06/15 Time: 10:40 AM Clobetasol Propionate (Clobetasol Propionate 0.05% 60GM (CREAM)) 0.05 %/60 GM CRM 1 Application On the skin As Directed as needed for SKIN Instructions: apply to affected area(s) Comments: Last Taken: NOT GIVEN IN HOSPITAL Time: Amiodarone Hydrochloride (Amiodarone) 200 MG TAB 1 Tablet ORAL TWICE DAILY Qty = 60 Comments: Last Taken: 07/07/15 Time: 11:20 AM Start taking the following new medications: Furosemide (Lasix) 40 MG TABLET 1 Tablet ORAL DAILY Qty = 30 No Refills Loratadine (Loratadine) 10 MG TABLET 10 Milligram ORAL DAILY Days = 30 No Refills Digoxin (Lanoxin) 125 MCG TABLET 0.125 Milligram ORAL 5 PM Days = 30 No Refills Guaifenesin (Guaifenesin) 100 MG/5 ML LIQUID 10 Milliliters ORAL EVERY 4 HOURS NEEDED as needed for COUGH Days = 14 No Refills Mupirocin (Mupirocin) 2 % OINT...G. 1 Application On the skin TWICE DAILY Days = 7 No Refills Triamcinolone Acetonide (Triamcinolone Acetonide) 0.1 % OINT...G. 1 Application On the skin TWICE DAILY Days = 7 No Refills Copies To: NOEL CLEMENT,Gael ERAZO; ANNETTE CLEMENT,CHONG Talbert; MONA NGUYEN MD
--- NOTE | 2016-08-22 13:40 | PN- Pulmonary ---
Subjective HPI/Critical Care Issues: pt seen and examined some abdominal distension respiratory status improved Objective Current Medications: Current Medications Sig/Rosalia Start time Last Medication Dose Route Stop Time Status Admin Acetaminophen 325 MG Q6P PRN 08/22 0645 AC 08/22 PO 0642 Acetaminophen 1,000 MG Q6P PRN 08/07 1330 DC 08/17 N/A 1 UNIT IV 1638 Amiodarone HCl 200 MG DAILY 08/16 1000 AC 08/22 PO 0913 Apixaban 5 MG BID 08/17 1314 AC 08/22 PO 0913 Atorvastatin Calcium 20 MG 1700 08/07 1700 AC 08/21 PO 1657 Digoxin 0.125 MG 1700 08/17 1700 AC 08/21 PO 1658 Diltiazem HCl 30 MG Q6 08/18 1800 AC 08/22 PO 1151 Fluticasone 2 SPRAY DAILY 08/17 1000 AC 08/22 Propionate JONAS 0914 Furosemide 40 MG 7:30 AM, & 4:30 PM 08/22 0730 AC 08/22 PO 0913 Furosemide 40 MG 7:30 AM, & 4:30 PM 08/14 0730 DC 08/21 IV 1657 Guaifenesin 10 ML Q4P PRN 08/17 2015 AC 08/18 PO 0914 Ipratropium [place] 2.5 ML EVERY 4 HRS/AWAKE 08/14 1600 AC 08/22 INH 1207 Lidocaine/Diphenhydr/ 10 ML Q6P PRN 08/20 1145 AC 08/20 Alum/Mg/Simeth PO 2242 Loratadine 10 MG DAILY 08/20 1345 AC 08/22 PO 0913 Magnesium Chloride 64 MG DAILY 08/21 1152 AC 08/22 PO 0914 Metoprolol Tartrate 25 MG BID 08/07 2200 AC 08/22 PO 0913 Mupirocin 1 JAROD BID 08/20 1334 AC 08/22 TOP 1149 Nystatin 5 ML 4 TIMES/DAY 08/18 2251 AC 08/22 PO 0914 Ondansetron HCl 4 MG Q8P PRN 08/07 1300 AC 08/14 IV 1129 Phenytoin 100 MG Q8 08/21 0600 AC 08/22 PO 0621 Potassium Chloride 20 MEQ ONCE ONE 08/21 1545 DC 08/21 PO 08/21 1546 1657 Senna/Docusate Sodium 1 TAB BID 08/21 1429 AC 03/15 PO 0914 Sodium Chloride 2 SPRAY Q4P PRN 08/14 0730 AC 08/15 JONAS 0830 Triamcinolone 1 JAROD BID 08/20 1335 AC 08/22 Acetonide TOP 1149 Vital Signs & I&O Last 24 Hrs of Vitals and I&O: Vital Signs Date Time Temp Pulse Resp B/P Pulse O2 O2 Flow FiO2 Ox Delivery Rate 08/22 1151 97 116/72 08/22 0913 97 116/72 08/22 0913 97 116/72 08/22 0841 92 Room Air 08/22 0816 97.6 92 20 94/50 92 Room Air 08/22 0621 76 104/52 08/22 0226 74 92 08/22 0032 90 102/58 08/22 0000 CPAP 1.0L 08/21 2350 97.4 98 18 106/62 94 Nasal Cannula 08/21 2244 86 94 08/21 2132 98 106/62 08/21 1759 94 108/60 08/21 1658 78 98/56 08/21 1600 93 Nasal 2.0L Cannula 08/21 1555 97.9 77 18 98/56 93 Nasal 2.0L Cannula 08/21 1551 94 Nasal 1.0L Cannula Intake & Output 08/22 1600 08/22 0800 08/22 0000 Intake Total 200 870 Output Total 400 1450 Balance -200 -580 Intake, IV 0 0 Intake, Oral 200 870 Number 0 1 Bowel Movements Output, Urine 400 1450 Exam Other Physical Findings: gen awake and alert heent ncat, aphthous ulcers cvs s1, s2, systolic murmur lungs bilateral rhonchi abd soft, bs+ ext without edema Results Last 24 Hrs of Lab Results: Laboratory Tests 08/22/16 1001: Phenytoin Cancelled 08/22/16 0650: Anion Gap 8, Estimated GFR > 60, BUN/Creatinine Ratio 26.7 H, Magnesium 1.9, CBC w Diff NO MAN DIFF REQ, RBC 3.94 L, MCV 96.3, MCH 32.1 H, RDW 13.4, MPV 8.0, Gran % 84.3 H, Lymphocytes % 6.4 L, Monocytes % 8.0, Eosinophils % 1.1, Basophils % 0.2, Absolute Granulocytes 7.8 H, Absolute Lymphocytes 0.6 L, Absolute Monocytes 0.7 H, Absolute Eosinophils 0.1, Absolute Basophils 0, PUBS MCHC 33.3, Phenytoin 6.9 L Impression/Plan Impression/Plan Impression/Plan: Impression 76 year old woman - PAUL on AutoSet at home - s/p small bowel obstruction - mitral stenosis - acute on chronic diastolic chf - persistent a.fib - aphthous ulcers (lip swelling resolving) Plan - continue magic mouthwash - f/u cardiology recommendations - reduce fio2 requirements - nocturnal autopap - IST - DVT prophylaxis at all times DC planning
--- NOTE | 2016-08-22 14:26 | PN- Cardiology ---
Subjective Subjective: Doing okay today. Ambulated this morning without difficulty. Still feels weak. Respiratory status improved. Objective Vital Signs and I&Os Vital Signs Date Time Temp Pulse Resp B/P Pulse O2 O2 Flow FiO2 Ox Delivery Rate 08/22 1151 97 116/72 08/22 0913 97 116/72 08/22 0913 97 116/72 08/22 0841 92 Room Air 08/22 0816 97.6 92 20 94/50 92 Room Air 08/22 0621 76 104/52 08/22 0226 74 92 08/22 0032 90 102/58 08/22 0000 CPAP 1.0L 08/21 2350 97.4 98 18 106/62 94 Nasal Cannula 08/21 2244 86 94 08/21 2132 98 106/62 08/21 1759 94 108/60 08/21 1658 78 98/56 08/21 1600 93 Nasal 2.0L Cannula 08/21 1555 97.9 77 18 98/56 93 Nasal 2.0L Cannula 08/21 1551 94 Nasal 1.0L Cannula Intake & Output 08/22 1600 08/22 0800 08/22 0000 08/21 1600 08/21 0800 08/21 0000 Intake Total 200 870 650 100 420 Output Total 400 1450 350 350 550 Balance -200 -580 300 -250 -130 Intake, IV 0 0 50 20 Intake, Oral 200 870 600 100 400 Number 0 1 1 0 Bowel Movements Output, Urine 400 1450 350 350 550 Current Medications: Current Medications Sig/Rosalia Start time Last Medication Dose Route Stop Time Status Admin Acetaminophen 325 MG Q6P PRN 08/22 0645 AC 08/22 PO 0642 Acetaminophen 1,000 MG Q6P PRN 08/07 1330 DC 08/17 N/A 1 UNIT IV 1638 Amiodarone HCl 200 MG DAILY 08/16 1000 AC 08/22 PO 0913 Apixaban 5 MG BID 08/17 1314 AC 08/22 PO 0913 Atorvastatin Calcium 20 MG 1700 08/07 1700 AC 08/21 PO 1657 Digoxin 0.125 MG 1700 08/17 1700 AC 08/21 PO 1658 Diltiazem HCl 30 MG Q6 08/18 1800 AC 08/22 PO 1151 Fluticasone 2 SPRAY DAILY 08/17 1000 AC 08/22 Propionate JONAS 0914 Furosemide 40 MG 7:30 AM, & 4:30 PM 08/22 0730 AC 08/22 PO 0913 Furosemide 40 MG 7:30 AM, & 4:30 PM 08/14 0730 DC 08/21 IV 1657 Guaifenesin 10 ML Q4P PRN 08/17 2014 AC 08/18 PO 0914 Ipratropium Orange 2.5 ML EVERY 4 HRS/AWAKE 08/14 1600 AC 08/22 INH 1207 Lidocaine/Diphenhydr/ 10 ML Q6P PRN 08/20 1145 AC 08/20 Alum/Mg/Simeth PO 2242 Loratadine 10 MG DAILY 08/20 1345 AC 08/22 PO 0913 Magnesium Chloride 64 MG DAILY 08/21 1152 AC 08/22 PO 0914 Metoprolol Tartrate 25 MG BID 08/07 2200 AC 08/22 PO 0913 Mupirocin 1 JAROD BID 08/20 1334 AC 08/22 TOP 1149 Nystatin 5 ML 4 TIMES/DAY 08/18 2251 AC 08/22 PO 1408 Ondansetron HCl 4 MG Q8P PRN 08/07 1300 AC 08/14 IV 1129 Phenytoin 100 MG Q8 08/21 0600 AC 08/22 PO 1408 Potassium Chloride 20 MEQ ONCE ONE 08/21 1545 DC 08/21 PO 08/21 1546 1657 Senna/Docusate Sodium 1 TAB BID 08/21 1429 AC 08/22 PO 0914 Sodium Chloride 2 SPRAY Q4P PRN 08/14 0730 AC 08/15 JONAS 0830 Triamcinolone 1 JAROD BID 08/20 1335 AC 08/22 Acetonide TOP 1149 Results Last 48 Hrs of Labs/Mics: Laboratory Tests 08/22/16 1001: Phenytoin Cancelled 08/22/16 0650: Anion Gap 8, Estimated GFR > 60, BUN/Creatinine Ratio 26.7 H, Magnesium 1.9, CBC w Diff NO MAN DIFF REQ, RBC 3.94 L, MCV 96.3, MCH 32.1 H, RDW 13.4, MPV 8.0, Gran % 84.3 H, Lymphocytes % 6.4 L, Monocytes % 8.0, Eosinophils % 1.1, Basophils % 0.2, Absolute Granulocytes 7.8 H, Absolute Lymphocytes 0.6 L, Absolute Monocytes 0.7 H, Absolute Eosinophils 0.1, Absolute Basophils 0, PUBS MCHC 33.3, Phenytoin 6.9 L 08/21/16 0727: Anion Gap 9, Estimated GFR > 60, BUN/Creatinine Ratio 33.3 H, Magnesium 1.7 Assessment/Plan Assessment/Plan Assessment- 1. Acute HFpEF - slowly improving 2. Atrial fibrillation 3. SBO, Day 6 post op 4. PAUL 5. Rheumatic mitral stenosis 6. Worsening lip swelling Recommendations: -Continue current medical regimen. -From a cardiac standpoint, the patient appears to be stable for transfer to short-term rehabilitation today. -Continue current medication regimen. -Continue Lasix once daily at discharge -Follow-up with me in the office in 2 weeks. -Eventual plans for cardioversion as outpatient -Follow-up digoxin level as outpatient. Continue telemetry? No
[2016-08-22 14:29] VITALS: BP 116/72
== END 2016-08-22 16:15 | DRG 335 ==
LOC: ENRESERVTM → ENRESERVDT → ERH 05:21 → ERHI 13:42 → 1NO 13:42 → CRI 13:42 → ENPENDDIS 13:42 → 1NO 17:17 → CRI 08-15 13:26 → 1NO 08-18 10:04
PROVIDERS: Dermatology; Emergency Medicine; Internal Medicine Critical Care Medicine; Nurse Practitioner; Orthopaedic Surgery; Physician Assistant; Physician Assistant Surgical; Specialist; Student in an Organized Health Care Education/Training Program; ADMIT Surgery
PROC: 0DN80ZZ Release Small Intestine, Open Approach (ICD-10-PCS; principal; 2016-08-10)
PROC: 5A09357 Assistance with Respiratory Ventilation, Less than 24 Consecutive Hours, Continuous Positive Airway Pressure (ICD-10-PCS; 2016-08-16)
DX: K56.5 Intestinal adhesions [bands] with obstruction (postinfection) (principal); J96.01 Acute respiratory failure with hypoxia; I50.33 Acute on chronic diastolic (congestive) heart failure; I48.1 Persistent atrial fibrillation; E87.1 Hypo-osmolality and hyponatremia; I27.2 Other secondary pulmonary hypertension; T78.3XXA Angioneurotic edema, initial encounter; J44.9 Chronic obstructive pulmonary disease, unspecified; Z79.01 Long term (current) use of anticoagulants; G47.33 Obstructive sleep apnea (adult) (pediatric); I05.0 Rheumatic mitral stenosis; K56.7 Ileus, unspecified; Z87.891 Personal history of nicotine dependence
CPT/HCPCS: 1NP; CCU; 36415; 74000; 74020; 74022; 74177; 81001; 82436; 87070; 87086; 93005; 93010; 93306; 96361; 96374; 96375; 96376; 97002-GP; 97110-GO; 97116-GO; 97162-GP; 97164-GP; 97530-GO; J0131; J0696; J1100; J1160; J1200; J1644; J1885; J1940; J2405; J2920; J7042; Q9965; S5012